=== PATIENT | female | born 1955 | race American Indian/Alaskan Native ===

== ENCOUNTER 2017-06-28 18:35 | Inpatient (IN) | payer MEDICAID ==
[2017-06-28] MEDS ORDERED: PANTOPRAZOLE SODIUM 40 MG VIAL IV ONE (18:56)
--- NOTE | 2017-06-28 19:06 | ER Document Report ---
ED General - General Chief Complaint: Vomiting Stated Complaint: VOMITTING Time Seen by Provider: 06/28/17 18:56 Notes: 2-year-old female with a history of alcohol use presents with constant chest pressure all day today severe accompanied by vomiting which began to have blood in it. Bright red/dark brown. She has also been having tarry black stools today 2 episodes including one witnessed by the nurse in the ED bathroom. She has some dizziness as well. Presents via EMS having received some fluids and nausea medicine. She is tachycardic and normotensive. TRAVEL OUTSIDE OF THE [place] IN LAST 30 DAYS: No - Related Data Allergies/Adverse Reactions: No Known Allergies Allergy (Verified 05/08/14 21:04) Past Medical History - General Information source: Patient - Social History Smoking Status: Unknown if Ever Smoked Family History: CAD - Past Medical History Cardiac Medical History: Reports: Hx Hypercholesterolemia, Hx Hypertension Pulmonary Medical History: Reports: Hx Asthma Psychiatric Medical History: Reports: Hx Depression Past Surgical History: Reports: Hx Section - x3, Hx Hysterectomy - Partial, Hx Orthopedic Surgery - L Foot, L Leg,, Hx Tonsillectomy - Immunizations Hx Diphtheria, Pertussis, Tetanus Vaccination: No Hx Pneumococcal Vaccination: 12/11/13 Review of Systems - Review of Systems Notes: REVIEW OF SYSTEMS GEN: Denies fever, chills, weight loss ENT: Denies sore throat, nasal discharge, ear pain EYES: Denies blurry vision, eye pain, discharge CV: Chest pressure a RESP: Denies cough, shortness of breath, wheezing GI: D vomiting, hematemesis, melena MSK: Denies joint pain/swelling, edema, SKIN: Denies rash, skin lesions LYMPH: Denies swollen glands/lymph nodes NEURO: Denies headache, focal weakness or numbness, dizziness PSYCH: Denies depression, suicidal or homicidal ideation PHYSICAL EXAMINATION General: No acute distress, well-nourished Head: Atraumatic, normocephalic ENT: Mouth normal, oropharynx moist, no exudates or tonsillar enlargement Eyes: Conjunctiva normal, pupils equal, lids normal Neck: No JVD, supple, no guarding CVS: Normal rate, regular rhythm, no murmurs Resp: No resp distress, equal and normal breath sounds bilaterally GI: Nondistended, soft, no tenderness to palpation, no rebound or guarding. There is a bag at the bedside containing mucus and coffee-ground type substance. Ext: No deformities, no edema, normal range of motion in upper and lower ext Back: No CVA or midline TTP Skin: No rash, warm Lymphatic: No lymphadeopathy noted Neuro: Awake, alert. Face symmetric. GCS 15. Physical Exam - Vital signs Vitals: Temp Pulse Resp BP Pulse Ox 98.6 F 104 H 17 122/68 96 06/28/17 18:40 06/28/17 18:40 06/28/17 18:40 06/28/17 18:40 06/28/17 18:40 Course - Re-evaluation Re-evalutation: 06/28/17 19:05 62-year-old female presents with chest pressure worrisome for acute coronary syndrome versus Francisca-Aden tear less likely esophageal perforation along with some signs and symptoms of an upper GI bleed including melena and hematemesis. She is tachycardic. Risk factors include alcoholism. She is clinically stable at this time will require hydration, IV proton pump inhibitors , transfer for upper GI bleed workup. In the meantime I will get a CBC type and screen her, get liver function testing, EKG and rule out PA with troponin. 06/28/17 19:23 Reassessed at 7:20 PM. No further bowel movement or vomiting. Requested second IV and to place the patient on the monitor. She will need to be transferred out. Labs are pending. 06/28/17 21:16 Patient is stable. No further vomiting. Rectal exam shows jahaira black stools/ melena. CT on my read does not show perforation. Troponin is negative. Pain is better with morphine. Not requiring transfusion at this time given her clinical stability. I will start a Protonix drip. I consulted with Dr. Sanchez from gastroneurology who agrees with plan admission, and will see the patient in the morning assuming she stays stable. I then spoke with Dr. Nelson who agreed to admit the patient to the ICU at this point with possible downgrade to stepdown. Please see critical care documentation - Vital Signs Vital signs: Temp Pulse Resp BP Pulse Ox 98.6 F 104 H 17 122/68 96 06/28/17 18:40 06/28/17 18:40 06/28/17 18:40 06/28/17 18:40 06/28/17 18:40 - Laboratory Result Diagrams: 06/28/17 19:30 06/28/17 19:30 Laboratory results interpreted by me: 06/28/17 06/28/17 06/28/17 19:03 19:30 19:30 RBC 3.14 L Hgb 9.0 L Hct 27.6 L RDW 22.0 H Sodium 136.1 L Carbon Dioxide 16 L BUN 34 H Lactic Acid Ammonia Urine Ketones 20 H 06/28/17 06/28/17 19:30 19:30 RBC Hgb Hct RDW Sodium Carbon Dioxide BUN Lactic Acid 3.4 H Ammonia < 8.7 L Urine Ketones - Diagnostic Test Radiology reviewed: Image reviewed, Reports reviewed - EKG Interpretation by Me EKG shows normal: Sinus rhythm Rate: Normal Rhythm: NSR When compared to previous EKG there are: No significant change Critical Care Note - Critical Care Note Total time excluding time spent on procedures (mins): 35 Comments: The above patient is critically ill. Not including procedures, but including direct re-evaluations, speaking with patient and/or consultants, interpreting results, and documenting, I spent the total amount of minute listed listed above on critical care time Discharge - Discharge Clinical Impression: Gastrointestinal bleeding, upper, Chest pain, atypical Condition: Fair Disposition: ADMITTED INPATIENT Admitting Provider: Hospitalist Unit Admitted: ICU
[2017-06-28] MEDS ORDERED: MORPHINE SULFATE 10 MG/ML INJ IV ONE (19:32)
[2017-06-28 19:55] LABS: APPEARANCE,URINE SLIGHTLY-CLOUDY; BILIRUBIN,URINE NEGATIVE (NEGATIVE); GLUCOSE, URINE NEGATIVE (NEGATIVE); KETONES,URINE 20 mg/dL (NEGATIVE); LEUKOCYTE ESTERASE,URINE NEGATIVE (NEGATIVE); NITRITE,URINE NEGATIVE (NEGATIVE); PROTEIN,URINE NEGATIVE (NEGATIVE); URINE SPECIFIC GRAVITY 1.014; UROBILINOGEN,URINE NEGATIVE mg/dL (<2.0)
[2017-06-28 20:04] LABS: ABSOLUTE LYMPHOCYTES (AUTO) 1.9 10^3/uL (0.5-4.7); ABSOLUTE MONOCYTES (AUTO) 0.4 10^3/uL (0.1-1.4); ABSOLUTE NEUT (AUTO) 7.9 10^3/uL (1.7-8.2); BASOPHILS % (AUTO) 0.3 % (0-2); EOSINOPHILS % (AUTO) 0.1 % (0-6); HEMATOCRIT 27.6 % (36.0-47.0); HGB HCT DIFFERENCE -0.6; MEAN CORPUSCULAR HEMOGLOBIN 28.6 pg (27.0-33.4); MEAN CORPUSCULAR HGB CONC 32.5 g/dL (32.0-36.0); MEAN CORPUSCULAR VOLUME 88 fl (80-97); MONOCYTES % (AUTO) 4.2 % (3-13); RED BLOOD COUNT 3.14 10^6/uL (3.72-5.28); SEGMENTED NEUTROPHILS % (AUTO) 76.4 % (42-78); WHITE BLOOD COUNT 10.3 10^3/uL (4.0-10.5)
[2017-06-28 20:30] LABS: ALANINE AMINOTRANSFERASE 20 U/L (9-52); ALBUMIN 4.1 g/dL (3.5-5.0); ALKALINE PHOSPHATASE 82 U/L (38-126); ANION GAP 15 (5-19); ASPARTATE AMINO TRANSFERASE 20 U/L (14-36); BILIRUBIN,DIRECT 0.4 mg/dL (0.0-0.4); BILIRUBIN,TOTAL 0.5 mg/dL (0.2-1.3); BLOOD UREA NITROGEN 34 mg/dL (7-20); CALCIUM 9.5 mg/dL (8.4-10.2); CARBON DIOXIDE 16 mmol/L (22-30); CHLORIDE 105 mmol/L (98-107); CREATININE RESULT 0.93 mg/dL (0.52-1.25); GLUCOSE 104 mg/dL (75-110); POTASSIUM 4.4 mmol/L (3.6-5.0); SODIUM 136.1 mmol/L (137-145); TOTAL PROTEIN 6.7 g/dL (6.3-8.2)
[2017-06-28] MEDS ORDERED: NORMAL SALINE 1000 ML 1,000 ML IV ONE (20:38)
[2017-06-28] MEDS ORDERED: PANTOPRAZOLE SODIUM 40 MG VIAL IV PRN (21:12)
--- NOTE | 2017-06-28 21:13 | RADIOLOGY REPORT (SQ) ---
EXAM DESCRIPTION: CT CHEST WITHOUT COMPLETED DATE/TIME: 06/28/2017 9:03 pm REASON FOR STUDY: hematemesis and CP, r/o esoph PERF- Needs GASTRO COMPARISON: None. TECHNIQUE: CT scan performed of the chest without intravenous contrast. Images reviewed with lung, soft tissue and bone windows. Reconstructed coronal and sagittal MPR images reviewed. All images st ored on PACS. All CT scanners at this facility use dose modulation, iterative reconstruction, and/or weight based d osing when appropriate to reduce radiation dose to as low as reasonably achievable (ALARA). [facility]: Dose Right [facility]: CareDose [facility]: Dose Right [facility]: Teradose 4D [facility]: Smart Fliggo RADIATION DOSE: Up-to-date CT equipment and radiation dose reduction techniques were employed. CTDIv ol: 25.0 mGy. DLP: 1022 mGy-cm. mGy. LIMITATIONS: No technical limitations. FINDINGS: LUNGS AND PLEURA: No masses, infiltrates, pneumothorax. No pleural effusions, calcificati ons. HILAR AND MEDIASTINAL STRUCTURES: Esophagus appears intact. No CT evidence of esophageal perforation . No contrast extravasation. No mediastinal air. HEART AND VASCULAR STRUCTURES: No aneurysm. No pericardial effusion. UPPER ABDOMEN: There is a left adrenal lesion most likely adenoma or hyperplasia. THYROID AND OTHER SOFT TISSUES: No masses. No adenopathy. BONES: No significant finding. HARDWARE: None in the chest. OTHER: No other significant findings. IMPRESSION: NO SIGNIFICANT FINDING ON NON-CONTRASTED CHEST CT. TECHNICAL DOCUMENTATION: JOB ID: [id number] Quality ID # [id number]: Final reports with documentation of one or more dose reduction techniques (e.g., Au tomated exposure control, adjustment of the mA and/or kV according to patient size, use of iterative reconstruction technique) 2010 [employer]- All Rights Reserved
[2017-06-28 21:57] LABS: ADD ON TESTING BLD IN LAB ACKNOWLEDGE
[2017-06-28 22:04] LABS: PROTHROMBIN TIME 12.9 SEC (11.4-15.4)
[2017-06-28 22:05] LABS: PARTIAL THROMBOPLASTIN TIME 27.8 SEC (23.5-35.8)
[2017-06-28 22:08] LABS: ALCOHOL 109 mg/dL (NONE DETECTED); MAGNESIUM 2.3 mg/dL (1.6-2.3)
[2017-06-28 23:04] LABS: HEMATOCRIT 27.8 % (36.0-47.0); HGB HCT DIFFERENCE -0.8; MEAN CORPUSCULAR HEMOGLOBIN 28.9 pg (27.0-33.4); MEAN CORPUSCULAR HGB CONC 32.5 g/dL (32.0-36.0); MEAN CORPUSCULAR VOLUME 89 fl (80-97); RED BLOOD COUNT 3.13 10^6/uL (3.72-5.28); RED CELL DISTRIBUTION WIDTH 22.1 % (11.5-14.0); WHITE BLOOD COUNT 9.3 10^3/uL (4.0-10.5)
[2017-06-29] MEDS ORDERED: THIAMINE HCL 100 MG in NORMAL SALINE 50 ML IV ONE (00:02)
[2017-06-29] MEDS ORDERED: ACETAMINOPHEN 325 MG TABLET PO PRN ×2 (00:07→15:15)
[2017-06-29] MEDS ORDERED: DEXTROSE 40% GEL 15 GM TUBE PO PRN ×2 (00:09)
[2017-06-29] MEDS ORDERED: DEXTROSE 50%-WATER 25 GM/50 ML DISP.SYRIN IV PRN ×2 (00:09)
[2017-06-29] MEDS ORDERED: GLUCAGON,HUMAN RECOMB 1 MG INJ IM PRN (00:09)
[2017-06-29] MEDS ORDERED: PROMETHAZINE HCL 25 MG TABLET PO PRN (00:12)
[2017-06-29] MEDS ORDERED: NICOTINE 14 MG/24 HR PATCH.TD24 TD PRN (00:32)
--- NOTE | 2017-06-29 00:36 | PDOC H&P ---
History of Present Illness Admission Date/PCP: 06/28/17 22:02 Alba Reyes Patient complains of: Chest pain, hematemesis, melena History of Present Illness: RORO DAS is a 62 year old morbidly obese female with underlying hypothyroidism, hyperlipidemia, diet-controlled diabetes mellitus, acid reflux, COPD, hypertension, history of DVT in 1995 treated with Coumadin, chronic pain secondary to arthritis, primarily affecting left knee and hip, and chronic alcohol dependency, along with mild anxiety and depression, without suicidal or homicidal ideation, who presents to the emergency room for evaluation of above complaints. Patient has been discussed with emergency room physician who evaluated the patient. Prior to my being called, the ER physician did speak with Dr. Sanderson, on-call [employer] operations consultant, who agrees with therapy so far and agrees to see patient in consultation. She describes the onset of constant chest pressure all day today, worsened by multiple episodes of nausea and vomiting, with the last few episodes of emesis having combination of bright and dark red blood. Also noted tarry stools, twice today, including one witnessed by a nurse in the emergency department. Some associated mild dizziness. He has never had any problems with GI bleeding in the past. Never had a colonoscopy or upper endoscopy. No known history of bleeding ulcer or varices. Takes a baby aspirin every day. Rare Goody powder. 2 [id number] Motrin daily for her arthritis pain. History of alcohol abuse. States she often drinks approximately a glass of wine per day. States she last had alcohol approximately 24 hours ago; seemed surprised when I told her her alcohol level was 109. Half pack of cigarettes a day. Denies illicit drug use. Currently resting quietly, still having some chest discomfort. Hospitalized on our service the through 28 April of last year final diagnoses including acute renal failure secondary to rhabdomyolysis and dehydration, along with metabolic encephalopathy secondary to opiates and multiple drug use. Discharge summary has been reviewed. Hospitalized on our service April 2014 with admission diagnoses including acute alcohol intoxication, chronic alcohol abuse, atypical chest pain, and indeterminate troponins. History and physical has been reviewed. Dictation via voice recognition software. Laboratory results are listed in [employer] and are reviewed. X-ray summary results are listed below, with full report(s) reviewed. . EKG reviewed and compared to prior tracing from April 26 of last year. Social history/personal habits: . 5 children. On disability due to severe arthritis. Personal habits as noted above. No known drug allergies. Home medications initially autopopulated into [employer] may not accurately reflect patient's true medications, dosages, and/or frequencies. technician telecommunication systems to reconcile medications. Unfortunately, patient not certain of all medications/dosages/frequencies. REVIEW OF SYSTEMS: Constitutional: No fever or chills. Eyes: Wears glasses. ENT: No swallowing problems or complaints. Denies hearing loss. Pulmonary: No current complaints. Cardiovascular: See history and present illness. Gastrointestinal: See history and present illness. Skin: No current complaints, including rashes. Hematologic: Easy bruising. Neurologic: Chronic weakness of the left ankle on dorsiflexion secondary to prior trauma. Musculoskeletal: See history and present illness. Psychiatric: Mild anxiety and depression. Denies suicidal or homicidal ideation. Endocrine: No current complaints, including polyuria. Genitourinary: No current complaints, including dysuria. PHYSICAL EXAMINATION: 5 feet 3 inches tall. 104.2 kg. BMI 40.7 kg/m. Blood pressure 107/72. Pulse 105. 99% saturation on room air. Respirations are 13 and unlabored. Temperature 98.6. Morbidly obese somewhat chronically ill-appearing female who appears perhaps a bit older than her stated age. Pleasant awake alert and cooperative. No obvious distress other than somewhat anxious. Female emergency room nursing educator Vickie is present. Skin is warm and dry. No grossly obvious evidence of rash in areas of skin examined. No subcutaneous nodules palpated. ENT: Hearing grossly normal to normal conversation. Tongue midline on protrusion pink and slightly tacky. Eyes: No scleral icterus. Pupils equal and reactive to light at 4 mm. [place] conjunctivae. Neck is supple and nontender to gentle active range of motion and palpation. Midline trachea. No palpable thyroid nodule mass enlargement or tenderness. Lymphatic: No palpable cervical or clavicular nodes. Neck and lymphatic exams limited by patient body habitus. Psychiatric: Reasonable insight into acute and chronic medical issues. Oriented to time location and why here. Lungs: Auscultation reveals equal breath sounds bilaterally. No use of accessory respiratory muscles. Mild brief expiratory wheezing bilaterally. Cardiovascular: Heart regular rate and rhythm, without gallop murmur or rub. No carotid or abdominal aortic bruits. No ankle or pedal edema. Faintly palpable dorsalis pedis pulses. Abdomen:soft obese with positive bowel sounds. Mild epigastric discomfort to palpation, but certainly without evidence of guarding or peritoneal signs. Unable to adequately evaluate abdomen for masses or organomegaly due to body habitus. Compression of both her epigastrium and sternum exacerbates her mild chest discomfort. Extremities: Feet are warm and dry. No calf tenderness to compression. No grossly obvious visual evidence of calf swelling. Gentle manipulation of lower extremities fails to reveal any obvious evidence of injury or instability to knees hips or ankles, although some slight stiffness and discomfort to knees and hips, left greater than right, a chronic finding, per patient, without recent change. Neurologic: Moves upper extremities grossly normally. Patellar reflexes absent. Absent Babinski. Light touch is intact at feet. Dorsiflexion and plantarflexion of right foot 5 / 5, with plantarflexion 5/5 on left, and 3/5 dorsiflexion, again a chronic finding per patient, without recent change. Past Medical History Cardiac Medical History: Reports: DVT - 1995, Hyperlipidema, Hypertension Denies: Atrial Fibrillation, Congestive Heart Failure, Coronary Artery Disease, Myocardial Infarction, Pulmonary Embolism Pulmonary Medical History: Denies: Chronic Obstructive Pulmonary Disease (COPD) EENT Medical History: Reports: Eyes - Glasses Denies: Ears, Throat Neurological Medical History: Denies: Hemorrhagic CVA, Ischemic CVA, Seizures Endocrine Medical History: Reports: Diabetes Mellitus Type 2 - Diet controlled, Hypothyroidism Denies: Diabetes Mellitus Type 1, Hyperthyroidism Renal/ Medical History: Reports: None GI Medical History: Reports: Gastroesophageal Reflux Disease Denies: Cirrhosis, Hepatitis, Peptic Ulcer Disease Musculoskeltal Medical History: Reports: Arthritis Skin Medical History: Reports: None Psychiatric Medical History: Reports: Alcohol Dependency, Depression, General Anxiety Disorder, Tobacco Dependency Denies: Substance Abuse Hematology: Reports: Other - Easy bruising Infectious Medical History: Denies: Hepatitis B, Hepatitis C Past Surgical History Past Surgical History: Reports: Section - x3, Hysterectomy - Partial, Orthopedic Surgery - L Foot, L Leg,, Tonsillectomy Social History Information Source: Patient, Emergency Med Personnel, [facility] Records Smoking Status: Current Every Day Smoker Frequency of Alcohol Use: Heavy Hx Recreational Drug Use: No Drugs: None Hx Prescription Drug Abuse: No - Advance Directive Resuscitation Status: Full Code Surrogate healthcare decision maker:: Brother Abundio Andujar Family History Family History: CAD Parental Family History Reviewed: Yes - Mother of cancer, father diabetic complications Children Family History Reviewed: Yes - Healthy Sibling(s) Family History Reviewed.: Yes - Brother of suicide, sister cancer Medication/Allergy Home Medications: Amitriptyline HCl [Elavil 25 mg Tablet] 25 mg PO QHS 06/29/17 Amlodipine Besylate [Norvasc 5 mg Tablet] 5 mg PO DAILY 06/29/17 Aspirin [Aspirin 81 mg Chewable Tablet] 81 mg PO DAILY 06/29/17 Atorvastatin Calcium [Lipitor 40 mg Tablet] 40 mg PO QHS 06/29/17 Fluoxetine HCl [Prozac 20 mg Capsule] 20 mg PO DAILY 06/29/17 Gabapentin [Neurontin 300 mg Capsule] 300 mg PO BID 06/29/17 Ibuprofen [Motrin Ib] 200 mg PO DAILYP PRN 06/29/17 Ipratropium/Albuterol Sulfate [Duoneb 3 ml Ampul] 3 ml NEB RTBIDP PRN 06/29/17 Levothyroxine Sodium [Synthroid 0.025 mg Tablet] 25 mcg PO DAILY 06/29/17 Lisinopril [Prinivil] 20 mg PO Q12 06/29/17 Oxycodone HCl [Oxycontin] 30 mg PO Q12 06/29/17 Pantoprazole Sodium [Protonix] 40 mg PO BIDACBS 06/29/17 Tiotropium [place] [Spiriva Handihaler 5 Cap/Kit (18 Mcg/Cap)] 1 cap IH DAILY Tramadol HCl [Ultram 50 mg Tablet] 50 mg PO BIDP PRN 06/29/17 Allergies/Adverse Reactions: No Known Allergies Allergy (Verified 05/08/14 21:04) Physical Exam Vital Signs: Temp Pulse Resp BP Pulse Ox 98.6 F 104 H 14 109/50 L 99 06/28/17 18:40 06/28/17 18:40 06/28/17 23:01 06/28/17 23:01 06/28/17 23:01 Results Laboratory Results: 06/28/17 22:30 06/28/17 06/28/17 22:30 22:30 WBC 9.3 RBC 3.13 L Hgb 9.0 L Hct 27.8 L MCV 89 MCH 28.9 MCHC 32.5 RDW 22.1 H Plt Count 230 Blood Type A POSITIVE Antibody Screen NEGATIVE Impressions: Chest CT 06/28/17 19:56 IMPRESSION: NO SIGNIFICANT FINDING ON NON-CONTRASTED CHEST CT. Assessment & Plan - Diagnosis (1) Abnormal CT of the abdomen Is this a current diagnosis for this admission?: YesPlan: Left adrenal adenoma versus hyperplasia. Outpatient follow-up. (2) Acute alcohol intoxication Qualifiers: Complication of substance-induced condition: uncomplicated Qualified Code(s): F10.929 - Alcohol use, unspecified with intoxication, unspecified Is this a current diagnosis for this admission?: Yes (3) Chest pain, atypical Is this a current diagnosis for this admission?: YesPlan: No outward evidence of acute coronary syndrome, but will proceed with serial troponins. Likely esophageal spasm and irritation secondary to multiple episodes of vomiting. (4) Gastrointestinal bleeding, upper Is this a current diagnosis for this admission?: YesPlan: Carafate every 6 hours. Parenteral Protonix. GI consult. Serial hemoglobin and hematocrit. Patient understands the risks associated with blood product transfusion to include, but not be limited to, transfusion reaction, which can be fatal, along with hepatitis and/or HIV viruses. Discussed in lay person's terms. Patient agrees to undergo transfusion of blood products if felt necessary. I have strongly encouraged patient not to get out of bed without notifying staff , to avoid a fall with injury. Knee high SCDs for DVT prophylaxis; with GI bleeding, will obviously forego Lovenox or heparin at this point. Impression and plans were discussed with patient who concurs. Time spent in evaluation and management of patient: 74 minutes. (5) Chronic alcohol abuse Is this a current diagnosis for this admission?: YesPlan: Intravenous thiamine at present; daily banana bag. Observe closely for evidence of alcohol withdrawal; none at present. (6) Chronic pain Qualifiers: Chronic pain type: other chronic pain Qualified Code(s): G89.29 - Other chronic pain Is this a current diagnosis for this admission?: YesPlan: As needed pain medication. (7) Diabetes mellitus type 2 in obese Is this a current diagnosis for this admission?: YesPlan: Diet-controlled diabetes mellitus. Accu-Cheks with appropriate sliding scale coverage. (8) Personal history of DVT (deep vein thrombosis) Is this a current diagnosis for this admission?: Yes (9) Tobacco dependency Is this a current diagnosis for this admission?: YesPlan: As needed nicotine patch. - Time Time Spent: Greater than 70 Minutes Anticipated discharge: Home Within: within 72 hours - Inpatient Certification Based on my medical assessment, after consideration of the patient's comorbidities, presenting symptoms, or acuity I expect that the services needed warrant INPATIENT care.: Yes I certify that my determination is in accordance with my understanding of Medicare's requirements for reasonable and necessary INPATIENT services [42 CFR 412.3e].: Yes Medical Necessity: Need Close Monitoring Due to Risk of Patient Decompensation, Need For IV Fluids, Risk of Complication if Not Cared For in Hospital, Risk of Diagnosis Which Will Require Inpatient Eval/Care/Monitoring Post Hospital Care: D/C or Transfer Summary
--- NOTE | 2017-06-29 00:56 | PDOC CONSULTATION ---
Consultation Consult Date: 06/28/17 Attending physician:: SHANELL MADSEN Consult reason:: possible upper GI bleeding, with coffee grounds History of Present Illness Admission Date/PCP: 06/28/17 23:40 History of Present Illness: Called by ED physician, patient present with melena,and possible coffee ground emesis Hgb is stable patient was tachycardic but resolved with fluid she is going to be admitted patient states positive NSAIDS in the past currently hemodynamically stable denies any early satiety patient states no dysphagia or odynophagia will need EGD may have peptic ulcer disease Past Medical History Cardiac Medical History: Reports: Hyperlipidema, Hypertension Pulmonary Medical History: Reports: Asthma Psychiatric Medical History: Reports: Depression Past Surgical History Past Surgical History: Reports: Section - x3, Hysterectomy - Partial, Orthopedic Surgery - L Foot, L Leg,, Tonsillectomy Social History Smoking Status: Current Every Day Smoker Frequency of Alcohol Use: Heavy Hx Recreational Drug Use: No Drugs: None Hx Prescription Drug Abuse: No - Advance Directive Resuscitation Status: Full Code Family History Family History: CAD Parental Family History Reviewed: Yes Children Family History Reviewed: Unknown Sibling(s) Family History Reviewed.: Unknown Medication/Allergy Home Medications: Levothyroxine Sodium [Synthroid 0.025 mg Tablet] 25 mcg PO DAILY 04/27/16 Pantoprazole Sodium 40 mg PO DAILY 04/27/16 Tramadol HCl 50 mg PO PRN PRN 04/27/16 Amlodipine Besylate [Norvasc 5 mg Tablet] 5 mg PO DAILY 06/28/17 Aspirin 81 mg PO DAILY 06/28/17 Atorvastatin Calcium 40 mg PO DAILY 06/28/17 Ibuprofen 400 mg PO PRN PRN 06/28/17 Ipratropium/Albuterol Sulfate [Duoneb 3 ml Ampul] 3 ml NEB Q12 06/28/17 Lisinopril 10 mg PO Q12 06/28/17 Oxycodone HCl [Oxycontin Sr 40 mg Tablet] 20 mg PO Q12 06/28/17 Tiotropium Riesel [Spiriva Handihaler 18 mcg/dose (30 Dose)] 1 puff IH DAILY Trazodone HCl 50 mg PO PRN PRN 06/28/17 Allergies/Adverse Reactions: No Known Allergies Allergy (Verified 05/08/14 21:04) Review of Systems Constitutional: ABSENT: fever(s), headache(s), night sweats, weakness Eyes: ABSENT: visual disturbances Ears: ABSENT: hearing changes Nose, Mouth, and Throat: ABSENT: mouth pain, sore throat Cardiovascular: ABSENT: edema, orthropnea, palpitations Respiratory: ABSENT: dyspnea, hemoptysis Gastrointestinal: PRESENT: coffee ground emesis. ABSENT: diarrhea, nausea, vomiting Genitourinary: ABSENT: dysuria, hematuria Musculoskeletal: ABSENT: deformity, joint swelling Integumentary: ABSENT: lesions, pruritus Neurological: ABSENT: syncope, tingling, tremor(s), vertigo Endocrine: ABSENT: menstrual abnormalities, polyphagia, polyuria Hematologic/Lymphatic: ABSENT: easy bruising Physical Exam Vital Signs: Temp Pulse Resp BP Pulse Ox 98.6 F 104 H 20 106/68 96 06/28/17 18:40 06/28/17 18:40 06/29/17 00:31 06/29/17 00:31 06/29/17 00:31 General appearance: PRESENT: mild distress, well-developed, well-nourished Head exam: PRESENT: atraumatic, normocephalic Eye exam: PRESENT: EOMI, PERRLA. ABSENT: scleral icterus Mouth exam: PRESENT: moist, neck supple Throat exam: ABSENT: tonsillar exudate, tonsillogmegaly Neck exam: ABSENT: meningismus, tenderness, thyromegaly Respiratory exam: PRESENT: symmetrical, unlabored. ABSENT: tachypnea, wheezes Cardiovascular exam: PRESENT: RRR, +S1, +S2 GI/Abdominal exam: PRESENT: soft. ABSENT: ascites, distended, El's sign, rebound, rigid, tenderness Extremities exam: ABSENT: joint swelling, pedal edema Musculoskeletal exam: PRESENT: full ROM Neurological exam: PRESENT: oriented to time, oriented to situation, reflexes normal, CN II-XII grossly intact Skin exam: PRESENT: normal color. ABSENT: mottled, pallor, petechiae, urticaria , vesicles Results Impressions: Chest CT 06/28/17 19:56 IMPRESSION: NO SIGNIFICANT FINDING ON NON-CONTRASTED CHEST CT. Assessment & Plan - Diagnosis (1) Chest pain, atypical Is this a current diagnosis for this admission?: YesPlan: may be related to peptic ulcer disease will need EGD agree with admission PPI drip follow up H/H and follow as needed Risks, benefits and alternatives discussed with the patient NPO for now (2) Gastrointestinal bleeding, upper Is this a current diagnosis for this admission?: YesPlan: stable for now suspect possible upper GI bleed EGD as planned vitals are stable further recommendations to follow - Time Time Spent: 50 to 70 Minutes
[2017-06-29] MEDS ORDERED: THIAMINE HCL INJ 200 MG/2 ML VIAL ONE (00:57)
[2017-06-29 01:04] LABS: URINE BARBITURATES SCREEN NEGATIVE; URINE METHADONE SCREEN NEGATIVE; URINE OPIATES LOW NEGATIVE; URINE PHENCYCLIDINE SCREEN NEGATIVE
[2017-06-29] MEDS: MORPHINE SULFATE 10 MG/ML INJ IV PRN ×5 (01:08→20:59)
[2017-06-29] MEDS: NORMAL SALINE 1000 ML 1,000 ML IV PRN ×2 (02:19→13:16)
[2017-06-29 03:53] LABS: HEMATOCRIT 23.4 % (36.0-47.0); HGB HCT DIFFERENCE -0.6; MEAN CORPUSCULAR HEMOGLOBIN 28.8 pg (27.0-33.4); MEAN CORPUSCULAR HGB CONC 32.5 g/dL (32.0-36.0); MEAN CORPUSCULAR VOLUME 88 fl (80-97); RED BLOOD COUNT 2.64 10^6/uL (3.72-5.28); RED CELL DISTRIBUTION WIDTH 21.6 % (11.5-14.0); WHITE BLOOD COUNT 8.1 10^3/uL (4.0-10.5)
[2017-06-29 03:54] LABS: HEMOGLOBIN 7.6 g/dL (12.0-15.5)
[2017-06-29] MEDS ORDERED: NORMAL SALINE 250 ML IV PRN ×4 (03:59→13:20)
[2017-06-29] MEDS: SUCRALFATE 1 GM TABLET PO SCH ×4 (05:57→23:30)
[2017-06-29] MEDS ORDERED: ONDANSETRON HCL INJ/PF 4 MG/2 ML SDV ONE (06:57)
[2017-06-29] MEDS ORDERED: DIPHENHYDRAMINE HCL 50 MG/ML VIAL ONE (06:57)
[2017-06-29] MEDS ORDERED: FENTANYL CITRATE INJ/PF 100 MCG/2 ML AMPUL ONE (06:57)
[2017-06-29] MEDS ORDERED: NALOXONE HCL INJ/PF 0.4 MG/1 ML SDV ONE (06:57)
[2017-06-29] MEDS ORDERED: EPINEPHRINE INJ 1 MG/10 ML DISP.SYRIN ONE (06:58)
[2017-06-29] MEDS ORDERED: GLUCAGON,HUMAN RECOMB 1 MG INJ ONE (06:58)
[2017-06-29] MEDS ORDERED: FLUMAZENIL INJ 0.5 MG/5 ML VIAL IV ONE (06:58)
[2017-06-29] MEDS: MIDAZOLAM 2 MG/2 ML INJ ONE ×3 (07:25→07:35)
--- NOTE | 2017-06-29 07:50 | Operative Report ---
Operative Report DATE OF SURGERY: 06/29/17 Operative Report: The risks benefits and alternatives of the procedure explained to the patient in detail and informed consent is obtained.A GIF Olympus video scope was inserted into the patient's mouth and hypopharynx, the esophagus is identified intubated and insufflated, the scope was then advanced through the esophagus stomach and duodenum, retroflexion maneuver is done ,the esophagus stomach and first and second portions of the duodenum examined PREOPERATIVE DIAGNOSIS: GI bleeding, melena POSTOPERATIVE DIAGNOSIS: Bleeding lesion located along the greater curvature side of the stomach; likely either small to the dieulafoy lesion versus AVM. Control of hemorrhage was done using argon plasma device ERBE OPERATION: EGD with control of hemorrhage SURGEON: SHANELL MADSEN ANESTHESIA: Moderate Sedation - 5 mg of Versed, 100 mcg of fentanyl. Conscious sedation monitoring time 30 minutes. TISSUE REMOVED OR ALTERED: None. COMPLICATIONS: None. ESTIMATED BLOOD LOSS: None. INTRAOPERATIVE FINDINGS: As described above. No gastric or duodenal ulcers. No Francisca-Aden tear. No esophageal varices PROCEDURE: Patient tolerated the procedure well. She sent back to her room in good condition. Follow H&H which can be reduced to once daily. N.p.o. for 6 hours can start clears for lunch We will continue to monitor for further bleeding Further recommendations to follow
[2017-06-29] MEDS: PANTOPRAZOLE SODIUM 40 MG VIAL IV SCH ×2 (09:01→22:01)
[2017-06-29] MEDS: IPRATROPIUM/ALBUTEROL 0.5-2.5 MG/3 ML AMPUL NEB PRN (09:37)
[2017-06-29 11:25] LABS: HEMATOCRIT 23.8 % (36.0-47.0); HGB HCT DIFFERENCE 0.2; MEAN CORPUSCULAR HEMOGLOBIN 29.5 pg (27.0-33.4); MEAN CORPUSCULAR HGB CONC 33.4 g/dL (32.0-36.0); MEAN CORPUSCULAR VOLUME 88 fl (80-97); RED CELL DISTRIBUTION WIDTH 19.7 % (11.5-14.0); WHITE BLOOD COUNT 6.5 10^3/uL (4.0-10.5)
[2017-06-29 11:40] LABS: ANION GAP 9 (5-19); BLOOD UREA NITROGEN 26 mg/dL (7-20); CALCIUM 8.6 mg/dL (8.4-10.2); CARBON DIOXIDE 20 mmol/L (22-30); CHLORIDE 109 mmol/L (98-107); CREATININE RESULT 0.77 mg/dL (0.52-1.25); GLUCOSE 100 mg/dL (75-110); POTASSIUM 4.7 mmol/L (3.6-5.0); SODIUM 138.1 mmol/L (137-145)
--- NOTE | 2017-06-29 13:09 | EKG REPORT ---
SEVERITY:- BORDERLINE ECG - SINUS TACHYCARDIA BORDERLINE PROLONGED QT INTERVAL : Confirmed by: Paris Klein 29-Jun-2017 13:09:07
--- NOTE | 2017-06-29 13:31 | PDOC PROGRESS REPORT ---
Subjective Progress Note for:: 06/29/17 Subjective:: Patient is feeling better overall. Denies diarrhea, nausea or vomiting this time. No dysuria urgency or frequency. No chest pain or shortness of breath. No PND orthopnea. Patient received 1 unit of packed RBC. Upper endoscopy revealed source of bleeding could be from AV malformation or Dieulafoy lesion. Physical Exam Vital Signs: Temp Pulse Resp BP Pulse Ox 98.2 F 83 20 94/44 L 100 06/29/17 11:39 06/29/17 11:39 06/29/17 11:39 06/29/17 11:39 06/29/17 11:39 Intake & Output 06/28/17 06/29/17 06/30/17 06:59 06:59 06:59 Intake Total 500 500 Balance 500 500 Weight 102.8 kg 102.8 kg General appearance: PRESENT: no acute distress, cooperative, obese Head exam: PRESENT: normocephalic Eye exam: PRESENT: conjunctiva pale, EOMI Mouth exam: PRESENT: moist, neck supple Neck exam: ABSENT: JVD Respiratory exam: PRESENT: clear to auscultation nicola. ABSENT: rhonchi, wheezes Cardiovascular exam: PRESENT: RRR. ABSENT: gallop GI/Abdominal exam: PRESENT: normal bowel sounds, soft. ABSENT: distended, tenderness Extremities exam: ABSENT: pedal edema Neurological exam: PRESENT: alert, awake, oriented to situation Skin exam: PRESENT: dry, warm. ABSENT: cyanosis Results Laboratory Results: 06/29/17 11:04 06/29/17 11:04 06/29/17 06/29/17 06/29/17 03:35 11:04 11:04 WBC 8.1 6.5 RBC 2.64 L 2.70 L Hgb 7.6 L 8.0 L Hct 23.4 L 23.8 L MCV 88 88 MCH 28.8 29.5 MCHC 32.5 33.4 RDW 21.6 H 19.7 H Plt Count 185 172 Sodium 138.1 Potassium 4.7 Chloride 109 H Carbon Dioxide 20 L Anion Gap 9 BUN 26 H Creatinine 0.77 Est GFR ( Amer) > 60 Est GFR (Non-Af Amer) > 60 Glucose 100 Calcium 8.6 06/29/17 06/29/17 01:44 11:04 Troponin I 0.037 0.021 Impressions: Chest CT 06/28/17 19:56 IMPRESSION: NO SIGNIFICANT FINDING ON NON-CONTRASTED CHEST CT. Assessment & Plan - Diagnosis (1) Gastrointestinal bleeding, upper Is this a current diagnosis for this admission?: Yes (2) Chest pain, atypical Is this a current diagnosis for this admission?: Yes (3) Abnormal CT of the abdomen Is this a current diagnosis for this admission?: Yes (4) Iron deficiency anemia secondary to blood loss (chronic) Is this a current diagnosis for this admission?: Yes (5) Hypothyroidism (acquired) Is this a current diagnosis for this admission?: Yes (6) Alcohol abuse Is this a current diagnosis for this admission?: Yes (7) Morbid obesity Is this a current diagnosis for this admission?: Yes (8) GERD (gastroesophageal reflux disease) Qualifiers: Esophagitis presence: without esophagitis Qualified Code(s): K21.9 - Gastro-esophageal reflux disease without esophagitis Is this a current diagnosis for this admission?: Yes (9) Essential hypertension Is this a current diagnosis for this admission?: Yes (10) Hyperlipidemia Qualifiers: Hyperlipidemia type: unspecified Qualified Code(s): E78.5 - Hyperlipidemia, unspecified Is this a current diagnosis for this admission?: Yes (11) Anxiety and depression Is this a current diagnosis for this admission?: Yes (12) Chronic pain Qualifiers: Chronic pain type: other chronic pain Qualified Code(s): G89.29 - Other chronic pain Is this a current diagnosis for this admission?: Yes (13) Diabetes mellitus type 2 in obese Is this a current diagnosis for this admission?: Yes (14) Personal history of DVT (deep vein thrombosis) Is this a current diagnosis for this admission?: Yes - Time Time Spent with patient: 25-34 minutes - Plan Summary Plan Summary: Continue IV proton pump inhibitor. Transfuse 1 more unit of packed RBC. Recheck hematocrit in the morning. Continue supportive care. I will hold any stress test for now in regards to her chest pain and most likely have it done outpatient when GI bleeding stable and resolved.
[2017-06-29] MEDS ORDERED: (PENDING PHARMACY ID) (Oxycodone Hcl [Oxycontin] 30 MG) PO SCH (15:00)
[2017-06-29] MEDS ORDERED: DIPHENHYDRAMINE HCL 25 MG CAPSULE ONE (15:00)
[2017-06-29] MEDS ORDERED: OXYCODONE HCL SR 10 MG TABLET PO ONE (15:00)
[2017-06-29] MEDS ORDERED: DIPHENHYDRAMINE HCL 25 MG CAPSULE PO ONE (16:00)
[2017-06-29] MEDS ORDERED: NORMAL SALINE 1000 ML 1,000 ML with THIAMINE HCL 100 MG, MVI, ADULT NO.1 WITH VIT K 10 ... IV SCH ×4 (18:00)
[2017-06-29 20:46] LABS: ABSOLUTE LYMPHOCYTES (AUTO) 2.7 10^3/uL (0.5-4.7); ABSOLUTE MONOCYTES (AUTO) 0.6 10^3/uL (0.1-1.4); ABSOLUTE NEUT (AUTO) 3.2 10^3/uL (1.7-8.2); BASOPHILS % (AUTO) 0.3 % (0-2); EOSINOPHILS % (AUTO) 0.6 % (0-6); HEMATOCRIT 26.8 % (36.0-47.0); HGB HCT DIFFERENCE 0.2; LYMPHOCYTES % (AUTO) 40.7 % (13-45); MEAN CORPUSCULAR HEMOGLOBIN 29.4 pg (27.0-33.4); MEAN CORPUSCULAR HGB CONC 33.4 g/dL (32.0-36.0); MEAN CORPUSCULAR VOLUME 88 fl (80-97); MONOCYTES % (AUTO) 9.3 % (3-13); RED BLOOD COUNT 3.05 10^6/uL (3.72-5.28); RED CELL DISTRIBUTION WIDTH 19.5 % (11.5-14.0); SEGMENTED NEUTROPHILS % (AUTO) 49.1 % (42-78); WHITE BLOOD COUNT 6.6 10^3/uL (4.0-10.5)
[2017-06-29] MEDS ORDERED: AMITRIPTYLINE HCL 25 MG TABLET PO ONE (22:45)
[2017-06-30] MEDS: MORPHINE SULFATE 10 MG/ML INJ IV PRN ×3 (03:14→21:49)
[2017-06-30] MEDS: IPRATROPIUM/ALBUTEROL 0.5-2.5 MG/3 ML AMPUL NEB PRN ×2 (03:29→14:33)
[2017-06-30 04:51] LABS: HEMATOCRIT 25.1 % (36.0-47.0); HEMOGLOBIN 8.7 g/dL (12.0-15.5); MEAN CORPUSCULAR HEMOGLOBIN 30.2 pg (27.0-33.4); MEAN CORPUSCULAR HGB CONC 34.6 g/dL (32.0-36.0); MEAN CORPUSCULAR VOLUME 87 fl (80-97); RED BLOOD COUNT 2.87 10^6/uL (3.72-5.28); RED CELL DISTRIBUTION WIDTH 19.6 % (11.5-14.0); WHITE BLOOD COUNT 5.4 10^3/uL (4.0-10.5)
[2017-06-30] MEDS: SUCRALFATE 1 GM TABLET PO SCH ×3 (06:09→17:31)
[2017-06-30] MEDS: OXYCODONE HCL SR 10 MG TABLET PO SCH ×2 (06:10→17:31)
--- NOTE | 2017-06-30 08:45 | PDOC PROGRESS REPORT ---
Subjective Progress Note for:: 06/30/17 Subjective:: Patient had undergone EGD earlier yesterday. She had a possible Dieulafoy lesion that was ablated. Her hemoglobin has been stable. This is been over the past 24 hours. No postprocedure complications. The diet should be able to be advanced. The foster hemoglobin is stable with no further intervention is needed. She denies any abdominal pain. Physical Exam Vital Signs: Temp Pulse Resp BP Pulse Ox 98.6 F 83 20 122/58 L 99 06/30/17 08:09 06/30/17 08:09 06/30/17 08:09 06/30/17 08:09 06/30/17 08:09 Intake & Output 06/29/17 06/30/17 07/01/17 06:59 06:59 06:59 Intake Total 500 3475 Output Total 1500 Balance 500 1975 Weight 102.8 kg 103.7 kg General appearance: PRESENT: no acute distress, well-developed, well-nourished Head exam: PRESENT: atraumatic, normocephalic Eye exam: PRESENT: EOMI, PERRLA. ABSENT: nystagmus, periorbital swelling, scleral icterus Mouth exam: PRESENT: moist, neck supple Throat exam: ABSENT: tonsillar exudate, tonsillogmegaly Neck exam: ABSENT: meningismus, tenderness, thyromegaly Respiratory exam: PRESENT: symmetrical, unlabored. ABSENT: tachypnea, wheezes Cardiovascular exam: PRESENT: RRR, +S1, +S2 Pulses: PRESENT: normal carotid pulses GI/Abdominal exam: PRESENT: soft. ABSENT: ascites, El's sign, rebound, rigid Extremities exam: ABSENT: joint swelling Musculoskeletal exam: PRESENT: full ROM Neurological exam: PRESENT: alert, awake, oriented to time, oriented to situation, reflexes normal Skin exam: PRESENT: normal color. ABSENT: mottled, pallor, petechiae, urticaria , vesicles Results Laboratory Results: 06/30/17 04:12 06/29/17 11:04 06/29/17 06/29/17 06/29/17 11:04 11:04 14:58 WBC 6.5 RBC 2.70 L Hgb 8.0 L Hct 23.8 L MCV 88 MCH 29.5 MCHC 33.4 RDW 19.7 H Plt Count 172 Seg Neutrophils % Lymphocytes % Monocytes % Eosinophils % Basophils % Absolute Neutrophils Absolute Lymphocytes Absolute Monocytes Absolute Eosinophils Absolute Basophils Sodium 138.1 Potassium 4.7 Chloride 109 H Carbon Dioxide 20 L Anion Gap 9 BUN 26 H Creatinine 0.77 Est GFR ( Amer) > 60 Est GFR (Non-Af Amer) > 60 Glucose 100 Calcium 8.6 Free T4 0.69 L 06/29/17 06/30/17 20:00 04:12 WBC 6.6 5.4 RBC 3.05 L 2.87 L Hgb 9.0 L 8.7 L Hct 26.8 L 25.1 L MCV 88 87 MCH 29.4 30.2 MCHC 33.4 34.6 RDW 19.5 H 19.6 H Plt Count 159 139 L Seg Neutrophils % 49.1 Lymphocytes % 40.7 Monocytes % 9.3 Eosinophils % 0.6 Basophils % 0.3 Absolute Neutrophils 3.2 Absolute Lymphocytes 2.7 Absolute Monocytes 0.6 Absolute Eosinophils 0.0 Absolute Basophils 0.0 Sodium Potassium Chloride Carbon Dioxide Anion Gap BUN Creatinine Est GFR ( Amer) Est GFR (Non-Af Amer) Glucose Calcium Free T4 06/29/17 06/29/17 01:44 11:04 Troponin I 0.037 0.021 Impressions: Chest CT 06/28/17 19:56 IMPRESSION: NO SIGNIFICANT FINDING ON NON-CONTRASTED CHEST CT. Assessment & Plan - Diagnosis (1) Chest pain, atypical Is this a current diagnosis for this admission?: YesPlan: Essentially resolved. (2) Gastrointestinal bleeding, upper Is this a current diagnosis for this admission?: YesPlan: Bleeding lesion noted and cauterized. Hopefully will remain stable. Continue PPI as an outpatient. As far as hemoglobin is stable can advance diet. Watch for another 24 hours for any potential repeat and potential discharge. Follow-up as outpatient. - Time Time Spent with patient: 15-24 minutes
[2017-06-30] MEDS: PANTOPRAZOLE SODIUM 40 MG VIAL IV SCH ×2 (09:39→21:35)
--- NOTE | 2017-06-30 09:40 | PDOC PROGRESS REPORT ---
Subjective Progress Note for:: 06/30/17 Subjective:: Patient is doing well. Denies any melena hematochezia. No hematemesis. Feels hungry and wants to eat. No shortness of breath PND orthopnea. No chest pain or shortness of breath. No diaphoresis. Physical Exam Vital Signs: Temp Pulse Resp BP Pulse Ox 98.6 F 83 20 122/58 L 99 06/30/17 08:09 06/30/17 08:09 06/30/17 08:09 06/30/17 08:09 06/30/17 08:09 Intake & Output 06/29/17 06/30/17 07/01/17 06:59 06:59 06:59 Intake Total 500 3475 Output Total 1500 Balance 500 1975 Weight 102.8 kg 103.7 kg General appearance: PRESENT: no acute distress, cooperative, obese Head exam: PRESENT: normocephalic Eye exam: PRESENT: EOMI Mouth exam: PRESENT: neck supple Extremities exam: ABSENT: pedal edema Musculoskeletal exam: PRESENT: ambulatory Neurological exam: PRESENT: alert, awake, oriented to situation Psychiatric exam: ABSENT: agitated Focused psych exam: ABSENT: restlessness Skin exam: PRESENT: dry. ABSENT: cyanosis Results Laboratory Results: 06/30/17 04:12 06/29/17 11:04 06/29/17 06/29/17 06/29/17 11:04 11:04 14:58 WBC 6.5 RBC 2.70 L Hgb 8.0 L Hct 23.8 L MCV 88 MCH 29.5 MCHC 33.4 RDW 19.7 H Plt Count 172 Seg Neutrophils % Lymphocytes % Monocytes % Eosinophils % Basophils % Absolute Neutrophils Absolute Lymphocytes Absolute Monocytes Absolute Eosinophils Absolute Basophils Sodium 138.1 Potassium 4.7 Chloride 109 H Carbon Dioxide 20 L Anion Gap 9 BUN 26 H Creatinine 0.77 Est GFR ( Amer) > 60 Est GFR (Non-Af Amer) > 60 Glucose 100 Calcium 8.6 Free T4 0.69 L 06/29/17 06/30/17 20:00 04:12 WBC 6.6 5.4 RBC 3.05 L 2.87 L Hgb 9.0 L 8.7 L Hct 26.8 L 25.1 L MCV 88 87 MCH 29.4 30.2 MCHC 33.4 34.6 RDW 19.5 H 19.6 H Plt Count 159 139 L Seg Neutrophils % 49.1 Lymphocytes % 40.7 Monocytes % 9.3 Eosinophils % 0.6 Basophils % 0.3 Absolute Neutrophils 3.2 Absolute Lymphocytes 2.7 Absolute Monocytes 0.6 Absolute Eosinophils 0.0 Absolute Basophils 0.0 Sodium Potassium Chloride Carbon Dioxide Anion Gap BUN Creatinine Est GFR ( Amer) Est GFR (Non-Af Amer) Glucose Calcium Free T4 06/29/17 06/29/17 01:44 11:04 Troponin I 0.037 0.021 Impressions: Chest CT 06/28/17 19:56 IMPRESSION: NO SIGNIFICANT FINDING ON NON-CONTRASTED CHEST CT. Assessment & Plan - Diagnosis (1) Gastrointestinal bleeding, upper Is this a current diagnosis for this admission?: Yes (2) Chest pain, atypical Is this a current diagnosis for this admission?: Yes (3) Abnormal CT of the abdomen Is this a current diagnosis for this admission?: Yes (4) Iron deficiency anemia secondary to blood loss (chronic) Is this a current diagnosis for this admission?: Yes (5) Hypothyroidism (acquired) Is this a current diagnosis for this admission?: Yes (6) Alcohol abuse Is this a current diagnosis for this admission?: Yes (7) Morbid obesity Is this a current diagnosis for this admission?: Yes (8) GERD (gastroesophageal reflux disease) Qualifiers: Esophagitis presence: without esophagitis Qualified Code(s): K21.9 - Gastro-esophageal reflux disease without esophagitis Is this a current diagnosis for this admission?: Yes (9) Essential hypertension Is this a current diagnosis for this admission?: Yes (10) Hyperlipidemia Qualifiers: Hyperlipidemia type: unspecified Qualified Code(s): E78.5 - Hyperlipidemia, unspecified Is this a current diagnosis for this admission?: Yes (11) Anxiety and depression Is this a current diagnosis for this admission?: Yes (12) Chronic pain Qualifiers: Chronic pain type: other chronic pain Qualified Code(s): G89.29 - Other chronic pain Is this a current diagnosis for this admission?: Yes (13) Diabetes mellitus type 2 in obese Is this a current diagnosis for this admission?: Yes (14) Personal history of DVT (deep vein thrombosis) Is this a current diagnosis for this admission?: Yes - Time Time Spent with patient: 15-24 minutes - Plan Summary Plan Summary: Patient improved. We will check hemoglobin hematocrit today and in the morning. If stable we will discharge the patient. In the meantime transition to oral thiamine folic acid and multivitamin. Discontinue IV fluids. We will continue to hold antihypertensive medication at this time. I will advance her diet to soft mechanical with ground meats.
[2017-06-30] MEDS: MULTIVITAMIN TABLET PO SCH (10:28)
[2017-06-30] MEDS: LEVOTHYROXINE SODIUM 0.025 MG TABLET PO SCH (10:28)
[2017-06-30] MEDS: FOLIC ACID 1 MG TABLET PO SCH (10:29)
[2017-06-30] MEDS: THIAMINE HCL 100 MG TABLET PO SCH (10:29)
[2017-06-30] MEDS: FLUOXETINE HCL 20 MG CAPSULE PO SCH (10:29)
[2017-06-30] MEDS: TIOTROPIUM BROMIDE DPI 5 CAP/KIT (18 MCG/CAP) IH SCH (10:30)
[2017-06-30 11:10] LABS: HEMATOCRIT 26.5 % (36.0-47.0); HEMOGLOBIN 8.9 g/dL (12.0-15.5); HGB HCT DIFFERENCE 0.2; MEAN CORPUSCULAR HEMOGLOBIN 29.5 pg (27.0-33.4); MEAN CORPUSCULAR HGB CONC 33.6 g/dL (32.0-36.0); MEAN CORPUSCULAR VOLUME 88 fl (80-97); RED BLOOD COUNT 3.02 10^6/uL (3.72-5.28); RED CELL DISTRIBUTION WIDTH 19.9 % (11.5-14.0); WHITE BLOOD COUNT 5.5 10^3/uL (4.0-10.5)
[2017-06-30] MEDS: GABAPENTIN 300 MG CAPSULE PO SCH (17:31)
[2017-06-30] MEDS: AMITRIPTYLINE HCL 25 MG TABLET PO SCH (21:35)
[2017-07-01] MEDS: SUCRALFATE 1 GM TABLET PO SCH ×5 (00:50→23:36)
[2017-07-01] MEDS: MORPHINE SULFATE 10 MG/ML INJ IV PRN ×3 (01:23→21:27)
[2017-07-01] MEDS: OXYCODONE HCL SR 10 MG TABLET PO SCH ×2 (05:13→17:12)
[2017-07-01 05:26] LABS: HEMATOCRIT 25.7 % (36.0-47.0); HEMOGLOBIN 8.5 g/dL (12.0-15.5); HGB HCT DIFFERENCE -0.2; MEAN CORPUSCULAR HEMOGLOBIN 29.6 pg (27.0-33.4); MEAN CORPUSCULAR HGB CONC 33.1 g/dL (32.0-36.0); MEAN CORPUSCULAR VOLUME 90 fl (80-97); RED BLOOD COUNT 2.87 10^6/uL (3.72-5.28); RED CELL DISTRIBUTION WIDTH 19.5 % (11.5-14.0)
--- NOTE | 2017-07-01 09:21 | PDOC PROGRESS REPORT ---
Subjective Progress Note for:: 07/01/17 Subjective:: Patient is doing well but has malaise today. Denies any melena hematochezia. No hematemesis. No shortness of breath PND orthopnea. No chest pain or shortness of breath. No diaphoresis. No ride home today. Physical Exam Vital Signs: Temp Pulse Resp BP Pulse Ox 98.5 F 84 16 126/67 H 99 07/01/17 07:28 07/01/17 07:28 07/01/17 07:28 07/01/17 07:28 07/01/17 07:28 Intake & Output 06/30/17 07/01/17 07/02/17 06:59 06:59 06:59 Intake Total 3475 2156 Output Total 1500 1300 Balance 1975 856 Weight 103.7 kg 107.5 kg General appearance: PRESENT: no acute distress, obese Head exam: PRESENT: normocephalic Eye exam: PRESENT: EOMI Mouth exam: PRESENT: moist, neck supple Neck exam: ABSENT: JVD Respiratory exam: PRESENT: clear to auscultation nicola. ABSENT: rhonchi, wheezes Cardiovascular exam: PRESENT: RRR. ABSENT: gallop GI/Abdominal exam: PRESENT: soft. ABSENT: distended, tenderness Extremities exam: ABSENT: pedal edema Neurological exam: PRESENT: alert, awake, oriented to situation Skin exam: PRESENT: dry, warm. ABSENT: cyanosis Results Laboratory Results: 07/01/17 04:55 06/29/17 11:04 06/30/17 07/01/17 10:44 04:55 WBC 5.5 5.0 RBC 3.02 L 2.87 L Hgb 8.9 L 8.5 L Hct 26.5 L 25.7 L MCV 88 90 MCH 29.5 29.6 MCHC 33.6 33.1 RDW 19.9 H 19.5 H Plt Count 153 144 L 06/29/17 06/29/17 01:44 11:04 Troponin I 0.037 0.021 Impressions: Chest CT 06/28/17 19:56 IMPRESSION: NO SIGNIFICANT FINDING ON NON-CONTRASTED CHEST CT. Assessment & Plan - Diagnosis (1) Gastrointestinal bleeding, upper Is this a current diagnosis for this admission?: Yes (2) Chest pain, atypical Is this a current diagnosis for this admission?: Yes (3) Abnormal CT of the abdomen Is this a current diagnosis for this admission?: Yes (4) Iron deficiency anemia secondary to blood loss (chronic) Is this a current diagnosis for this admission?: Yes (5) Hypothyroidism (acquired) Is this a current diagnosis for this admission?: Yes (6) Alcohol abuse Is this a current diagnosis for this admission?: Yes (7) Morbid obesity Is this a current diagnosis for this admission?: Yes (8) GERD (gastroesophageal reflux disease) Qualifiers: Esophagitis presence: without esophagitis Qualified Code(s): K21.9 - Gastro-esophageal reflux disease without esophagitis Is this a current diagnosis for this admission?: Yes (9) Essential hypertension Is this a current diagnosis for this admission?: Yes (10) Hyperlipidemia Qualifiers: Hyperlipidemia type: unspecified Qualified Code(s): E78.5 - Hyperlipidemia, unspecified Is this a current diagnosis for this admission?: Yes (11) Anxiety and depression Is this a current diagnosis for this admission?: Yes (12) Chronic pain Qualifiers: Chronic pain type: other chronic pain Qualified Code(s): G89.29 - Other chronic pain Is this a current diagnosis for this admission?: Yes (13) Diabetes mellitus type 2 in obese Is this a current diagnosis for this admission?: Yes (14) Personal history of DVT (deep vein thrombosis) Is this a current diagnosis for this admission?: Yes - Time Time Spent with patient: Less than 15 minutes - Plan Summary Plan Summary: Recheck CBC. If stable, can be D/C home.
[2017-07-01] MEDS: GABAPENTIN 300 MG CAPSULE PO SCH ×2 (09:38→17:13)
[2017-07-01] MEDS: PANTOPRAZOLE SODIUM 40 MG VIAL IV SCH ×2 (09:42→21:26)
[2017-07-01 10:28] LABS: HEMATOCRIT 26.2 % (36.0-47.0); HEMOGLOBIN 8.7 g/dL (12.0-15.5); HGB HCT DIFFERENCE -0.1; MEAN CORPUSCULAR HEMOGLOBIN 29.5 pg (27.0-33.4); MEAN CORPUSCULAR HGB CONC 33.1 g/dL (32.0-36.0); MEAN CORPUSCULAR VOLUME 89 fl (80-97); RED BLOOD COUNT 2.94 10^6/uL (3.72-5.28); RED CELL DISTRIBUTION WIDTH 19.2 % (11.5-14.0)
[2017-07-01] MEDS: IPRATROPIUM/ALBUTEROL 0.5-2.5 MG/3 ML AMPUL NEB PRN (11:37)
[2017-07-01] MEDS: THIAMINE HCL 100 MG TABLET PO SCH (11:46)
[2017-07-01] MEDS: FLUOXETINE HCL 20 MG CAPSULE PO SCH (11:46)
[2017-07-01] MEDS: FOLIC ACID 1 MG TABLET PO SCH (11:47)
[2017-07-01] MEDS: MULTIVITAMIN TABLET PO SCH (11:47)
[2017-07-01] MEDS: LEVOTHYROXINE SODIUM 0.025 MG TABLET PO SCH (11:47)
[2017-07-01] MEDS: TIOTROPIUM BROMIDE DPI 5 CAP/KIT (18 MCG/CAP) IH SCH (11:48)
[2017-07-01] MEDS: AMITRIPTYLINE HCL 25 MG TABLET PO SCH (21:28)
[2017-07-02] MEDS: MORPHINE SULFATE 10 MG/ML INJ IV PRN (03:32)
[2017-07-02] MEDS: OXYCODONE HCL SR 10 MG TABLET PO SCH (05:53)
[2017-07-02] MEDS: SUCRALFATE 1 GM TABLET PO SCH ×2 (05:54→12:43)
[2017-07-02] MEDS: FOLIC ACID 1 MG TABLET PO SCH (10:34)
[2017-07-02] MEDS: FLUOXETINE HCL 20 MG CAPSULE PO SCH (10:34)
[2017-07-02] MEDS: GABAPENTIN 300 MG CAPSULE PO SCH (10:34)
[2017-07-02] MEDS: MULTIVITAMIN TABLET PO SCH (10:35)
[2017-07-02] MEDS: THIAMINE HCL 100 MG TABLET PO SCH (10:35)
[2017-07-02] MEDS: LEVOTHYROXINE SODIUM 0.025 MG TABLET PO SCH (10:35)
[2017-07-02] MEDS: TIOTROPIUM BROMIDE DPI 5 CAP/KIT (18 MCG/CAP) IH SCH (10:36)
--- NOTE | 2017-07-02 10:39 | PDOC DISCHARGE SUMMARY ---
General - Admit/Disc Date/PCP Admission Date/Primary Care Provider: 06/28/17 23:40 Discharge Date: 07/02/17 - Discharge Diagnosis (1) Gastrointestinal bleeding, upper Is this a current diagnosis for this admission?: Yes (2) Chest pain, atypical Is this a current diagnosis for this admission?: Yes (3) Abnormal CT of the abdomen Is this a current diagnosis for this admission?: Yes (4) Iron deficiency anemia secondary to blood loss (chronic) Is this a current diagnosis for this admission?: Yes (5) Hypothyroidism (acquired) Is this a current diagnosis for this admission?: Yes (6) Alcohol abuse Is this a current diagnosis for this admission?: Yes (7) Morbid obesity Is this a current diagnosis for this admission?: Yes (8) GERD (gastroesophageal reflux disease) Is this a current diagnosis for this admission?: Yes (9) Essential hypertension Is this a current diagnosis for this admission?: Yes (10) Hyperlipidemia Is this a current diagnosis for this admission?: Yes (11) Anxiety and depression Is this a current diagnosis for this admission?: Yes (12) Chronic pain Is this a current diagnosis for this admission?: Yes (13) Diabetes mellitus type 2 in obese Is this a current diagnosis for this admission?: Yes (14) Personal history of DVT (deep vein thrombosis) Is this a current diagnosis for this admission?: Yes - Additional Information Resuscitation Status: Full Code Discharge Activity: Activity As Tolerated, Balance Activity w/Rest Home Medications: Amitriptyline HCl [Elavil 25 mg Tablet] 25 mg PO QHS 06/29/17 Amlodipine Besylate [Norvasc 5 mg Tablet] 5 mg PO DAILY 06/29/17 Aspirin [Aspirin 81 mg Chewable Tablet] 81 mg PO DAILY 06/29/17 Atorvastatin Calcium [Lipitor 40 mg Tablet] 40 mg PO QHS 06/29/17 Fluoxetine HCl [Prozac 20 mg Capsule] 20 mg PO DAILY 06/29/17 Gabapentin [Neurontin 300 mg Capsule] 300 mg PO BID 06/29/17 Ipratropium/Albuterol Sulfate [Duoneb 3 ml Ampul] 3 ml NEB RTBIDP PRN 06/29/17 Oxycodone HCl [Oxycontin] 30 mg PO Q12 06/29/17 Pantoprazole Sodium [Protonix] 40 mg PO BIDACBS 08/10/17 Tiotropium [place] [Spiriva Handihaler 5 Cap/Kit (18 Mcg/Cap)] 1 cap IH DAILY Tramadol HCl [Ultram 50 mg Tablet] 50 mg PO BIDP PRN 06/29/17 Folic Acid [Folvite 1 mg Tablet] 1 mg PO DAILY@1100 #30 tablet 07/02/17 Levothyroxine Sodium [Synthroid 50 Mcg Tablet] 50 mcg PO DAILY #30 tablet Multivitamin [Tab-A-Rogerio (Multiple Vitamin) Tablet] 1 tab PO DAILY@1100 tablet 07/02/17 Thiamine HCl [Thiamine 100 mg Tablet] 100 mg PO DAILY@1100 #30 tablet 07/02/17 Additional Information: 1. Stop alcohol. 2. Stress test as outpatient with primary care physician in 2-4 weeks. 3. Resume blood pressure medication lisinopril when blood pressure is above 140 /90. Monitor blood pressure at home every day. 4. Avoid [id number] nonsteroidal anti-inflammatory medication. 5. Return to the emergency room if symptoms recur. History of Present Illness Patient complains of: Hematemesis, melena, and chest pain History of Present Illness: RORO DAS is a 62 year old morbidly obese female with underlying hypothyroidism, hyperlipidemia, diet-controlled diabetes mellitus, acid reflux, COPD, hypertension, history of DVT in 1995 treated with Coumadin, chronic pain secondary to arthritis, primarily affecting left knee and hip, and chronic alcohol dependency, along with mild anxiety and depression, without suicidal or homicidal ideation, who presents to the emergency room for evaluation of above complaints. Patient has been discussed with emergency room physician who evaluated the patient. Prior to my being called, the ER physician did speak with Dr. Sanderson, on-call soapstoner, who agrees with therapy so far and agrees to see patient in consultation. She describes the onset of constant chest pressure all day today, worsened by multiple episodes of nausea and vomiting, with the last few episodes of emesis having combination of bright and dark red blood. Also noted tarry stools, twice today, including one witnessed by a nurse in the emergency department. Some associated mild dizziness. He has never had any problems with GI bleeding in the past. Never had a colonoscopy or upper endoscopy. No known history of bleeding ulcer or varices. Takes a baby aspirin every day. Rare Goody powder. 2 [id number] Motrin daily for her arthritis pain. History of alcohol abuse. States she often drinks approximately a glass of wine per day. States she last had alcohol approximately 24 hours ago; seemed surprised when I told her her alcohol level was 109. Half pack of cigarettes a day. Denies illicit drug use. Currently resting quietly, still having some chest discomfort. Hospitalized on our service the through 28 April of last year final diagnoses including acute renal failure secondary to rhabdomyolysis and dehydration, along with metabolic encephalopathy secondary to opiates and multiple drug use. Discharge summary has been reviewed. Hospitalized on our service April 2014 with admission diagnoses including acute alcohol intoxication, chronic alcohol abuse, atypical chest pain, and indeterminate troponins. History and physical has been reviewed. Hospital Course Hospital Course: The patient was admitted to [facility]. The patient was hydrated with IV fluids and proton pump inhibitor was started. 2 units of packed RBC was transfused. Gastroenterology was consulted and eventually perform upper endoscopy showing bleeding site probably deulafoy lesion or AV malformation. This was cauterized and the bleeding was controlled. Subsequently patient was placed on liquid diet and subsequently advancing to soft diet. Serial hemoglobin hematocrit was monitored and eventually stabilized. In terms of the patient's chest pain cardiac enzymes were negative. She was advised to have a stress test on an outpatient basis with her primary care physician. On monitoring all of her TSH and free T4 it was noted to be low and therefore her Synthroid dose was increased. The patient improved. His blood pressure was initially normal and started to increase. She was advised to resume her Norvasc but hold her lisinopril until reevaluated by her primary care physician. She was likewise advised to measure her blood pressure on a daily basis. The rest of the hospital stays unremarkable. Patient was eventually discharged home with above instructions. Physical Exam Vital Signs: Temp Pulse Resp BP Pulse Ox 98.6 F 88 18 144/77 H 100 07/02/17 03:18 07/02/17 08:45 07/02/17 08:45 07/02/17 08:45 07/02/17 08:45 Intake & Output 07/01/17 07/02/17 07/03/17 06:59 06:59 06:59 Intake Total 2156 1601 Output Total 1300 Balance 856 1601 Weight 107.5 kg 107 kg Results Laboratory Results: 07/01/17 10:10 06/29/17 11:04 06/29/17 06/29/17 01:44 11:04 Troponin I 0.037 0.021 Impressions: Chest CT 06/28/17 19:56 IMPRESSION: NO SIGNIFICANT FINDING ON NON-CONTRASTED CHEST CT.
[2017-07-02 13:49] VITALS: BP 132/71
== END 2017-07-02 14:43 | disposition home or self-care (01) | DRG 377 ==
LOC: ER 18:35 → EH 22:02 → UNDOADMIN 22:02 → EH 23:40 → 3N 06-29 01:47 → 3S 06-30 21:55
PROVIDERS: ADMIT Family Medicine; ATTEND Family Medicine
PROC: 30233N1 Transfusion of Nonautologous Red Blood Cells into Peripheral Vein, Percutaneous Approach (ICD-10-PCS; 2017-06-29)
PROC: 0W3P8ZZ Control Bleeding in Gastrointestinal Tract, Via Natural or Artificial Opening Endoscopic (ICD-10-PCS; principal; 2017-06-29 13:00)
DX: K31.82 Dieulafoy lesion (hemorrhagic) of stomach and duodenum (principal); K31.811 Angiodysplasia of stomach and duodenum with bleeding; D50.0 Iron deficiency anemia secondary to blood loss (chronic); R07.89 Other chest pain; E03.9 Hypothyroidism, unspecified; F10.10 Alcohol abuse, uncomplicated; E66.01 Morbid (severe) obesity due to excess calories; K21.9 Gastro-esophageal reflux disease without esophagitis; I10 Essential (primary) hypertension; E78.5 Hyperlipidemia, unspecified; F41.9 Anxiety disorder, unspecified; F32.9 Major depressive disorder, single episode, unspecified; E11.9 Type 2 diabetes mellitus without complications; G89.29 Other chronic pain; J44.9 Chronic obstructive pulmonary disease, unspecified; M17.12 Unilateral primary osteoarthritis, left knee; M16.12 Unilateral primary osteoarthritis, left hip; Z79.82 Long term (current) use of aspirin; Z79.899 Other long term (current) drug therapy; Z86.718 Personal history of other venous thrombosis and embolism; Z90.710 Acquired absence of both cervix and uterus; F17.200 Nicotine dependence, unspecified, uncomplicated
CPT/HCPCS: 36415; 36430; 43255; 71250; 80048; 80053; 80307; 81001; 82140; 82962; 83605; 83735; 84439; 84443; 84484; 85025; 85027; 85610; 85730; 86850; 86900; 86901; 86920; 93005; 93010; 94799; 96374; 96375; 99291; J0171; J1200; J1610; J2250; J2270; J2310; J2405; J3010; J3411; J3490; J7030; J7050; J7620; P9016; S0164

== ENCOUNTER 2017-10-10 01:36 | Inpatient (IN) | payer MEDICAID ==
--- NOTE | 2017-10-10 02:00 | ER Document Report ---
ED Fall - General Chief Complaint: Hip Injury Stated Complaint: LEFT HIP PAIN Time Seen by Provider: 10/10/17 01:46 Notes: Patient is a 62-year-old female that comes by EMS for chief complaint of pain to the left hip after a fall. She states that she got out of her recliner and lost her footing and fell, she states this is because she had about 4 beers tonight. She states she also hit her head. She reports left ankle pain additionally. She denies passing out, she is not on a blood thinner. She states she has degenerative changes in her hip and ankle and is consulting orthopedics for surgery. TRAVEL OUTSIDE OF THE [place] IN LAST 30 DAYS: No - Related data Allergies/Adverse Reactions: No Known Allergies Allergy (Verified 05/08/14 21:04) Past Medical History - General Information source: Patient - Social History Smoking Status: Former Smoker Frequency of alcohol use: Heavy Drug Abuse: None Lives with: Family Family History: Reviewed & Not Pertinent, CAD - Past Medical History Cardiac Medical History: Reports: Hx DVT - 1995, Hx Hypercholesterolemia, Hx Hypertension Denies: Hx Atrial Fibrillation, Hx Congestive Heart Failure, Hx Coronary Artery Disease, Hx Heart Attack, Hx Pulmonary Embolism Pulmonary Medical History: Reports: Hx Asthma Denies: Hx COPD Neurological Medical History: Denies: Hx Seizures Endocrine Medical History: Reports: Hx Diabetes Mellitus Type 2 - Diet controlled, Hx Hypothyroidism. Denies: Hx Diabetes Mellitus Type 1, Hx Hyperthyroidism GI Medical History: Reports: Hx Gastroesophageal Reflux Disease. Denies: Hx Cirrhosis, Hx Hepatitis Musculoskeltal Medical History: Reports Hx Arthritis Psychiatric Medical History: Reports: Hx Depression Infectious Medical History: Denies: Hx Hepatitis Past Surgical History: Reports: Hx Section - x3, Hx Hysterectomy - Partial, Hx Orthopedic Surgery - L Foot, L Leg,, Hx Tonsillectomy - Immunizations Hx Diphtheria, Pertussis, Tetanus Vaccination: No Hx Pneumococcal Vaccination: 12/11/13 Review of Systems - Review of Systems Constitutional: No symptoms reported EENT: No symptoms reported Cardiovascular: No symptoms reported Respiratory: No symptoms reported Gastrointestinal: No symptoms reported Genitourinary: No symptoms reported Female Genitourinary: No symptoms reported Musculoskeletal: No symptoms reported Skin: No symptoms reported Hematologic/Lymphatic: No symptoms reported Neurological/Psychological: No symptoms reported Physical Exam - Vital signs Vitals: Temp Pulse Resp BP Pulse Ox 98.5 F 88 20 112/91 H 92 10/10/17 01:52 10/10/17 01:52 10/10/17 01:52 10/10/17 01:52 10/10/17 01:52 Interpretation: Normal - General General appearance: Alert In distress: None - Patient does not appear to be in any pain, she is talkative and conversational. Clinically she does not appear to be drunk - HEENT Head: Normocephalic, Atraumatic Eyes: Normal Conjunctiva: Normal Extraocular movements intact: Yes Eyelashes: Normal Pupils: PERRL Mouth/Lips: Normal Mucous membranes: Normal Pharynx: Normal Neck: Normal - Respiratory Respiratory status: No respiratory distress. No: Labored, Tachypnea Chest status: Nontender Breath sounds: Decreased air movement. No: Nonproductive cough Chest palpation: Normal - Cardiovascular Rhythm: Regular Heart sounds: Normal auscultation Murmur: No - Abdominal Inspection: Normal Distension: No distension Bowel sounds: Normal Tenderness: Nontender. No: Tender Organomegaly: No organomegaly - Back Back: Normal, Nontender. No: Tender, Vertebra tenderness - Extremities General upper extremity: Normal inspection, Nontender, Normal color, Normal ROM , Normal temperature General lower extremity: Other - Patient tender over the left hip and proximal femur generally, questionable rotation, tender over the left ankle as well, no swelling noted to the ankle, normal distal neurovascular exam. - Neurological Neuro grossly intact: Yes Cognition: Normal Orientation: AAOx4 Leburn Coma Scale Eye Opening: Spontaneous Halie Coma Scale Verbal: Oriented Leburn Coma Scale Motor: Obeys Commands Leburn Coma Scale Total: 15 Speech: Normal Motor strength normal: LUE, RUE, LLE, RLE Sensory: Normal - Psychological Associated symptoms: Normal affect, Normal mood - Skin Skin Temperature: Warm Skin Moisture: Dry Skin Color: Normal Course - Re-evaluation Re-evalutation: CT of the head and neck performed due to EtOH and head injury, no acute abnormality. X-ray does show fracture of the left hip. Ordering preop labs. CBC, chemistry, urinalysis approximately baseline. EKG showing sinus tachycardia with prolonged QT interval. Chest x-ray unremarkable. Discussed with Dr. Davis. Patient will be admitted to [facility] to Dr. Davis pending orthopedic consult. - Vital Signs Vital signs: Temp Pulse Resp BP Pulse Ox 98.6 F 88 24 H 137/79 H 96 10/10/17 06:10 10/10/17 01:52 10/10/17 06:10 10/10/17 06:10 10/10/17 06:10 - Laboratory Result Diagrams: 10/10/17 04:43 10/10/17 04:43 Laboratory results interpreted by me: 10/10/17 10/10/17 04:43 04:43 Hgb 10.4 L Hct 32.5 L RDW 22.1 H Sodium 146.8 H Chloride 111 H Carbon Dioxide 20 L Discharge - Discharge Clinical Impression: Fall Qualifiers: Encounter type: initial encounter Qualified Code(s): W19.XXXA - Unspecified fall, initial encounter Closed left hip fracture Qualifiers: Encounter type: initial encounter Qualified Code(s): S72.002A - Fracture of unspecified part of neck of left femur, initial encounter for closed fracture Alcohol intoxication Qualifiers: Complication of substance-induced condition: with unspecified complication Qualified Code(s): F10.929 - Alcohol use, unspecified with intoxication, unspecified Condition: Stable Disposition: ADMITTED INPATIENT Admitting Provider: Hospitalist Unit Admitted: [facility]
--- NOTE | 2017-10-10 03:48 | RADIOLOGY REPORT (SQ) ---
EXAM DESCRIPTION: CT HEAD WITHOUT COMPLETED DATE/TIME: 10/10/2017 3:02 am REASON FOR STUDY: head injury, ETOH COMPARISON: 6.7.16 TECHNIQUE: Axial images acquired through the brain without intravenous contrast. Images reviewed wi th bone, brain and subdural windows. Images stored on PACS. All CT scanners at this facility use dose modulation, iterative reconstruction, and/or weight based d osing when appropriate to reduce radiation dose to as low as reasonably achievable (ALARA). [facility]: Dose Right [facility]: CareDose [facility]: Dose Right [facility]: Teradose 4D [facility]: Smart Panoratio RADIATION DOSE: Up-to-date CT equipment and radiation dose reduction techniques were employed. CTDIv ol: 49.0 mGy. DLP: 881 mGy-cm. mGy. LIMITATIONS: None. FINDINGS: VENTRICLES: Normal size and contour. CEREBRUM: No masses. No hemorrhage. No midline shift. No evidence for acute infarction. Normal gra y/white matter differentiation. No areas of low density in the white matter. CEREBELLUM: No masses. No hemorrhage. No alteration of density. No evidence for acute infarction. EXTRAAXIAL SPACES: No fluid collections. No masses. ORBITS AND GLOBE: No intra- or extraconal masses. Normal contour of globe without masses. CALVARIUM: No fracture. PARANASAL SINUSES: No fluid or mucosal thickening. SOFT TISSUES: No mass or hematoma. OTHER: No other significant finding. IMPRESSION: NORMAL BRAIN CT WITHOUT CONTRAST. EVIDENCE OF ACUTE STROKE: NO. COMMENT: Quality ID # [id number]: Final reports with documentation of one or more dose reduction techniques (e.g., Automated exposure control, adjustment of the mA and/or kV according to patient size, use of iterative reconstruction technique) TECHNICAL DOCUMENTATION: JOB ID: [id number] [employer]- All Rights Reserved
--- NOTE | 2017-10-10 03:50 | RADIOLOGY REPORT (SQ) ---
EXAM DESCRIPTION: CT CERVICAL SPINE WITHOUT COMPLETED DATE/TIME: 10/10/2017 3:02 am REASON FOR STUDY: head injury, ETOH COMPARISON: None. TECHNIQUE: Axial images acquired through the cervical spine without intravenous contrast. Images re viewed with lung, soft tissue and bone windows. Reconstructed coronal and sagittal MPR images review ed. Images stored on PACS. All CT scanners at this facility use dose modulation, iterative reconstruction, and/or weight based d osing when appropriate to reduce radiation dose to as low as reasonably achievable (ALARA). [facility]: Dose Right [facility]: CareDose [facility]: Dose Right [facility]: Teradose 4D [facility]: Smart Labtiva RADIATION DOSE: Up-to-date CT equipment and radiation dose reduction techniques were employed. CTDIv ol: 25.6 mGy. DLP: 642 mGy-cm. mGy. LIMITATIONS: None. FINDINGS: ALIGNMENT: Anatomic. MINERALIZATION: Normal. VERTEBRAL BODIES: No fractures or dislocation. DISCS: No significant disc disease. FACETS, LATERAL MASSES, POSTERIOR ELEMENTS: No fractures. No dislocation. No acute findings. HARDWARE: None in the spine. VISUALIZED RIBS: No fractures. LUNG APICES AND SOFT TISSUES: No significant or acute findings. OTHER: Atherosclerosis. IMPRESSION: No acute findings. TECHNICAL DOCUMENTATION: JOB ID: [id number] Quality ID # [id number]: Final reports with documentation of one or more dose reduction techniques (e.g., Au tomated exposure control, adjustment of the mA and/or kV according to patient size, use of iterative reconstruction technique) 2010 [employer])- All Rights Reserved
--- NOTE | 2017-10-10 03:59 | RADIOLOGY REPORT (SQ) ---
EXAM DESCRIPTION: HIP LEFT AP/LATERAL COMPLETED DATE/TIME: 10/10/2017 3:41 am REASON FOR STUDY: FALL COMPARISON: 12/07/2013. NUMBER OF VIEWS: Two views. TECHNIQUE: AP pelvis and additional frog-leg view of the left hip. LIMITATIONS: None. FINDINGS: MINERALIZATION: Normal. LEFT HIP: New impaction fracture -deformity of the left femoral head a new fracture -deformity of the lateral left acetabulum compared with prior radiographs from November 2013. Moderate mixed sclerosis -lucency of the left femoral head. Moderate sclerosis subchondral degenerative cysts of the left ac etabular and left femoral head. RIGHT HIP: No fracture or dislocation. No worrisome bone lesions. PUBIS AND ISCHIUM: No fracture. PELVIS: No fracture. SACRUM: No fracture or dislocation. No worrisome bone lesions. LOWER LUMBAR SPINE: No fracture or dislocation. No worrisome bone lesions. No significant disc disea se. SOFT TISSUES: No findings. OTHER: No other significant finding. IMPRESSION: Moderate impaction fracture -deformity of the left femoral head and left lateral acetabu lum with possible avascular necrosis relatively new compared with prior radiographs from November 2013 . TECHNICAL DOCUMENTATION: JOB ID: [id number] [employer]- All Rights Reserved
--- NOTE | 2017-10-10 04:00 | RADIOLOGY REPORT (SQ) ---
EXAM DESCRIPTION: ANKLE LEFT COMPLETE COMPLETED DATE/TIME: 10/10/2017 3:41 am REASON FOR STUDY: fall, pain COMPARISON: None. NUMBER OF VIEWS: Three views. TECHNIQUE: AP, lateral, and oblique radiographic images acquired of the left ankle. LIMITATIONS: None. FINDINGS: MINERALIZATION: Normal. BONES: No acute fracture or dislocation. No worrisome bone lesions. Small calcaneal enthesophytes. JOINTS: No effusions. SOFT TISSUES: No soft tissue swelling. No foreign body. OTHER: No other significant finding. IMPRESSION: NO RADIOGRAPHIC EVIDENCE OF ACUTE INJURY. TECHNICAL DOCUMENTATION: JOB ID: [id number] [employer]- All Rights Reserved
[2017-10-10] MEDS ORDERED: ONDANSETRON HCL INJ/PF 4 MG/2 ML SDV IV ONE (04:17)
[2017-10-10] MEDS ORDERED: MORPHINE SULFATE 10 MG/ML INJ IV ONE (04:17)
[2017-10-10 04:59] LABS: ABSOLUTE LYMPHOCYTES (AUTO) 1.1 10^3/uL (0.5-4.7); ABSOLUTE MONOCYTES (AUTO) 0.4 10^3/uL (0.1-1.4); ABSOLUTE NEUT (AUTO) 4.6 10^3/uL (1.7-8.2); BASOPHILS % (AUTO) 0.6 % (0-2); EOSINOPHILS % (AUTO) 0.3 % (0-6); HEMATOCRIT 32.5 % (36.0-47.0); HEMOGLOBIN 10.4 g/dL (12.0-15.5); HGB HCT DIFFERENCE -1.3; LYMPHOCYTES % (AUTO) 18.1 % (13-45); MEAN CORPUSCULAR HEMOGLOBIN 27.6 pg (27.0-33.4); MEAN CORPUSCULAR HGB CONC 32.1 g/dL (32.0-36.0); MEAN CORPUSCULAR VOLUME 86 fl (80-97); MONOCYTES % (AUTO) 5.8 % (3-13); RED BLOOD COUNT 3.77 10^6/uL (3.72-5.28); RED CELL DISTRIBUTION WIDTH 22.1 % (11.5-14.0); SEGMENTED NEUTROPHILS % (AUTO) 75.2 % (42-78); WHITE BLOOD COUNT 6.1 10^3/uL (4.0-10.5)
[2017-10-10 05:04] LABS: PROTHROMBIN TIME 12.8 SEC (11.4-15.4)
[2017-10-10 05:05] LABS: PARTIAL THROMBOPLASTIN TIME 26.5 SEC (23.5-35.8)
[2017-10-10 05:18] LABS: ALANINE AMINOTRANSFERASE 32 U/L (9-52); ALCOHOL 246 mg/dL (NONE DETECTED); ALKALINE PHOSPHATASE 64 U/L (38-126); ANION GAP 16 (5-19); ASPARTATE AMINO TRANSFERASE 21 U/L (14-36); BILIRUBIN,DIRECT 0.3 mg/dL (0.0-0.4); BILIRUBIN,TOTAL 0.3 mg/dL (0.2-1.3); BLOOD UREA NITROGEN 16 mg/dL (7-20); CALCIUM 8.9 mg/dL (8.4-10.2); CARBON DIOXIDE 20 mmol/L (22-30); CHLORIDE 111 mmol/L (98-107); CREATINE KINASE 63 U/L (30-135); CREATININE RESULT 0.71 mg/dL (0.52-1.25); GLUCOSE 87 mg/dL (75-110); POTASSIUM 4.9 mmol/L (3.6-5.0); SODIUM 146.8 mmol/L (137-145); TOTAL PROTEIN 6.5 g/dL (6.3-8.2)
--- NOTE | 2017-10-10 05:25 | RADIOLOGY REPORT (SQ) ---
EXAM DESCRIPTION: CHEST SINGLE VIEW COMPLETED DATE/TIME: 10/10/2017 5:10 am REASON FOR STUDY: pre-op COMPARISON: 04/26/2016. CT, 06/28/2017. EXAM PARAMETERS: NUMBER OF VIEWS: One view. TECHNIQUE: Single frontal radiographic view of the chest acquired. RADIATION DOSE: NA LIMITATIONS: None. FINDINGS: LUNGS AND PLEURA: No opacities, masses or pneumothorax. No pleural effusion. Prominent in terstitium. MEDIASTINUM AND HILAR STRUCTURES: No masses. Contour normal. HEART AND VASCULAR STRUCTURES: Heart normal in size. Atherosclerosis. BONES: No acute findings. HARDWARE: None in the chest. OTHER: No other significant finding. IMPRESSION: NO ACUTE RADIOGRAPHIC FINDING IN THE CHEST. TECHNICAL DOCUMENTATION: JOB ID: [id number] [employer]- All Rights Reserved
[2017-10-10 05:30] LABS: CREATINE KINASE MB 0.64 ng/mL (<4.55); TROPONIN I 0.014 ng/mL
--- NOTE | 2017-10-10 06:02 | PDOC H&P ---
History of Present Illness Admission Date/PCP: ALVARADO MORALEZ Patient complains of: Fall and left hip pain History of Present Illness: RORO DAS is a 62 year old female with a history of morbid obesity, COPD, diabetes, chronic bronchitis, severe deconditioning, alcohol and Tobacco dependence. Presenting to the emergency room after alcohol indiscretion resulting in a fall and intractable pain to the the left hip. Patient denies loss of consciousness, limb shaking or incontinence. She appears intoxicated, denying chest pain, palpitations nausea vomiting. In the emergency room she is found to have left-sided hip fracture and a concern for avascular necrosis per radiologist. Patient admits to severe deconditioning secondary to chronic left hip pain, she mobilizes with use of a wheeled walker. She admits to chronic nonproductive cough but sleeps lying flat and denies baseline shortness of breath at rest. Past Medical History Cardiac Medical History: Reports: DVT - 1995, Hyperlipidema, Hypertension Denies: Atrial Fibrillation, Congestive Heart Failure, Pulmonary Embolism Pulmonary Medical History: Reports: Asthma, Bronchitis, Chronic Obstructive Pulmonary Disease (COPD) Denies: Sleep Apnea Neurological Medical History: Denies: Seizures Endocrine Medical History: Reports: Diabetes Mellitus Type 2 - Diet controlled, Hypothyroidism Denies: Diabetes Mellitus Type 1, Hyperthyroidism GI Medical History: Reports: Gastroesophageal Reflux Disease Denies: Cirrhosis, Hepatitis Musculoskeltal Medical History: Reports: Arthritis Psychiatric Medical History: Reports: Depression Past Surgical History Past Surgical History: Reports: Section - x3, Hysterectomy - Partial, Orthopedic Surgery - L Foot, L Leg,, Tonsillectomy Social History Information Source: Patient Lives with: Family Smoking Status: Current Every Day Smoker Cigarettes Packs Per Day: 1 Number of Years Smokin Last Time Smoked: Today Frequency of Alcohol Use: Heavy - Denies alcohol withdrawal Hx Recreational Drug Use: No Drugs: None Hx Prescription Drug Abuse: No - Advance Directive Resuscitation Status: Full Code Family History Family History: CAD, DM Parental Family History Reviewed: Yes Children Family History Reviewed: Yes Sibling(s) Family History Reviewed.: Yes Medication/Allergy Home Medications: Amitriptyline HCl [Elavil 25 mg Tablet] 25 mg PO QHS 06/29/17 Amlodipine Besylate [Norvasc 5 mg Tablet] 5 mg PO DAILY 06/29/17 Aspirin [Aspirin 81 mg Chewable Tablet] 81 mg PO DAILY 06/29/17 Atorvastatin Calcium [Lipitor 40 mg Tablet] 40 mg PO QHS 06/29/17 Fluoxetine HCl [Prozac 20 mg Capsule] 20 mg PO DAILY 06/29/17 Gabapentin [Neurontin 300 mg Capsule] 300 mg PO BID 06/29/17 Ipratropium/Albuterol Sulfate [Duoneb 3 ml Ampul] 3 ml NEB RTBIDP PRN 06/29/17 Oxycodone HCl [Oxycontin] 30 mg PO Q12 06/29/17 Pantoprazole Sodium [Protonix] 40 mg PO BIDACBS 06/29/17 Tiotropium [place] [Spiriva Handihaler 5 Cap/Kit (18 Mcg/Cap)] 1 cap IH DAILY Tramadol HCl [Ultram 50 mg Tablet] 50 mg PO BIDP PRN 06/29/17 Folic Acid [Folvite 1 mg Tablet] 1 mg PO DAILY@1100 #30 tablet 07/02/17 Levothyroxine Sodium [Synthroid 50 Mcg Tablet] 50 mcg PO DAILY #30 tablet Multivitamin [Tab-A-Rogerio (Multiple Vitamin) Tablet] 1 tab PO DAILY@1100 tablet 07/02/17 Thiamine HCl [Thiamine 100 mg Tablet] 100 mg PO DAILY@1100 #30 tablet 07/02/17 Allergies/Adverse Reactions: No Known Allergies Allergy (Verified 05/08/14 21:04) Review of Systems Constitutional: PRESENT: as per HPI. ABSENT: anorexia, chills, fatigue Eyes: ABSENT: visual disturbances Ears: ABSENT: hearing changes Cardiovascular: PRESENT: dyspnea on exertion. ABSENT: chest pain, edema, orthropnea, palpitations Respiratory: PRESENT: as per HPI, cough. ABSENT: hemoptysis, sputum Gastrointestinal: ABSENT: abdominal pain, constipation, diarrhea, hematemesis, hematochezia, nausea, vomiting Genitourinary: ABSENT: dysuria, hematuria Musculoskeletal: ABSENT: joint swelling Integumentary: ABSENT: rash, wounds Neurological: ABSENT: abnormal gait, abnormal speech, confusion, dizziness, focal weakness, syncope Psychiatric: PRESENT: as per HPI Endocrine: ABSENT: cold intolerance, heat intolerance, polydipsia, polyuria Hematologic/Lymphatic: ABSENT: easy bleeding, easy bruising Physical Exam Vital Signs: Temp Pulse Resp BP Pulse Ox 98.5 F 88 13 112/91 H 98 10/10/17 01:52 10/10/17 01:52 10/10/17 05:00 10/10/17 01:52 10/10/17 05:00 General appearance: PRESENT: cooperative, disheveled, mild distress, morbidly obese Head exam: PRESENT: atraumatic, normocephalic Eye exam: PRESENT: conjunctiva pink, EOMI, PERRLA. ABSENT: scleral icterus Ear exam: PRESENT: normal external ear exam Mouth exam: PRESENT: moist, tongue midline Neck exam: ABSENT: carotid bruit, JVD, lymphadenopathy, thyromegaly Respiratory exam: PRESENT: crackles, decreased breath sounds, prolonged expiratory phas, rales, symmetrical. ABSENT: accessory muscle use, chest wall tenderness, clear to auscultation nicola, retraction, rhonchi, stridor, tachypnea, wheezes Cardiovascular exam: PRESENT: RRR. ABSENT: diastolic murmur, rubs, systolic murmur Pulses: PRESENT: normal carotid pulses Vascular exam: PRESENT: normal capillary refill GI/Abdominal exam: PRESENT: normal bowel sounds, soft. ABSENT: distended, guarding, mass, organolmegaly, rebound, tenderness Rectal exam: PRESENT: deferred Extremities exam: PRESENT: full ROM. ABSENT: calf tenderness, clubbing, pedal edema Neurological exam: PRESENT: alert, altered - Intoxicated, awake, oriented to person, oriented to place, oriented to situation, CN II-XII grossly intact. ABSENT: motor sensory deficit Psychiatric exam: PRESENT: appropriate affect, normal mood. ABSENT: homicidal ideation, suicidal ideation Skin exam: PRESENT: dry, intact, warm. ABSENT: cyanosis, rash Results Laboratory Results: 10/10/17 04:43 10/10/17 04:43 10/10/17 10/10/17 04:43 04:43 WBC 6.1 RBC 3.77 Hgb 10.4 L Hct 32.5 L MCV 86 MCH 27.6 MCHC 32.1 RDW 22.1 H Plt Count 196 Seg Neutrophils % 75.2 Lymphocytes % 18.1 Monocytes % 5.8 Eosinophils % 0.3 Basophils % 0.6 Absolute Neutrophils 4.6 Absolute Lymphocytes 1.1 Absolute Monocytes 0.4 Absolute Eosinophils 0.0 Absolute Basophils 0.0 Sodium 146.8 H Potassium 4.9 Chloride 111 H Carbon Dioxide 20 L Anion Gap 16 BUN 16 Creatinine 0.71 Est GFR ( Amer) > 60 Est GFR (Non-Af Amer) > 60 Glucose 87 Calcium 8.9 Total Bilirubin 0.3 AST 21 ALT 32 Alkaline Phosphatase 64 Total Protein 6.5 Albumin 4.0 10/10/17 04:43 Creatine Kinase 63 Impressions: Hip X-Ray 10/10/17 01:39 IMPRESSION: Moderate impaction fracture -deformity of the left femoral head and left lateral acetabulum with possible avascular necrosis relatively new compared with prior radiographs from November 2013. Cervical Spine CT 10/10/17 01:56 IMPRESSION: No acute findings. Head CT 10/10/17 01:56 IMPRESSION: NORMAL BRAIN CT WITHOUT CONTRAST. EVIDENCE OF ACUTE STROKE: NO. Ankle X-Ray 10/10/17 01:58 IMPRESSION: NO RADIOGRAPHIC EVIDENCE OF ACUTE INJURY. Chest X-Ray 10/10/17 04:14 IMPRESSION: NO ACUTE RADIOGRAPHIC FINDING IN THE CHEST. Assessment & Plan - Diagnosis (2) Hip fracture Is this a current diagnosis for this admission?: Yes Plan: Secondary to fall complicated by possible avascular necrosis, morbid obesity, anemia, coronary artery disease, COPD, alcohol and tobacco dependence. Patient is at moderate risk for cardiopulmonary complication of orthopedic surgery, preoperative cardiology consult ordered. Orthopedic surgery consulted (3) Chronic bronchitis Is this a current diagnosis for this admission?: Yes Plan: Empiric antibiotics, albuterol and Atrovent, incentive spirometry and flutter valve (4) Iron deficiency anemia secondary to blood loss (chronic) Is this a current diagnosis for this admission?: Yes Plan: Type and screen 2 units of packed red blood cells, follow-up CBC and anemia workup (5) Morbid obesity Is this a current diagnosis for this admission?: Yes Plan: Morbid obesity will evaluate for metabolic cause with evaluation of thyroid function and dietitian consultation (6) Chronic alcohol abuse Is this a current diagnosis for this admission?: Yes Plan: Alcohol dependence, no history of DTs, thiamine, folate and benzodiazepine as needed (7) Tobacco dependency Is this a current diagnosis for this admission?: Yes Plan: Tobacco Dependence patient received tobacco cessation counseling and offered nicotine replacement options - Time Time Spent: 50 to 70 Minutes - Inpatient Certification Medical Necessity: Need Close Monitoring Due to Risk of Patient Decompensation
[2017-10-10] MEDS ORDERED: ONDANSETRON HCL INJ/PF 4 MG/2 ML SDV IV PRN (06:04)
[2017-10-10] MEDS ORDERED: MAGNESIUM HYDROXIDE SUSP 30 ML UDCUP PO PRN (06:04)
[2017-10-10] MEDS: LANSOPRAZOLE 30 MG TAB.RAP.DR PO SCH ×2 (07:00→16:01)
[2017-10-10] MEDS ORDERED: NORMAL SALINE 250 ML IV PRN ×2 (07:17)
[2017-10-10 07:55] LABS: FOLATE 5.11 ng/mL (>2.76)
[2017-10-10] MEDS ORDERED: LANSOPRAZOLE 30 MG TAB.RAP.DR PO SCH (08:00)
[2017-10-10] MEDS: IPRATROPIUM/ALBUTEROL 0.5-2.5 MG/3 ML AMPUL NEB SCH ×3 (08:15→20:10)
[2017-10-10] MEDS ORDERED: DEXTROSE 40% GEL 15 GM TUBE PO PRN ×2 (09:01)
[2017-10-10] MEDS ORDERED: GLUCAGON,HUMAN RECOMB 1 MG INJ SUBCUT PRN (09:01)
[2017-10-10] MEDS ORDERED: DEXTROSE 50%-WATER 25 GM/50 ML DISP.SYRIN IV PRN ×2 (09:01)
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
[2017-10-10] MEDS: OXYCODONE-ACETAMINOPHEN 5-325 MG TABLET PO PRN ×3 (09:58→20:34)
[2017-10-10] MEDS: FLUOXETINE HCL 20 MG CAPSULE PO SCH (09:59)
[2017-10-10] MEDS: AMLODIPINE BESYLATE 5 MG TABLET PO SCH (09:59)
[2017-10-10] MEDS: LEVOTHYROXINE SODIUM 0.05 MG TABLET PO SCH (10:00)
[2017-10-10] MEDS: GABAPENTIN 300 MG CAPSULE PO SCH ×2 (10:00→18:14)
[2017-10-10] MEDS: ASPIRIN 81 MG TABLET, CHEWABLE PO SCH (10:00)
[2017-10-10] MEDS: DOCUSATE SODIUM 100 MG CAPSULE PO SCH ×2 (10:00→18:15)
[2017-10-10 10:41] LABS: APPEARANCE,URINE SLIGHTLY-CLOUDY; BILIRUBIN,URINE NEGATIVE (NEGATIVE); GLUCOSE, URINE NEGATIVE (NEGATIVE); KETONES,URINE NEGATIVE (NEGATIVE); LEUKOCYTE ESTERASE,URINE NEGATIVE (NEGATIVE); NITRITE,URINE NEGATIVE (NEGATIVE); PROTEIN,URINE NEGATIVE (NEGATIVE); URIC ACID CRYSTALS,URINE RARE /HPF; UROBILINOGEN,URINE NEGATIVE mg/dL (<2.0)
[2017-10-10] MEDS: ACETAMINOPHEN 325 MG TABLET PO PRN (11:25)
[2017-10-10] MEDS: LORAZEPAM INJ 2 MG/1 ML VIAL IV PRN ×3 (11:26→20:35)
[2017-10-10] MEDS: HEPARIN SOD (PORCINE) 5,000 UNIT/ML 1 ML SYRINGE SUBCUT SCH ×2 (13:23→21:36)
--- NOTE | 2017-10-10 13:25 | Physician Advisory Note ---
Physician Advisor ProgressNote .: [facility] have reviewed the medical record for this patient. Physician Advisor Statement: Please consider documenting, if you agree: 1. Likely cause of chronic blood loss causing the anemia 2. Likely cause of current hypoxemia: "chronic hypoxemic respiratory failure"? , "hypoxemia due to atelectasis"?, "GENARO"?, ... ? 3. "Acute hypernatremia, likely due to intravascular volume depletion" (also had dry mucosae) 4. Couple more details on medical necessity points for JEFERSON: - "'ROM =___ degrees w/flexion & __ degrees w/extension" - "ADLs interfered with by hip pain now include: " - walking? squatting? climbing stairs? bathing? cooking? disrupting sleep due to inability to lie on hip in bed? Status: 62yo Medicaid pt with multiple chronic co-morbidities, in w/severe Lt hip pain after fall which worsened her underlying end-stage AVN, needs JEFERSON but also needing optimizing medically prior to surgery. Not able to be managed as outpt yesterday or today. Risks for cardiac decomensation acutely, & EtOH withdrawal, having hypoxemia as low as 75% on RA at times requiring O2, VS unstable with HR up to 114 & tachypnea up to 24 this AM, some fever this AM. Also attending finds her to need transfusion pre-op. Also needs surgery that is still considered inpt-only procedure for now. Appropriate for Inpatient status. Medical necessity point for JEFERSON already documented in this chart: - severe end-stage AVN of Lt hip by x-ray, - severely deconditioned due to this, - conservative tx.s tried: has used wheeled walker x many months or more, Ibuprofen/gabapentin/Elavil use - Now pain 10/10 at rest, worse w/movement - ADLs interfered with include: - Exam findings include deformity, joint tenderness, crepitus in joint w/ROM, decreased ROM due to pain per ortho eval CK
[2017-10-10] MEDS: MORPHINE SULFATE 10 MG/ML INJ IV PRN ×2 (18:14→22:37)
--- NOTE | 2017-10-10 18:47 | Progress Note ---
Provider Note Provider Note: Ms Barboza is a 62 yo female who fell yesterday, sustaining a fracture of the left hip. She has been seen by Ortho. Surgical repair is planned pending medical clearance. Cardiology consult has been requested. Currently, she is comfortable with mild hip pain.
--- NOTE | 2017-10-10 21:08 | EKG REPORT ---
SEVERITY:- BORDERLINE ECG - SINUS TACHYCARDIA BORDERLINE PROLONGED QT INTERVAL : Confirmed by: Vonda Scott MD 10-Oct-2017 21:08:21
[2017-10-10] MEDS: AMITRIPTYLINE HCL 25 MG TABLET PO SCH (21:36)
[2017-10-10] MEDS: ATORVASTATIN CALCIUM 40 MG TABLET PO SCH (21:36)
[2017-10-11] MEDS ORDERED: RINGERS SOLUTION,LACTATED 1,000 ML IV PRN ×2 (00:01→13:11)
[2017-10-11] MEDS: IPRATROPIUM/ALBUTEROL 0.5-2.5 MG/3 ML AMPUL NEB SCH ×4 (02:27→20:05)
[2017-10-11] MEDS: MORPHINE SULFATE 10 MG/ML INJ IV PRN ×4 (03:34→23:17)
[2017-10-11] MEDS ORDERED: INFLUENZA ADLT QUAD (36MOS+) 2017-18 VAC 0.5 ML SYR IM PRN (04:28)
[2017-10-11] MEDS ORDERED: TRANEXAMIC ACID INJ/PF 1,000 MG/10 ML SDV IV PRN (05:00)
[2017-10-11] MEDS: LORAZEPAM INJ 2 MG/1 ML VIAL IV PRN (05:04)
[2017-10-11] MEDS: OXYCODONE-ACETAMINOPHEN 5-325 MG TABLET PO PRN ×2 (05:07→16:00)
[2017-10-11] MEDS: HEPARIN SOD (PORCINE) 5,000 UNIT/ML 1 ML SYRINGE SUBCUT SCH ×3 (05:10→21:29)
[2017-10-11 05:34] LABS: ABSOLUTE MONOCYTES (AUTO) 0.4 10^3/uL (0.1-1.4); ABSOLUTE NEUT (AUTO) 2.7 10^3/uL (1.7-8.2); BASOPHILS % (AUTO) 0.4 % (0-2); EOSINOPHILS % (AUTO) 0.5 % (0-6); HEMATOCRIT 26.7 % (36.0-47.0); HGB HCT DIFFERENCE 0.3; LYMPHOCYTES % (AUTO) 24.5 % (13-45); MEAN CORPUSCULAR HEMOGLOBIN 28.5 pg (27.0-33.4); MEAN CORPUSCULAR HGB CONC 33.6 g/dL (32.0-36.0); MEAN CORPUSCULAR VOLUME 85 fl (80-97); MONOCYTES % (AUTO) 9.2 % (3-13); RED BLOOD COUNT 3.15 10^6/uL (3.72-5.28); RED CELL DISTRIBUTION WIDTH 21.6 % (11.5-14.0); SEGMENTED NEUTROPHILS % (AUTO) 65.4 % (42-78); WHITE BLOOD COUNT 4.1 10^3/uL (4.0-10.5)
[2017-10-11 05:49] LABS: ANION GAP 9 (5-19); BLOOD UREA NITROGEN 14 mg/dL (7-20); CALCIUM 9.3 mg/dL (8.4-10.2); CARBON DIOXIDE 27 mmol/L (22-30); CHLORIDE 100 mmol/L (98-107); CREATININE RESULT 0.72 mg/dL (0.52-1.25); GLUCOSE 114 mg/dL (75-110); POTASSIUM 4.3 mmol/L (3.6-5.0); SODIUM 135.7 mmol/L (137-145)
[2017-10-11] MEDS: VANCOMYCIN HCL 1,000 MG in DEXTROSE 5%-WATER 250 ML IV PRN ×2 (09:25→12:00)
[2017-10-11] MEDS: LANSOPRAZOLE 30 MG TAB.RAP.DR PO SCH ×2 (09:38→15:50)
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
[2017-10-11] MEDS ORDERED: MIDAZOLAM 2 MG/2 ML INJ ONE (11:42)
[2017-10-11] MEDS ORDERED: CEFAZOLIN INJ 1 GM VIAL ONE (11:42)
[2017-10-11] MEDS ORDERED: IBUPROFEN INJ 800 MG/8 ML VIAL IV ONE ×2 (11:43→12:40)
[2017-10-11] MEDS ORDERED: TRANEXAMIC ACID INJ/PF 1,000 MG/10 ML SDV IV ONE ×2 (11:43→14:36)
[2017-10-11] MEDS ORDERED: PROPOFOL INJ 200 MG/20 ML VIAL IV ONE (11:43)
[2017-10-11] MEDS ORDERED: ONDANSETRON HCL INJ/PF 4 MG/2 ML SDV ONE (11:43)
[2017-10-11] MEDS ORDERED: THROMBIN (BOVINE) TOPICAL 20000 UNIT VIAL ONE (11:45)
[2017-10-11] MEDS ORDERED: THROMBIN (BOVINE) 5000 UNIT EPITAXIS KIT ONE (11:45)
[2017-10-11] MEDS ORDERED: BUPIVACAINE INJ/PF LIPOSOME/PF 266 MG/20 ML SDV ONE (11:45)
[2017-10-11] MEDS ORDERED: FENTANYL CITRATE INJ/PF 100 MCG/2 ML AMPUL IV PRN (12:47)
[2017-10-11] MEDS ORDERED: MORPHINE SULFATE 10 MG/ML INJ IV PRN ×4 (12:47→13:11)
[2017-10-11] MEDS ORDERED: PROMETHAZINE HCL INJ 25 MG/1 ML VIAL IV PRN (12:47)
[2017-10-11] MEDS ORDERED: MEPERIDINE HCL/PF INJ 25 MG/1 ML DISP.SYRIN IV PRN (12:47)
[2017-10-11] MEDS ORDERED: DIPHENHYDRAMINE HCL 50 MG/ML VIAL IV PRN ×2 (12:47→13:11)
--- NOTE | 2017-10-11 13:09 | Operative Report ---
Operative Report DATE OF SURGERY: 10/11/17 PREOPERATIVE DIAGNOSIS: Left hip avascular necrosis OPERATION: Left hip arthroplasty SURGEON: HEATHER IGLESIAS ANESTHESIA: Spinal TISSUE REMOVED OR ALTERED: Femoral head to pathology ESTIMATED BLOOD LOSS: 100 PROCEDURE: Implants used: Femur: Kinross Accolade 2 stem size 6 Acetabular shell: 54 mm hemispherical shell Liner: A 36 mm flat cross-link polyethylene liner Head: 36 mm chrome cobalt head standard neck The patient is placed in a right lateral decubitus position on the operating table. The left lower extremity and hindquarter is prepped and draped in a sterile fashion. A curvilinear incision was made over the greater trochanter a posterior approach the hip was taken. The femoral head is dislocated and the femoral neck transected using an oscillating saw. Attention was next turned to the acetabulum. Soft tissues cleared off the acetabulum using electrocautery. The acetabulum was then prepared using a series of hemispherical reamers until a 53 millimeters reamer is seated. Subsequently a 54 millimeters Kinross titanium hemispherical shell is impacted into position and secured with one screw. A standard flat 36 millimeters cross- link liner is impacted into the shell. Attention was next turned to the femur. Access is gained to the femoral canal using a box osteotome to the piriformis fossa. The femur is then prepared using a series of broaches until a number 6 broach is seated. A trial reduction was now performed using a 36 millimeters head with standard neck. Preoperative leg length was recreated and is excellent anterior posterior stability. A decision was made to proceed with the above construct. All trial implants were removed. The wound is irrigated with pulsed lavage. A number 6 stem is impacted into the femoral canal. A trial reduction was again performed with a 36 mm head and a standard neck. Findings as previously. The hip was dislocated one last time and the final chrome-cobalt head is impacted onto the trunnion. The hip was reduced. Wound is copiously irrigated with pulsed lavage. Sent closed in layers using interrupted Vicryl followed by alison. A sterile dressing is applied and the patient's returned to recovery room in satisfactory patient.
[2017-10-11] MEDS ORDERED: ONDANSETRON HCL INJ/PF 4 MG/2 ML SDV IV PRN (13:11)
[2017-10-11] MEDS ORDERED: ONDANSETRON 4 MG TAB.RAPDIS PO PRN (13:11)
[2017-10-11] MEDS ORDERED: MAG HYDROX/AL HYDROX/SIMETH SUSP 30 ML UDCUP PO PRN (13:11)
[2017-10-11] MEDS ORDERED: ACETAMINOPHEN 325 MG TABLET PO PRN (13:11)
[2017-10-11] MEDS ORDERED: MORPHINE SULFATE 10 MG/ML INJ IM PRN (13:11)
[2017-10-11] MEDS ORDERED: FENTANYL CITRATE INJ/PF 100 MCG/2 ML AMPUL ONE (14:02)
[2017-10-11] MEDS: FENTANYL CITRATE INJ/PF 100 MCG/2 ML AMPUL IV PRN ×2 (14:04→14:20)
--- NOTE | 2017-10-11 14:06 | RADIOLOGY REPORT (SQ) ---
EXAM DESCRIPTION: PELVIS AP COMPLETED DATE/TIME: 10/11/2017 1:40 pm REASON FOR STUDY: Post Op Long Cassette in PACU COMPARISON: None. NUMBER OF VIEWS: One view TECHNIQUE: AP Pelvis LIMITATIONS: None. FINDINGS: MINERALIZATION: Normal. HIPS: There is a left hip arthroplasty in good position. PELVIS AND SACRUM: No acute fracture or dislocation. No worrisome bone lesions. PUBIS AND ISCHIUM: No acute fracture. LOWER LUMBAR SPINE: No significant findings as visualized. SOFT TISSUES: No findings. OTHER: No other significant finding. IMPRESSION: Left hip arthroplasty. TECHNICAL DOCUMENTATION: JOB ID: [id number] [employer]- All Rights Reserved
[2017-10-11] MEDS: LEVOTHYROXINE SODIUM 0.05 MG TABLET PO SCH (15:46)
[2017-10-11] MEDS: FLUOXETINE HCL 20 MG CAPSULE PO SCH (15:50)
[2017-10-11] MEDS: ASPIRIN 81 MG TABLET, CHEWABLE PO SCH (15:51)
[2017-10-11] MEDS: AMLODIPINE BESYLATE 5 MG TABLET PO SCH (16:01)
[2017-10-11] MEDS: DOCUSATE SODIUM 100 MG CAPSULE PO SCH ×2 (16:11→17:27)
[2017-10-11] MEDS ORDERED: LANSOPRAZOLE 30 MG TAB.RAP.DR PO SCH (17:00)
[2017-10-11] MEDS: LISINOPRIL 10 MG TABLET PO SCH (17:28)
[2017-10-11] MEDS: SENNOSIDES/DOCUSATE 8.6-50 MG 1 EACH TABLET PO SCH (17:28)
[2017-10-11] MEDS: ASPIRIN 81 MG TABLET, ENT COATED PO SCH (17:29)
[2017-10-11] MEDS ORDERED: (PENDING PHARMACY ID) (Lisinopril [Zestril] 20 MG) PO SCH (18:00)
--- NOTE | 2017-10-11 18:12 | PDOC PROGRESS REPORT ---
Subjective Progress Note for:: 10/11/17 Subjective:: At the time of my visit this morning, she was awaiting surgery. No problems overnight. Physical Exam Vital Signs: Temp Pulse Resp BP Pulse Ox 99.4 F 98 18 126/83 H 98 10/11/17 15:46 10/11/17 15:46 10/11/17 15:46 10/11/17 15:46 10/11/17 15:46 Intake & Output 10/10/17 10/11/17 10/12/17 06:59 06:59 06:59 Intake Total 0 2230 2700 Output Total 600 1600 Balance 0 1630 1100 Weight 100.3 kg 100.3 kg General appearance: PRESENT: no acute distress, cooperative Head exam: PRESENT: atraumatic, normocephalic Eye exam: PRESENT: conjunctiva pink, EOMI, PERRLA. ABSENT: scleral icterus Respiratory exam: PRESENT: clear to auscultation nicola. ABSENT: rales, rhonchi, wheezes Cardiovascular exam: PRESENT: RRR. ABSENT: diastolic murmur, rubs, systolic murmur GI/Abdominal exam: PRESENT: normal bowel sounds, soft. ABSENT: distended, guarding, mass, organolmegaly, rebound, tenderness Neurological exam: PRESENT: alert, awake, oriented to person, oriented to place , oriented to time, oriented to situation, CN II-XII grossly intact. ABSENT: motor sensory deficit Psychiatric exam: PRESENT: appropriate affect, normal mood. ABSENT: homicidal ideation, suicidal ideation Skin exam: PRESENT: dry, intact, warm. ABSENT: cyanosis, rash Results Laboratory Results: 10/11/17 04:46 10/11/17 04:46 10/11/17 10/11/17 04:46 04:46 WBC 4.1 RBC 3.15 L Hgb 9.0 L Hct 26.7 L MCV 85 MCH 28.5 MCHC 33.6 RDW 21.6 H Plt Count 151 Seg Neutrophils % 65.4 Lymphocytes % 24.5 Monocytes % 9.2 Eosinophils % 0.5 Basophils % 0.4 Absolute Neutrophils 2.7 Absolute Lymphocytes 1.0 Absolute Monocytes 0.4 Absolute Eosinophils 0.0 Absolute Basophils 0.0 Sodium 135.7 L Potassium 4.3 Chloride 100 Carbon Dioxide 27 Anion Gap 9 BUN 14 Creatinine 0.72 Est GFR ( Amer) > 60 Est GFR (Non-Af Amer) > 60 Glucose 114 H Calcium 9.3 Impressions: Hip X-Ray 10/10/17 01:39 IMPRESSION: Moderate impaction fracture -deformity of the left femoral head and left lateral acetabulum with possible avascular necrosis relatively new compared with prior radiographs from November 2013. Cervical Spine CT 10/10/17 01:56 IMPRESSION: No acute findings. Head CT 10/10/17 01:56 IMPRESSION: NORMAL BRAIN CT WITHOUT CONTRAST. EVIDENCE OF ACUTE STROKE: NO. Ankle X-Ray 10/10/17 01:58 IMPRESSION: NO RADIOGRAPHIC EVIDENCE OF ACUTE INJURY. Chest X-Ray 10/10/17 04:14 IMPRESSION: NO ACUTE RADIOGRAPHIC FINDING IN THE CHEST. Pelvis X-Ray 10/11/17 13:13 IMPRESSION: Left hip arthroplasty. Assessment & Plan - Diagnosis (1) Alcohol intoxication Qualifiers: Complication of substance-induced condition: uncomplicated Qualified Code(s ): F10.920 - Alcohol use, unspecified with intoxication, uncomplicated Is this a current diagnosis for this admission?: Yes Plan: Monitor for withdrawal. (2) Closed left hip fracture Qualifiers: Encounter type: subsequent encounter Qualified Code(s): S72.002A - Fracture of unspecified part of neck of left femur, initial encounter for closed fracture Is this a current diagnosis for this admission?: Yes Plan: Surgery per orthopedics (3) Essential hypertension Is this a current diagnosis for this admission?: Yes Plan: Blood pressure is good. Continue antihypertensives as prescribed. (4) GERD (gastroesophageal reflux disease) Qualifiers: Esophagitis presence: without esophagitis Qualified Code(s): K21.9 - Gastro -esophageal reflux disease without esophagitis Is this a current diagnosis for this admission?: Yes Plan: Asymptomatic. Continue Prevacid. (5) Anemia Qualifiers: Anemia type: iron deficiency Iron deficiency anemia type: chronic blood loss Qualified Code(s): D50.0 - Iron deficiency anemia secondary to blood loss (chronic) Is this a current diagnosis for this admission?: Yes Plan: Monitor hemoglobin. Consider transfusion removal of less than 7. Guaiac stool. - Time Time Spent with patient: 15-24 minutes Medications reviewed and adjusted accordingly: Yes Anticipated discharge: Acute Rehab Within: within 72 hours
[2017-10-11] MEDS ORDERED: CYANOCOBALAMIN/FA/PYRIDOXINE TABLET PO ONE (19:00)
[2017-10-11] MEDS: OXYCODONE HCL IR 5 MG TABLET PO PRN (20:05)
[2017-10-11] MEDS: AMITRIPTYLINE HCL 25 MG TABLET PO SCH (21:29)
[2017-10-11] MEDS: ATORVASTATIN CALCIUM 40 MG TABLET PO SCH (21:30)
[2017-10-11] MEDS: GABAPENTIN 300 MG CAPSULE PO SCH (21:30)
[2017-10-11] MEDS: OXYCODONE HCL SR 10 MG TABLET PO SCH (21:30)
[2017-10-11] MEDS ORDERED: AMITRIPTYLINE HCL 25 MG TABLET PO SCH (22:00)
[2017-10-12] MEDS: OXYCODONE-ACETAMINOPHEN 5-325 MG TABLET PO PRN ×3 (00:25→20:13)
[2017-10-12] MEDS ORDERED: VANCOMYCIN HCL 1,000 MG in DEXTROSE 5%-WATER 250 ML IV ONE (01:11)
[2017-10-12] MEDS: MORPHINE SULFATE 10 MG/ML INJ IV PRN ×2 (01:23→03:39)
[2017-10-12] MEDS: OXYCODONE HCL IR 5 MG TABLET PO PRN ×2 (02:31→08:11)
[2017-10-12] MEDS: IPRATROPIUM/ALBUTEROL 0.5-2.5 MG/3 ML AMPUL NEB SCH ×4 (02:44→19:52)
[2017-10-12] MEDS ORDERED: NORMAL SALINE 1000 ML 1,000 ML IV ONE (05:00)
[2017-10-12] MEDS: HEPARIN SOD (PORCINE) 5,000 UNIT/ML 1 ML SYRINGE SUBCUT SCH ×2 (05:16→13:26)
[2017-10-12 05:51] LABS: ABSOLUTE LYMPHOCYTES (AUTO) 1.3 10^3/uL (0.5-4.7); ABSOLUTE MONOCYTES (AUTO) 0.4 10^3/uL (0.1-1.4); ABSOLUTE NEUT (AUTO) 3.7 10^3/uL (1.7-8.2); BASOPHILS % (AUTO) 0.3 % (0-2); EOSINOPHILS % (AUTO) 0.5 % (0-6); HEMATOCRIT 24.8 % (36.0-47.0); HGB HCT DIFFERENCE -1.1; LYMPHOCYTES % (AUTO) 24.3 % (13-45); MEAN CORPUSCULAR HEMOGLOBIN 27.3 pg (27.0-33.4); MEAN CORPUSCULAR VOLUME 85 fl (80-97); MONOCYTES % (AUTO) 6.6 % (3-13); RED BLOOD COUNT 2.91 10^6/uL (3.72-5.28); RED CELL DISTRIBUTION WIDTH 20.8 % (11.5-14.0); SEGMENTED NEUTROPHILS % (AUTO) 68.3 % (42-78); WHITE BLOOD COUNT 5.4 10^3/uL (4.0-10.5)
[2017-10-12 05:52] LABS: ANION GAP 10 (5-19); BLOOD UREA NITROGEN 16 mg/dL (7-20); CALCIUM 8.9 mg/dL (8.4-10.2); CARBON DIOXIDE 25 mmol/L (22-30); CHLORIDE 99 mmol/L (98-107); CREATININE RESULT 1.16 mg/dL (0.52-1.25); GLUCOSE 121 mg/dL (75-110); POTASSIUM 4.7 mmol/L (3.6-5.0); SODIUM 134.3 mmol/L (137-145)
[2017-10-12 05:53] LABS: HEMOGLOBIN 7.9 g/dL (12.0-15.5)
--- NOTE | 2017-10-12 07:16 | PDOC PROGRESS REPORT ---
Subjective Progress Note for:: 10/12/17 Subjective:: Patient lying recumbent in hospital bed reporting she is in great amount of pain this morning. When discussed with patient's nurse, I was informed that all analgesic medication had been withheld as patient's blood pressure had dropped significantly. Her pressures are now back within normal range and pain medications were suggested to be restarted. Physical Exam Vital Signs: Temp Pulse Resp BP Pulse Ox 37.6 C 99 22 H 98/68 L 96 10/12/17 03:51 10/12/17 03:51 10/12/17 03:51 10/12/17 06:01 10/12/17 03:51 Intake & Output 10/11/17 10/12/17 10/13/17 06:59 06:59 06:59 Intake Total 2230 5500 Output Total 600 2850 Balance 1630 2650 Weight 100.3 kg 105.4 kg General appearance: PRESENT: mild distress, well-developed, well-nourished Head exam: PRESENT: atraumatic, normocephalic Respiratory exam: PRESENT: unlabored, wheezes Pulses: PRESENT: normal dorsalis pedis pul, +2 pedal pulses bilateral Vascular exam: PRESENT: normal capillary refill Extremities exam: PRESENT: tenderness Additional comments: Patient lying recumbent in hospital bed with left lower extremity in full extension. Her OpSite wound dressing is in place and is saturated with jahaira blood she is tender to palpation along her wound margins. This dressing is changed and the new dressing is clean dry and intact. She has brisk capillary refill to toes on bilateral lower extremities. Her sensory and motor functions are intact and her distal neurovascular exam is intact. Additional comments: Patient make slow progress with physical therapy as she has not yet ambulated independently. She was seen after her surgery yesterday however was unable to ambulate. She will continue to work with physical therapy to work towards ambulation and increase strength range of motion of the left lower extremity. Neurological exam: PRESENT: alert, awake, oriented to person, oriented to place , oriented to time, oriented to situation, CN II-XII grossly intact. ABSENT: motor sensory deficit Psychiatric exam: PRESENT: appropriate affect, normal mood. ABSENT: homicidal ideation, suicidal ideation Skin exam: PRESENT: dry, intact, warm. ABSENT: cyanosis, rash Additional comments: Patient has significant ecchymosis along the left lateral thigh. This is likely the result of manipulation during surgery. Results Laboratory Results: 10/12/17 04:40 10/12/17 04:40 10/12/17 10/12/17 04:40 04:40 WBC 5.4 RBC 2.91 L Hgb 7.9 L Hct 24.8 L MCV 85 MCH 27.3 MCHC 32.0 RDW 20.8 H Plt Count 145 L Seg Neutrophils % 68.3 Lymphocytes % 24.3 Monocytes % 6.6 Eosinophils % 0.5 Basophils % 0.3 Absolute Neutrophils 3.7 Absolute Lymphocytes 1.3 Absolute Monocytes 0.4 Absolute Eosinophils 0.0 Absolute Basophils 0.0 Sodium 134.3 L Potassium 4.7 Chloride 99 Carbon Dioxide 25 Anion Gap 10 BUN 16 Creatinine 1.16 Est GFR ( Amer) 57 L Est GFR (Non-Af Amer) 47 L Glucose 121 H Calcium 8.9 Impressions: Hip X-Ray 10/10/17 01:39 IMPRESSION: Moderate impaction fracture -deformity of the left femoral head and left lateral acetabulum with possible avascular necrosis relatively new compared with prior radiographs from November 2013. Cervical Spine CT 10/10/17 01:56 IMPRESSION: No acute findings. Head CT 10/10/17 01:56 IMPRESSION: NORMAL BRAIN CT WITHOUT CONTRAST. EVIDENCE OF ACUTE STROKE: NO. Ankle X-Ray 10/10/17 01:58 IMPRESSION: NO RADIOGRAPHIC EVIDENCE OF ACUTE INJURY. Chest X-Ray 10/10/17 04:14 IMPRESSION: NO ACUTE RADIOGRAPHIC FINDING IN THE CHEST. Pelvis X-Ray 10/11/17 13:13 IMPRESSION: Left hip arthroplasty. Assessment & Plan - Diagnosis (1) Avascular necrosis of bone of left hip Is this a current diagnosis for this admission?: Yes - Plan Summary Plan Summary: 62-year-old white female one day status post total left hip arthroplasty. Patient's pain has been well controlled however she was experiencing significant decreases in blood pressure. Therefore under the hospitalist direction analgesic medications were withheld overnight up until this morning. He was advised that as patient's pressures have now normalized analgesic medications could be restarted. As she felt she was not getting long enough pain relief her oxycodone will be increased to every 4 hours. Patient also make slow progress with physical therapy as she has not yet ambulated independently. She will continue to work with physical therapy to improve strength and range of motion of the left lower extremity. Additionally patient' s hemoglobin was 7.9 and we would recommend transfusion of 2 units of blood at this time. This is in accordance with the hospitalist opinion who had already ordered a blood transfusion. We will hopefully plan for discharge later this week.
[2017-10-12] MEDS: LANSOPRAZOLE 30 MG TAB.RAP.DR PO SCH ×2 (08:11→17:41)
[2017-10-12] MEDS ORDERED: FLUOXETINE HCL 20 MG CAPSULE PO SCH (10:00)
[2017-10-12] MEDS ORDERED: AMLODIPINE BESYLATE 5 MG TABLET PO SCH (10:00)
[2017-10-12] MEDS ORDERED: LEVOTHYROXINE SODIUM 0.05 MG TABLET PO SCH (10:00)
[2017-10-12] MEDS: ASPIRIN 81 MG TABLET, CHEWABLE PO SCH (10:28)
[2017-10-12] MEDS: PRENATAL VITAMIN W DHA CAPSULE PO SCH (10:28)
[2017-10-12] MEDS: SENNOSIDES/DOCUSATE 8.6-50 MG 1 EACH TABLET PO SCH ×2 (10:29→17:42)
[2017-10-12] MEDS: GABAPENTIN 300 MG CAPSULE PO SCH ×2 (10:29→21:57)
[2017-10-12] MEDS: FLUOXETINE HCL 20 MG CAPSULE PO SCH (10:29)
[2017-10-12] MEDS: DOCUSATE SODIUM 100 MG CAPSULE PO SCH ×2 (10:29→17:41)
[2017-10-12] MEDS: LEVOTHYROXINE SODIUM 0.05 MG TABLET PO SCH (10:29)
[2017-10-12] MEDS: TRAMADOL HCL 50 MG TABLET PO PRN (10:29)
[2017-10-12] MEDS: CYANOCOBALAMIN/FA/PYRIDOXINE TABLET PO SCH (10:30)
[2017-10-12] MEDS: LISINOPRIL 10 MG TABLET PO SCH (10:44)
[2017-10-12] MEDS: OXYCODONE HCL SR 10 MG TABLET PO SCH ×2 (10:44→21:58)
[2017-10-12] MEDS: AMLODIPINE BESYLATE 5 MG TABLET PO SCH (10:44)
--- NOTE | 2017-10-12 11:42 | PDOC PROGRESS REPORT ---
Subjective Progress Note for:: 10/12/17 Subjective:: Patient postop day 1. Patient doing fine but did complain of significant discomfort in the hip area and some shortness of breath with physical therapy. Physical Exam Vital Signs: Temp Pulse Resp BP Pulse Ox 98.6 F 98 16 94/52 L 94 10/12/17 10:58 10/12/17 10:58 10/12/17 10:58 10/12/17 10:58 10/12/17 10:58 Intake & Output 10/11/17 10/12/17 10/13/17 06:59 06:59 06:59 Intake Total 2230 5500 0 Output Total 600 2850 Balance 1630 2650 0 Weight 100.3 kg 105.4 kg Exam: GENERAL: well-nourished and in no acute distress. Alert and oriented x3 HEAD: Atraumatic, normocephalic. EYES: Pupils equal round and reactive to light, extraocular movements intact, sclera anicteric, conjunctiva are normal. ENT: TMs normal, nares patent, oropharynx clear without exudates. Moist mucous membranes. No oral ulcerations or bleeding gums noted NECK: supple without lymphadenopathy. Trachea is central. No cervical or axillary lymphadenopathy noted. Carotids are 2+, JVD WNL LUNGS: Respiration seems nonlabored, no significant accessory muscle action noted. Breath sounds clear to auscultation bilaterally and equal noted. No wheezes rales or rhonchi noted. No significant dullness noted on percussion. CHEST: Palpation of the chest wall shows no significant chest wall tenderness. No other significant abnormalities noted. 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 ABDOMEN: Soft, no significant tenderness appreciated, normoactive bowel sounds. No guarding, no rebound. No rigidity noted . No masses appreciated. EXTREMITIES: Pedal pulses are 1-2+, no calf tenderness noted. No clubbing or cyanosis.trace to 1+ pedal edema noted NEUROLOGICAL: Focused neurological exam showed no significant neurologic deficit. Normal speech, no focal weakness appreciated. PSYCH: Normal mood, normal affect. Judgment and insight within normal limits. SKIN: No significant ecchymosis, rash, ulcerations or signs of pruritus noted. MUSCULOSKELETAL EXAM: No significant joint swelling noted. Results Laboratory Results: 10/12/17 04:40 10/12/17 04:40 10/10/17 10/12/17 10/12/17 07:49 04:40 04:40 WBC 5.4 RBC 2.91 L Hgb 7.9 L Hct 24.8 L MCV 85 MCH 27.3 MCHC 32.0 RDW 20.8 H Plt Count 145 L Seg Neutrophils % 68.3 Lymphocytes % 24.3 Monocytes % 6.6 Eosinophils % 0.5 Basophils % 0.3 Absolute Neutrophils 3.7 Absolute Lymphocytes 1.3 Absolute Monocytes 0.4 Absolute Eosinophils 0.0 Absolute Basophils 0.0 Sodium 134.3 L Potassium 4.7 Chloride 99 Carbon Dioxide 25 Anion Gap 10 BUN 16 Creatinine 1.16 Est GFR ( Amer) 57 L Est GFR (Non-Af Amer) 47 L Glucose 121 H Calcium 8.9 Blood Type A POSITIVE Antibody Screen NEGATIVE Impressions: Hip X-Ray 10/10/17 01:39 IMPRESSION: Moderate impaction fracture -deformity of the left femoral head and left lateral acetabulum with possible avascular necrosis relatively new compared with prior radiographs from November 2013. Cervical Spine CT 10/10/17 01:56 IMPRESSION: No acute findings. Head CT 10/10/17 01:56 IMPRESSION: NORMAL BRAIN CT WITHOUT CONTRAST. EVIDENCE OF ACUTE STROKE: NO. Ankle X-Ray 10/10/17 01:58 IMPRESSION: NO RADIOGRAPHIC EVIDENCE OF ACUTE INJURY. Chest X-Ray 10/10/17 04:14 IMPRESSION: NO ACUTE RADIOGRAPHIC FINDING IN THE CHEST. Pelvis X-Ray 10/11/17 13:13 IMPRESSION: Left hip arthroplasty. Assessment & Plan - Diagnosis (1) Closed left hip fracture Qualifiers: Encounter type: subsequent encounter Is this a current diagnosis for this admission?: Yes (2) Essential hypertension Is this a current diagnosis for this admission?: Yes (3) Hyperlipidemia Qualifiers: Hyperlipidemia type: unspecified Qualified Code(s): E78.5 - Hyperlipidemia , unspecified Is this a current diagnosis for this admission?: Yes (4) Diabetes mellitus type 2 in obese Is this a current diagnosis for this admission?: Yes (5) Sleep disorder Is this a current diagnosis for this admission?: Yes (6) Preoperative cardiovascular examination Is this a current diagnosis for this admission?: Yes - Notes Notes: Patient seems currently is stable but is noted to have rather a prominent heart murmur. Will order a 2D echo. I did review patient's chart did not find the echocardiogram report. Patient to continue with DVT prophylaxis and pulmonary toilet. Will continue to follow patient. - Time Time with patient: 15-25 minutes Medications reviewed and adjusted accordingly: Yes
--- NOTE | 2017-10-12 13:28 | PROGRESS NOTE E ---
Progress Note NAME: RORO DAS : 1955 AGE: 62Y DATE: 10/12/2017 ROOM: 321 SUBJECTIVE: The patient is a 62-year-old female who has a past medical history of hypertension. The patient was admitted with a fractured hip, underwent internal fixation. Today her hemoglobin dropped and she received 1 unit of blood. She is hypotensive also. When I saw her she is awake, alert. OBJECTIVE: GENERAL: The patient is lying in bed, not in distress. VITAL SIGNS: Blood pressure 93/53, heart rate is 95, respiratory rate 16, temperature 99.3. HEENT: Head normocephalic, atraumatic. Pupils round, reactive to light and accommodation bilaterally. Extraocular movements intact. Ears: Tympanic membranes intact bilaterally. No discharge from the ear. No discharge from the nose. NECK: Supple, no increased JVD, no thyromegaly, no lymphadenopathy. CARDIOVASCULAR: Normal S1, S2. Regular rate and rhythm. No murmur, no gallops. RESPIRATORY: Lungs clear. ABDOMEN: Soft. MUSCULOSKELETAL: No edema. NEUROLOGIC: Awake, alert. SKIN: No rash. LABORATORY DATA: White blood count 5.9, hemoglobin 7.9. Sodium *------*, potassium 4.7. ASSESSMENT: 1. FRACTURE LEFT HIP, STATUS POST INTERNAL FIXATION. 2. IRON DEFICIENCY ANEMIA, STATUS POST TRANSFUSION. 3. HYPOTENSION, PROBABLY FROM ANEMIA AND PAIN MEDICATION. Monitor. 4. HYPERTENSION CONTROLLED, NOW IS HYPOTENSIVE. MEDICAL NECESSITY: The patient needs to stay for rehabilitation. She needs placement for her. The patient *------* spent 2-5 minutes. DICTATING PHYSICIAN: PEPPER RITTER M.D. [id number] PHY#: [id number] ID: [id number] JOB#: [id number] ACCT: [id number] cc: >
[2017-10-12] MEDS ORDERED: NORMAL SALINE 500 ML IV PRN (14:31)
[2017-10-12 16:49] LABS: HEMATOCRIT 24.1 % (36.0-47.0); HGB HCT DIFFERENCE -0.7; MEAN CORPUSCULAR HEMOGLOBIN 27.9 pg (27.0-33.4); MEAN CORPUSCULAR HGB CONC 32.6 g/dL (32.0-36.0); MEAN CORPUSCULAR VOLUME 86 fl (80-97); RED BLOOD COUNT 2.82 10^6/uL (3.72-5.28); RED CELL DISTRIBUTION WIDTH 21.4 % (11.5-14.0); WHITE BLOOD COUNT 6.2 10^3/uL (4.0-10.5)
[2017-10-12 16:56] LABS: HEMOGLOBIN 7.8 g/dL (12.0-15.5)
[2017-10-12] MEDS: ASPIRIN 81 MG TABLET, ENT COATED PO SCH (17:42)
--- NOTE | 2017-10-12 20:20 | RADIOLOGY REPORT (SQ) ---
EXAM DESCRIPTION: CT LT LOWER EXTREMITY WITHOUT COMPLETED DATE/TIME: 10/12/2017 7:47 pm REASON FOR STUDY: avascular necrosis of L hip COMPARISON: Left hip films 10/11/2017, of 12/10/2016 TECHNIQUE: CT scan of the left hip performed without intravenous or oral contrast. Images reviewed with soft tissue and bone windows. Reconstructed coronal and sagittal MPR images reviewed. All imag es stored on PACS. All CT scanners at this facility use dose modulation, iterative reconstruction, and/or weight based d osing when appropriate to reduce radiation dose to as low as reasonably achievable (ALARA). [facility]: Dose Right [facility]: CareDose [facility]: Dose Right [facility]: Teradose 4D [facility]: [employer] RADIATION DOSE: CT Rad equipment meets quality standard of care and radiation dose reduction techniq ues were employed. CTDIvol: 4.1 mGy. DLP: 152 mGy-cm. mGy. LIMITATIONS: Left hip and hemipelvis. Entire pelvis not imaged. Large patient, artifact from left hip hardware FINDINGS: VISUALIZED LEFT PELVIC BONES: No acute fracture. No worrisome bone lesions. LEFT HIP: Left hip replacement in good alignment. No fracture of the left carlitos pelvis or proximal fe mur in the field of view PELVIC SOFT TISSUES: Schwab catheter draining the bladder. EXTRAPELVIC SOFT TISSUES: Postoperative changes with superficial skin alison and small amount of neil ign postoperative air in the soft tissues. No hematoma. OTHER: No other significant finding. IMPRESSION: Post left hip replacement. No dislocation. No fracture. TECHNICAL DOCUMENTATION: JOB ID: [id number] Quality ID # [id number]: Final reports with documentation of one or more dose reduction techniques (e.g., Au tomated exposure control, adjustment of the mA and/or kV according to patient size, use of iterative reconstruction technique) 2010 [email or web address]- All Rights Reserved
[2017-10-12] MEDS ORDERED: AMITRIPTYLINE HCL 25 MG TABLET ONE (21:50)
[2017-10-12] MEDS: ATORVASTATIN CALCIUM 40 MG TABLET PO SCH (21:57)
[2017-10-12] MEDS: AMITRIPTYLINE HCL 25 MG TABLET PO SCH (21:58)
[2017-10-12] MEDS ORDERED: FUROSEMIDE INJ/PF 20 MG/2 ML SDV IV ONE (23:00)
[2017-10-13 00:29] LABS: ABSOLUTE LYMPHOCYTES (AUTO) 0.9 10^3/uL (0.5-4.7); ABSOLUTE MONOCYTES (AUTO) 0.5 10^3/uL (0.1-1.4); ABSOLUTE NEUT (AUTO) 5.5 10^3/uL (1.7-8.2); BASOPHILS % (AUTO) 0.3 % (0-2); EOSINOPHILS % (AUTO) 0.3 % (0-6); HEMATOCRIT 24.7 % (36.0-47.0); HEMOGLOBIN 8.2 g/dL (12.0-15.5); HGB HCT DIFFERENCE -0.1; LYMPHOCYTES % (AUTO) 13.2 % (13-45); MEAN CORPUSCULAR HEMOGLOBIN 27.7 pg (27.0-33.4); MEAN CORPUSCULAR HGB CONC 33.2 g/dL (32.0-36.0); MEAN CORPUSCULAR VOLUME 83 fl (80-97); MONOCYTES % (AUTO) 7.1 % (3-13); RED BLOOD COUNT 2.96 10^6/uL (3.72-5.28); RED CELL DISTRIBUTION WIDTH 20.1 % (11.5-14.0); SEGMENTED NEUTROPHILS % (AUTO) 79.1 % (42-78); WHITE BLOOD COUNT 6.9 10^3/uL (4.0-10.5)
[2017-10-13] MEDS: IPRATROPIUM/ALBUTEROL 0.5-2.5 MG/3 ML AMPUL NEB SCH ×4 (01:07→19:14)
[2017-10-13] MEDS: ACETAMINOPHEN 325 MG TABLET PO PRN (02:03)
[2017-10-13 04:18] LABS: ABSOLUTE LYMPHOCYTES (AUTO) 1.1 10^3/uL (0.5-4.7); ABSOLUTE MONOCYTES (AUTO) 0.5 10^3/uL (0.1-1.4); ABSOLUTE NEUT (AUTO) 5.1 10^3/uL (1.7-8.2); BASOPHILS % (AUTO) 0.1 % (0-2); EOSINOPHILS % (AUTO) 0.4 % (0-6); HEMATOCRIT 23.8 % (36.0-47.0); HGB HCT DIFFERENCE 0.2; LYMPHOCYTES % (AUTO) 16.5 % (13-45); MEAN CORPUSCULAR HEMOGLOBIN 28.5 pg (27.0-33.4); MEAN CORPUSCULAR HGB CONC 33.8 g/dL (32.0-36.0); MEAN CORPUSCULAR VOLUME 84 fl (80-97); MONOCYTES % (AUTO) 7.5 % (3-13); RED BLOOD COUNT 2.82 10^6/uL (3.72-5.28); RED CELL DISTRIBUTION WIDTH 20.3 % (11.5-14.0); SEGMENTED NEUTROPHILS % (AUTO) 75.5 % (42-78); WHITE BLOOD COUNT 6.8 10^3/uL (4.0-10.5)
[2017-10-13 04:39] LABS: ALBUMIN 2.8 g/dL (3.5-5.0); ANION GAP 8 (5-19); BLOOD UREA NITROGEN 20 mg/dL (7-20); CALCIUM 8.3 mg/dL (8.4-10.2); CARBON DIOXIDE 22 mmol/L (22-30); CHLORIDE 98 mmol/L (98-107); CREATININE RESULT 1.42 mg/dL (0.52-1.25); GLUCOSE 100 mg/dL (75-110); PHOSPHORUS 3.7 mg/dL (2.5-4.5); POTASSIUM 4.3 mmol/L (3.6-5.0); SODIUM 127.7 mmol/L (137-145)
[2017-10-13] MEDS: OXYCODONE-ACETAMINOPHEN 5-325 MG TABLET PO PRN ×2 (05:29→21:24)
--- NOTE | 2017-10-13 07:12 | PDOC PROGRESS REPORT ---
Subjective Progress Note for:: 10/13/17 Subjective:: Patient complaining of pain, asking when her next dose of Percocet can be administered, and whether or not her blood pressure would be a contraindication for this. Physical Exam Vital Signs: Temp Pulse Resp BP Pulse Ox 37.2 C 73 13 98/65 L 96 10/13/17 05:00 10/13/17 02:00 10/13/17 06:16 10/13/17 06:16 10/13/17 06:16 Intake & Output 10/12/17 10/13/17 10/14/17 06:59 06:59 06:59 Intake Total 5500 3205 Output Total 2850 2775 Balance 2650 430 Weight 105.4 kg 105.6 kg General appearance: PRESENT: mild distress, obese Head exam: PRESENT: normocephalic Respiratory exam: PRESENT: unlabored Cardiovascular exam: PRESENT: RRR Pulses: PRESENT: +1 pedal pulses bilateral Vascular exam: PRESENT: normal capillary refill GI/Abdominal exam: PRESENT: soft Rectal exam: PRESENT: deferred Extremities exam: PRESENT: other - Left hip dressing clean dry and intact. Leg lengths are equal. Distal neurovascular examination is intact. Neurological exam: PRESENT: alert, awake, oriented to person, oriented to place , oriented to time, oriented to situation. ABSENT: motor sensory deficit Psychiatric exam: PRESENT: appropriate affect, normal mood. ABSENT: homicidal ideation, suicidal ideation Skin exam: PRESENT: dry, intact, warm. ABSENT: cyanosis, rash Results Laboratory Results: 10/13/17 03:42 10/13/17 03:42 10/10/17 10/12/17 10/13/17 07:49 16:15 00:27 WBC 6.2 6.9 RBC 2.82 L 2.96 L Hgb 7.8 L 8.2 L Hct 24.1 L 24.7 L MCV 86 83 MCH 27.9 27.7 MCHC 32.6 33.2 RDW 21.4 H 20.1 H Plt Count 122 L 109 L Seg Neutrophils % 79.1 H Lymphocytes % 13.2 Monocytes % 7.1 Eosinophils % 0.3 Basophils % 0.3 Absolute Neutrophils 5.5 Absolute Lymphocytes 0.9 Absolute Monocytes 0.5 Absolute Eosinophils 0.0 Absolute Basophils 0.0 Sodium Potassium Chloride Carbon Dioxide Anion Gap BUN Creatinine Est GFR ( Amer) Est GFR (Non-Af Amer) Glucose Calcium Phosphorus Albumin Blood Type A POSITIVE Antibody Screen NEGATIVE 10/13/17 10/13/17 03:42 03:42 WBC 6.8 RBC 2.82 L Hgb 8.0 L Hct 23.8 L MCV 84 MCH 28.5 MCHC 33.8 RDW 20.3 H Plt Count 115 L Seg Neutrophils % 75.5 Lymphocytes % 16.5 Monocytes % 7.5 Eosinophils % 0.4 Basophils % 0.1 Absolute Neutrophils 5.1 Absolute Lymphocytes 1.1 Absolute Monocytes 0.5 Absolute Eosinophils 0.0 Absolute Basophils 0.0 Sodium 127.7 L Potassium 4.3 Chloride 98 Carbon Dioxide 22 Anion Gap 8 BUN 20 Creatinine 1.42 H Est GFR ( Amer) 45 L Est GFR (Non-Af Amer) 37 L Glucose 100 Calcium 8.3 L Phosphorus 3.7 Albumin 2.8 L Blood Type Antibody Screen Impressions: Hip X-Ray 10/10/17 01:39 IMPRESSION: Moderate impaction fracture -deformity of the left femoral head and left lateral acetabulum with possible avascular necrosis relatively new compared with prior radiographs from November 2013. Cervical Spine CT 10/10/17 01:56 IMPRESSION: No acute findings. Head CT 10/10/17 01:56 IMPRESSION: NORMAL BRAIN CT WITHOUT CONTRAST. EVIDENCE OF ACUTE STROKE: NO. Ankle X-Ray 10/10/17 01:58 IMPRESSION: NO RADIOGRAPHIC EVIDENCE OF ACUTE INJURY. Chest X-Ray 10/10/17 04:14 IMPRESSION: NO ACUTE RADIOGRAPHIC FINDING IN THE CHEST. Pelvis X-Ray 10/11/17 13:13 IMPRESSION: Left hip arthroplasty. Lower Extremity CT 10/12/17 00:00 IMPRESSION: Post left hip replacement. No dislocation. No fracture. Status: Imported from PACS Assessment & Plan - Diagnosis (1) Postoperative anemia due to acute blood loss Is this a current diagnosis for this admission?: Yes Plan: Patient with postoperative anemia and a hematocrit of 23.8% after 2 units packed red blood cells. CT scan of the pelvis were obtained and demonstrate no presence of a postoperative hematoma. The reason for her ongoing blood loss is unclear. (2) Avascular necrosis of bone of left hip Is this a current diagnosis for this admission?: Yes Plan: 62-year-old white female postop day 2 from left hip arthroplasty. Patient with minimal progress with physical therapy. Ongoing complaints of pain are probably expected due to alcoholism and preoperative opioid use. Physical therapy can mobilize the patient on a weightbearing as tolerated basis as pain allows. Judicious use of analgesics since her systolic blood pressure is currently 106 mmHg. Anticipate the need for [facility]entiary facility placement. - Time Time Spent with patient: 15-24 minutes Anticipated discharge: SNF Within: Other
[2017-10-13] MEDS ORDERED: VANCOMYCIN HCL 0 MG in DEXTROSE 5%-WATER 250 ML IV NR (08:30)
--- NOTE | 2017-10-13 08:36 | RADIOLOGY REPORT (SQ) ---
EXAM DESCRIPTION: CHEST SINGLE VIEW COMPLETED DATE/TIME: 10/13/2017 8:28 am REASON FOR STUDY: Fever COMPARISON: 10/10/2017 EXAM PARAMETERS: NUMBER OF VIEWS: One view. TECHNIQUE: Single frontal radiographic view of the chest acquired. RADIATION DOSE: NA LIMITATIONS: None. FINDINGS: LUNGS AND PLEURA: No opacities, masses or pneumothorax. No pleural effusion. MEDIASTINUM AND HILAR STRUCTURES: No masses. Contour normal. HEART AND VASCULAR STRUCTURES: Heart normal in size. Normal vasculature. BONES: No acute findings. HARDWARE: None in the chest. OTHER: No other significant finding. IMPRESSION: NO ACUTE RADIOGRAPHIC FINDING IN THE CHEST. TECHNICAL DOCUMENTATION: JOB ID: [id number] [employer]- All Rights Reserved
[2017-10-13 08:53] LABS: APPEARANCE,URINE CLEAR; BILIRUBIN,URINE NEGATIVE (NEGATIVE); GLUCOSE, URINE NEGATIVE (NEGATIVE); KETONES,URINE NEGATIVE (NEGATIVE); LEUKOCYTE ESTERASE,URINE TRACE (NEGATIVE); NITRITE,URINE NEGATIVE (NEGATIVE); PROTEIN,URINE NEGATIVE (NEGATIVE); URINE SPECIFIC GRAVITY 1.009; UROBILINOGEN,URINE NEGATIVE mg/dL (<2.0)
--- NOTE | 2017-10-13 08:58 | PROGRESS NOTE E ---
Progress Note NAME: RORO DAS : 1955 AGE: 62Y DATE: 10/13/2017 ROOM: 607 SUBJECTIVE: The patient is a pleasant 62-year-old female who has a past medical history of hypertension. The patient was admitted for a fractured hip and underwent internal fixation. Her hemoglobin was dropping and she received 2 units of blood yesterday. She is hypotensive. She is feeling a little bit better today. Her blood pressure is still running low and had fever of 100.6. Her urinalysis on admission was normal. Chest x-ray was normal. Clinically the patient doing better. Hemoglobin is still dropping despite blood transfusion; it is stable around 8.2. OBJECTIVE: GENERAL: The patient is lying in bed, comfortable, not in distress. VITAL SIGNS: Temperature 99, blood pressure 98/65, heart rate is 95, respiratory rate 13, saturation 96%. HEENT: Head normocephalic, atraumatic. Pupils round, reactive to light and accommodation bilaterally. Extraocular movements intact. Ears: Tympanic membranes intact bilaterally. No discharge from the ear. No discharge from the nose. NECK: Supple, no increased JVD, no thyromegaly, no lymphadenopathy. CARDIOVASCULAR: Normal S1, S2. Regular rate and rhythm. No murmur, no gallops. RESPIRATORY: Lungs clear. ABDOMEN: Soft, nontender. MUSCULOSKELETAL: No edema. NEUROLOGIC: Awake, alert. SKIN: No rash. LABORATORY DATA: White blood count 6.8, hemoglobin 8.0, hematocrit 23.4, BUN 8, creatinine 1.4, sodium 127, potassium 4.3. ASSESSMENT: 1. STATUS POST INTERNAL FIXATION OF THE LEFT HIP. 2. IRON DEFICIENCY ANEMIA, STATUS POST TRANSFUSION. 3. HYPOTENSION. Better today from pain medication. 4. ANEMIA. 5. FEVER. 6. HYPERTENSION. Now is hypotensive. PLAN: Will hold all pain medication. Antihypertensive medication was held. The patient received 2 units of blood, will monitor her H and H. There is no active bleeding. She had a CT scan of the left hip and there is no hematoma. Hold Lovenox for now and aspirin. Will start IV fluids NS at 125 mL/h.Lab later today. Will do urine analysis, chest x-ray, blood culture and cover her empirically with antibiotics. MEDICAL NECESSITY: Needs rehabilitation. DICTATING PHYSICIAN: PEPPER RITTER M.D. [id number] PHY#: [id number] ID: [id number] JOB#: [id number] ACCT: [id number] cc: > MTDD
[2017-10-13] MEDS: LANSOPRAZOLE 30 MG TAB.RAP.DR PO SCH ×2 (09:02→16:07)
[2017-10-13] MEDS: TRAMADOL HCL 50 MG TABLET PO PRN ×3 (09:02→19:33)
[2017-10-13] MEDS: LEVOTHYROXINE SODIUM 0.05 MG TABLET PO SCH (09:07)
[2017-10-13] MEDS: DOCUSATE SODIUM 100 MG CAPSULE PO SCH ×2 (09:07→17:32)
[2017-10-13] MEDS: GABAPENTIN 300 MG CAPSULE PO SCH ×2 (09:07→21:25)
[2017-10-13] MEDS: PRENATAL VITAMIN W DHA CAPSULE PO SCH (09:08)
[2017-10-13] MEDS: FLUOXETINE HCL 20 MG CAPSULE PO SCH (09:08)
[2017-10-13] MEDS: OXYCODONE HCL SR 10 MG TABLET PO SCH (09:08)
[2017-10-13] MEDS: SENNOSIDES/DOCUSATE 8.6-50 MG 1 EACH TABLET PO SCH ×2 (09:08→17:32)
[2017-10-13] MEDS: AMLODIPINE BESYLATE 5 MG TABLET PO SCH (09:16)
[2017-10-13] MEDS: CYANOCOBALAMIN/FA/PYRIDOXINE TABLET PO SCH (09:37)
[2017-10-13] MEDS ORDERED: VANCOMYCIN HCL 1,500 MG in DEXTROSE 5%-WATER 250 ML IV SCH (10:00)
--- NOTE | 2017-10-13 13:05 | XCELERA REPORT ---
[address] [address] Transthoracic Echocardiogram Report Name: RORO DAS Age: 62 yrs Gender: Female : 1955 Patient Status: Inpatient Patient Location: ICU^607^A Study Date: 10/13/2017 10:54 AM Height: 63 in Weight: 232 lb BSA: 2.1 m2 Procedure: A complete two-dimensional transthoracic echocardiogram was performed (2D, M-mode, spectral and color flow Doppler). The study was technically adequate with some images being suboptimal in quality. Reason For Study: heart murmur Ordering Physician: PARIS ROMERO Performed By: Ana M Lewis Interpretation Summary The study was technically adequate with some images being suboptimal in quality. The left ventricular ejection fraction is within normal limits. There is mild concentric left ventricular hypertrophy. Doppler measurements suggest pseudonormalized left ventricular relaxation, which is associated with grade II/IV or mild to moderate diastolic dysfunction The left ventricle is grossly normal size. Wall motion cannot be accurately commented on, but no definite regional wall motion abnormalities noted. The right ventricular systolic function is normal. The left atrium is mildly dilated. The right atrium is normal in size There is a trace amount of mitral regurgitation There is no mitral valve stenosis. There is mild aortic stenosis There is a peak gradient of 25 mm of Hg. There is a trace or physiologic amount of tricuspid regurgitation Tricuspid regurgitation jet envelope not well defined to measure RV systolic pressure accurately. There is no pericardial effusion. MMode/2D Measurements & Calculations RVDd: 2.9 cm LVIDd: 4.7 cmFS: 39.7 % Ao root diam: 3.3 cm IVSd: 1.1 cm LVIDs: 2.9 cmEDV(Teich): 104.1 ml LVPWd: 1.1 cmESV(Teich): 31.0 ml Ao root area: 8.8 cm2 EF(Teich): 70.2 % LA dimension: 4.1 cm LVOT diam: 2.0 cm LVOT area: 3.0 cm2 Doppler Measurements & Calculations MV E max michaelle: MV P1/2t max michaelle: Ao V2 max: LV V1 max P.0 cm/sec 101.4 cm/sec 237.6 cm/sec 18.4 mmHg MV A max michaelle: MV P1/2t: 64.0 msec Ao max PG: LV V1 max: 124.5 cm/sec MVA(P1/2t): 3.4 cm2 22.6 mmHg 214.6 cm/sec MV E/A: 0.82 MV dec slope: KEN(V,D): 2.7 cm2 464.6 cm/sec2 PA V2 max: TR max michaelle: 73.0 cm/sec 240.5 cm/sec PA max PG: TR max P.1 mmHg 2.1 mmHg Left Ventricle The left ventricle is grossly normal size. There is mild concentric left ventricular hypertrophy. The left ventricular ejection fraction is within normal limits. Doppler measurements suggest pseudonormalized left ventricular relaxation, which is associated with grade II/IV or mild to moderate diastolic dysfunction. Wall motion cannot be accurately commented on, but no definite regional wall motion abnormalities noted. Right Ventricle The right ventricle is grossly normal size. There is normal right ventricular wall thickness. The right ventricular systolic function is normal. Atria The right atrium is normal in size. The left atrium is mildly dilated. Interarterial septum not well visualized and not well dopplered. Cannot comment on ASD/PFO presence. Mitral Valve There is mild mitral leaflet calcification. There is moderate mitral annular calcification. There is no mitral valve stenosis. There is a trace amount of mitral regurgitation. Aortic Valve The aortic valve is mildly calcified. There is mild aortic stenosis. There is a peak gradient of 25 mm of Hg. No aortic regurgitation is present. Tricuspid Valve The tricuspid valve is not well visualized secondary to technical limitations. There is no tricuspid stenosis. There is a trace or physiologic amount of tricuspid regurgitation. Tricuspid regurgitation jet envelope not well defined to measure RV systolic pressure accurately. Pulmonic Valve The pulmonic valve is not well visualized. Great Vessels The aortic root is not well visualized but is probably normal size. The inferior vena cava appeared normal and decreased > 50% with respiration (RAP 5-10 mmHg). Effusions There is no pericardial effusion. : PARIS ROMERO > Paris Romero
[2017-10-13] MEDS: PIPERACILLIN SODIUM/TAZOBACTAM 3.375 GM in NORMAL SALINE 100 ML IV SCH ×2 (14:46→21:25)
[2017-10-13 14:50] LABS: ABSOLUTE LYMPHOCYTES (AUTO) 0.8 10^3/uL (0.5-4.7); ABSOLUTE MONOCYTES (AUTO) 0.5 10^3/uL (0.1-1.4); ABSOLUTE NEUT (AUTO) 5.8 10^3/uL (1.7-8.2); BASOPHILS % (AUTO) 0.1 % (0-2); EOSINOPHILS % (AUTO) 0.3 % (0-6); HEMATOCRIT 24.1 % (36.0-47.0); HGB HCT DIFFERENCE -0.1; MEAN CORPUSCULAR HEMOGLOBIN 28.1 pg (27.0-33.4); MEAN CORPUSCULAR HGB CONC 33.3 g/dL (32.0-36.0); MEAN CORPUSCULAR VOLUME 84 fl (80-97); MONOCYTES % (AUTO) 6.7 % (3-13); RED BLOOD COUNT 2.86 10^6/uL (3.72-5.28); SEGMENTED NEUTROPHILS % (AUTO) 81.9 % (42-78)
--- NOTE | 2017-10-13 15:51 | PDOC PROGRESS REPORT ---
Subjective Progress Note for:: 10/13/17 Subjective:: Patient postop day 2. Patient was moved to the unit because of low blood pressure. Patient had significant hip discomfort in the surgical area and may have gotten excess pain medication resulting in hypotension. However in the unit her blood pressure has been noted to be stable. Patient looked comfortable. Physical Exam Vital Signs: Temp Pulse Resp BP Pulse Ox 99.5 F 87 16 80/72 L 96 10/13/17 14:00 10/13/17 14:05 10/13/17 14:05 10/13/17 14:00 10/13/17 14:00 Intake & Output 10/12/17 10/13/17 10/14/17 06:59 06:59 06:59 Intake Total 5500 3205 Output Total 2850 2775 1245 Balance 2650 430 -1245 Weight 105.4 kg 105.6 kg Exam: GENERAL: well-nourished and in no acute distress. Alert and oriented x3 HEAD: Atraumatic, normocephalic. EYES: Pupils equal round and reactive to light, extraocular movements intact, sclera anicteric, conjunctiva are normal. ENT: TMs normal, nares patent, oropharynx clear without exudates. Moist mucous membranes. No oral ulcerations or bleeding gums noted NECK: supple without lymphadenopathy. Trachea is central. No cervical or axillary lymphadenopathy noted. Carotids are 2+, JVD WNL LUNGS: Respiration seems nonlabored, no significant accessory muscle action noted. Breath sounds clear to auscultation bilaterally and equal noted. No wheezes rales or rhonchi noted. No significant dullness noted on percussion. CHEST: Palpation of the chest wall shows no significant chest wall tenderness. No other significant abnormalities noted. 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 ABDOMEN: Soft, no significant tenderness appreciated, normoactive bowel sounds. No guarding, no rebound. No rigidity noted . No masses appreciated. EXTREMITIES: Pedal pulses are 1-2+, no calf tenderness noted. No clubbing or cyanosis.trace to 1+ pedal edema noted NEUROLOGICAL: Focused neurological exam showed no significant neurologic deficit. Normal speech, no focal weakness appreciated. PSYCH: Normal mood, normal affect. Judgment and insight within normal limits. SKIN: No significant ecchymosis, rash, ulcerations or signs of pruritus noted. MUSCULOSKELETAL EXAM: No significant joint swelling noted. Results Laboratory Results: 10/13/17 14:44 10/13/17 03:42 10/10/17 10/12/17 10/13/17 07:49 16:15 00:27 WBC 6.2 6.9 RBC 2.82 L 2.96 L Hgb 7.8 L 8.2 L Hct 24.1 L 24.7 L MCV 86 83 MCH 27.9 27.7 MCHC 32.6 33.2 RDW 21.4 H 20.1 H Plt Count 122 L 109 L Seg Neutrophils % 79.1 H Lymphocytes % 13.2 Monocytes % 7.1 Eosinophils % 0.3 Basophils % 0.3 Absolute Neutrophils 5.5 Absolute Lymphocytes 0.9 Absolute Monocytes 0.5 Absolute Eosinophils 0.0 Absolute Basophils 0.0 Sodium Potassium Chloride Carbon Dioxide Anion Gap BUN Creatinine Est GFR ( Amer) Est GFR (Non-Af Amer) Glucose Calcium Phosphorus Albumin Urine Color Urine Appearance Urine pH Ur Specific [place] Urine Protein Urine Glucose (UA) Urine Ketones Urine Blood Urine Nitrite Ur Leukocyte Esterase Urine WBC (Auto) Urine RBC (Auto) Blood Type A POSITIVE Antibody Screen NEGATIVE 10/13/17 10/13/17 10/13/17 03:42 03:42 08:40 WBC 6.8 RBC 2.82 L Hgb 8.0 L Hct 23.8 L MCV 84 MCH 28.5 MCHC 33.8 RDW 20.3 H Plt Count 115 L Seg Neutrophils % 75.5 Lymphocytes % 16.5 Monocytes % 7.5 Eosinophils % 0.4 Basophils % 0.1 Absolute Neutrophils 5.1 Absolute Lymphocytes 1.1 Absolute Monocytes 0.5 Absolute Eosinophils 0.0 Absolute Basophils 0.0 Sodium 127.7 L Potassium 4.3 Chloride 98 Carbon Dioxide 22 Anion Gap 8 BUN 20 Creatinine 1.42 H Est GFR ( Amer) 45 L Est GFR (Non-Af Amer) 37 L Glucose 100 Calcium 8.3 L Phosphorus 3.7 Albumin 2.8 L Urine Color YELLOW Urine Appearance CLEAR Urine pH 5.0 Ur Specific [place] 1.009 Urine Protein NEGATIVE Urine Glucose (UA) NEGATIVE Urine Ketones NEGATIVE Urine Blood SMALL H Urine Nitrite NEGATIVE Ur Leukocyte Esterase TRACE H Urine WBC (Auto) 4 Urine RBC (Auto) 2 Blood Type Antibody Screen 10/13/17 14:44 WBC 7.0 RBC 2.86 L Hgb 8.0 L Hct 24.1 L MCV 84 MCH 28.1 MCHC 33.3 RDW 20.0 H Plt Count 119 L Seg Neutrophils % 81.9 H Lymphocytes % 11.0 L Monocytes % 6.7 Eosinophils % 0.3 Basophils % 0.1 Absolute Neutrophils 5.8 Absolute Lymphocytes 0.8 Absolute Monocytes 0.5 Absolute Eosinophils 0.0 Absolute Basophils 0.0 Sodium Potassium Chloride Carbon Dioxide Anion Gap BUN Creatinine Est GFR ( Amer) Est GFR (Non-Af Amer) Glucose Calcium Phosphorus Albumin Urine Color Urine Appearance Urine pH Ur Specific [place] Urine Protein Urine Glucose (UA) Urine Ketones Urine Blood Urine Nitrite Ur Leukocyte Esterase Urine WBC (Auto) Urine RBC (Auto) Blood Type Antibody Screen Impressions: Hip X-Ray 10/10/17 01:39 IMPRESSION: Moderate impaction fracture -deformity of the left femoral head and left lateral acetabulum with possible avascular necrosis relatively new compared with prior radiographs from November 2013. Cervical Spine CT 10/10/17 01:56 IMPRESSION: No acute findings. Head CT 10/10/17 01:56 IMPRESSION: NORMAL BRAIN CT WITHOUT CONTRAST. EVIDENCE OF ACUTE STROKE: NO. Ankle X-Ray 10/10/17 01:58 IMPRESSION: NO RADIOGRAPHIC EVIDENCE OF ACUTE INJURY. Pelvis X-Ray 10/11/17 13:13 IMPRESSION: Left hip arthroplasty. Lower Extremity CT 10/12/17 00:00 IMPRESSION: Post left hip replacement. No dislocation. No fracture. Chest X-Ray 10/13/17 00:00 IMPRESSION: NO ACUTE RADIOGRAPHIC FINDING IN THE CHEST. Assessment & Plan - Diagnosis (1) Hypotension Qualifiers: Hypotension type: unspecified hypotension type Qualified Code(s): I95.9 - Hypotension, unspecified Is this a current diagnosis for this admission?: Yes (2) Closed left hip fracture Qualifiers: Encounter type: subsequent encounter Is this a current diagnosis for this admission?: Yes (3) Essential hypertension Is this a current diagnosis for this admission?: Yes (4) Hyperlipidemia Qualifiers: Hyperlipidemia type: unspecified Qualified Code(s): E78.5 - Hyperlipidemia , unspecified Is this a current diagnosis for this admission?: Yes (5) Diabetes mellitus type 2 in obese Is this a current diagnosis for this admission?: Yes (6) Sleep disorder Is this a current diagnosis for this admission?: Yes (7) Preoperative cardiovascular examination Is this a current diagnosis for this admission?: Yes - Notes Notes: Hypotension: Most likely related to pain medication and possible volume depletion., Currently blood pressure stable. Patient advised to increase intake. Hypertension: Blood pressure under good control. Diabetes: Currently is stable. Being well managed by hospitalist. Sleep disorder: Patient will benefit from further evaluation and management as an outpatient. Heart murmur: Patient did have a 2D echocardiogram which was reviewed. It keeps show mild to moderate aortic stenosis. LVEF is noted to be relatively well-preserved. - Time Time with patient: 15-25 minutes - CODE STATUS was discussed, patient remains full code. Surrogate decision-maker unchanged. Multiple medical problems were addressed. More than 50% of the time spent coordinating care, discussing management plans with involved caregivers. Management plans discussed with involved personnels. Medical decision making was of moderate to high complexity , patient's has multiple comorbidities.
[2017-10-13] MEDS: OXYCODONE HCL IR 5 MG TABLET PO PRN (16:07)
[2017-10-13] MEDS: NORMAL SALINE 1000 ML 1,000 ML IV PRN (18:02)
[2017-10-13] MEDS: ATORVASTATIN CALCIUM 40 MG TABLET PO SCH (21:25)
[2017-10-13] MEDS: AMITRIPTYLINE HCL 25 MG TABLET PO SCH (21:25)
[2017-10-14] MEDS: OXYCODONE HCL IR 5 MG TABLET PO PRN ×4 (00:21→16:25)
[2017-10-14] MEDS: IPRATROPIUM/ALBUTEROL 0.5-2.5 MG/3 ML AMPUL NEB SCH ×4 (02:20→20:09)
[2017-10-14] MEDS: TRAMADOL HCL 50 MG TABLET PO PRN ×3 (02:36→13:36)
[2017-10-14] MEDS: NORMAL SALINE 1000 ML 1,000 ML IV PRN (02:36)
[2017-10-14 04:29] LABS: HEMATOCRIT 22.9 % (36.0-47.0); HGB HCT DIFFERENCE -0.1; MEAN CORPUSCULAR HEMOGLOBIN 28.1 pg (27.0-33.4); MEAN CORPUSCULAR HGB CONC 33.1 g/dL (32.0-36.0); MEAN CORPUSCULAR VOLUME 85 fl (80-97); RED BLOOD COUNT 2.69 10^6/uL (3.72-5.28); RED CELL DISTRIBUTION WIDTH 20.4 % (11.5-14.0); WHITE BLOOD COUNT 7.2 10^3/uL (4.0-10.5)
[2017-10-14] MEDS: OXYCODONE-ACETAMINOPHEN 5-325 MG TABLET PO PRN ×5 (04:35→23:14)
[2017-10-14 04:44] LABS: ALBUMIN 2.5 g/dL (3.5-5.0); ANION GAP 10 (5-19); BLOOD UREA NITROGEN 17 mg/dL (7-20); CALCIUM 8.5 mg/dL (8.4-10.2); CARBON DIOXIDE 22 mmol/L (22-30); CHLORIDE 104 mmol/L (98-107); CREATININE RESULT 1.09 mg/dL (0.52-1.25); GLUCOSE 142 mg/dL (75-110); PHOSPHORUS 3.1 mg/dL (2.5-4.5); POTASSIUM 4.5 mmol/L (3.6-5.0); SODIUM 135.9 mmol/L (137-145)
[2017-10-14 04:51] LABS: HEMOGLOBIN 7.6 g/dL (12.0-15.5)
[2017-10-14] MEDS: PIPERACILLIN SODIUM/TAZOBACTAM 3.375 GM in NORMAL SALINE 100 ML IV SCH ×3 (06:26→23:11)
[2017-10-14] MEDS: LEVOTHYROXINE SODIUM 0.05 MG TABLET PO SCH (06:26)
--- NOTE | 2017-10-14 06:46 | PDOC PROGRESS REPORT ---
Subjective Progress Note for:: 10/14/17 Subjective:: Patient in better spirits this morning. Commenting that her pain now is much less than it was preoperatively. Physical Exam Vital Signs: Temp Pulse Resp BP Pulse Ox 37.4 C 88 16 103/61 93 10/14/17 06:00 10/14/17 06:00 10/14/17 06:29 10/14/17 06:29 10/14/17 06:29 Intake & Output 10/12/17 10/13/17 10/14/17 06:59 06:59 06:59 Intake Total 5500 3205 3857 Output Total 2850 2775 3895 Balance 2650 430 -38 Weight 105.4 kg 105.6 kg 108.9 kg General appearance: PRESENT: no acute distress Head exam: PRESENT: normocephalic Respiratory exam: PRESENT: unlabored Cardiovascular exam: PRESENT: RRR Pulses: PRESENT: +1 pedal pulses bilateral Vascular exam: PRESENT: normal capillary refill GI/Abdominal exam: PRESENT: soft Rectal exam: PRESENT: deferred Musculoskeletal exam: PRESENT: other - Left hip dressing with a small amount of serosanguineous drainage and potentially some small amount of ecchymosis. Leg lengths are equal. Distal neurovascular examination is intact. Neurological exam: PRESENT: alert, awake, oriented to person, oriented to place , oriented to time, oriented to situation. ABSENT: motor sensory deficit Psychiatric exam: PRESENT: appropriate affect, normal mood. ABSENT: homicidal ideation, suicidal ideation Skin exam: PRESENT: dry, intact, warm. ABSENT: cyanosis, rash Results Laboratory Results: 10/14/17 03:57 10/14/17 03:57 10/13/17 10/13/17 10/14/17 08:40 14:44 03:57 WBC 7.0 7.2 RBC 2.86 L 2.69 L Hgb 8.0 L 7.6 L Hct 24.1 L 22.9 L MCV 84 85 MCH 28.1 28.1 MCHC 33.3 33.1 RDW 20.0 H 20.4 H Plt Count 119 L 120 L Seg Neutrophils % 81.9 H Lymphocytes % 11.0 L Monocytes % 6.7 Eosinophils % 0.3 Basophils % 0.1 Absolute Neutrophils 5.8 Absolute Lymphocytes 0.8 Absolute Monocytes 0.5 Absolute Eosinophils 0.0 Absolute Basophils 0.0 Sodium Potassium Chloride Carbon Dioxide Anion Gap BUN Creatinine Est GFR ( Amer) Est GFR (Non-Af Amer) Glucose Calcium Phosphorus Albumin Urine Color YELLOW Urine Appearance CLEAR Urine pH 5.0 Ur Specific [place] 1.009 Urine Protein NEGATIVE Urine Glucose (UA) NEGATIVE Urine Ketones NEGATIVE Urine Blood SMALL H Urine Nitrite NEGATIVE Ur Leukocyte Esterase TRACE H Urine WBC (Auto) 4 Urine RBC (Auto) 2 10/14/17 03:57 WBC RBC Hgb Hct MCV MCH MCHC RDW Plt Count Seg Neutrophils % Lymphocytes % Monocytes % Eosinophils % Basophils % Absolute Neutrophils Absolute Lymphocytes Absolute Monocytes Absolute Eosinophils Absolute Basophils Sodium 135.9 L Potassium 4.5 Chloride 104 Carbon Dioxide 22 Anion Gap 10 BUN 17 Creatinine 1.09 Est GFR ( Amer) > 60 Est GFR (Non-Af Amer) 51 L Glucose 142 H Calcium 8.5 Phosphorus 3.1 Albumin 2.5 L Urine Color Urine Appearance Urine pH Ur Specific [place] Urine Protein Urine Glucose (UA) Urine Ketones Urine Blood Urine Nitrite Ur Leukocyte Esterase Urine WBC (Auto) Urine RBC (Auto) Impressions: Hip X-Ray 10/10/17 01:39 IMPRESSION: Moderate impaction fracture -deformity of the left femoral head and left lateral acetabulum with possible avascular necrosis relatively new compared with prior radiographs from November 2013. Cervical Spine CT 10/10/17 01:56 IMPRESSION: No acute findings. Head CT 10/10/17 01:56 IMPRESSION: NORMAL BRAIN CT WITHOUT CONTRAST. EVIDENCE OF ACUTE STROKE: NO. Ankle X-Ray 10/10/17 01:58 IMPRESSION: NO RADIOGRAPHIC EVIDENCE OF ACUTE INJURY. Pelvis X-Ray 10/11/17 13:13 IMPRESSION: Left hip arthroplasty. Lower Extremity CT 10/12/17 00:00 IMPRESSION: Post left hip replacement. No dislocation. No fracture. Chest X-Ray 10/13/17 00:00 IMPRESSION: NO ACUTE RADIOGRAPHIC FINDING IN THE CHEST. Status: Imported from PACS Assessment & Plan - Diagnosis (1) Postoperative anemia due to acute blood loss Is this a current diagnosis for this admission?: Yes Plan: The patient's hematocrit has again fallen to 22%. The patient informed this morning that she was hospitalized 6 weeks ago for cauterization of peptic ulcers. While part of her blood loss is undoubtedly perioperatively. There may be ongoing GI loss as well. (2) Avascular necrosis of bone of left hip Is this a current diagnosis for this admission?: Yes Plan: Patient making progress with physical therapy. [facility] early this week. - Time Time Spent with patient: 15-24 minutes Anticipated discharge: SNF Within: when bed available
[2017-10-14] MEDS ORDERED: FUROSEMIDE INJ/PF 20 MG/2 ML SDV IV PRN (07:39)
[2017-10-14] MEDS ORDERED: FUROSEMIDE INJ/PF 20 MG/2 ML SDV IV ONE (07:45)
[2017-10-14] MEDS: LANSOPRAZOLE 30 MG TAB.RAP.DR PO SCH ×2 (07:53→16:24)
--- NOTE | 2017-10-14 09:13 | PROGRESS NOTE E ---
SUBJECTIVE: The patient is a pleasant 62-year-old female who has a past medical history of hypertension. The patient was admitted for a fractured hip and underwent internal fixation. Her hemoglobin was dropping and she received 2 units of blood yesterday. She is hypotensive. She is feeling a little bit better today. Her blood pressure is still running low and had fever of 100.6. Her urinalysis on admission was normal. Chest x-ray was normal. Clinically the patient doing better. Hemoglobin is still dropping despite blood transfusion; it is stable around 8.2. OBJECTIVE: GENERAL: The patient is lying in bed, comfortable, not in distress. VITAL SIGNS: Temperature 99, blood pressure 98/65, heart rate is 95, respiratory rate 13, saturation 96%. HEENT: Head normocephalic, atraumatic. Pupils round, reactive to light and accommodation bilaterally. Extraocular movements intact. Ears: Tympanic membranes intact bilaterally. No discharge from the ear. No discharge from the nose. NECK: Supple, no increased JVD, no thyromegaly, no lymphadenopathy. CARDIOVASCULAR: Normal S1, S2. Regular rate and rhythm. No murmur, no gallops. RESPIRATORY: Lungs clear. ABDOMEN: Soft, nontender. MUSCULOSKELETAL: No edema. NEUROLOGIC: Awake, alert. SKIN: No rash. LABORATORY DATA: White blood count 6.8, hemoglobin 8.0, hematocrit 23.4, BUN 8, creatinine 1.4, sodium 127, potassium 4.3. ASSESSMENT: 1. STATUS POST INTERNAL FIXATION OF THE LEFT HIP. 2. IRON DEFICIENCY ANEMIA, STATUS POST TRANSFUSION. 3. HYPOTENSION. Better today from pain medication. 4. ANEMIA. 5. FEVER. 6. HYPERTENSION. Now is hypotensive. PLAN: Will hold all pain medication. Antihypertensive medication was held. The patient received 2 units of blood, will monitor her H and H. There is no active bleeding. She had a CT scan of the left hip and there is no hematoma. Hold Lovenox for now and aspirin. Will start IV fluids NS at 125 mL/h. Will check later today. Will do urine analysis, chest x-ray, blood culture and cover her empirically with antibiotics. MEDICAL NECESSITY: Needs rehabilitation. DICTATING PHYSICIAN: PEPPER RITTER M.D. [id number] DT: 0000 PHY#: [id number] ID: [id number] JOB#: [id number] ACCT: [id number] cc: > [facility]
[2017-10-14] MEDS: DOCUSATE SODIUM 100 MG CAPSULE PO SCH ×2 (09:28→16:24)
[2017-10-14] MEDS: SENNOSIDES/DOCUSATE 8.6-50 MG 1 EACH TABLET PO SCH ×2 (09:28→16:24)
[2017-10-14] MEDS: FLUOXETINE HCL 20 MG CAPSULE PO SCH (09:29)
[2017-10-14] MEDS: GABAPENTIN 300 MG CAPSULE PO SCH ×2 (09:29→21:43)
[2017-10-14] MEDS: CYANOCOBALAMIN/FA/PYRIDOXINE TABLET PO SCH (09:30)
[2017-10-14] MEDS: VANCOMYCIN HCL 750 MG in DEXTROSE 5%-WATER 250 ML IV SCH ×2 (09:30→21:42)
[2017-10-14] MEDS: PRENATAL VITAMIN W DHA CAPSULE PO SCH (09:30)
[2017-10-14] MEDS: AMLODIPINE BESYLATE 5 MG TABLET PO SCH (09:36)
[2017-10-14 13:14] LABS: HEMATOCRIT 26.9 % (36.0-47.0); HEMOGLOBIN 9.1 g/dL (12.0-15.5); HGB HCT DIFFERENCE 0.4; MEAN CORPUSCULAR HEMOGLOBIN 28.7 pg (27.0-33.4); MEAN CORPUSCULAR HGB CONC 33.9 g/dL (32.0-36.0); MEAN CORPUSCULAR VOLUME 85 fl (80-97); RED BLOOD COUNT 3.18 10^6/uL (3.72-5.28); RED CELL DISTRIBUTION WIDTH 19.6 % (11.5-14.0); WHITE BLOOD COUNT 7.3 10^3/uL (4.0-10.5)
--- NOTE | 2017-10-14 16:06 | PDOC PROGRESS REPORT ---
Subjective Progress Note for:: 10/14/17 Subjective:: Patient postop day 3. Patient was moved to the unit because of low blood pressure, currently blood pressure is normal. 2D echo results were reviewed with the patient. Patient now working with the physical therapist and doing well. She is likely to moved out of the unit. Physical Exam Vital Signs: Temp Pulse Resp BP Pulse Ox 98.3 F 87 20 109/67 100 10/14/17 12:00 10/14/17 14:05 10/14/17 14:19 10/14/17 14:19 10/14/17 14:19 Intake & Output 10/13/17 10/14/17 10/15/17 06:59 06:59 06:59 Intake Total 3205 3857 710 Output Total 2775 3895 4050 Balance Weight 105.6 kg 108.9 kg Exam: GENERAL: well-nourished and in no acute distress. Alert and oriented x3 HEAD: Atraumatic, normocephalic. EYES: Pupils equal round and reactive to light, extraocular movements intact, sclera anicteric, conjunctiva are normal. ENT: TMs normal, nares patent, oropharynx clear without exudates. Moist mucous membranes. No oral ulcerations or bleeding gums noted NECK: supple without lymphadenopathy. Trachea is central. No cervical or axillary lymphadenopathy noted. Carotids are 2+, JVD WNL LUNGS: Respiration seems nonlabored, no significant accessory muscle action noted. Breath sounds clear to auscultation bilaterally and equal noted. No wheezes rales or rhonchi noted. No significant dullness noted on percussion. CHEST: Palpation of the chest wall shows no significant chest wall tenderness. No other significant abnormalities noted. 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 ABDOMEN: Soft, no significant tenderness appreciated, normoactive bowel sounds. No guarding, no rebound. No rigidity noted . No masses appreciated. EXTREMITIES: Pedal pulses are 1-2+, no calf tenderness noted. No clubbing or cyanosis.trace to 1+ pedal edema noted NEUROLOGICAL: Focused neurological exam showed no significant neurologic deficit. Normal speech, no focal weakness appreciated. PSYCH: Normal mood, normal affect. Judgment and insight within normal limits. SKIN: No significant ecchymosis, rash, ulcerations or signs of pruritus noted. MUSCULOSKELETAL EXAM: No significant joint swelling noted. Results Laboratory Results: 10/14/17 12:58 10/14/17 03:57 10/14/17 10/14/17 10/14/17 03:57 03:57 05:40 WBC 7.2 RBC 2.69 L Hgb 7.6 L Hct 22.9 L MCV 85 MCH 28.1 MCHC 33.1 RDW 20.4 H Plt Count 120 L Sodium 135.9 L Potassium 4.5 Chloride 104 Carbon Dioxide 22 Anion Gap 10 BUN 17 Creatinine 1.09 Est GFR ( Amer) > 60 Est GFR (Non-Af Amer) 51 L Glucose 142 H Calcium 8.5 Phosphorus 3.1 Albumin 2.5 L Blood Type A POSITIVE Antibody Screen NEGATIVE 10/14/17 12:58 WBC 7.3 RBC 3.18 L Hgb 9.1 L Hct 26.9 L MCV 85 MCH 28.7 MCHC 33.9 RDW 19.6 H Plt Count 125 L Sodium Potassium Chloride Carbon Dioxide Anion Gap BUN Creatinine Est GFR ( Amer) Est GFR (Non-Af Amer) Glucose Calcium Phosphorus Albumin Blood Type Antibody Screen EKG Comments: Sinus rhythm no sustained tachycardia or bradycardia arrhythmias noted. Impressions: Hip X-Ray 10/10/17 01:39 IMPRESSION: Moderate impaction fracture -deformity of the left femoral head and left lateral acetabulum with possible avascular necrosis relatively new compared with prior radiographs from November 2013. Cervical Spine CT 10/10/17 01:56 IMPRESSION: No acute findings. Head CT 10/10/17 01:56 IMPRESSION: NORMAL BRAIN CT WITHOUT CONTRAST. EVIDENCE OF ACUTE STROKE: NO. Ankle X-Ray 10/10/17 01:58 IMPRESSION: NO RADIOGRAPHIC EVIDENCE OF ACUTE INJURY. Pelvis X-Ray 10/11/17 13:13 IMPRESSION: Left hip arthroplasty. Lower Extremity CT 10/12/17 00:00 IMPRESSION: Post left hip replacement. No dislocation. No fracture. Chest X-Ray 10/13/17 00:00 IMPRESSION: NO ACUTE RADIOGRAPHIC FINDING IN THE CHEST. Assessment & Plan - Diagnosis (1) Hypotension Qualifiers: Hypotension type: unspecified hypotension type Qualified Code(s): I95.9 - Hypotension, unspecified Is this a current diagnosis for this admission?: Yes (2) Closed left hip fracture Qualifiers: Encounter type: subsequent encounter Is this a current diagnosis for this admission?: Yes (3) Essential hypertension Is this a current diagnosis for this admission?: Yes (4) Hyperlipidemia Qualifiers: Hyperlipidemia type: unspecified Qualified Code(s): E78.5 - Hyperlipidemia , unspecified Is this a current diagnosis for this admission?: Yes (5) Diabetes mellitus type 2 in obese Is this a current diagnosis for this admission?: Yes (6) Sleep disorder Is this a current diagnosis for this admission?: Yes (7) Preoperative cardiovascular examination Is this a current diagnosis for this admission?: Yes (8) Aortic stenosis Qualifiers: Cardiac valve disease etiology: nonrheumatic Qualified Code(s): I35.0 - Nonrheumatic aortic (valve) stenosis Is this a current diagnosis for this admission?: Yes - Notes Notes: Hypotension: Resolved. Most likely related to relative hypovolemia and pain medications. Aortic stenosis: Noted on echocardiogram but mild. No need for endocarditis prophylaxis. Hypertension: Currently well controlled. Dyslipidemia: Continue statin therapy. Diabetes: Being expertly managed by hospitalist. Sleep disorder: Patient would benefit from sleep apnea evaluation. Obesity: Patient will benefit from weight loss. - Time Time with patient: 15-25 minutes - More than 50% of the time spent coordinating care, discussing management plans with involved caregivers. Management plans discussed with involved personnels. Medical decision making was of moderate to high complexity, patient's has multiple comorbidities. Medications reviewed and adjusted accordingly: Yes
[2017-10-14] MEDS: MORPHINE SULFATE 10 MG/ML INJ IV PRN (19:58)
[2017-10-14] MEDS: ATORVASTATIN CALCIUM 40 MG TABLET PO SCH (21:42)
[2017-10-14] MEDS: AMITRIPTYLINE HCL 25 MG TABLET PO SCH (21:42)
[2017-10-15] MEDS: IPRATROPIUM/ALBUTEROL 0.5-2.5 MG/3 ML AMPUL NEB SCH ×4 (02:06→20:52)
[2017-10-15] MEDS: OXYCODONE-ACETAMINOPHEN 5-325 MG TABLET PO PRN ×3 (04:50→18:45)
[2017-10-15] MEDS: LEVOTHYROXINE SODIUM 0.05 MG TABLET PO SCH (04:51)
[2017-10-15] MEDS: PIPERACILLIN SODIUM/TAZOBACTAM 3.375 GM in NORMAL SALINE 100 ML IV SCH ×3 (05:45→23:30)
[2017-10-15] MEDS: LANSOPRAZOLE 30 MG TAB.RAP.DR PO SCH ×2 (09:02→15:45)
[2017-10-15] MEDS: OXYCODONE HCL IR 5 MG TABLET PO PRN ×2 (09:03→18:45)
[2017-10-15] MEDS: CYANOCOBALAMIN/FA/PYRIDOXINE TABLET PO SCH (09:03)
[2017-10-15] MEDS: AMLODIPINE BESYLATE 5 MG TABLET PO SCH (09:04)
[2017-10-15] MEDS: DOCUSATE SODIUM 100 MG CAPSULE PO SCH ×2 (09:04→15:45)
[2017-10-15] MEDS: GABAPENTIN 300 MG CAPSULE PO SCH ×2 (09:04→21:38)
[2017-10-15] MEDS: PRENATAL VITAMIN W DHA CAPSULE PO SCH (09:05)
[2017-10-15] MEDS: FLUOXETINE HCL 20 MG CAPSULE PO SCH (09:05)
[2017-10-15] MEDS: VANCOMYCIN HCL 750 MG in DEXTROSE 5%-WATER 250 ML IV SCH ×2 (09:08→21:38)
[2017-10-15] MEDS: SENNOSIDES/DOCUSATE 8.6-50 MG 1 EACH TABLET PO SCH ×2 (09:09→15:46)
[2017-10-15] MEDS: TRAMADOL HCL 50 MG TABLET PO PRN ×2 (11:36→20:50)
--- NOTE | 2017-10-15 13:02 | PDOC PROGRESS REPORT ---
Subjective Progress Note for:: 10/15/17 Subjective:: f/u: s/p left hip surgery; post op anemia; fever, copd reports feeling more SOA and wheezing, had a difficult night and is asking to resume her usual home breathing meds. she reports chills, fevers and persistent pain in her left hip as sharp, stabbing to dull aching constant, waxing intensity pain, worse with movement or palpation, better with rest and pain meds, with asct'd swelling and warmth ROS: all systems reviewed, see above, remaining systems negative Physical Exam Vital Signs: Temp Pulse Resp BP Pulse Ox 99.1 F 81 18 110/54 L 91 L 10/15/17 07:53 10/15/17 08:24 10/15/17 08:24 10/15/17 07:53 10/15/17 08:24 Intake & Output 10/14/17 10/15/17 10/16/17 06:59 06:59 06:59 Intake Total 3854 2415 Output Total 1007 5490 Balance -38 -3735 Weight 108.9 kg 103.2 kg General appearance: PRESENT: no acute distress, obese Eye exam: PRESENT: EOMI. ABSENT: scleral icterus Mouth exam: PRESENT: moist, neck supple Neck exam: PRESENT: full ROM. ABSENT: tenderness Respiratory exam: PRESENT: crackles, wheezes. ABSENT: accessory muscle use Cardiovascular exam: PRESENT: RRR. ABSENT: systolic murmur GI/Abdominal exam: PRESENT: normal bowel sounds, soft. ABSENT: tenderness Extremities exam: PRESENT: +1 edema - left leg with ecchymosis and erythema streaking lateral and distal to below the knee Neurological exam: PRESENT: alert, awake, oriented to person, oriented to time, oriented to situation Psychiatric exam: PRESENT: appropriate affect, normal mood Skin exam: PRESENT: warm Results Laboratory Results: 10/14/17 12:58 10/14/17 03:57 10/14/17 12:58 WBC 7.3 RBC 3.18 L Hgb 9.1 L Hct 26.9 L MCV 85 MCH 28.7 MCHC 33.9 RDW 19.6 H Plt Count 125 L Impressions: Hip X-Ray 10/10/17 01:39 IMPRESSION: Moderate impaction fracture -deformity of the left femoral head and left lateral acetabulum with possible avascular necrosis relatively new compared with prior radiographs from November 2013. Cervical Spine CT 10/10/17 01:56 IMPRESSION: No acute findings. Head CT 10/10/17 01:56 IMPRESSION: NORMAL BRAIN CT WITHOUT CONTRAST. EVIDENCE OF ACUTE STROKE: NO. Ankle X-Ray 10/10/17 01:58 IMPRESSION: NO RADIOGRAPHIC EVIDENCE OF ACUTE INJURY. Pelvis X-Ray 10/11/17 13:13 IMPRESSION: Left hip arthroplasty. Lower Extremity CT 10/12/17 00:00 IMPRESSION: Post left hip replacement. No dislocation. No fracture. Chest X-Ray 10/13/17 00:00 IMPRESSION: NO ACUTE RADIOGRAPHIC FINDING IN THE CHEST. Status: Image reviewed by me - agree with rads Assessment & Plan - Diagnosis (1) COPD (chronic obstructive pulmonary disease) with acute bronchitis Is this a current diagnosis for this admission?: Yes Plan: continue IV abx started by my colleague yesterday and monitor for response; hesitant to add systemic steroids due to recent surgery but will resume her usual advair and spiriva. (2) Avascular necrosis of bone of left hip Is this a current diagnosis for this admission?: Yes Plan: per dr palacios; need to monitor the leg for further spread of the erythema (3) Postoperative anemia due to acute blood loss Is this a current diagnosis for this admission?: Yes Plan: H/H stable after 3U PRBCs, will ck again in am. no evidence for acute blood loss other than surgery. she is reportedly iron deficient and found to have B12 def as well. schedule cyanocobalamin IM x3d. - Time Time Spent with patient: 35 or more minutes Medications reviewed and adjusted accordingly: Yes
[2017-10-15] MEDS: TIOTROPIUM BROMIDE DPI 5 CAP/KIT (18 MCG/CAP) IH SCH (13:12)
[2017-10-15] MEDS: CYANOCOBALAMIN (VITAMIN B-12) INJ 1000 MCG/1 ML VIAL IM SCH (13:13)
[2017-10-15] MEDS: MORPHINE SULFATE 10 MG/ML INJ IV PRN ×2 (13:16→15:46)
--- NOTE | 2017-10-15 19:50 | PDOC PROGRESS REPORT ---
Subjective Progress Note for:: 10/15/17 Subjective:: Patient postop day 4. Patient working with physical therapy and has done well without any chest pain or shortness of breath. 2D echo results were reviewed with the patient. Patient now working with the physical therapist and doing well. Physical Exam Vital Signs: Temp Pulse Resp BP Pulse Ox 98.8 F 102 H 18 122/63 91 L 10/15/17 15:43 10/15/17 15:43 10/15/17 15:43 10/15/17 15:43 10/15/17 15:43 Intake & Output 10/14/17 10/15/17 10/16/17 06:59 06:59 06:59 Intake Total 3857 2415 1780 Output Total 3895 6165 1850 Balance -38 -2525 -70 Weight 108.9 kg 103.2 kg Exam: GENERAL: well-nourished and in no acute distress. Alert and oriented x3 HEAD: Atraumatic, normocephalic. EYES: Pupils equal round and reactive to light, extraocular movements intact, sclera anicteric, conjunctiva are normal. ENT: TMs normal, nares patent, oropharynx clear without exudates. Moist mucous membranes. No oral ulcerations or bleeding gums noted NECK: supple without lymphadenopathy. Trachea is central. No cervical or axillary lymphadenopathy noted. Carotids are 2+, JVD WNL LUNGS: Respiration seems nonlabored, no significant accessory muscle action noted. Breath sounds clear to auscultation bilaterally and equal noted. No wheezes rales or rhonchi noted. No significant dullness noted on percussion. CHEST: Palpation of the chest wall shows no significant chest wall tenderness. No other significant abnormalities noted. 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 ABDOMEN: Soft, no significant tenderness appreciated, normoactive bowel sounds. No guarding, no rebound. No rigidity noted . No masses appreciated. EXTREMITIES: Pedal pulses are 1-2+, no calf tenderness noted. No clubbing or cyanosis.trace to 1+ pedal edema noted NEUROLOGICAL: Focused neurological exam showed no significant neurologic deficit. Normal speech, no focal weakness appreciated. PSYCH: Normal mood, normal affect. Judgment and insight within normal limits. SKIN: No significant ecchymosis, rash, ulcerations or signs of pruritus noted. MUSCULOSKELETAL EXAM: No significant joint swelling noted. Status post postsurgical changes noted in the hip. Results Laboratory Results: 10/14/17 12:58 10/14/17 03:57 EKG Comments: Telemetry strips shows sinus rhythm no sustained tachycardia or bradycardia arrhythmias noted. Impressions: Hip X-Ray 10/10/17 01:39 IMPRESSION: Moderate impaction fracture -deformity of the left femoral head and left lateral acetabulum with possible avascular necrosis relatively new compared with prior radiographs from November 2013. Cervical Spine CT 10/10/17 01:56 IMPRESSION: No acute findings. Head CT 10/10/17 01:56 IMPRESSION: NORMAL BRAIN CT WITHOUT CONTRAST. EVIDENCE OF ACUTE STROKE: NO. Ankle X-Ray 10/10/17 01:58 IMPRESSION: NO RADIOGRAPHIC EVIDENCE OF ACUTE INJURY. Pelvis X-Ray 10/11/17 13:13 IMPRESSION: Left hip arthroplasty. Lower Extremity CT 10/12/17 00:00 IMPRESSION: Post left hip replacement. No dislocation. No fracture. Chest X-Ray 10/13/17 00:00 IMPRESSION: NO ACUTE RADIOGRAPHIC FINDING IN THE CHEST. Assessment & Plan - Diagnosis (1) Hypotension Qualifiers: Hypotension type: unspecified hypotension type Qualified Code(s): I95.9 - Hypotension, unspecified Is this a current diagnosis for this admission?: Yes (2) Closed left hip fracture Qualifiers: Encounter type: subsequent encounter Is this a current diagnosis for this admission?: Yes (3) Essential hypertension Is this a current diagnosis for this admission?: Yes (4) Hyperlipidemia Qualifiers: Hyperlipidemia type: unspecified Qualified Code(s): E78.5 - Hyperlipidemia , unspecified Is this a current diagnosis for this admission?: Yes (5) Diabetes mellitus type 2 in obese Is this a current diagnosis for this admission?: Yes (6) Sleep disorder Is this a current diagnosis for this admission?: Yes (7) Preoperative cardiovascular examination Is this a current diagnosis for this admission?: Yes (8) Aortic stenosis Qualifiers: Cardiac valve disease etiology: nonrheumatic Qualified Code(s): I35.0 - Nonrheumatic aortic (valve) stenosis Is this a current diagnosis for this admission?: Yes - Notes Notes: Hypotension: Resolved. Most likely related to relative hypovolemia and pain medications. Blood pressure has been stable for last 2 days. Aortic stenosis: Noted on echocardiogram but mild. No need for endocarditis prophylaxis. Hypertension: Currently well controlled. Dyslipidemia: Continue statin therapy. Diabetes: Being expertly managed by hospitalist. Sleep disorder: Patient would benefit from sleep apnea evaluation. This was explained to the patient. Obesity: Patient will benefit from weight loss. Patient can follow-up with me for sleep apnea problem, and other cardiac related issues if he wishes. At this point will sign off. Please reconsult if needed. - Time Time with patient: 15-25 minutes - CODE STATUS was discussed, patient remains full code. Surrogate decision-maker unchanged. Multiple medical problems were addressed. More than 50% of the time spent coordinating care, discussing management plans with involved caregivers. Management plans discussed with involved personnels. Medical decision making was of moderate to high complexity , patient's has multiple comorbidities. Medications reviewed and adjusted accordingly: Yes
[2017-10-15] MEDS: AMITRIPTYLINE HCL 25 MG TABLET PO SCH (21:38)
[2017-10-15] MEDS: LORAZEPAM INJ 2 MG/1 ML VIAL IV PRN (21:38)
[2017-10-15] MEDS: ATORVASTATIN CALCIUM 40 MG TABLET PO SCH (21:38)
[2017-10-15] MEDS: FLUTICASONE/SALMETEROL DISKUS 500-50 MCG/DOSE IH SCH (21:49)
[2017-10-16] MEDS: MORPHINE SULFATE 10 MG/ML INJ IV PRN ×2 (00:24→20:51)
[2017-10-16] MEDS: LORAZEPAM INJ 2 MG/1 ML VIAL IV PRN ×6 (01:03→20:25)
[2017-10-16] MEDS: IPRATROPIUM/ALBUTEROL 0.5-2.5 MG/3 ML AMPUL NEB SCH ×4 (02:22→20:04)
--- NOTE | 2017-10-16 02:59 | RADIOLOGY REPORT (SQ) ---
EXAM DESCRIPTION: HIP LEFT AP/LATERAL COMPLETED DATE/TIME: 10/16/2017 1:42 am REASON FOR STUDY: Status post fall COMPARISON: None. NUMBER OF VIEWS: Two views. TECHNIQUE: AP pelvis and additional frog-leg view of the left hip. LIMITATIONS: None. FINDINGS: MINERALIZATION: Normal. LEFT HIP: Left total hip arthroplasty with less than 2 mm smooth lucency at the acetabular interface and 1.4 cm fragment lateral to the right acetabulum, stable. SOFT TISSUES: Surgical clips at the lateral aspect of the left proximal thigh. OTHER: No other significant finding. IMPRESSION: No acute findings. Left total hip arthroplasty. TECHNICAL DOCUMENTATION: JOB ID: [id number] [employer]- All Rights Reserved
[2017-10-16 03:03] LABS: ARTERIAL BLOOD BASE EXCESS -1.6 mmol/L; ARTERIAL BLOOD O2 SATURATION 95.8 % (94-98)
[2017-10-16] MEDS: PIPERACILLIN SODIUM/TAZOBACTAM 3.375 GM in NORMAL SALINE 100 ML IV SCH ×3 (05:51→21:00)
[2017-10-16] MEDS: LEVOTHYROXINE SODIUM 0.05 MG TABLET PO SCH (05:51)
[2017-10-16 06:14] LABS: ABSOLUTE LYMPHOCYTES (AUTO) 0.7 10^3/uL (0.5-4.7); ABSOLUTE MONOCYTES (AUTO) 0.9 10^3/uL (0.1-1.4); ABSOLUTE NEUT (AUTO) 5.8 10^3/uL (1.7-8.2); BASOPHILS % (AUTO) 0.2 % (0-2); EOSINOPHILS % (AUTO) 0.3 % (0-6); HEMATOCRIT 24.3 % (36.0-47.0); HEMOGLOBIN 8.2 g/dL (12.0-15.5); HGB HCT DIFFERENCE 0.3; LYMPHOCYTES % (AUTO) 9.6 % (13-45); MEAN CORPUSCULAR HEMOGLOBIN 28.8 pg (27.0-33.4); MEAN CORPUSCULAR HGB CONC 33.7 g/dL (32.0-36.0); MEAN CORPUSCULAR VOLUME 86 fl (80-97); MONOCYTES % (AUTO) 12.5 % (3-13); RED BLOOD COUNT 2.84 10^6/uL (3.72-5.28); RED CELL DISTRIBUTION WIDTH 19.9 % (11.5-14.0); SEGMENTED NEUTROPHILS % (AUTO) 77.4 % (42-78); WHITE BLOOD COUNT 7.5 10^3/uL (4.0-10.5)
[2017-10-16 06:48] LABS: ANION GAP 11 (5-19); BLOOD UREA NITROGEN 19 mg/dL (7-20); CALCIUM 8.6 mg/dL (8.4-10.2); CARBON DIOXIDE 22 mmol/L (22-30); CHLORIDE 100 mmol/L (98-107); CREATININE RESULT 0.99 mg/dL (0.52-1.25); GLUCOSE 113 mg/dL (75-110); POTASSIUM 3.8 mmol/L (3.6-5.0); SODIUM 132.8 mmol/L (137-145)
--- NOTE | 2017-10-16 06:52 | PDOC PROGRESS REPORT ---
Subjective Progress Note for:: 10/16/17 Subjective:: Patient is asleep and mumbling incoherently this morning. Nursing staff states she has been mentally altered throughout the night and suffered a fall over the weekend. She has been moved rooms closer to the nursing station as a result. Physical Exam Vital Signs: Temp Pulse Resp BP Pulse Ox 37.2 C 105 H 24 H 120/74 95 10/16/17 03:16 10/16/17 03:16 10/16/17 03:16 10/16/17 03:16 10/16/17 03:16 Intake & Output 10/14/17 10/15/17 10/16/17 06:59 06:59 06:59 Intake Total 3850 8612 3686 Output Total 0311 4110 2901 Balance -38 -3735 -110 Weight 108.9 kg 103.2 kg 103.9 kg General appearance: PRESENT: mild distress, well-developed, well-nourished Head exam: PRESENT: atraumatic, normocephalic Respiratory exam: PRESENT: wheezes Pulses: PRESENT: normal dorsalis pedis pul, +2 pedal pulses bilateral Vascular exam: PRESENT: normal capillary refill Additional comments: Patient is sitting upright in hospital bed with left lower extremity in full extension. There is a marking pen margin indicating area of erythema on the lateral aspect of the left thigh around proximal and distal surgical sites. On exam these areas of erythema do appear to be more likely ecchymosis as a result of manipulation during surgery, versus erythema from possible infection. Her surgical OpSite dressing was recently changed however has had some saturation of jahaira blood. Otherwise she has minimal pedal edema, her sensory and motor functions are intact and her distal neurovascular exam is intact. Musculoskeletal exam: PRESENT: ambulatory Additional comments: Patient makes slow progress with physical therapy ambulating only 40 feet independently. She will continue to work with physical therapy to improve distance of ambulation and improve strength range of motion of the left lower extremity. Neurological exam: PRESENT: oriented to person, oriented to place Additional comments: As noted on exam this morning patient is asleep and mumbling in her sleep. Nursing staff states that she has been mentally altered although she is oriented to person and place. Nursing staff was advised to continue Ativan to control agitated states when she is altered. Psychiatric exam: PRESENT: appropriate affect, normal mood. ABSENT: homicidal ideation, suicidal ideation Skin exam: PRESENT: dry, intact, warm. ABSENT: cyanosis, rash Additional comments: There is a small area of erythema localized to her left lateral thighs surrounding her surgical sites. She is nontender to palpation and it is not warm to palpation. Results Laboratory Results: 10/16/17 05:48 10/16/17 10/16/17 02:40 05:48 WBC 7.5 RBC 2.84 L Hgb 8.2 L Hct 24.3 L MCV 86 MCH 28.8 MCHC 33.7 RDW 19.9 H Plt Count 150 Seg Neutrophils % 77.4 Lymphocytes % 9.6 L Monocytes % 12.5 Eosinophils % 0.3 Basophils % 0.2 Absolute Neutrophils 5.8 Absolute Lymphocytes 0.7 Absolute Monocytes 0.9 Absolute Eosinophils 0.0 Absolute Basophils 0.0 Carbonic Acid 1.00 L HCO3/H2CO3 Ratio 22:1 ABG pH 7.44 ABG pCO2 33.3 L ABG pO2 76.0 L ABG HCO3 22.2 ABG O2 Saturation 95.8 ABG Base Excess -1.6 FiO2 4L Impressions: Cervical Spine CT 10/10/17 01:56 IMPRESSION: No acute findings. Head CT 10/10/17 01:56 IMPRESSION: NORMAL BRAIN CT WITHOUT CONTRAST. EVIDENCE OF ACUTE STROKE: NO. Ankle X-Ray 10/10/17 01:58 IMPRESSION: NO RADIOGRAPHIC EVIDENCE OF ACUTE INJURY. Pelvis X-Ray 10/11/17 13:13 IMPRESSION: Left hip arthroplasty. Lower Extremity CT 10/12/17 00:00 IMPRESSION: Post left hip replacement. No dislocation. No fracture. Chest X-Ray 10/13/17 00:00 IMPRESSION: NO ACUTE RADIOGRAPHIC FINDING IN THE CHEST. Hip X-Ray 10/15/17 00:00 IMPRESSION: No acute findings. Left total hip arthroplasty. Assessment & Plan - Diagnosis (1) Avascular necrosis of bone of left hip Is this a current diagnosis for this admission?: Yes - Plan Summary Plan Summary: 62-year-old white female status post left hip arthroplasty. Per nursing staff patient has been altered and has suffered a fall throughout her stay at the hospital. Staff was advised to continue using Ativan to control her agitated and altered states. She make slow progress with physical therapy only ambulating 40 feet. She will continue to work with PT to improve strength range of motion of the left lower extremity. Her surgical Site is healing appropriately however there is a small margin of erythema around the surgical sites. She is nontender to palpation in the erythematous margins are not warm to palpation. This is likely ecchymosis from surgical manipulation. However to assess for infection a CBC with differential, C-reactive protein, and estimated sed rate were ordered. If these labs come back indicating infection, she will likely be placed on antibiotic therapy.
[2017-10-16] MEDS: OXYCODONE-ACETAMINOPHEN 5-325 MG TABLET PO PRN ×3 (07:28→16:03)
[2017-10-16] MEDS: LANSOPRAZOLE 30 MG TAB.RAP.DR PO SCH ×2 (07:28→16:01)
[2017-10-16] MEDS: OXYCODONE HCL IR 5 MG TABLET PO PRN ×3 (07:29→16:03)
--- NOTE | 2017-10-16 08:06 | RADIOLOGY REPORT (SQ) ---
EXAM DESCRIPTION: CHEST SINGLE VIEW COMPLETED DATE/TIME: 10/16/2017 7:50 am REASON FOR STUDY: dyspnea COMPARISON: 10/13/2017. FINDINGS: Portable AP upright single-view chest timed approximately 746 hours. Patchy bilateral diffuse airspace opacities. No large effusion or pneumothorax. Stable cardiomediastinal silhouette. IMPRESSION: 1. Bilateral infiltrates/ edema. New since 10/13/2017. TECHNICAL DOCUMENTATION: JOB ID: [id number]
[2017-10-16] MEDS: AMLODIPINE BESYLATE 5 MG TABLET PO SCH (09:56)
[2017-10-16] MEDS: DOCUSATE SODIUM 100 MG CAPSULE PO SCH ×2 (09:57→18:33)
[2017-10-16] MEDS: FLUOXETINE HCL 20 MG CAPSULE PO SCH (09:57)
[2017-10-16] MEDS: PRENATAL VITAMIN W DHA CAPSULE PO SCH (09:57)
[2017-10-16] MEDS: SENNOSIDES/DOCUSATE 8.6-50 MG 1 EACH TABLET PO SCH ×2 (09:57→18:33)
[2017-10-16] MEDS: GABAPENTIN 300 MG CAPSULE PO SCH ×2 (09:58→21:02)
[2017-10-16] MEDS: FLUTICASONE/SALMETEROL DISKUS 500-50 MCG/DOSE IH SCH ×2 (10:00→21:02)
[2017-10-16] MEDS: CYANOCOBALAMIN/FA/PYRIDOXINE TABLET PO SCH (10:01)
[2017-10-16] MEDS ORDERED: ALBUTEROL SULFATE 0.083% NEB 2.5 MG/3 ML AMPUL NEB PRN (10:14)
[2017-10-16] MEDS: VANCOMYCIN HCL 750 MG in DEXTROSE 5%-WATER 250 ML IV SCH (10:38)
[2017-10-16 11:12] LABS: CREATININE RESULT 0.97 mg/dL (0.52-1.25)
--- NOTE | 2017-10-16 11:27 | PDOC PROGRESS REPORT ---
Subjective Progress Note for:: 10/16/17 Subjective:: f/u: s/p left hip surgery; post op anemia; fever, copd Had another difficult night with increasing confusion, apparently fell from the bedside commode onto the floor with no further evidence of trauma; repeat x-ray shows no dislocation of the repaired hip. She is working harder to breathe and has audible wheezing upon entering the room this morning. She is much more confused, she remembers seeing me and that I am a physician but thinks him her heart doctor and cannot remember my name date or when we met. She is very restless in the bed with pressured speech and flight of ideas. Answers to some questions are incoherent or nonsensical at times. ROS: all systems reviewed, see above, remaining systems negative Physical Exam Vital Signs: Temp Pulse Resp BP Pulse Ox 100.1 F 82 18 97/80 L 96 10/16/17 07:19 10/16/17 08:00 10/16/17 08:00 10/16/17 07:19 10/16/17 08:00 Intake & Output 10/15/17 10/16/17 10/17/17 06:59 06:59 06:59 Intake Total 2415 2790 Output Total 6150 2900 Balance -3735 -110 Weight 103.2 kg 103.9 kg General appearance: obese, anxious and confused, hyperactivity noted evidenced by restlessness Eye exam: PRESENT: EOMI. ABSENT: scleral icterus Mouth exam: PRESENT: moist, neck supple Neck exam: PRESENT: full ROM. ABSENT: tenderness Respiratory exam: PRESENT: crackles, diffuse rhonchi and wheezes, wet congested cough. ABSENT: accessory muscle use Cardiovascular exam: PRESENT: RRR. ABSENT: systolic murmur GI/Abdominal exam: PRESENT: normal bowel sounds, soft. ABSENT: tenderness Extremities exam: PRESENT: +1 edema - left leg with ecchymosis and erythema streaking lateral and distal to the above the knee, improved Neurological exam: PRESENT: alert, awake, oriented to person, oriented to time, oriented to situation; moves all extremities and will follow simple commands. There is no facial asymmetry and no slurred speech. Psychiatric exam: Altered. Restless. Skin exam: PRESENT: warm Results Laboratory Results: 10/16/17 05:48 10/16/17 10/16/17 10/16/17 02:40 05:48 05:48 WBC 7.5 RBC 2.84 L Hgb 8.2 L Hct 24.3 L MCV 86 MCH 28.8 MCHC 33.7 RDW 19.9 H Plt Count 150 Seg Neutrophils % 77.4 Lymphocytes % 9.6 L Monocytes % 12.5 Eosinophils % 0.3 Basophils % 0.2 Absolute Neutrophils 5.8 Absolute Lymphocytes 0.7 Absolute Monocytes 0.9 Absolute Eosinophils 0.0 Absolute Basophils 0.0 Carbonic Acid 1.00 L HCO3/H2CO3 Ratio 22:1 ABG pH 7.44 ABG pCO2 33.3 L ABG pO2 76.0 L ABG HCO3 22.2 ABG O2 Saturation 95.8 ABG Base Excess -1.6 FiO2 4L Sodium 132.8 L Potassium 3.8 Chloride 100 Carbon Dioxide 22 Anion Gap 11 BUN 19 Creatinine 0.99 Est GFR ( Amer) > 60 Est GFR (Non-Af Amer) 57 L Glucose 113 H Calcium 8.6 Impressions: Cervical Spine CT 10/10/17 01:56 IMPRESSION: No acute findings. Head CT 10/10/17 01:56 IMPRESSION: NORMAL BRAIN CT WITHOUT CONTRAST. EVIDENCE OF ACUTE STROKE: NO. Ankle X-Ray 10/10/17 01:58 IMPRESSION: NO RADIOGRAPHIC EVIDENCE OF ACUTE INJURY. Pelvis X-Ray 10/11/17 13:13 IMPRESSION: Left hip arthroplasty. Lower Extremity CT 10/12/17 00:00 IMPRESSION: Post left hip replacement. No dislocation. No fracture. Hip X-Ray 10/15/17 00:00 IMPRESSION: No acute findings. Left total hip arthroplasty. Chest X-Ray 10/16/17 07:27 IMPRESSION: 1. Bilateral infiltrates/ edema. New since 10/13/2017. Assessment & Plan - Diagnosis (1) Nosocomial pneumonia Is this a current diagnosis for this admission?: Yes Plan: Chest x-ray shows interval development of bilateral airspace disease likely accounting for the decline in her respiratory function and probably accounting for the acute change in her mental state. Continue Zosyn and vancomycin. Continue supplemental oxygen and pulmonary toilet. (2) Acute metabolic encephalopathy Is this a current diagnosis for this admission?: Yes Plan: Likely multifactorial related to pneumonia, COPD exacerbation, acute blood loss anemia requiring transfusion. Will send for stat noncontrasted CT of the head to rule out intracranial hemorrhage especially with history of recent falls. Other possibilities here include alcohol or narcotic withdrawal, though the latter is less likely since she has been receiving pain medicine postoperatively. Will place her on thiamine therapy. It is difficult to quantify the amount of alcohol she was consuming prior to her admission but her alcohol level was 246. This would be a late development of withdrawal now on day 6. Continue intermittent Ativan. (3) COPD (chronic obstructive pulmonary disease) with acute bronchitis Is this a current diagnosis for this admission?: Yes Plan: continue IV abx started by my colleague yesterday and monitor for response; hesitant to add systemic steroids due to recent surgery and apparent mary this morning; continue her usual advair and spiriva. (4) Avascular necrosis of bone of left hip Is this a current diagnosis for this admission?: Yes (5) Postoperative anemia due to acute blood loss Is this a current diagnosis for this admission?: Yes Plan: H/H stable after 3U PRBCs, will ck again in am. no evidence for acute blood loss other than surgery. she is reportedly iron deficient and found to have B12 def as well. schedule cyanocobalamin IM x3d. - Time Time Spent with patient: 35 or more minutes Medications reviewed and adjusted accordingly: Yes
[2017-10-16] MEDS ORDERED: RINGERS SOLUTION,LACTATED 1,000 ML IV ONE (11:42)
[2017-10-16] MEDS ORDERED: THIAMINE HCL 100 MG TABLET PO SCH (12:00)
[2017-10-16] MEDS: CYANOCOBALAMIN (VITAMIN B-12) INJ 1000 MCG/1 ML VIAL IM SCH (12:05)
[2017-10-16] MEDS: TIOTROPIUM BROMIDE DPI 5 CAP/KIT (18 MCG/CAP) IH SCH (12:09)
[2017-10-16] MEDS ORDERED: DIAZEPAM INJ 10 MG/2 ML DISP.SYRIN IV PRN (12:54)
[2017-10-16 13:00] LABS: ARTERIAL BLOOD BASE EXCESS -2.6 mmol/L
--- NOTE | 2017-10-16 13:46 | RADIOLOGY REPORT (SQ) ---
EXAM DESCRIPTION: CT HEAD WITHOUT COMPLETED DATE/TIME: 10/16/2017 1:31 pm REASON FOR STUDY: acute neurologic change COMPARISON: 10/10/2017. TECHNIQUE: Axial images acquired through the brain without intravenous contrast. Images reviewed wi th bone, brain and subdural windows. Images stored on PACS. All CT scanners at this facility use dose modulation, iterative reconstruction, and/or weight based d osing when appropriate to reduce radiation dose to as low as reasonably achievable (ALARA). [facility]: Dose Right [facility]: CareDose [facility]: Dose Right [facility]: Teradose 4D [facility]: Smart Pipeline RADIATION DOSE: CT Rad equipment meets quality standard of care and radiation dose reduction techniq ues were employed. CTDIvol: 47.6 mGy. DLP: 881 mGy-cm. mGy. LIMITATIONS: Mild motion artifact. FINDINGS: VENTRICLES: Normal size and contour. CEREBRUM: No masses. No hemorrhage. No midline shift. No evidence for acute infarction. Normal gra y/white matter differentiation. No areas of low density in the white matter. CEREBELLUM: No masses. No hemorrhage. No alteration of density. No evidence for acute infarction. EXTRAAXIAL SPACES: No fluid collections. No masses. ORBITS AND GLOBE: No intra- or extraconal masses. Normal contour of globe without masses. CALVARIUM: No fracture. PARANASAL SINUSES: No fluid or mucosal thickening. SOFT TISSUES: No mass or hematoma. OTHER: No other significant finding. IMPRESSION: NORMAL BRAIN CT WITHOUT CONTRAST. EVIDENCE OF ACUTE STROKE: NO. COMMENT: Quality ID # [id number]: Final reports with documentation of one or more dose reduction techniques (e.g., Automated exposure control, adjustment of the mA and/or kV according to patient size, use of iterative reconstruction technique) TECHNICAL DOCUMENTATION: JOB ID: [id number] [employer] All Rights Reserved
[2017-10-16] MEDS: VANCOMYCIN HCL 1,000 MG in DEXTROSE 5%-WATER 250 ML IV SCH (21:01)
[2017-10-16] MEDS: ATORVASTATIN CALCIUM 40 MG TABLET PO SCH (21:01)
[2017-10-16] MEDS: AMITRIPTYLINE HCL 25 MG TABLET PO SCH (21:02)
[2017-10-17] MEDS ORDERED: LORAZEPAM INJ 2 MG/1 ML VIAL ONE ×2 (00:26→03:08)
[2017-10-17] MEDS ORDERED: LORAZEPAM INJ 2 MG/1 ML VIAL IV ONE ×2 (00:30→00:45)
[2017-10-17 01:17] LABS: ARTERIAL BLOOD BASE EXCESS -3.5 mmol/L
[2017-10-17] MEDS: IPRATROPIUM/ALBUTEROL 0.5-2.5 MG/3 ML AMPUL NEB SCH ×4 (01:29→20:20)
[2017-10-17] MEDS ORDERED: PHARMACY COMMUNICATION ORDER MC NR (02:15)
[2017-10-17] MEDS ORDERED: PROPOFOL INJ 200 MG/20 ML VIAL IV ONE (03:05)
[2017-10-17] MEDS ORDERED: DEXTROSE 40% GEL 15 GM TUBE NG PRN ×2 (03:23→03:24)
[2017-10-17] MEDS ORDERED: MAGNESIUM HYDROXIDE SUSP 30 ML UDCUP NG PRN (03:23)
[2017-10-17] MEDS ORDERED: MAG HYDROX/AL HYDROX/SIMETH SUSP 30 ML UDCUP NG PRN (03:24)
[2017-10-17] MEDS ORDERED: ONDANSETRON 4 MG TAB.RAPDIS NG PRN (03:24)
[2017-10-17] MEDS ORDERED: OXYCODONE-ACETAMINOPHEN 5-325 MG TABLET NG PRN (03:24)
[2017-10-17] MEDS ORDERED: OXYCODONE HCL IR 5 MG TABLET NG PRN (03:25)
[2017-10-17] MEDS ORDERED: TRAMADOL HCL 50 MG TABLET NG PRN (03:26)
[2017-10-17] MEDS ORDERED: ACETAMINOPHEN 325 MG TABLET NG PRN (03:26)
--- NOTE | 2017-10-17 04:08 | RADIOLOGY REPORT (SQ) ---
EXAM DESCRIPTION: CHEST SINGLE VIEW COMPLETED DATE/TIME: 10/17/2017 3:57 am REASON FOR STUDY: post intubation COMPARISON: Chest x-ray 10/16/2017. EXAM PARAMETERS: NUMBER OF VIEWS: One view TECHNIQUE: Single frontal radiograph of the chest. RADIATION DOSE: N/A LIMITATIONS: None. FINDINGS: TEMPORARY SUPPORT DEVICES:Endotracheal tube has the tip approximately 3.5 cm above the car flash. The enteric tube courses along the midline, its tip is not included on this exam. LUNGS AND PLEURA: There are bilateral patchy ground-glass opacities, increased in the interval. No s izable pleural effusion or pneumothorax on this supine view. MEDIASTINUM AND HILAR STRUCTURES: No obvious masses. HEART AND VASCULAR STRUCTURES: The heart is enlarged. There is vascular congestion. BONES: No acute findings. IMPRESSION: Cardiomegaly and vascular congestion. Interval increase in the bilateral patchy ground- glass opacities, may represent worsening pulmonary edema and / or pneumonia. TECHNICAL DOCUMENTATION: JOB ID: [id number] [place]-64 2010 [employer]- All Rights Reserved
[2017-10-17] MEDS: PROPOFOL 100 ML IV PRN ×5 (04:16→21:08)
[2017-10-17 04:31] LABS: ABSOLUTE LYMPHOCYTES (AUTO) 0.6 10^3/uL (0.5-4.7); ABSOLUTE MONOCYTES (AUTO) 0.7 10^3/uL (0.1-1.4); ABSOLUTE NEUT (AUTO) 4.3 10^3/uL (1.7-8.2); BASOPHILS % (AUTO) 0.2 % (0-2); EOSINOPHILS % (AUTO) 0.3 % (0-6); HEMATOCRIT 22.7 % (36.0-47.0); HGB HCT DIFFERENCE 0.1; LYMPHOCYTES % (AUTO) 10.1 % (13-45); MEAN CORPUSCULAR HEMOGLOBIN 28.9 pg (27.0-33.4); MEAN CORPUSCULAR HGB CONC 33.5 g/dL (32.0-36.0); MEAN CORPUSCULAR VOLUME 86 fl (80-97); MONOCYTES % (AUTO) 12.8 % (3-13); RED BLOOD COUNT 2.64 10^6/uL (3.72-5.28); RED CELL DISTRIBUTION WIDTH 19.3 % (11.5-14.0); SEGMENTED NEUTROPHILS % (AUTO) 76.6 % (42-78); WHITE BLOOD COUNT 5.6 10^3/uL (4.0-10.5)
[2017-10-17 04:36] LABS: HEMOGLOBIN 7.6 g/dL (12.0-15.5)
[2017-10-17] MEDS ORDERED: NORMAL SALINE 250 ML IV PRN ×2 (04:40)
[2017-10-17] MEDS ORDERED: FUROSEMIDE INJ/PF 40 MG/4 ML SDV IV ONE (04:48)
[2017-10-17 04:55] LABS: ANION GAP 11 (5-19); BLOOD UREA NITROGEN 14 mg/dL (7-20); CALCIUM 8.3 mg/dL (8.4-10.2); CARBON DIOXIDE 21 mmol/L (22-30); CHLORIDE 108 mmol/L (98-107); CREATININE RESULT 0.87 mg/dL (0.52-1.25); GLUCOSE 104 mg/dL (75-110); POTASSIUM 3.5 mmol/L (3.6-5.0); SODIUM 140.2 mmol/L (137-145)
[2017-10-17 05:07] LABS: ERYTHROCYTE SEDIMENTATION RATE 117 mm/hr (0-30)
[2017-10-17 05:24] LABS: C-REACTIVE PROTEIN 244.5 mg/L (<10.0)
[2017-10-17] MEDS: PIPERACILLIN SODIUM/TAZOBACTAM 3.375 GM in NORMAL SALINE 100 ML IV SCH ×3 (05:38→21:09)
[2017-10-17] MEDS: LEVOTHYROXINE SODIUM 0.05 MG TABLET NG SCH (05:39)
[2017-10-17 05:41] LABS: ARTERIAL BLOOD BASE EXCESS -2.3 mmol/L; ARTERIAL BLOOD O2 SATURATION 95.4 % (94-98)
--- NOTE | 2017-10-17 07:55 | RADIOLOGY REPORT (SQ) ---
EXAM DESCRIPTION: CT ABD/PELVIS WITH IV ONLY COMPLETED DATE/TIME: 10/17/2017 7:00 am REASON FOR STUDY: 6 unit blood loss COMPARISON: CT abdomen and pelvis 12/08/2013, left hip x-ray 10/12/2017. TECHNIQUE: CT scan of the abdomen and pelvis performed using helical scanning technique with dynamic intravenous contrast injection. No oral contrast. Images reviewed with lung, soft tissue, and bone windows. Reconstructed coronal and sagittal MPR images reviewed. Delayed images for evaluation of the urinary system also acquired. All images stored on PACS. All CT scanners at this facility use dose modulation, iterative reconstruction, and/or weight based d osing when appropriate to reduce radiation dose to as low as reasonably achievable (ALARA). [facility]: Dose Right [facility]: CareDose [facility]: Dose Right [facility]: Teradose 4D [facility]: [employer] CONTRAST TYPE AND DOSE: contrast/concentration: Isovue 370.00 mg/ml; Total Contrast Delivered: 100.0 ml; Total Saline Delivered: 72.1 ml RENAL FUNCTION: Creatinine 0.87 RADIATION DOSE: CT Rad equipment meets quality standard of care and radiation dose reduction techniq ues were employed. CTDIvol: 11.9 - 21.1 mGy. DLP: 2813 mGy-cm.. LIMITATIONS: There is motion artifact. There is artifact from the patient's arms along the body. FINDINGS: LOWER CHEST: There are trace bilateral pleural effusions and adjacent atelectasis at the b ilateral lower lobes. There are bilateral patchy ground-glass opacities. The heart is mildly enlarg ed. There is a small hiatal hernia. LIVER: No masses are identified. No dilated ducts. SPLEEN: Normal size. PANCREAS: No significant calcifications. No adjacent inflammation or peripancreatic fluid collections . Pancreatic duct not dilated. GALLBLADDER: Present. ADRENAL GLANDS: No significant masses or asymmetry. RIGHT KIDNEY AND URETER: No solid masses. No significant calcifications. No hydronephrosis or hyd roureter. LEFT KIDNEY AND URETER: No solid masses. No significant calcifications. No hydronephrosis or hydr oureter. AORTA AND VESSELS: Atherosclerotic calcifications within the abdominal aorta and its branches. No ab dominal aortic aneurysm. RETROPERITONEUM: No retroperitoneal adenopathy, hemorrhage or masses. BOWEL AND PERITONEAL CAVITY: An enteric tube terminates in the stomach. No dilated bowel loops or i nflammatory changes. No free fluid or free air. Moderate amount of stool in the colon. APPENDIX: Not visualized. PELVIS: There is streak artifact from the left hip prosthesis. The urinary bladder is partially deco mpressed by a Schwab catheter. The balloon of the Schwab catheter is seen at the base of the urinary b ladder/ proximal urethra. Small amount of air in the urinary bladder. ABDOMINAL WALL: No hernias. BONES: Multilevel degenerative changes in the spine. The patient is status post total left hip arth roplasty. There is soft tissue swelling and edema along the left hip with overlying skin alison, pr obably representing postsurgical changes. IMPRESSION: No acute findings in the abdomen or pelvis. No evidence of retroperitoneal hemorrhage. The balloon of the Schwab catheter is seen at the base of the urinary bladder/ proximal urethra. Repo sitioning recommended. Moderate amount of stool in the colon. There are trace bilateral pleural effusions and adjacent atelectasis in the bilateral lower lobes. P atchy ground-glass opacities at the bilateral lung bases, may represent pulmonary edema and /or pneum onia. Mild cardiomegaly. Postsurgical changes at the left hip. TECHNICAL DOCUMENTATION: JOB ID: [id number] [facility] Quality ID # [id number]: Final reports with documentation of one or more dose reduction techniques (e.g., Au tomated exposure control, adjustment of the mA and/or kV according to patient size, use of iterative reconstruction technique) 2010 [employer]- All Rights Reserved
--- NOTE | 2017-10-17 08:10 | RADIOLOGY REPORT (SQ) ---
EXAM DESCRIPTION: CT LEFT LOWER EXTREMITY WITH COMPLETED DATE/TIME: 10/17/2017 7:00 am REASON FOR STUDY: 6 unit blood loss COMPARISON: CT abdomen and pelvis 10/17/2017 Left hip films 10/16/2017 CT left hip 10/12/2017 TECHNIQUE: CT scan of the bilateral lower extremities performed with intravenous contrast. Patient was injected with 100 mL of IV Isovue-300. Creatinine 0.87 Images reviewed with soft tissue and bone windows. Reconstructed coronal and sagittal MPR images rev iewed. All images stored on PACS. All CT scanners at this facility use dose modulation, iterative reconstruction, and/or weight based d osing when appropriate to reduce radiation dose to as low as reasonably achievable (ALARA). [facility]: Dose Right [facility]: CareDose [facility]: Dose Right [facility]: Teradose 4D [facility]: [employer] RADIATION DOSE: 11.9 mGy. LIMITATIONS: None. FINDINGS: CT scanning of the bilateral lower extremities was performed with IV contrast. A soft tissue fluid collection, seroma versus hematoma is present deep to the skin alison over the l eft gluteal region post hip replacement. This measures 5 cm transverse by 3 cm AP x 9 cm craniocauda d, best shown on axial image 74 and coronal image 64. No large deep thigh muscle hemorrhage or hematoma is identified. Left hip replacement in good alignment. Bony pelvis intact. No gross right or left leg arterial stenosis or gross DVT. Knee and ankle joints are unremarkable. IMPRESSION: Small fluid collection deep to the skin alison over the left gluteal region for hip rep lacement. This likely is a small seroma or hematoma. No large deep left thigh hematoma is seen to explain history of large volume blood loss TECHNICAL DOCUMENTATION: JOB ID: [id number] Quality ID # [id number]: Final reports with documentation of one or more dose reduction techniques (e.g., Au tomated exposure control, adjustment of the mA and/or kV according to patient size, use of iterative reconstruction technique) 2010 [employer]- All Rights Reserved
[2017-10-17] MEDS: LANSOPRAZOLE 30 MG TAB.RAP.DR NG SCH ×2 (08:48→17:05)
[2017-10-17] MEDS: LEVOFLOXACIN 750 MG/D5W RTU 750 MG/150 ML RTUPB IV SCH (08:48)
--- NOTE | 2017-10-17 09:23 | PDOC PROGRESS REPORT ---
Subjective Progress Note for:: 10/17/17 Subjective:: Patient is currently intubated and sedated. Is unable to provide subjective. Per overnight hospitalist patient was experiencing worsening respiratory distress and was taken to the ICU and was intubated. She has been continued on antibiotics for healthcare associated pneumonia. IV Lasix given for pulmonary edema. Per ICU nurse patient has had low systolic blood pressure with normal map, propofol and Ativan have both weaned down and this has helped some. Reason For Visit: Acute respiratory failure and intubation, healthcare associated pneumonia. Edema Physical Exam Vital Signs: Temp Pulse Resp BP Pulse Ox 98.1 F 72 23 H 87/57 L 97 10/17/17 07:54 10/17/17 08:26 10/17/17 08:26 10/17/17 07:54 10/17/17 08:26 Intake & Output 10/16/17 10/17/17 10/18/17 06:59 06:59 06:59 Intake Total 2790 1860 Output Total 2900 1325 310 Balance -110 535 -310 Weight 103.9 kg 102.2 kg General appearance: PRESENT: no acute distress, morbidly obese, other - intubated and sedated Head exam: PRESENT: atraumatic, normocephalic Eye exam: PRESENT: conjunctiva pink, PERRLA Ear exam: PRESENT: normal external ear exam Neck exam: ABSENT: lymphadenopathy, tracheal deviation Respiratory exam: PRESENT: other - tight breath sounds, scattered insp and exp wheezing, no rales, currently unlabored breating Cardiovascular exam: PRESENT: RRR. ABSENT: systolic murmur Pulses: PRESENT: normal dorsalis pedis pul GI/Abdominal exam: PRESENT: normal bowel sounds, soft, other. ABSENT: distended Gentrourinary exam: PRESENT: indwelling catheter - with clear yellow urine in bag Extremities exam: ABSENT: pedal edema Neurological exam: PRESENT: other - sedated with ativan and propofol Psychiatric exam: ABSENT: agitated Focused psych exam: PRESENT: other - cannot assess due to intubation Skin exam: PRESENT: other - scattered eccymoses, darkened skin under panus, no breakdown anterior and per RN non posterior Results Laboratory Results: 10/17/17 04:14 10/17/17 04:14 10/14/17 10/16/17 10/16/17 05:40 10:30 12:30 WBC RBC Hgb Hct MCV MCH MCHC RDW Plt Count Seg Neutrophils % Lymphocytes % Monocytes % Eosinophils % Basophils % Absolute Neutrophils Absolute Lymphocytes Absolute Monocytes Absolute Eosinophils Absolute Basophils Carbonic Acid 0.91 L HCO3/H2CO3 Ratio 22:1 ABG pH 7.46 H ABG pCO2 30.2 L ABG pO2 85.0 ABG HCO3 20.8 ABG O2 Saturation 97.0 ABG Base Excess -2.6 FiO2 4L Sodium Potassium Chloride Carbon Dioxide Anion Gap BUN Creatinine 0.97 Est GFR ( Amer) > 60 Est GFR (Non-Af Amer) 58 L Glucose Calcium C-Reactive Protein Blood Type A POSITIVE Antibody Screen NEGATIVE 10/17/17 10/17/17 10/17/17 01:00 04:14 04:14 WBC 5.6 RBC 2.64 L Hgb 7.6 L Hct 22.7 L MCV 86 MCH 28.9 MCHC 33.5 RDW 19.3 H Plt Count 168 Seg Neutrophils % 76.6 Lymphocytes % 10.1 L Monocytes % 12.8 Eosinophils % 0.3 Basophils % 0.2 Absolute Neutrophils 4.3 Absolute Lymphocytes 0.6 Absolute Monocytes 0.7 Absolute Eosinophils 0.0 Absolute Basophils 0.0 Carbonic Acid 0.91 L HCO3/H2CO3 Ratio 21:1 ABG pH 7.44 ABG pCO2 30.1 L ABG pO2 86.5 ABG HCO3 19.8 L ABG O2 Saturation 97.0 ABG Base Excess -3.5 FiO2 36% Sodium 140.2 Potassium 3.5 L Chloride 108 H Carbon Dioxide 21 L Anion Gap 11 BUN 14 Creatinine 0.87 Est GFR ( Amer) > 60 Est GFR (Non-Af Amer) > 60 Glucose 104 Calcium 8.3 L C-Reactive Protein 244.5 H Blood Type Antibody Screen 10/17/17 10/17/17 05:20 07:05 WBC RBC Hgb Hct MCV MCH MCHC RDW Plt Count Seg Neutrophils % Lymphocytes % Monocytes % Eosinophils % Basophils % Absolute Neutrophils Absolute Lymphocytes Absolute Monocytes Absolute Eosinophils Absolute Basophils Carbonic Acid 1.07 HCO3/H2CO3 Ratio 20:1 ABG pH 7.41 ABG pCO2 35.5 ABG pO2 75.3 L ABG HCO3 22.0 ABG O2 Saturation 95.4 ABG Base Excess -2.3 FiO2 50% Sodium Potassium Chloride Carbon Dioxide Anion Gap BUN Creatinine Est GFR ( Amer) Est GFR (Non-Af Amer) Glucose Calcium C-Reactive Protein Blood Type A POSITIVE Antibody Screen NEGATIVE Impressions: Cervical Spine CT 10/10/17 01:56 IMPRESSION: No acute findings. Ankle X-Ray 10/10/17 01:58 IMPRESSION: NO RADIOGRAPHIC EVIDENCE OF ACUTE INJURY. Pelvis X-Ray 10/11/17 13:13 IMPRESSION: Left hip arthroplasty. Hip X-Ray 10/15/17 00:00 IMPRESSION: No acute findings. Left total hip arthroplasty. Head CT 10/16/17 00:00 IMPRESSION: NORMAL BRAIN CT WITHOUT CONTRAST. EVIDENCE OF ACUTE STROKE: NO. Abdomen/Pelvis CT 10/17/17 00:00 IMPRESSION: No acute findings in the abdomen or pelvis. No evidence of retroperitoneal hemorrhage. The balloon of the Schwab catheter is seen at the base of the urinary bladder/ proximal urethra. Repositioning recommended. Moderate amount of stool in the colon. There are trace bilateral pleural effusions and adjacent atelectasis in the bilateral lower lobes. Patchy ground-glass opacities at the bilateral lung bases, may represent pulmonary edema and /or pneumonia. Mild cardiomegaly. Postsurgical changes at the left hip. Lower Extremity CT 10/17/17 00:00 IMPRESSION: Small fluid collection deep to the skin alison over the left gluteal region for hip replacement. This likely is a small seroma or hematoma. No large deep left thigh hematoma is seen to explain history of large volume blood loss Chest X-Ray 10/17/17 03:00 IMPRESSION: Cardiomegaly and vascular congestion. Interval increase in the bilateral patchy ground-glass opacities, may represent worsening pulmonary edema and / or pneumonia. Assessment & Plan - Diagnosis (1) Acute respiratory failure Qualifiers: Respiratory failure complication: hypoxia Qualified Code(s): J96.01 - Acute respiratory failure with hypoxia Is this a current diagnosis for this admission?: Yes Plan: And had worsening respiratory status yesterday. Unable to protect her airway and had labored breathing. She was intubated overnight. Respiratory failure is likely multifactorial with healthcare associated pneumonia and pulmonary edema playing roles. Also she has morbid obesity with probably obstructive sleep apnea. Engineer has been consulted to manage ventilator. Patient will continue on antibiotics for healthcare associated pneumonia. She received a dose of Lasix today and will be followed closely to determine need for next dose. (2) Nosocomial pneumonia Is this a current diagnosis for this admission?: Yes Plan: We will continue on Zosyn and vancomycin for a healthcare associated pneumonia. CT scan last night shows likely pneumonia and chest x-ray yesterday did as well. (3) Pulmonary edema Qualifiers: Chronicity: acute Qualified Code(s): J81.0 - Acute pulmonary edema Is this a current diagnosis for this admission?: Yes Plan: May be related to infectious process but also patient has received several units of blood. She received dose of Lasix 40 mg IV this morning and has diuresed well. Her breathing is less labored. She is on an SIMV rate of 12 and breathing at 21. Need more Lasix. Electrolytes will be monitored and potassium and magnesium will be replaced as indicated. (4) COPD (chronic obstructive pulmonary disease) with acute bronchitis Is this a current diagnosis for this admission?: Yes Plan: Is now on antibiotics for pneumonia and these will continue. We will add steroids if respiratory status does not improve. We will continue broncho-dilators. (5) Alcohol withdrawal delirium Is this a current diagnosis for this admission?: Yes Plan: Yesterday patient had an acute metabolic encephalopathy. She has a heavy alcohol history. It was thought that she was experiencing alcohol withdrawal and does continue to be in the window for withdrawal. She is now on Ativan 2 mg an hour and this will continue, it is also assisting with sedation while she is on the ventilator. We will titrate off as indicated, when it is thought that alcohol withdrawal is resolving and when she no longer needs it for sedation. (6) Acute metabolic encephalopathy Is this a current diagnosis for this admission?: Yes Plan: This is likely multifactorial with hypoxemia, postoperative status and prolonged hospitalization, alcohol withdrawal all playing roles. Will continue to monitor and treat underlying conditions and expect recovery from the acute metabolic encephalopathy. (7) Avascular necrosis of bone of left hip Is this a current diagnosis for this admission?: Yes Plan: Patient is POD 6 for left hip arthroplasty. She is still being followed by orthopedic surgery. Surgical wound is being monitored for possible infection. She is now on broad-spectrum antibiotics for healthcare associated pneumonia. CT of the leg was performed last night and there appears to be a small fluid collection around the incision which is probably seroma or hematoma. (8) Postoperative anemia due to acute blood loss Is this a current diagnosis for this admission?: Yes Plan: Prior to ICU admission this patient received 3 units of packed red blood cells for acute blood loss anemia. Overnight 2 additional units have been ordered for recurrent anemia. CT abdomen pelvis and leg do not show new source of bleed. Will monitor H&H after 2 units given today to continue to evaluate. Otherwise there is no obvious active bleeding at this time. - Time Total Critical Time (Minutes): 60 Medications reviewed and adjusted accordingly: Yes
[2017-10-17] MEDS ORDERED: BISACODYL 10 MG SUPP.RECT PR ONE (09:30)
[2017-10-17] MEDS ORDERED: POTASSIUM CHLORIDE 20 MEQ/50 ML RTU IV ONE (09:30)
[2017-10-17 09:33] LABS: ADD ON TESTING BLD IN LAB ACKNOWLEDGE
[2017-10-17] MEDS ORDERED: DOCUSATE SODIUM 100 MG CAPSULE PO SCH (10:00)
[2017-10-17] MEDS ORDERED: DOCUSATE SODIUM 100 MG/10 ML UDC NG SCH ×2 (10:00)
[2017-10-17] MEDS ORDERED: SENNOSIDES/DOCUSATE 8.6-50 MG 1 EACH TABLET NG SCH (10:00)
[2017-10-17] MEDS: CYANOCOBALAMIN/FA/PYRIDOXINE TABLET NG SCH (10:05)
[2017-10-17] MEDS: FLUOXETINE HCL 20 MG CAPSULE NG SCH (10:05)
[2017-10-17] MEDS: GABAPENTIN 300 MG CAPSULE NG SCH ×2 (10:06→21:10)
[2017-10-17] MEDS: SENNOSIDES/DOCUSATE 8.6-50 MG 1 EACH TABLET NG SCH ×2 (10:06→17:06)
[2017-10-17 10:11] LABS: TRIGLYCERIDES 100 mg/dL (<150)
[2017-10-17] MEDS: AMLODIPINE BESYLATE 5 MG TABLET NG SCH (10:11)
[2017-10-17] MEDS: FLUTICASONE/SALMETEROL DISKUS 500-50 MCG/DOSE IH SCH ×2 (10:11→21:07)
[2017-10-17] MEDS: PRENATAL VITAMIN W DHA CAPSULE PO SCH (10:11)
[2017-10-17] MEDS: VANCOMYCIN HCL 1,000 MG in DEXTROSE 5%-WATER 250 ML IV SCH ×2 (10:55→21:09)
[2017-10-17 12:08] LABS: ARTERIAL BLOOD BASE EXCESS -1.6 mmol/L; ARTERIAL BLOOD O2 SATURATION 98.9 % (94-98)
[2017-10-17] MEDS: THIAMINE HCL 100 MG TABLET NG SCH (12:25)
[2017-10-17] MEDS: CYANOCOBALAMIN (VITAMIN B-12) INJ 1000 MCG/1 ML VIAL IM SCH (12:25)
[2017-10-17] MEDS: LORAZEPAM 24 MG/ D5W 240 ML IV PRN ×2 (12:38→21:08)
[2017-10-17] MEDS: TIOTROPIUM BROMIDE DPI 5 CAP/KIT (18 MCG/CAP) IH SCH (12:39)
--- NOTE | 2017-10-17 12:51 | PDOC PROGRESS REPORT ---
Subjective Progress Note for:: 10/17/17 Subjective:: There is reflux patient currently intubated Reason For Visit: C/T AIRWAY COMPROMISE Physical Exam Vital Signs: Temp Pulse Resp BP Pulse Ox 37.2 C 70 16 92/56 L 100 10/17/17 12:26 10/17/17 12:26 10/17/17 12:26 10/17/17 12:26 10/17/17 12:26 Intake & Output 10/16/17 10/17/17 10/18/17 06:59 06:59 06:59 Intake Total 2790 1860 300 Output Total 2900 1325 1580 Balance -110 535 -1280 Weight 103.9 kg 102.2 kg Extremities exam: PRESENT: other - Left hip dressing change today. There is a scant amount of serous drainage. There is some surrounding ecchymosis. There is no erythema or induration. Overall my clinical impression this wound as it is benign. Results Laboratory Results: 10/17/17 04:14 10/17/17 04:14 10/14/17 10/16/17 10/17/17 05:40 12:30 01:00 WBC RBC Hgb Hct MCV MCH MCHC RDW Plt Count Seg Neutrophils % Lymphocytes % Monocytes % Eosinophils % Basophils % Absolute Neutrophils Absolute Lymphocytes Absolute Monocytes Absolute Eosinophils Absolute Basophils Carbonic Acid 0.91 L 0.91 L HCO3/H2CO3 Ratio 22:1 21:1 ABG pH 7.46 H 7.44 ABG pCO2 30.2 L 30.1 L ABG pO2 85.0 86.5 ABG HCO3 20.8 19.8 L ABG O2 Saturation 97.0 97.0 ABG Base Excess -2.6 -3.5 FiO2 4L 36% Sodium Potassium Chloride Carbon Dioxide Anion Gap BUN Creatinine Est GFR ( Amer) Est GFR (Non-Af Amer) Glucose Calcium Magnesium C-Reactive Protein Triglycerides Blood Type A POSITIVE Antibody Screen NEGATIVE 10/17/17 10/17/17 10/17/17 04:14 04:14 04:14 WBC 5.6 RBC 2.64 L Hgb 7.6 L Hct 22.7 L MCV 86 MCH 28.9 MCHC 33.5 RDW 19.3 H Plt Count 168 Seg Neutrophils % 76.6 Lymphocytes % 10.1 L Monocytes % 12.8 Eosinophils % 0.3 Basophils % 0.2 Absolute Neutrophils 4.3 Absolute Lymphocytes 0.6 Absolute Monocytes 0.7 Absolute Eosinophils 0.0 Absolute Basophils 0.0 Carbonic Acid HCO3/H2CO3 Ratio ABG pH ABG pCO2 ABG pO2 ABG HCO3 ABG O2 Saturation ABG Base Excess FiO2 Sodium 140.2 Potassium 3.5 L Chloride 108 H Carbon Dioxide 21 L Anion Gap 11 BUN 14 Creatinine 0.87 Est GFR ( Amer) > 60 Est GFR (Non-Af Amer) > 60 Glucose 104 Calcium 8.3 L Magnesium C-Reactive Protein 244.5 H Triglycerides 100 Blood Type Antibody Screen 10/17/17 10/17/17 10/17/17 04:14 05:20 07:05 WBC RBC Hgb Hct MCV MCH MCHC RDW Plt Count Seg Neutrophils % Lymphocytes % Monocytes % Eosinophils % Basophils % Absolute Neutrophils Absolute Lymphocytes Absolute Monocytes Absolute Eosinophils Absolute Basophils Carbonic Acid 1.07 HCO3/H2CO3 Ratio 20:1 ABG pH 7.41 ABG pCO2 35.5 ABG pO2 75.3 L ABG HCO3 22.0 ABG O2 Saturation 95.4 ABG Base Excess -2.3 FiO2 50% Sodium Potassium Chloride Carbon Dioxide Anion Gap BUN Creatinine Est GFR ( Amer) Est GFR (Non-Af Amer) Glucose Calcium Magnesium 2.0 C-Reactive Protein Triglycerides Blood Type A POSITIVE Antibody Screen NEGATIVE 10/17/17 11:50 WBC RBC Hgb Hct MCV MCH MCHC RDW Plt Count Seg Neutrophils % Lymphocytes % Monocytes % Eosinophils % Basophils % Absolute Neutrophils Absolute Lymphocytes Absolute Monocytes Absolute Eosinophils Absolute Basophils Carbonic Acid 1.03 L HCO3/H2CO3 Ratio 21:1 ABG pH 7.43 ABG pCO2 34.3 L ABG pO2 141.3 H ABG HCO3 22.3 ABG O2 Saturation 98.9 H ABG Base Excess -1.6 FiO2 50% Sodium Potassium Chloride Carbon Dioxide Anion Gap BUN Creatinine Est GFR ( Amer) Est GFR (Non-Af Amer) Glucose Calcium Magnesium C-Reactive Protein Triglycerides Blood Type Antibody Screen Impressions: Cervical Spine CT 10/10/17 01:56 IMPRESSION: No acute findings. Ankle X-Ray 10/10/17 01:58 IMPRESSION: NO RADIOGRAPHIC EVIDENCE OF ACUTE INJURY. Pelvis X-Ray 10/11/17 13:13 IMPRESSION: Left hip arthroplasty. Hip X-Ray 10/15/17 00:00 IMPRESSION: No acute findings. Left total hip arthroplasty. Head CT 10/16/17 00:00 IMPRESSION: NORMAL BRAIN CT WITHOUT CONTRAST. EVIDENCE OF ACUTE STROKE: NO. Abdomen/Pelvis CT 10/17/17 00:00 IMPRESSION: No acute findings in the abdomen or pelvis. No evidence of retroperitoneal hemorrhage. The balloon of the Schwab catheter is seen at the base of the urinary bladder/ proximal urethra. Repositioning recommended. Moderate amount of stool in the colon. There are trace bilateral pleural effusions and adjacent atelectasis in the bilateral lower lobes. Patchy ground-glass opacities at the bilateral lung bases, may represent pulmonary edema and /or pneumonia. Mild cardiomegaly. Postsurgical changes at the left hip. Lower Extremity CT 10/17/17 00:00 IMPRESSION: Small fluid collection deep to the skin alison over the left gluteal region for hip replacement. This likely is a small seroma or hematoma. No large deep left thigh hematoma is seen to explain history of large volume blood loss Chest X-Ray 10/17/17 03:00 IMPRESSION: Cardiomegaly and vascular congestion. Interval increase in the bilateral patchy ground-glass opacities, may represent worsening pulmonary edema and / or pneumonia. Status: Imported from PACS Assessment & Plan - Diagnosis (1) Postoperative anemia due to acute blood loss Is this a current diagnosis for this admission?: Yes (2) Avascular necrosis of bone of left hip Is this a current diagnosis for this admission?: Yes Plan: 62-year-old white female status post left hip arthroplasty for avascular necrosis. Ongoing issues are blood loss which I do not think at this point can be attributed to postoperative or left hip condition. She also has sepsis with with elevated sedimentation rate and CRP. There is been some description of the left hip wound is red and angry. My interpretation today is that this is relatively benign with a scant amount of serous drainage and some surrounding ecchymosis. There is no induration. The patient is now receiving fairly broad coverage antibiotics which I think precludes any attempt to obtain deep cultures from the left hip wound. I recommendation is that we continue to treat her pulmonary condition, her delirium tremens, and her anemia. We can continue to observe the hip wound for any change in clinical status. - Time Time Spent with patient: 15-24 minutes Anticipated discharge: Other Within: Other
[2017-10-17] MEDS ORDERED: SUCCINYLCHOLINE CHLORIDE INJ 200 MG/10 ML VIAL ONE (13:28)
[2017-10-17 14:51] LABS: ANION GAP 12 (5-19); BLOOD UREA NITROGEN 14 mg/dL (7-20); CALCIUM 8.2 mg/dL (8.4-10.2); CARBON DIOXIDE 22 mmol/L (22-30); CHLORIDE 105 mmol/L (98-107); CREATININE RESULT 0.78 mg/dL (0.52-1.25); GLUCOSE 121 mg/dL (75-110); POTASSIUM 3.8 mmol/L (3.6-5.0); SODIUM 138.9 mmol/L (137-145)
[2017-10-17 16:05] LABS: HEMATOCRIT 28.6 % (36.0-47.0); HGB HCT DIFFERENCE 0.5; MEAN CORPUSCULAR HEMOGLOBIN 28.8 pg (27.0-33.4); MEAN CORPUSCULAR HGB CONC 33.9 g/dL (32.0-36.0); MEAN CORPUSCULAR VOLUME 85 fl (80-97); RED BLOOD COUNT 3.36 10^6/uL (3.72-5.28); RED CELL DISTRIBUTION WIDTH 18.1 % (11.5-14.0); WHITE BLOOD COUNT 5.3 10^3/uL (4.0-10.5)
[2017-10-17 16:17] LABS: HEMOGLOBIN 9.7 g/dL (12.0-15.5)
--- NOTE | 2017-10-17 18:36 | PDOC CONSULTATION ---
Consultation Consult Date: 10/17/17 Attending physician:: ROSE RUSHING Consult reason:: resp fail/pna History of Present Illness Admission Date/PCP: 10/10/17 06:30 ALVARADO MORALEZ History of Present Illness: 62-year-old female who presented to the hospital complaint left hip pain approximately 7 days ago approximately 6 days ago she was given a total left hip replacement. Her hospital course was stable until approximately 4 hours ago when she had increasing dyspnea and radiograph showed new bilateral infiltrates she was subsequently transferred to ICU and intubated she has a history of COPD as well as several other medical problems.No family members at the bedside and patient is currently intubated and sedated so additional history is not available except for what can beobtained from [facility] records. Past Medical History Cardiac Medical History: Reports: DVT - 1995, Hyperlipidema, Hypertension Denies: Atrial Fibrillation, Congestive Heart Failure, Coronary Artery Disease, Myocardial Infarction, Pulmonary Embolism Pulmonary Medical History: Reports: Asthma, Bronchitis Denies: Chronic Obstructive Pulmonary Disease (COPD), Sleep Apnea Neurological Medical History: Denies: Seizures Endocrine Medical History: Reports: Diabetes Mellitus Type 2 - Diet controlled, Hypothyroidism Denies: Diabetes Mellitus Type 1, Hyperthyroidism GI Medical History: Reports: Gastroesophageal Reflux Disease Denies: Cirrhosis, Hepatitis Musculoskeltal Medical History: Reports: Arthritis Psychiatric Medical History: Reports: Depression Past Surgical History Past Surgical History: Reports: Section - x3, Hysterectomy - Partial, Orthopedic Surgery - L Foot, L Leg,, Tonsillectomy Social History Information Source: [facility] Records Lives with: Family Smoking Status: Former Smoker Cigarettes Packs Per Day: 1 Number of Years Smokin Last Time Smoked: Today Frequency of Alcohol Use: Heavy - Denies alcohol withdrawal Hx Recreational Drug Use: No Drugs: None Hx Prescription Drug Abuse: No - Advance Directive Resuscitation Status: Full Code Family History Family History: CAD Parental Family History Reviewed: No Children Family History Reviewed: No Sibling(s) Family History Reviewed.: No Medication/Allergy Home Medications: Amitriptyline HCl [Elavil 25 mg Tablet] 25 mg PO QHS 10/10/17 Amlodipine Besylate [Norvasc 5 mg Tablet] 5 mg PO DAILY 10/10/17 Aspirin [Adult Low Dose Aspirin EC] 81 mg PO QPM 10/10/17 Fluoxetine HCl [Prozac] 40 mg PO DAILY 10/10/17 Gabapentin [Neurontin 300 mg Capsule] 300 mg PO Q12 10/10/17 Ibuprofen 200 mg PO DAILY 10/10/17 Levothyroxine Sodium [Synthroid] 50 mcg PO DAILY 10/10/17 Lisinopril [Zestril] 20 mg PO BID 10/10/17 Pantoprazole Sodium [Protonix] 40 mg PO BID 10/10/17 Allergies/Adverse Reactions: No Known Allergies Allergy (Verified 05/08/14 21:04) Review of Systems ROS unobtainable: Due to endotracheal tube Physical Exam Vital Signs: Temp Pulse Resp BP Pulse Ox 98.1 F 75 22 H 87/57 L 97 10/17/17 07:54 10/17/17 07:54 10/17/17 07:54 10/17/17 07:54 10/17/17 07:54 Intake & Output 10/16/17 10/17/17 10/18/17 06:59 06:59 06:59 Intake Total 2790 1860 Output Total 2900 1325 310 Balance -110 535 -310 Weight 103.9 kg 102.2 kg General appearance: PRESENT: no acute distress, disheveled, obese, well- developed, well-nourished. ABSENT: cooperative, hard of hearing, mild distress , morbidly obese, severe distress, thin Head exam: PRESENT: atraumatic, normocephalic Eye exam: PRESENT: conjunctiva pale. ABSENT: conjunctival injection, conjunctiva pink, nystagmus, periorbital swelling, scleral icterus Mouth exam: PRESENT: dry mucosa, neck supple, tongue midline, other - ET tube in place Neck exam: ABSENT: carotid bruit, JVD, lymphadenopathy, thyromegaly Respiratory exam: PRESENT: decreased breath sounds, prolonged expiratory phas, rales, rhonchi, symmetrical, unlabored, wheezes. ABSENT: accessory muscle use, chest wall tenderness, clear to auscultation nicola, crackles, retraction, stridor , tachypnea Cardiovascular exam: PRESENT: RRR, +S1, +S2. ABSENT: clicks, gallop, irregular rhythm, rubs Pulses: PRESENT: normal radial pulses GI/Abdominal exam: PRESENT: ascites Gentrourinary exam: PRESENT: indwelling catheter Extremities exam: ABSENT: clubbing, full ROM Musculoskeletal exam: ABSENT: ambulatory, full ROM, normal inspection Skin exam: PRESENT: dry, warm Results Laboratory Results: 10/17/17 04:14 10/17/17 04:14 10/14/17 10/16/17 10/16/17 05:40 10:30 12:30 WBC RBC Hgb Hct MCV MCH MCHC RDW Plt Count Seg Neutrophils % Lymphocytes % Monocytes % Eosinophils % Basophils % Absolute Neutrophils Absolute Lymphocytes Absolute Monocytes Absolute Eosinophils Absolute Basophils Carbonic Acid 0.91 L HCO3/H2CO3 Ratio 22:1 ABG pH 7.46 H ABG pCO2 30.2 L ABG pO2 85.0 ABG HCO3 20.8 ABG O2 Saturation 97.0 ABG Base Excess -2.6 FiO2 4L Sodium Potassium Chloride Carbon Dioxide Anion Gap BUN Creatinine 0.97 Est GFR ( Amer) > 60 Est GFR (Non-Af Amer) 58 L Glucose Calcium C-Reactive Protein Blood Type A POSITIVE Antibody Screen NEGATIVE 10/17/17 10/17/17 10/17/17 01:00 04:14 04:14 WBC 5.6 RBC 2.64 L Hgb 7.6 L Hct 22.7 L MCV 86 MCH 28.9 MCHC 33.5 RDW 19.3 H Plt Count 168 Seg Neutrophils % 76.6 Lymphocytes % 10.1 L Monocytes % 12.8 Eosinophils % 0.3 Basophils % 0.2 Absolute Neutrophils 4.3 Absolute Lymphocytes 0.6 Absolute Monocytes 0.7 Absolute Eosinophils 0.0 Absolute Basophils 0.0 Carbonic Acid 0.91 L HCO3/H2CO3 Ratio 21:1 ABG pH 7.44 ABG pCO2 30.1 L ABG pO2 86.5 ABG HCO3 19.8 L ABG O2 Saturation 97.0 ABG Base Excess -3.5 FiO2 36% Sodium 140.2 Potassium 3.5 L Chloride 108 H Carbon Dioxide 21 L Anion Gap 11 BUN 14 Creatinine 0.87 Est GFR ( Amer) > 60 Est GFR (Non-Af Amer) > 60 Glucose 104 Calcium 8.3 L C-Reactive Protein 244.5 H Blood Type Antibody Screen 10/17/17 10/17/17 05:20 07:05 WBC RBC Hgb Hct MCV MCH MCHC RDW Plt Count Seg Neutrophils % Lymphocytes % Monocytes % Eosinophils % Basophils % Absolute Neutrophils Absolute Lymphocytes Absolute Monocytes Absolute Eosinophils Absolute Basophils Carbonic Acid 1.07 HCO3/H2CO3 Ratio 20:1 ABG pH 7.41 ABG pCO2 35.5 ABG pO2 75.3 L ABG HCO3 22.0 ABG O2 Saturation 95.4 ABG Base Excess -2.3 FiO2 50% Sodium Potassium Chloride Carbon Dioxide Anion Gap BUN Creatinine Est GFR ( Amer) Est GFR (Non-Af Amer) Glucose Calcium C-Reactive Protein Blood Type A POSITIVE Antibody Screen NEGATIVE Impressions: Cervical Spine CT 10/10/17 01:56 IMPRESSION: No acute findings. Ankle X-Ray 10/10/17 01:58 IMPRESSION: NO RADIOGRAPHIC EVIDENCE OF ACUTE INJURY. Pelvis X-Ray 10/11/17 13:13 IMPRESSION: Left hip arthroplasty. Hip X-Ray 10/15/17 00:00 IMPRESSION: No acute findings. Left total hip arthroplasty. Head CT 10/16/17 00:00 IMPRESSION: NORMAL BRAIN CT WITHOUT CONTRAST. EVIDENCE OF ACUTE STROKE: NO. Abdomen/Pelvis CT 10/17/17 00:00 IMPRESSION: No acute findings in the abdomen or pelvis. No evidence of retroperitoneal hemorrhage. The balloon of the Schwab catheter is seen at the base of the urinary bladder/ proximal urethra. Repositioning recommended. Moderate amount of stool in the colon. There are trace bilateral pleural effusions and adjacent atelectasis in the bilateral lower lobes. Patchy ground-glass opacities at the bilateral lung bases, may represent pulmonary edema and /or pneumonia. Mild cardiomegaly. Postsurgical changes at the left hip. Lower Extremity CT 10/17/17 00:00 IMPRESSION: Small fluid collection deep to the skin alison over the left gluteal region for hip replacement. This likely is a small seroma or hematoma. No large deep left thigh hematoma is seen to explain history of large volume blood loss Chest X-Ray 10/17/17 03:00 IMPRESSION: Cardiomegaly and vascular congestion. Interval increase in the bilateral patchy ground-glass opacities, may represent worsening pulmonary edema and / or pneumonia. Assessment & Plan - Diagnosis (1) Acute respiratory failure Qualifiers: Respiratory failure complication: hypoxia Qualified Code(s): J96.01 - Acute respiratory failure with hypoxia Is this a current diagnosis for this admission?: Yes Plan: Radiographically consistent with ARDS is almost all lobes are involved , PaO2/ FiO2 equal to 282 which is not consistent with ARDS continue to support (2) Alcohol withdrawal delirium Is this a current diagnosis for this admission?: Yes Plan: Currently on Ativan (3) Avascular necrosis of bone of left hip Is this a current diagnosis for this admission?: Yes Plan: as per orthopedic surgeon (4) COPD (chronic obstructive pulmonary disease) with acute bronchitis Is this a current diagnosis for this admission?: Yes Plan: Withhold or discontinue for now home medications i.e. Spiriva and Advair Generic Name Dose Route Start Last Admin Trade Name Freq PRN Reason Stop Dose Admin Tiotropium [place] 1 cap 10/15/17 12:00 10/17/17 12:39 Spiriva Handihaler 5 Cap/Kit (18 Mcg/Cap) IH 11/14/17 11:59 Not Given NOON BARBARA Albuterol 2.5 mg 10/16/17 10:14 Ventolin 0.083% Neb 2.5 Mg/3 Ml Ampul NEB 11/15/17 10:13 [id number] PRN Albuterol/Ipratropium 3 ml 10/10/17 08:00 10/17/17 14:13 Duoneb 3 Ml Ampul NEB 11/09/17 07:59 3 ml RTQ6 BARBARA Fluticasone/Salmeterol 1 inh 10/15/17 22:00 10/17/17 10:11 Advair 500-50 Diskus 14 Dose/Diskus IH 11/14/17 21:59 Not Given Q12 BARBARA - Time Total Critical Time (Minutes): 55
[2017-10-17] MEDS ORDERED: AMITRIPTYLINE HCL 25 MG TABLET NG SCH (22:00)
[2017-10-17] MEDS ORDERED: ATORVASTATIN CALCIUM 40 MG TABLET NG SCH (22:00)
[2017-10-18] MEDS: PROPOFOL 100 ML IV PRN ×3 (01:49→10:16)
[2017-10-18] MEDS: IPRATROPIUM/ALBUTEROL 0.5-2.5 MG/3 ML AMPUL NEB SCH ×4 (01:57→20:09)
[2017-10-18 04:40] LABS: ALANINE AMINOTRANSFERASE 35 U/L (9-52); ALBUMIN 2.6 g/dL (3.5-5.0); ALKALINE PHOSPHATASE 104 U/L (38-126); ANION GAP 11 (5-19); ASPARTATE AMINO TRANSFERASE 22 U/L (14-36); BILIRUBIN,DIRECT 0.4 mg/dL (0.0-0.4); BILIRUBIN,TOTAL 0.5 mg/dL (0.2-1.3); BLOOD UREA NITROGEN 14 mg/dL (7-20); CALCIUM 8.3 mg/dL (8.4-10.2); CARBON DIOXIDE 22 mmol/L (22-30); CHLORIDE 105 mmol/L (98-107); CREATININE RESULT 0.75 mg/dL (0.52-1.25); GLUCOSE 107 mg/dL (75-110); MAGNESIUM 2.1 mg/dL (1.6-2.3); POTASSIUM 3.5 mmol/L (3.6-5.0); SODIUM 138.2 mmol/L (137-145); TOTAL PROTEIN 4.9 g/dL (6.3-8.2)
[2017-10-18 04:47] LABS: ARTERIAL BLOOD BASE EXCESS 0.3 mmol/L; ARTERIAL BLOOD O2 SATURATION 95.4 % (94-98)
[2017-10-18 04:59] LABS: ABSOLUTE LYMPHOCYTES (AUTO) 0.7 10^3/uL (0.5-4.7); ABSOLUTE MONOCYTES (AUTO) 0.4 10^3/uL (0.1-1.4); ABSOLUTE NEUT (AUTO) 2.5 10^3/uL (1.7-8.2); BASOPHILS % (AUTO) 0.3 % (0-2); EOSINOPHILS % (AUTO) 0.7 % (0-6); HEMOGLOBIN 9.9 g/dL (12.0-15.5); HGB HCT DIFFERENCE 0.7; LYMPHOCYTES % (AUTO) 18.8 % (13-45); MEAN CORPUSCULAR HEMOGLOBIN 28.8 pg (27.0-33.4); MEAN CORPUSCULAR VOLUME 85 fl (80-97); MONOCYTES % (AUTO) 11.9 % (3-13); RED BLOOD COUNT 3.42 10^6/uL (3.72-5.28); SEGMENTED NEUTROPHILS % (AUTO) 68.3 % (42-78); WHITE BLOOD COUNT 3.6 10^3/uL (4.0-10.5)
[2017-10-18] MEDS: LORAZEPAM 24 MG/ D5W 240 ML IV PRN (05:36)
[2017-10-18] MEDS: PIPERACILLIN SODIUM/TAZOBACTAM 3.375 GM in NORMAL SALINE 100 ML IV SCH ×3 (05:37→22:33)
[2017-10-18] MEDS: LEVOTHYROXINE SODIUM 0.05 MG TABLET NG SCH (05:38)
--- NOTE | 2017-10-18 06:39 | RADIOLOGY REPORT (SQ) ---
EXAM DESCRIPTION: CHEST SINGLE VIEW COMPLETED DATE/TIME: 10/18/2017 6:13 am REASON FOR STUDY: resp failure/pna COMPARISON: Chest x-ray 10/17/2017. EXAM PARAMETERS: NUMBER OF VIEWS: One view TECHNIQUE: Single frontal radiograph of the chest. RADIATION DOSE: N/A LIMITATIONS: None. FINDINGS: TEMPORARY SUPPORT DEVICES:ETT in expected location. NG tube courses below the left carlitos-d iaphragm in to the stomach. LUNGS AND PLEURA: Interval improvement in the aeration of the lungs with decrease in the bilateral ai rspace opacities. No sizable pleural effusion or pneumothorax. MEDIASTINUM AND HILAR STRUCTURES: No masses. Contour normal. HEART AND VASCULAR STRUCTURES: The heart is not enlarged. Interval decrease in the vascular congesti on. BONES: No acute findings. IMPRESSION: Interval improvement in the aeration of the lungs with interval decrease in the bilatera l ground-glass opacities and vascular congestion. TECHNICAL DOCUMENTATION: JOB ID: [id number] [employer]- All Rights Reserved
--- NOTE | 2017-10-18 07:20 | PDOC PROGRESS REPORT ---
Subjective Progress Note for:: 10/18/17 Subjective:: Patient intubated Reason For Visit: C/T AIRWAY COMPROMISE Physical Exam Vital Signs: Temp Pulse Resp BP Pulse Ox 36.5 C 60 16 99/59 L 97 10/17/17 18:00 10/18/17 02:00 10/18/17 06:00 10/18/17 05:57 10/18/17 06:00 Intake & Output 10/17/17 10/18/17 10/19/17 06:59 06:59 06:59 Intake Total 1860 3561 Output Total 1325 2665 Balance 535 896 Weight 102.2 kg 103.5 kg Extremities exam: PRESENT: other - Left hip dressing with scant serous drainage. Leg lengths are equal. There is brisk capillary refill. Results Laboratory Results: 10/18/17 04:02 10/18/17 04:02 10/17/17 10/17/17 10/17/17 04:14 04:14 07:05 WBC RBC Hgb Hct MCV MCH MCHC RDW Plt Count Seg Neutrophils % Lymphocytes % Monocytes % Eosinophils % Basophils % Absolute Neutrophils Absolute Lymphocytes Absolute Monocytes Absolute Eosinophils Absolute Basophils Carbonic Acid HCO3/H2CO3 Ratio ABG pH ABG pCO2 ABG pO2 ABG HCO3 ABG O2 Saturation ABG Base Excess FiO2 Sodium Potassium Chloride Carbon Dioxide Anion Gap BUN Creatinine Est GFR ( Amer) Est GFR (Non-Af Amer) Glucose Lactic Acid Calcium Magnesium 2.0 Total Bilirubin AST ALT Alkaline Phosphatase Total Protein Albumin Triglycerides 100 Blood Type A POSITIVE Antibody Screen NEGATIVE 10/17/17 10/17/17 10/17/17 11:50 14:00 14:00 WBC RBC Hgb Hct MCV MCH MCHC RDW Plt Count Seg Neutrophils % Lymphocytes % Monocytes % Eosinophils % Basophils % Absolute Neutrophils Absolute Lymphocytes Absolute Monocytes Absolute Eosinophils Absolute Basophils Carbonic Acid 1.03 L HCO3/H2CO3 Ratio 21:1 ABG pH 7.43 ABG pCO2 34.3 L ABG pO2 141.3 H ABG HCO3 22.3 ABG O2 Saturation 98.9 H ABG Base Excess -1.6 FiO2 50% Sodium 138.9 Potassium 3.8 Chloride 105 Carbon Dioxide 22 Anion Gap 12 BUN 14 Creatinine 0.78 Est GFR ( Amer) > 60 Est GFR (Non-Af Amer) > 60 Glucose 121 H Lactic Acid 0.8 Calcium 8.2 L Magnesium Total Bilirubin AST ALT Alkaline Phosphatase Total Protein Albumin Triglycerides Blood Type Antibody Screen 10/17/17 10/18/17 10/18/17 15:53 04:02 04:02 WBC 5.3 3.6 L RBC 3.36 L 3.42 L Hgb 9.7 L D 9.9 L Hct 28.6 L 29.0 L MCV 85 85 MCH 28.8 28.8 MCHC 33.9 34.0 RDW 18.1 H 18.0 H Plt Count 181 185 Seg Neutrophils % 68.3 Lymphocytes % 18.8 Monocytes % 11.9 Eosinophils % 0.7 Basophils % 0.3 Absolute Neutrophils 2.5 Absolute Lymphocytes 0.7 Absolute Monocytes 0.4 Absolute Eosinophils 0.0 Absolute Basophils 0.0 Carbonic Acid HCO3/H2CO3 Ratio ABG pH ABG pCO2 ABG pO2 ABG HCO3 ABG O2 Saturation ABG Base Excess FiO2 Sodium 138.2 Potassium 3.5 L Chloride 105 Carbon Dioxide 22 Anion Gap 11 BUN 14 Creatinine 0.75 Est GFR ( Amer) > 60 Est GFR (Non-Af Amer) > 60 Glucose 107 Lactic Acid Calcium 8.3 L Magnesium 2.1 Total Bilirubin 0.5 AST 22 ALT 35 Alkaline Phosphatase 104 Total Protein 4.9 L Albumin 2.6 L Triglycerides Blood Type Antibody Screen 10/18/17 10/18/17 04:02 04:40 WBC RBC Hgb Hct MCV MCH MCHC RDW Plt Count Seg Neutrophils % Lymphocytes % Monocytes % Eosinophils % Basophils % Absolute Neutrophils Absolute Lymphocytes Absolute Monocytes Absolute Eosinophils Absolute Basophils Carbonic Acid 1.12 HCO3/H2CO3 Ratio 21:1 ABG pH 7.44 ABG pCO2 37.1 ABG pO2 74.1 L ABG HCO3 24.4 ABG O2 Saturation 95.4 ABG Base Excess 0.3 FiO2 30% Sodium Potassium Chloride Carbon Dioxide Anion Gap BUN Creatinine Est GFR ( Amer) Est GFR (Non-Af Amer) Glucose Lactic Acid 0.6 L Calcium Magnesium Total Bilirubin AST ALT Alkaline Phosphatase Total Protein Albumin Triglycerides Blood Type Antibody Screen Impressions: Cervical Spine CT 10/10/17 01:56 IMPRESSION: No acute findings. Ankle X-Ray 10/10/17 01:58 IMPRESSION: NO RADIOGRAPHIC EVIDENCE OF ACUTE INJURY. Pelvis X-Ray 10/11/17 13:13 IMPRESSION: Left hip arthroplasty. Hip X-Ray 10/15/17 00:00 IMPRESSION: No acute findings. Left total hip arthroplasty. Head CT 10/16/17 00:00 IMPRESSION: NORMAL BRAIN CT WITHOUT CONTRAST. EVIDENCE OF ACUTE STROKE: NO. Abdomen/Pelvis CT 10/17/17 00:00 IMPRESSION: No acute findings in the abdomen or pelvis. No evidence of retroperitoneal hemorrhage. The balloon of the Schwab catheter is seen at the base of the urinary bladder/ proximal urethra. Repositioning recommended. Moderate amount of stool in the colon. There are trace bilateral pleural effusions and adjacent atelectasis in the bilateral lower lobes. Patchy ground-glass opacities at the bilateral lung bases, may represent pulmonary edema and /or pneumonia. Mild cardiomegaly. Postsurgical changes at the left hip. Lower Extremity CT 10/17/17 00:00 IMPRESSION: Small fluid collection deep to the skin alison over the left gluteal region for hip replacement. This likely is a small seroma or hematoma. No large deep left thigh hematoma is seen to explain history of large volume blood loss Chest X-Ray 10/18/17 06:00 IMPRESSION: Interval improvement in the aeration of the lungs with interval decrease in the bilateral ground-glass opacities and vascular congestion. Status: Imported from PACS Assessment & Plan - Diagnosis (1) Postoperative anemia due to acute blood loss Is this a current diagnosis for this admission?: Yes (2) Avascular necrosis of bone of left hip Is this a current diagnosis for this admission?: Yes Plan: 62-year-old white female status post left hip arthroplasty for avascular necrosis now with intubation for pulmonary issues. Tentative plan for ventilatory weaning this morning. - Time Time Spent with patient: 15-24 minutes Anticipated discharge: Other Within: Other
--- NOTE | 2017-10-18 09:06 | PDOC PROGRESS REPORT ---
Subjective Progress Note for:: 10/18/17 Subjective:: Patient is intubated and sedated and cannot obtain subjective today. Per nursing staff overnight there were no adverse events. Patient's blood pressure has improved. Her ventilator mode has been changed to pressure support and she is doing well with this. Dr. Sears is consulting. Orthopedic surgery is following. Reason For Visit: C/T AIRWAY COMPROMISE, acute hypoxemic respiratory failure, pulmonary edema, acute blood loss anemia requiring blood transfusion for healthcare associated pneumonia Physical Exam Vital Signs: Temp Pulse Resp BP Pulse Ox 97.7 F 74 18 121/71 97 10/17/17 18:00 10/18/17 08:19 10/18/17 08:19 10/18/17 07:57 10/18/17 08:19 Intake & Output 10/17/17 10/18/17 10/19/17 06:59 06:59 06:59 Intake Total 1860 3561 Output Total 1325 2665 Balance 535 896 Weight 102.2 kg 103.5 kg General appearance: PRESENT: no acute distress Head exam: PRESENT: atraumatic, normocephalic Eye exam: PRESENT: conjunctiva pale. ABSENT: scleral icterus Ear exam: PRESENT: normal external ear exam Mouth exam: PRESENT: moist, other - ET tube and OG tube in place. Neck exam: ABSENT: lymphadenopathy, tracheal deviation Respiratory exam: PRESENT: clear to auscultation nicola, symmetrical, unlabored. ABSENT: accessory muscle use, crackles, decreased breath sounds, rales Cardiovascular exam: PRESENT: RRR. ABSENT: systolic murmur Pulses: PRESENT: other - Normal pulses GI/Abdominal exam: PRESENT: normal bowel sounds, soft. ABSENT: distended, guarding, mass, organolmegaly, rebound, tenderness Gentrourinary exam: PRESENT: indwelling catheter - Clear yellow urine in Schwab bag. ABSENT: lesions Extremities exam: PRESENT: other - No edema Musculoskeletal exam: PRESENT: other - Left hip status post surgical repair. Very light erythema surrounding incision. No significant drainage. No obvious bleeding. Neurological exam: PRESENT: other - Cannot assess secondary to intubation and sedation Psychiatric exam: PRESENT: other - Cannot assess secondary to intubation and sedation Skin exam: PRESENT: dry, intact, warm, other - Please see extremity exam above Results Laboratory Results: 10/18/17 04:02 10/18/17 04:02 10/17/17 10/17/17 10/17/17 04:14 04:14 07:05 WBC RBC Hgb Hct MCV MCH MCHC RDW Plt Count Seg Neutrophils % Lymphocytes % Monocytes % Eosinophils % Basophils % Absolute Neutrophils Absolute Lymphocytes Absolute Monocytes Absolute Eosinophils Absolute Basophils Carbonic Acid HCO3/H2CO3 Ratio ABG pH ABG pCO2 ABG pO2 ABG HCO3 ABG O2 Saturation ABG Base Excess FiO2 Sodium Potassium Chloride Carbon Dioxide Anion Gap BUN Creatinine Est GFR ( Amer) Est GFR (Non-Af Amer) Glucose Lactic Acid Calcium Magnesium 2.0 Total Bilirubin AST ALT Alkaline Phosphatase Total Protein Albumin Triglycerides 100 Blood Type A POSITIVE Antibody Screen NEGATIVE 10/17/17 10/17/17 10/17/17 11:50 14:00 14:00 WBC RBC Hgb Hct MCV MCH MCHC RDW Plt Count Seg Neutrophils % Lymphocytes % Monocytes % Eosinophils % Basophils % Absolute Neutrophils Absolute Lymphocytes Absolute Monocytes Absolute Eosinophils Absolute Basophils Carbonic Acid 1.03 L HCO3/H2CO3 Ratio 21:1 ABG pH 7.43 ABG pCO2 34.3 L ABG pO2 141.3 H ABG HCO3 22.3 ABG O2 Saturation 98.9 H ABG Base Excess -1.6 FiO2 50% Sodium 138.9 Potassium 3.8 Chloride 105 Carbon Dioxide 22 Anion Gap 12 BUN 14 Creatinine 0.78 Est GFR ( Amer) > 60 Est GFR (Non-Af Amer) > 60 Glucose 121 H Lactic Acid 0.8 Calcium 8.2 L Magnesium Total Bilirubin AST ALT Alkaline Phosphatase Total Protein Albumin Triglycerides Blood Type Antibody Screen 10/17/17 10/18/17 10/18/17 15:53 04:02 04:02 WBC 5.3 3.6 L RBC 3.36 L 3.42 L Hgb 9.7 L D 9.9 L Hct 28.6 L 29.0 L MCV 85 85 MCH 28.8 28.8 MCHC 33.9 34.0 RDW 18.1 H 18.0 H Plt Count 181 185 Seg Neutrophils % 68.3 Lymphocytes % 18.8 Monocytes % 11.9 Eosinophils % 0.7 Basophils % 0.3 Absolute Neutrophils 2.5 Absolute Lymphocytes 0.7 Absolute Monocytes 0.4 Absolute Eosinophils 0.0 Absolute Basophils 0.0 Carbonic Acid HCO3/H2CO3 Ratio ABG pH ABG pCO2 ABG pO2 ABG HCO3 ABG O2 Saturation ABG Base Excess FiO2 Sodium 138.2 Potassium 3.5 L Chloride 105 Carbon Dioxide 22 Anion Gap 11 BUN 14 Creatinine 0.75 Est GFR ( Amer) > 60 Est GFR (Non-Af Amer) > 60 Glucose 107 Lactic Acid Calcium 8.3 L Magnesium 2.1 Total Bilirubin 0.5 AST 22 ALT 35 Alkaline Phosphatase 104 Total Protein 4.9 L Albumin 2.6 L Triglycerides Blood Type Antibody Screen 10/18/17 10/18/17 04:02 04:40 WBC RBC Hgb Hct MCV MCH MCHC RDW Plt Count Seg Neutrophils % Lymphocytes % Monocytes % Eosinophils % Basophils % Absolute Neutrophils Absolute Lymphocytes Absolute Monocytes Absolute Eosinophils Absolute Basophils Carbonic Acid 1.12 HCO3/H2CO3 Ratio 21:1 ABG pH 7.44 ABG pCO2 37.1 ABG pO2 74.1 L ABG HCO3 24.4 ABG O2 Saturation 95.4 ABG Base Excess 0.3 FiO2 30% Sodium Potassium Chloride Carbon Dioxide Anion Gap BUN Creatinine Est GFR ( Amer) Est GFR (Non-Af Amer) Glucose Lactic Acid 0.6 L Calcium Magnesium Total Bilirubin AST ALT Alkaline Phosphatase Total Protein Albumin Triglycerides Blood Type Antibody Screen Impressions: Cervical Spine CT 10/10/17 01:56 IMPRESSION: No acute findings. Ankle X-Ray 10/10/17 01:58 IMPRESSION: NO RADIOGRAPHIC EVIDENCE OF ACUTE INJURY. Pelvis X-Ray 10/11/17 13:13 IMPRESSION: Left hip arthroplasty. Hip X-Ray 10/15/17 00:00 IMPRESSION: No acute findings. Left total hip arthroplasty. Head CT 10/16/17 00:00 IMPRESSION: NORMAL BRAIN CT WITHOUT CONTRAST. EVIDENCE OF ACUTE STROKE: NO. Abdomen/Pelvis CT 10/17/17 00:00 IMPRESSION: No acute findings in the abdomen or pelvis. No evidence of retroperitoneal hemorrhage. The balloon of the Schwab catheter is seen at the base of the urinary bladder/ proximal urethra. Repositioning recommended. Moderate amount of stool in the colon. There are trace bilateral pleural effusions and adjacent atelectasis in the bilateral lower lobes. Patchy ground-glass opacities at the bilateral lung bases, may represent pulmonary edema and /or pneumonia. Mild cardiomegaly. Postsurgical changes at the left hip. Lower Extremity CT 10/17/17 00:00 IMPRESSION: Small fluid collection deep to the skin alison over the left gluteal region for hip replacement. This likely is a small seroma or hematoma. No large deep left thigh hematoma is seen to explain history of large volume blood loss Chest X-Ray 10/18/17 06:00 IMPRESSION: Interval improvement in the aeration of the lungs with interval decrease in the bilateral ground-glass opacities and vascular congestion. Assessment & Plan - Diagnosis (1) Acute respiratory failure Qualifiers: Respiratory failure complication: hypoxia Qualified Code(s): J96.01 - Acute respiratory failure with hypoxia Is this a current diagnosis for this admission?: Yes Plan: Patient received Lasix yesterday and diuresed well. Chest x-ray has improved significantly. Ventilator mode is now pressure support. She is tolerating this well. We are working towards extubation. Will continue on antibiotics for healthcare associated pneumonia. (2) Nosocomial pneumonia Is this a current diagnosis for this admission?: Yes Plan: Continue current antibiotics for broad coverage for healthcare associated pneumonia. Senatore therapy consulting. Pulmonary toilet to continue. (3) Pulmonary edema Qualifiers: Chronicity: acute Qualified Code(s): J81.0 - Acute pulmonary edema Is this a current diagnosis for this admission?: Yes Plan: Significantly improved chest x-ray which I have reviewed myself. No pleural effusions. Will consider another dose of Lasix if this may be helpful for extubation. (4) COPD (chronic obstructive pulmonary disease) with acute bronchitis Is this a current diagnosis for this admission?: Yes Plan: No wheezes. Patient progressing well. No changes today. Respiratory therapy consulting. (5) Alcohol withdrawal delirium Is this a current diagnosis for this admission?: Yes Plan: Stable from this perspective. Patient is still on an Ativan drip at 2 mg/h. We will continue for now and will wean down as indicated as we move towards extubation. (6) Acute metabolic encephalopathy Is this a current diagnosis for this admission?: Yes Plan: Cannot assess as she is intubated and sedated. (7) Avascular necrosis of bone of left hip Is this a current diagnosis for this admission?: Yes Plan: Patient is status post left hip fracture repair for avascular necrosis. Orthopedic surgeries following. CT scan of the surgical area performed yesterday as patient fell onto the operative site. Apparently there are no complications at this time. No evidence of significant bleeding. (8) Postoperative anemia due to acute blood loss Is this a current diagnosis for this admission?: Yes Plan: Patient has received 5 units of packed red blood cells. Her hemoglobin is 9.9 today. No evidence of active bleeding. We will continue to monitor. - Time Time Spent with patient: 35 or more minutes Total Critical Time (Minutes): 20 Medications reviewed and adjusted accordingly: Yes Anticipated discharge: Acute Rehab
[2017-10-18] MEDS: VANCOMYCIN HCL 1,000 MG in DEXTROSE 5%-WATER 250 ML IV SCH ×2 (09:27→22:34)
[2017-10-18] MEDS: LEVOFLOXACIN 750 MG/D5W RTU 750 MG/150 ML RTUPB IV SCH (09:29)
[2017-10-18] MEDS: LANSOPRAZOLE 30 MG TAB.RAP.DR NG SCH ×2 (09:30→16:24)
[2017-10-18] MEDS: SENNOSIDES/DOCUSATE 8.6-50 MG 1 EACH TABLET NG SCH ×2 (09:31→17:29)
[2017-10-18] MEDS: GABAPENTIN 300 MG CAPSULE NG SCH (09:31)
[2017-10-18] MEDS: FLUOXETINE HCL 20 MG CAPSULE NG SCH (09:32)
[2017-10-18] MEDS: AMLODIPINE BESYLATE 5 MG TABLET NG SCH (09:32)
[2017-10-18] MEDS: PRENATAL VITAMIN W DHA CAPSULE PO SCH (09:35)
[2017-10-18] MEDS: CYANOCOBALAMIN/FA/PYRIDOXINE TABLET NG SCH (09:36)
[2017-10-18] MEDS: FLUTICASONE/SALMETEROL DISKUS 500-50 MCG/DOSE IH SCH ×2 (09:36→22:39)
[2017-10-18 10:51] LABS: CREATININE RESULT 0.78 mg/dL (0.52-1.25)
[2017-10-18] MEDS ORDERED: HEPARIN SOD (PORCINE) 5,000 UNIT/ML 1 ML SYRINGE SUBCUT ONE (11:00)
[2017-10-18] MEDS: LORAZEPAM INJ 2 MG/1 ML VIAL IV PRN ×5 (11:37→23:52)
[2017-10-18] MEDS ORDERED: DEXAMETHASONE SOD PHOSPHATE INJ 4 MG/1 ML VIAL ONE (11:45)
[2017-10-18] MEDS: CYANOCOBALAMIN (VITAMIN B-12) INJ 1000 MCG/1 ML VIAL IM SCH (11:50)
[2017-10-18] MEDS: THIAMINE HCL 100 MG TABLET NG SCH (11:56)
[2017-10-18] MEDS: TIOTROPIUM BROMIDE DPI 5 CAP/KIT (18 MCG/CAP) IH SCH (11:56)
[2017-10-18] MEDS ORDERED: FUROSEMIDE INJ/PF 40 MG/4 ML SDV ONE (16:52)
[2017-10-18 18:21] LABS: ARTERIAL BLOOD BASE EXCESS -0.1 mmol/L; ARTERIAL BLOOD O2 SATURATION 96.7 % (94-98)
[2017-10-18] MEDS ORDERED: FUROSEMIDE INJ/PF 20 MG/2 ML SDV IV ONE (20:00)
[2017-10-18] MEDS ORDERED: ACETAMINOPHEN 325 MG TABLET PO PRN (20:33)
[2017-10-18] MEDS ORDERED: DEXTROSE 40% GEL 15 GM TUBE PO PRN ×2 (20:37→20:39)
[2017-10-18] MEDS ORDERED: MAG HYDROX/AL HYDROX/SIMETH SUSP 30 ML UDCUP PO PRN (20:43)
[2017-10-18] MEDS ORDERED: MAGNESIUM HYDROXIDE SUSP 30 ML UDCUP PO PRN (20:44)
[2017-10-18] MEDS ORDERED: ONDANSETRON 4 MG TAB.RAPDIS PO PRN (20:44)
[2017-10-18] MEDS ORDERED: OXYCODONE HCL IR 5 MG TABLET PO PRN (20:45)
[2017-10-18] MEDS ORDERED: OXYCODONE-ACETAMINOPHEN 5-325 MG TABLET PO PRN (20:46)
[2017-10-18] MEDS: HEPARIN SOD (PORCINE) 5,000 UNIT/ML 1 ML SYRINGE SUBCUT SCH (22:35)
[2017-10-18] MEDS: ATORVASTATIN CALCIUM 40 MG TABLET PO SCH (22:39)
[2017-10-18] MEDS: GABAPENTIN 300 MG CAPSULE PO SCH (22:39)
[2017-10-18] MEDS: AMITRIPTYLINE HCL 25 MG TABLET PO SCH (22:39)
[2017-10-19] MEDS: IPRATROPIUM/ALBUTEROL 0.5-2.5 MG/3 ML AMPUL NEB SCH ×4 (01:32→20:14)
[2017-10-19 04:00] LABS: ABSOLUTE LYMPHOCYTES (AUTO) 0.8 10^3/uL (0.5-4.7); ABSOLUTE MONOCYTES (AUTO) 0.5 10^3/uL (0.1-1.4); ABSOLUTE NEUT (AUTO) 3.7 10^3/uL (1.7-8.2); EOSINOPHILS % (AUTO) 0.1 % (0-6); HEMATOCRIT 31.6 % (36.0-47.0); HEMOGLOBIN 10.7 g/dL (12.0-15.5); HGB HCT DIFFERENCE 0.5; LYMPHOCYTES % (AUTO) 15.8 % (13-45); MEAN CORPUSCULAR HEMOGLOBIN 28.8 pg (27.0-33.4); MEAN CORPUSCULAR VOLUME 85 fl (80-97); MONOCYTES % (AUTO) 10.8 % (3-13); RED BLOOD COUNT 3.72 10^6/uL (3.72-5.28); RED CELL DISTRIBUTION WIDTH 18.3 % (11.5-14.0); SEGMENTED NEUTROPHILS % (AUTO) 72.3 % (42-78); WHITE BLOOD COUNT 5.1 10^3/uL (4.0-10.5)
[2017-10-19 04:07] LABS: ANION GAP 12 (5-19); BLOOD UREA NITROGEN 19 mg/dL (7-20); CALCIUM 8.9 mg/dL (8.4-10.2); CARBON DIOXIDE 25 mmol/L (22-30); CHLORIDE 104 mmol/L (98-107); CREATININE RESULT 0.95 mg/dL (0.52-1.25); GLUCOSE 99 mg/dL (75-110); MAGNESIUM 1.9 mg/dL (1.6-2.3); POTASSIUM 3.3 mmol/L (3.6-5.0); SODIUM 141.4 mmol/L (137-145)
[2017-10-19] MEDS: PIPERACILLIN SODIUM/TAZOBACTAM 3.375 GM in NORMAL SALINE 100 ML IV SCH ×3 (05:07→21:22)
[2017-10-19] MEDS: FUROSEMIDE INJ/PF 20 MG/2 ML SDV IV SCH ×2 (05:08→18:04)
[2017-10-19] MEDS: LEVOTHYROXINE SODIUM 0.05 MG TABLET PO SCH (05:08)
[2017-10-19] MEDS: TRAMADOL HCL 50 MG TABLET PO PRN ×2 (05:24→18:06)
[2017-10-19] MEDS: POTASSIUM CHLORIDE 20 MEQ/50 ML RTU IV SCH ×2 (05:49→09:56)
--- NOTE | 2017-10-19 06:19 | PDOC PROGRESS REPORT ---
Subjective Progress Note for:: 10/18/17 Subjective:: significant improvement with diuresis Reason For Visit: C/T AIRWAY COMPROMISE Physical Exam Vital Signs: Temp Pulse Resp BP Pulse Ox 98.6 F 74 18 121/71 97 10/18/17 08:00 10/18/17 08:19 10/18/17 08:19 10/18/17 08:00 10/18/17 08:19 Intake & Output 10/17/17 10/18/17 10/19/17 06:59 06:59 06:59 Intake Total 1860 3561 Output Total 1325 2665 150 Balance 535 896 -150 Weight 102.2 kg 103.5 kg General appearance: PRESENT: disheveled, morbidly obese, well-developed. ABSENT : no acute distress, cooperative, mild distress, obese, severe distress Head exam: PRESENT: atraumatic, normocephalic Eye exam: PRESENT: conjunctiva pale, EOMI. ABSENT: conjunctival injection, conjunctiva pink, nystagmus, periorbital swelling, scleral icterus Mouth exam: PRESENT: dry mucosa, neck supple, tongue midline, other - ET tube in place. ABSENT: laceration Neck exam: ABSENT: carotid bruit, JVD, lymphadenopathy, thyromegaly Respiratory exam: PRESENT: decreased breath sounds, prolonged expiratory phas, rhonchi, symmetrical, unlabored. ABSENT: accessory muscle use, chest wall tenderness, clear to auscultation nicola, crackles, rales, retraction, stridor, tachypnea, wheezes Cardiovascular exam: PRESENT: RRR, +S1, +S2. ABSENT: rubs Pulses: PRESENT: normal radial pulses GI/Abdominal exam: PRESENT: normal bowel sounds, soft. ABSENT: distended, guarding, mass, organolmegaly, rebound, tenderness Gentrourinary exam: PRESENT: indwelling catheter Extremities exam: ABSENT: clubbing, joint swelling Musculoskeletal exam: PRESENT: tenderness. ABSENT: ambulatory, deformity, dislocation Neurological exam: PRESENT: awake Skin exam: PRESENT: dry, warm Results Laboratory Results: 10/18/17 04:02 10/18/17 04:02 10/17/17 10/17/17 10/17/17 04:14 04:14 07:05 WBC RBC Hgb Hct MCV MCH MCHC RDW Plt Count Seg Neutrophils % Lymphocytes % Monocytes % Eosinophils % Basophils % Absolute Neutrophils Absolute Lymphocytes Absolute Monocytes Absolute Eosinophils Absolute Basophils Carbonic Acid HCO3/H2CO3 Ratio ABG pH ABG pCO2 ABG pO2 ABG HCO3 ABG O2 Saturation ABG Base Excess FiO2 Sodium Potassium Chloride Carbon Dioxide Anion Gap BUN Creatinine Est GFR ( Amer) Est GFR (Non-Af Amer) Glucose Lactic Acid Calcium Magnesium 2.0 Total Bilirubin AST ALT Alkaline Phosphatase Total Protein Albumin Triglycerides 100 Blood Type A POSITIVE Antibody Screen NEGATIVE 10/17/17 10/17/17 10/17/17 11:50 14:00 14:00 WBC RBC Hgb Hct MCV MCH MCHC RDW Plt Count Seg Neutrophils % Lymphocytes % Monocytes % Eosinophils % Basophils % Absolute Neutrophils Absolute Lymphocytes Absolute Monocytes Absolute Eosinophils Absolute Basophils Carbonic Acid 1.03 L HCO3/H2CO3 Ratio 21:1 ABG pH 7.43 ABG pCO2 34.3 L ABG pO2 141.3 H ABG HCO3 22.3 ABG O2 Saturation 98.9 H ABG Base Excess -1.6 FiO2 50% Sodium 138.9 Potassium 3.8 Chloride 105 Carbon Dioxide 22 Anion Gap 12 BUN 14 Creatinine 0.78 Est GFR ( Amer) > 60 Est GFR (Non-Af Amer) > 60 Glucose 121 H Lactic Acid 0.8 Calcium 8.2 L Magnesium Total Bilirubin AST ALT Alkaline Phosphatase Total Protein Albumin Triglycerides Blood Type Antibody Screen 10/17/17 10/18/17 10/18/17 15:53 04:02 04:02 WBC 5.3 3.6 L RBC 3.36 L 3.42 L Hgb 9.7 L D 9.9 L Hct 28.6 L 29.0 L MCV 85 85 MCH 28.8 28.8 MCHC 33.9 34.0 RDW 18.1 H 18.0 H Plt Count 181 185 Seg Neutrophils % 68.3 Lymphocytes % 18.8 Monocytes % 11.9 Eosinophils % 0.7 Basophils % 0.3 Absolute Neutrophils 2.5 Absolute Lymphocytes 0.7 Absolute Monocytes 0.4 Absolute Eosinophils 0.0 Absolute Basophils 0.0 Carbonic Acid HCO3/H2CO3 Ratio ABG pH ABG pCO2 ABG pO2 ABG HCO3 ABG O2 Saturation ABG Base Excess FiO2 Sodium 138.2 Potassium 3.5 L Chloride 105 Carbon Dioxide 22 Anion Gap 11 BUN 14 Creatinine 0.75 Est GFR ( Amer) > 60 Est GFR (Non-Af Amer) > 60 Glucose 107 Lactic Acid Calcium 8.3 L Magnesium 2.1 Total Bilirubin 0.5 AST 22 ALT 35 Alkaline Phosphatase 104 Total Protein 4.9 L Albumin 2.6 L Triglycerides Blood Type Antibody Screen 10/18/17 10/18/17 04:02 04:40 WBC RBC Hgb Hct MCV MCH MCHC RDW Plt Count Seg Neutrophils % Lymphocytes % Monocytes % Eosinophils % Basophils % Absolute Neutrophils Absolute Lymphocytes Absolute Monocytes Absolute Eosinophils Absolute Basophils Carbonic Acid 1.12 HCO3/H2CO3 Ratio 21:1 ABG pH 7.44 ABG pCO2 37.1 ABG pO2 74.1 L ABG HCO3 24.4 ABG O2 Saturation 95.4 ABG Base Excess 0.3 FiO2 30% Sodium Potassium Chloride Carbon Dioxide Anion Gap BUN Creatinine Est GFR ( Amer) Est GFR (Non-Af Amer) Glucose Lactic Acid 0.6 L Calcium Magnesium Total Bilirubin AST ALT Alkaline Phosphatase Total Protein Albumin Triglycerides Blood Type Antibody Screen 10/13/17 09:30 Blood Blood Culture - Final NO GROWTH IN 5 DAYS Impressions: Cervical Spine CT 10/10/17 01:56 IMPRESSION: No acute findings. Ankle X-Ray 10/10/17 01:58 IMPRESSION: NO RADIOGRAPHIC EVIDENCE OF ACUTE INJURY. Pelvis X-Ray 10/11/17 13:13 IMPRESSION: Left hip arthroplasty. Hip X-Ray 10/15/17 00:00 IMPRESSION: No acute findings. Left total hip arthroplasty. Head CT 10/16/17 00:00 IMPRESSION: NORMAL BRAIN CT WITHOUT CONTRAST. EVIDENCE OF ACUTE STROKE: NO. Abdomen/Pelvis CT 10/17/17 00:00 IMPRESSION: No acute findings in the abdomen or pelvis. No evidence of retroperitoneal hemorrhage. The balloon of the Schwab catheter is seen at the base of the urinary bladder/ proximal urethra. Repositioning recommended. Moderate amount of stool in the colon. There are trace bilateral pleural effusions and adjacent atelectasis in the bilateral lower lobes. Patchy ground-glass opacities at the bilateral lung bases, may represent pulmonary edema and /or pneumonia. Mild cardiomegaly. Postsurgical changes at the left hip. Lower Extremity CT 10/17/17 00:00 IMPRESSION: Small fluid collection deep to the skin alison over the left gluteal region for hip replacement. This likely is a small seroma or hematoma. No large deep left thigh hematoma is seen to explain history of large volume blood loss Chest X-Ray 10/18/17 06:00 IMPRESSION: Interval improvement in the aeration of the lungs with interval decrease in the bilateral ground-glass opacities and vascular congestion. Assessment & Plan - Diagnosis (1) Acute respiratory failure Qualifiers: Respiratory failure complication: hypoxia Qualified Code(s): J96.01 - Acute respiratory failure with hypoxia Is this a current diagnosis for this admission?: Yes Plan: major improvement will extubate (2) Alcohol withdrawal delirium Is this a current diagnosis for this admission?: Yes Plan: Currently on Ativan (3) Avascular necrosis of bone of left hip Is this a current diagnosis for this admission?: Yes Plan: as per orthopedic surgeon (4) COPD (chronic obstructive pulmonary disease) with acute bronchitis Is this a current diagnosis for this admission?: Yes Plan: Withhold or discontinue for now home medications i.e. Spiriva and Advair Generic Name Dose Route Start Last Admin Trade Name Freq PRN Reason Stop Dose Admin Tiotropium [place] 1 cap 10/15/17 12:00 10/17/17 12:39 Spiriva Handihaler 5 Cap/Kit (18 Mcg/Cap) 11/14/17 11:59 Not Given NOON BARBARA Albuterol 2.5 mg 10/16/17 10:14 Ventolin 0.083% Neb 2.5 Mg/3 Ml Ampul NEB 11/15/17 10:13 [id number] PRN Albuterol/Ipratropium 3 ml 10/10/17 08:00 10/17/17 14:13 Duoneb 3 Ml Ampul NEB 11/09/17 07:59 3 ml RTQ6 BARBARA Fluticasone/Salmeterol 1 inh 10/15/17 22:00 10/17/17 10:11 Advair 500-50 Diskus 14 Dose/Diskus IH 11/14/17 21:59 Not Given Q12 BARBARA - Time Total Critical Time (Minutes): 55
[2017-10-19 06:29] LABS: ARTERIAL BLOOD BASE EXCESS 0.8 mmol/L; ARTERIAL BLOOD O2 SATURATION 93.5 % (94-98)
[2017-10-19] MEDS: LORAZEPAM INJ 2 MG/1 ML VIAL IV PRN (06:33)
--- NOTE | 2017-10-19 06:45 | RADIOLOGY REPORT (SQ) ---
EXAM DESCRIPTION: CHEST SINGLE VIEW COMPLETED DATE/TIME: 10/19/2017 6:25 am REASON FOR STUDY: resp failure COMPARISON: Chest x-ray 10/18/2017. EXAM PARAMETERS: NUMBER OF VIEWS: One view. TECHNIQUE: Single frontal radiographic view of the chest acquired. RADIATION DOSE: NA LIMITATIONS: None. FINDINGS: LUNGS AND PLEURA: Subsegmental atelectasis in the left perihilar region. No pleural effus ion or pneumothorax. MEDIASTINUM AND HILAR STRUCTURES: No masses. Contour normal. HEART AND VASCULAR STRUCTURES: The heart is mildly enlarged. There is mild vascular congestion. BONES: No acute findings. HARDWARE: The endotracheal tube and the enteric tube have been removed. IMPRESSION: Mild cardiomegaly and vascular congestion. Subsegmental atelectasis at the left perihil ar region. TECHNICAL DOCUMENTATION: JOB ID: [id number] All Rights Reserved
--- NOTE | 2017-10-19 07:02 | PDOC PROGRESS REPORT ---
Subjective Progress Note for:: 10/19/17 Subjective:: 62-year-old white female status post total left hip arthroplasty. Patient extubated awake and alert this morning. She is questioning whether she can be discharged today. Patient was informed that if she is still in the ICU and was just recently extubated that this was not a viable option. Patient voiced understanding. Reason For Visit: C/T AIRWAY COMPROMISE Physical Exam Vital Signs: Temp Pulse Resp BP Pulse Ox 37.0 C 71 28 H 122/85 94 10/19/17 03:52 10/19/17 04:19 10/19/17 06:00 10/19/17 05:29 10/19/17 06:00 Intake & Output 10/17/17 10/18/17 10/19/17 06:59 06:59 06:59 Intake Total 1860 3561 1199 Output Total 1325 2665 5310 Balance 535 580 -1671 Weight 102.2 kg 103.5 kg 100.2 kg General appearance: PRESENT: no acute distress, well-developed, well-nourished Head exam: PRESENT: atraumatic, normocephalic Respiratory exam: PRESENT: unlabored Pulses: PRESENT: normal dorsalis pedis pul, +2 pedal pulses bilateral Vascular exam: PRESENT: normal capillary refill Additional comments: Patient sitting upright in hospital bed with left lower extremity in full extension. Her postop site dressing was recently changed and this dressing is clean dry and intact. She has brisk capillary refill to toes on bilateral lower extremities. She has minimal pedal edema. Her sensory motor functions are intact and her distal neurovascular exam is intact. Additional comments: As patient has been extubated for the past few days she has not made progress with physical therapy. We will plan for patient to be returned to the surgical floor where she can again be seen by physical therapy. She will then work towards independent ambulation and increasing strength and range of motion of the left lower extremity. Neurological exam: PRESENT: alert, awake, oriented to person, oriented to place , oriented to time, oriented to situation, CN II-XII grossly intact. ABSENT: motor sensory deficit Psychiatric exam: PRESENT: appropriate affect, normal mood. ABSENT: homicidal ideation, suicidal ideation Skin exam: PRESENT: dry, intact, warm. ABSENT: cyanosis, rash Results Laboratory Results: 10/19/17 03:46 10/19/17 03:46 10/18/17 10/18/17 10/19/17 10:17 17:55 03:46 WBC RBC Hgb Hct MCV MCH MCHC RDW Plt Count Seg Neutrophils % Lymphocytes % Monocytes % Eosinophils % Basophils % Absolute Neutrophils Absolute Lymphocytes Absolute Monocytes Absolute Eosinophils Absolute Basophils Carbonic Acid 0.94 L HCO3/H2CO3 Ratio 25:1 ABG pH 7.50 H ABG pCO2 31.3 L ABG pO2 78.8 L ABG HCO3 23.6 ABG O2 Saturation 96.7 ABG Base Excess -0.1 FiO2 30% Sodium 141.4 Potassium 3.3 L Chloride 104 Carbon Dioxide 25 Anion Gap 12 BUN 19 Creatinine 0.78 0.95 Est GFR ( Amer) > 60 > 60 Est GFR (Non-Af Amer) > 60 > 60 Glucose 99 Calcium 8.9 Magnesium 1.9 10/19/17 10/19/17 03:46 05:05 WBC 5.1 RBC 3.72 Hgb 10.7 L Hct 31.6 L MCV 85 MCH 28.8 MCHC 34.0 RDW 18.3 H Plt Count 238 Seg Neutrophils % 72.3 Lymphocytes % 15.8 Monocytes % 10.8 Eosinophils % 0.1 Basophils % 1.0 Absolute Neutrophils 3.7 Absolute Lymphocytes 0.8 Absolute Monocytes 0.5 Absolute Eosinophils 0.0 Absolute Basophils 0.0 Carbonic Acid 1.04 L HCO3/H2CO3 Ratio 23:1 ABG pH 7.46 H ABG pCO2 34.5 L ABG pO2 63.2 L ABG HCO3 24.0 ABG O2 Saturation 93.5 L ABG Base Excess 0.8 FiO2 2L Sodium Potassium Chloride Carbon Dioxide Anion Gap BUN Creatinine Est GFR ( Amer) Est GFR (Non-Af Amer) Glucose Calcium Magnesium 10/13/17 10:52 Blood Blood Culture - Final NO GROWTH IN 5 DAYS 10/13/17 09:30 Blood Blood Culture - Final NO GROWTH IN 5 DAYS Impressions: Cervical Spine CT 10/10/17 01:56 IMPRESSION: No acute findings. Ankle X-Ray 10/10/17 01:58 IMPRESSION: NO RADIOGRAPHIC EVIDENCE OF ACUTE INJURY. Pelvis X-Ray 10/11/17 13:13 IMPRESSION: Left hip arthroplasty. Hip X-Ray 10/15/17 00:00 IMPRESSION: No acute findings. Left total hip arthroplasty. Head CT 10/16/17 00:00 IMPRESSION: NORMAL BRAIN CT WITHOUT CONTRAST. EVIDENCE OF ACUTE STROKE: NO. Abdomen/Pelvis CT 10/17/17 00:00 IMPRESSION: No acute findings in the abdomen or pelvis. No evidence of retroperitoneal hemorrhage. The balloon of the Schwab catheter is seen at the base of the urinary bladder/ proximal urethra. Repositioning recommended. Moderate amount of stool in the colon. There are trace bilateral pleural effusions and adjacent atelectasis in the bilateral lower lobes. Patchy ground-glass opacities at the bilateral lung bases, may represent pulmonary edema and /or pneumonia. Mild cardiomegaly. Postsurgical changes at the left hip. Lower Extremity CT 10/17/17 00:00 IMPRESSION: Small fluid collection deep to the skin alison over the left gluteal region for hip replacement. This likely is a small seroma or hematoma. No large deep left thigh hematoma is seen to explain history of large volume blood loss Chest X-Ray 10/19/17 06:00 IMPRESSION: Mild cardiomegaly and vascular congestion. Subsegmental atelectasis at the left perihilar region. Assessment & Plan - Diagnosis (1) Avascular necrosis of bone of left hip Is this a current diagnosis for this admission?: Yes - Plan Summary Plan Summary: 62-year-old white female status post total left hip arthroplasty. Patient remains in the ICU however she is now extubated alert and awake. Her OpSite dressing was recently changed and the new dressing placed is clean dry and intact. As she was intubated and in the ICU she has not made progress with physical therapy. Our plan will be for patient to return to the surgical floor where she can again make progress with physical therapy towards ambulation and increasing strength and range of motion of the left lower extremity. Once patient has made progress, we will plan for discharge to her home or a alf facility.
[2017-10-19] MEDS: HEPARIN SOD (PORCINE) 5,000 UNIT/ML 1 ML SYRINGE SUBCUT SCH ×2 (09:56→21:22)
[2017-10-19] MEDS: LANSOPRAZOLE 30 MG TAB.RAP.DR PO SCH ×2 (09:56→18:06)
[2017-10-19] MEDS: PRENATAL VITAMIN W DHA CAPSULE PO SCH (09:57)
[2017-10-19] MEDS: FLUOXETINE HCL 20 MG CAPSULE PO SCH (09:57)
[2017-10-19] MEDS: GABAPENTIN 300 MG CAPSULE PO SCH ×2 (09:57→21:22)
[2017-10-19] MEDS: LEVOFLOXACIN 750 MG/D5W RTU 750 MG/150 ML RTUPB IV SCH (09:58)
[2017-10-19] MEDS: SENNOSIDES/DOCUSATE 8.6-50 MG 1 EACH TABLET PO SCH ×2 (10:00→18:08)
[2017-10-19] MEDS ORDERED: AMLODIPINE BESYLATE 5 MG TABLET PO SCH (10:00)
--- NOTE | 2017-10-19 10:00 | PDOC PROGRESS REPORT ---
Subjective Progress Note for:: 10/19/17 Subjective:: Pt is breahting well this am, upset she cant go home to be with her brother as today is his birthday. In one year their parents and two older siblings so since then she and her brother have been very close. No CP, has BM last night, drinking water without difficulty, good UOP with lasix. Has cough, min phlegm, no hemoptysis. No significant acute pain. including in left hip. Reason For Visit: C/T AIRWAY COMPROMISE Physical Exam Vital Signs: Temp Pulse Resp BP Pulse Ox 98.8 F 80 20 132/76 H 97 10/19/17 08:00 10/19/17 08:09 10/19/17 08:09 10/19/17 08:00 10/19/17 08:09 Intake & Output 10/18/17 10/19/17 10/20/17 06:59 06:59 06:59 Intake Total 3561 1199 Output Total 2665 5310 560 Balance 896 -4111 -560 Weight 103.5 kg 100.2 kg General appearance: PRESENT: cooperative, mild distress, obese Head exam: PRESENT: atraumatic, normocephalic Eye exam: PRESENT: conjunctiva pink, EOMI. ABSENT: scleral icterus Ear exam: PRESENT: normal external ear exam Mouth exam: PRESENT: dry mucosa Respiratory exam: PRESENT: unlabored, other - trace rates bilat bases. ABSENT: wheezes Cardiovascular exam: PRESENT: RRR. ABSENT: systolic murmur GI/Abdominal exam: PRESENT: normal bowel sounds, soft. ABSENT: distended, guarding, mass, organolmegaly, rebound, tenderness Extremities exam: PRESENT: other - left hip post op, minimal erythema around surg site, no fluctuance or drainage Neurological exam: PRESENT: alert, awake, oriented to person, oriented to place , oriented to time, oriented to situation, CN II-XII grossly intact Psychiatric exam: PRESENT: flat affect Results Laboratory Results: 10/19/17 03:46 10/19/17 03:46 10/18/17 10/18/17 10/19/17 10: 17:55 03:46 WBC RBC Hgb Hct MCV MCH MCHC RDW Plt Count Seg Neutrophils % Lymphocytes % Monocytes % Eosinophils % Basophils % Absolute Neutrophils Absolute Lymphocytes Absolute Monocytes Absolute Eosinophils Absolute Basophils Carbonic Acid 0.94 L HCO3/H2CO3 Ratio 25:1 ABG pH 7.50 H ABG pCO2 31.3 L ABG pO2 78.8 L ABG HCO3 23.6 ABG O2 Saturation 96.7 ABG Base Excess -0.1 FiO2 30% Sodium 141.4 Potassium 3.3 L Chloride 104 Carbon Dioxide 25 Anion Gap 12 BUN 19 Creatinine 0.78 0.95 Est GFR ( Amer) > 60 > 60 Est GFR (Non-Af Amer) > 60 > 60 Glucose 99 Calcium 8.9 Magnesium 1.9 10/19/17 10/19/17 03:46 05:05 WBC 5.1 RBC 3.72 Hgb 10.7 L Hct 31.6 L MCV 85 MCH 28.8 MCHC 34.0 RDW 18.3 H Plt Count 238 Seg Neutrophils % 72.3 Lymphocytes % 15.8 Monocytes % 10.8 Eosinophils % 0.1 Basophils % 1.0 Absolute Neutrophils 3.7 Absolute Lymphocytes 0.8 Absolute Monocytes 0.5 Absolute Eosinophils 0.0 Absolute Basophils 0.0 Carbonic Acid 1.04 L HCO3/H2CO3 Ratio 23:1 ABG pH 7.46 H ABG pCO2 34.5 L ABG pO2 63.2 L ABG HCO3 24.0 ABG O2 Saturation 93.5 L ABG Base Excess 0.8 FiO2 2L Sodium Potassium Chloride Carbon Dioxide Anion Gap BUN Creatinine Est GFR ( Amer) Est GFR (Non-Af Amer) Glucose Calcium Magnesium 10/13/17 10:52 Blood Blood Culture - Final NO GROWTH IN 5 DAYS 10/13/17 09:30 Blood Blood Culture - Final NO GROWTH IN 5 DAYS Impressions: Cervical Spine CT 10/10/17 01:56 IMPRESSION: No acute findings. Ankle X-Ray 10/10/17 01:58 IMPRESSION: NO RADIOGRAPHIC EVIDENCE OF ACUTE INJURY. Pelvis X-Ray 10/11/17 13:13 IMPRESSION: Left hip arthroplasty. Hip X-Ray 10/15/17 00:00 IMPRESSION: No acute findings. Left total hip arthroplasty. Head CT 10/16/17 00:00 IMPRESSION: NORMAL BRAIN CT WITHOUT CONTRAST. EVIDENCE OF ACUTE STROKE: NO. Abdomen/Pelvis CT 10/17/17 00:00 IMPRESSION: No acute findings in the abdomen or pelvis. No evidence of retroperitoneal hemorrhage. The balloon of the Schwab catheter is seen at the base of the urinary bladder/ proximal urethra. Repositioning recommended. Moderate amount of stool in the colon. There are trace bilateral pleural effusions and adjacent atelectasis in the bilateral lower lobes. Patchy ground-glass opacities at the bilateral lung bases, may represent pulmonary edema and /or pneumonia. Mild cardiomegaly. Postsurgical changes at the left hip. Lower Extremity CT 10/17/17 00:00 IMPRESSION: Small fluid collection deep to the skin alison over the left gluteal region for hip replacement. This likely is a small seroma or hematoma. No large deep left thigh hematoma is seen to explain history of large volume blood loss Chest X-Ray 10/19/17 06:00 IMPRESSION: Mild cardiomegaly and vascular congestion. Subsegmental atelectasis at the left perihilar region. Assessment & Plan - Diagnosis (1) Acute respiratory failure Qualifiers: Respiratory failure complication: hypoxia Qualified Code(s): J96.01 - Acute respiratory failure with hypoxia Is this a current diagnosis for this admission?: Yes Plan: Pt still requires 2L of NC O2, has done well post extubation with lasix and intermittant bipap. (2) Nosocomial pneumonia Is this a current diagnosis for this admission?: Yes Plan: Pt has received several days ABX coverage for HCAP, no evidence at this point of staph, will DC vanc and cont levaquin and cefepime. Cont to follow cultures. IS ordered for ATX. (3) Pulmonary edema Qualifiers: Chronicity: acute Qualified Code(s): J81.0 - Acute pulmonary edema Is this a current diagnosis for this admission?: Yes Plan: Improving with lasix, likely has pulm edema due to blood transfusions. Will cont lasix 20 mg IV q12 for now and reassess in the am. Monitoring and repleting electrolyes as indicated. (4) COPD (chronic obstructive pulmonary disease) with acute bronchitis Is this a current diagnosis for this admission?: Yes Plan: improved and stable, cont duonebs and her home meds as ordered (5) Alcohol withdrawal delirium Is this a current diagnosis for this admission?: Yes Plan: seems improved, vitals not consistent with EtOH withdrawal syndrome, cont prn ativan, cont her MVI/thiamine/folic acid (6) Acute metabolic encephalopathy Is this a current diagnosis for this admission?: Yes Plan: pt is emotionally labile, unclear as to her baseline, she is imrpoved in this regard from yesterday, is oriented x 4, will cont to monitor closely (7) Avascular necrosis of bone of left hip Is this a current diagnosis for this admission?: Yes Plan: ortho following, see their note, she needs PT and I reordered this for today. Unfortunately she feel post op onto fresh hip repair, imaging done, ortho aware. (8) Postoperative anemia due to acute blood loss Is this a current diagnosis for this admission?: Yes Plan: resolved after 5 units PRBC, CT legs post op and CT a/p did not show post op bleed - Time Time Spent with patient: 35 or more minutes
[2017-10-19] MEDS: FLUTICASONE/SALMETEROL DISKUS 500-50 MCG/DOSE IH SCH ×2 (10:02→21:22)
[2017-10-19] MEDS: CYANOCOBALAMIN/FA/PYRIDOXINE TABLET PO SCH (10:02)
--- NOTE | 2017-10-19 11:51 | PDOC PROGRESS REPORT ---
Subjective Progress Note for:: 10/19/17 Subjective:: 24 hours status post extubation pleasantly confused Reason For Visit: C/T AIRWAY COMPROMISE Physical Exam Vital Signs: Temp Pulse Resp BP Pulse Ox 98.8 F 80 20 132/76 H 97 10/19/17 08:00 10/19/17 08:09 10/19/17 08:09 10/19/17 08:00 10/19/17 08:09 Intake & Output 10/18/17 10/19/17 10/20/17 06:59 06:59 06:59 Intake Total 3561 1199 Output Total 2665 5310 560 Balance 896 -4111 -560 Weight 103.5 kg 100.2 kg General appearance: PRESENT: cooperative, disheveled, morbidly obese, well- developed. ABSENT: no acute distress, mild distress, obese, severe distress, thin Head exam: PRESENT: atraumatic, normocephalic Eye exam: PRESENT: conjunctiva pale, EOMI. ABSENT: conjunctival injection, conjunctiva pink, nystagmus, periorbital swelling, scleral icterus Mouth exam: PRESENT: dry mucosa, neck supple, tongue midline. ABSENT: laceration Neck exam: ABSENT: carotid bruit, JVD, lymphadenopathy, thyromegaly, tracheal deviation, tracheostomy Respiratory exam: PRESENT: decreased breath sounds, prolonged expiratory phas, rhonchi, symmetrical, unlabored, wheezes. ABSENT: accessory muscle use, chest wall tenderness, clear to auscultation nicola, crackles, rales, retraction, stridor , tachypnea Cardiovascular exam: PRESENT: RRR, +S1, +S2. ABSENT: rubs Pulses: PRESENT: normal radial pulses GI/Abdominal exam: PRESENT: normal bowel sounds, soft. ABSENT: distended, guarding, mass, organolmegaly, rebound, tenderness Extremities exam: ABSENT: calf tenderness, clubbing, joint swelling Musculoskeletal exam: ABSENT: deformity, dislocation, tenderness Neurological exam: PRESENT: awake Psychiatric exam: PRESENT: flat affect Skin exam: PRESENT: dry, warm Results Laboratory Results: 10/19/17 03:46 10/19/17 03:46 10/18/17 10/18/17 10/19/17 10:17 17:55 03:46 WBC RBC Hgb Hct MCV MCH MCHC RDW Plt Count Seg Neutrophils % Lymphocytes % Monocytes % Eosinophils % Basophils % Absolute Neutrophils Absolute Lymphocytes Absolute Monocytes Absolute Eosinophils Absolute Basophils Carbonic Acid 0.94 L HCO3/H2CO3 Ratio 25:1 ABG pH 7.50 H ABG pCO2 31.3 L ABG pO2 78.8 L ABG HCO3 23.6 ABG O2 Saturation 96.7 ABG Base Excess -0.1 FiO2 30% Sodium 141.4 Potassium 3.3 L Chloride 104 Carbon Dioxide 25 Anion Gap 12 BUN 19 Creatinine 0.78 0.95 Est GFR ( Amer) > 60 > 60 Est GFR (Non-Af Amer) > 60 > 60 Glucose 99 Calcium 8.9 Magnesium 1.9 10/19/17 10/19/17 03:46 05:05 WBC 5.1 RBC 3.72 Hgb 10.7 L Hct 31.6 L MCV 85 MCH 28.8 MCHC 34.0 RDW 18.3 H Plt Count 238 Seg Neutrophils % 72.3 Lymphocytes % 15.8 Monocytes % 10.8 Eosinophils % 0.1 Basophils % 1.0 Absolute Neutrophils 3.7 Absolute Lymphocytes 0.8 Absolute Monocytes 0.5 Absolute Eosinophils 0.0 Absolute Basophils 0.0 Carbonic Acid 1.04 L HCO3/H2CO3 Ratio 23:1 ABG pH 7.46 H ABG pCO2 34.5 L ABG pO2 63.2 L ABG HCO3 24.0 ABG O2 Saturation 93.5 L ABG Base Excess 0.8 FiO2 2L Sodium Potassium Chloride Carbon Dioxide Anion Gap BUN Creatinine Est GFR ( Amer) Est GFR (Non-Af Amer) Glucose Calcium Magnesium 10/13/17 10:52 Blood Blood Culture - Final NO GROWTH IN 5 DAYS 10/13/17 09:30 Blood Blood Culture - Final NO GROWTH IN 5 DAYS Impressions: Cervical Spine CT 10/10/17 01:56 IMPRESSION: No acute findings. Ankle X-Ray 10/10/17 01:58 IMPRESSION: NO RADIOGRAPHIC EVIDENCE OF ACUTE INJURY. Pelvis X-Ray 10/11/17 13:13 IMPRESSION: Left hip arthroplasty. Hip X-Ray 10/15/17 00:00 IMPRESSION: No acute findings. Left total hip arthroplasty. Head CT 10/16/17 00:00 IMPRESSION: NORMAL BRAIN CT WITHOUT CONTRAST. EVIDENCE OF ACUTE STROKE: NO. Abdomen/Pelvis CT 10/17/17 00:00 IMPRESSION: No acute findings in the abdomen or pelvis. No evidence of retroperitoneal hemorrhage. The balloon of the Schwab catheter is seen at the base of the urinary bladder/ proximal urethra. Repositioning recommended. Moderate amount of stool in the colon. There are trace bilateral pleural effusions and adjacent atelectasis in the bilateral lower lobes. Patchy ground-glass opacities at the bilateral lung bases, may represent pulmonary edema and /or pneumonia. Mild cardiomegaly. Postsurgical changes at the left hip. Lower Extremity CT 10/17/17 00:00 IMPRESSION: Small fluid collection deep to the skin alison over the left gluteal region for hip replacement. This likely is a small seroma or hematoma. No large deep left thigh hematoma is seen to explain history of large volume blood loss Chest X-Ray 10/19/17 06:00 IMPRESSION: Mild cardiomegaly and vascular congestion. Subsegmental atelectasis at the left perihilar region. Assessment & Plan - Diagnosis (1) Acute respiratory failure Qualifiers: Respiratory failure complication: hypoxia Qualified Code(s): J96.01 - Acute respiratory failure with hypoxia Is this a current diagnosis for this admission?: Yes Plan: 24 hours status post extubation doing well (2) Alcohol withdrawal delirium Is this a current diagnosis for this admission?: Yes (3) Avascular necrosis of bone of left hip Is this a current diagnosis for this admission?: Yes Plan: as per orthopedic surgeon (4) COPD (chronic obstructive pulmonary disease) with acute bronchitis Is this a current diagnosis for this admission?: Yes Plan: Resume home medications i.e. Spiriva and Advair Generic Name Dose Route Start Last Admin Trade Name Freq PRN Reason Stop Dose Admin Tiotropium [place]han 1 cap 10/15/17 12:00 10/17/17 12:39 Spiriva Handihaler 5 Cap/Kit (18 Mcg/Cap) IH 11/14/17 11:59 Not Given NOON BARBARA Albuterol 2.5 mg 10/16/17 10:14 Ventolin 0.083% Neb 2.5 Mg/3 Ml Ampul NEB 11/15/17 10:13 [id number] PRN Albuterol/Ipratropium 3 ml 10/10/17 08:00 10/17/17 14:13 Duoneb 3 Ml Ampul NEB 11/09/17 07:59 3 ml RTQ6 BARBARA Fluticasone/Salmeterol 1 inh 10/15/17 22:00 10/17/17 10:11 Advair 500-50 Diskus 14 Dose/Diskus IH 11/14/17 21:59 Not Given Q12 BARBARA - Time Total Critical Time (Minutes): 40
[2017-10-19] MEDS: TIOTROPIUM BROMIDE DPI 5 CAP/KIT (18 MCG/CAP) IH SCH (12:02)
[2017-10-19] MEDS: CYANOCOBALAMIN (VITAMIN B-12) INJ 1000 MCG/1 ML VIAL IM SCH (12:03)
[2017-10-19] MEDS: THIAMINE HCL 100 MG TABLET PO SCH (12:04)
[2017-10-19 17:03] LABS: ANION GAP 12 (5-19); BLOOD UREA NITROGEN 24 mg/dL (7-20); CALCIUM 8.7 mg/dL (8.4-10.2); CARBON DIOXIDE 22 mmol/L (22-30); CHLORIDE 107 mmol/L (98-107); CREATININE RESULT 0.96 mg/dL (0.52-1.25); GLUCOSE 92 mg/dL (75-110); POTASSIUM 3.5 mmol/L (3.6-5.0); SODIUM 140.5 mmol/L (137-145)
[2017-10-19] MEDS: OXYCODONE-ACETAMINOPHEN 5-325 MG TABLET PO PRN (20:51)
[2017-10-19] MEDS: AMITRIPTYLINE HCL 25 MG TABLET PO SCH (21:22)
[2017-10-19] MEDS: ATORVASTATIN CALCIUM 40 MG TABLET PO SCH (21:22)
[2017-10-20] MEDS: IPRATROPIUM/ALBUTEROL 0.5-2.5 MG/3 ML AMPUL NEB SCH ×4 (01:47→20:26)
[2017-10-20] MEDS: OXYCODONE-ACETAMINOPHEN 5-325 MG TABLET PO PRN ×4 (03:44→20:47)
[2017-10-20] MEDS: FUROSEMIDE INJ/PF 20 MG/2 ML SDV IV SCH ×2 (05:27→17:53)
[2017-10-20] MEDS: LEVOTHYROXINE SODIUM 0.05 MG TABLET PO SCH (05:27)
[2017-10-20] MEDS: PIPERACILLIN SODIUM/TAZOBACTAM 3.375 GM in NORMAL SALINE 100 ML IV SCH (05:27)
--- NOTE | 2017-10-20 06:44 | PDOC PROGRESS REPORT ---
Subjective Progress Note for:: 10/20/17 Subjective:: Patient lying recumbent in hospital bed awake this morning. Patient notes that she is having a little bit of pain however it is at the level she expected postoperatively. She also notes it is different pain than she was experiencing preoperatively. Patient states that she is eager to go home and is not interested in first seeking care at a tertiary care facility. Patient was informed in order to do so she needed to make further progress with physical therapy at least ambulating to and from the bathroom and from her bed to sitting in a chair. Patient voiced understanding of these requests and stated "I will make myself do it" Reason For Visit: C/T AIRWAY COMPROMISE Physical Exam Vital Signs: Temp Pulse Resp BP Pulse Ox 37.0 C 73 16 121/66 97 10/20/17 04:13 10/20/17 05:04 10/20/17 04:13 10/20/17 04:13 10/20/17 04:13 Intake & Output 10/18/17 10/19/17 10/20/17 06:59 06:59 06:59 Intake Total 3561 1199 2087 Output Total 2665 5310 2485 Balance 896 -4111 -398 Weight 103.5 kg 100.2 kg 101 kg General appearance: PRESENT: no acute distress, well-developed, well-nourished Head exam: PRESENT: atraumatic, normocephalic Respiratory exam: PRESENT: unlabored Pulses: PRESENT: normal dorsalis pedis pul, +2 pedal pulses bilateral Vascular exam: PRESENT: normal capillary refill Additional comments: Patient lying recumbent in hospital bed with left lower extremity in full extension. Her postop site dressing is saturated with some dried blood and serosanguineous material. This dressing is changed and new one is placed and it is clean dry and intact. Patient is nontender to palpation. She has brisk capillary refill to toes on bilateral feet she has minimal pedal edema. Her sensory motor functions are intact and her distal neurovascular exam is intact. Musculoskeletal exam: PRESENT: ambulatory Additional comments: Patient makes slow progress with physical therapy now that she is returned to the hospital floor versus ICU. She has only managed to make for sidesteps in terms of ambulation. Patient was informed that in order to be eligible for discharge she would at least need to be able to ambulate to and from the toilet as well as ambulate from bed to bedside chair. Patient voiced understanding of these findings. She was informed to continue to work with physical therapy this morning to improve strength range of motion left lower extremity and increased distance of ambulation. She was also informed that she would benefit from home physical therapy or physical therapy at a tertiary care facility. Neurological exam: PRESENT: alert, awake, oriented to person, oriented to place , oriented to time, oriented to situation, CN II-XII grossly intact. ABSENT: motor sensory deficit Psychiatric exam: PRESENT: appropriate affect, normal mood. ABSENT: homicidal ideation, suicidal ideation Skin exam: PRESENT: dry, intact, warm. ABSENT: cyanosis, rash Results Laboratory Results: 10/19/17 03:46 10/19/17 16:35 Sodium 140.5 Potassium 3.5 L Chloride 107 Carbon Dioxide 22 Anion Gap 12 BUN 24 H Creatinine 0.96 Est GFR ( Amer) > 60 Est GFR (Non-Af Amer) 59 L Glucose 92 Calcium 8.7 Impressions: Cervical Spine CT 10/10/17 01:56 IMPRESSION: No acute findings. Ankle X-Ray 10/10/17 01:58 IMPRESSION: NO RADIOGRAPHIC EVIDENCE OF ACUTE INJURY. Pelvis X-Ray 10/11/17 13:13 IMPRESSION: Left hip arthroplasty. Hip X-Ray 10/15/17 00:00 IMPRESSION: No acute findings. Left total hip arthroplasty. Head CT 10/16/17 00:00 IMPRESSION: NORMAL BRAIN CT WITHOUT CONTRAST. EVIDENCE OF ACUTE STROKE: NO. Abdomen/Pelvis CT 10/17/17 00:00 IMPRESSION: No acute findings in the abdomen or pelvis. No evidence of retroperitoneal hemorrhage. The balloon of the Schwab catheter is seen at the base of the urinary bladder/ proximal urethra. Repositioning recommended. Moderate amount of stool in the colon. There are trace bilateral pleural effusions and adjacent atelectasis in the bilateral lower lobes. Patchy ground-glass opacities at the bilateral lung bases, may represent pulmonary edema and /or pneumonia. Mild cardiomegaly. Postsurgical changes at the left hip. Lower Extremity CT 10/17/17 00:00 IMPRESSION: Small fluid collection deep to the skin alison over the left gluteal region for hip replacement. This likely is a small seroma or hematoma. No large deep left thigh hematoma is seen to explain history of large volume blood loss Chest X-Ray 10/19/17 06:00 IMPRESSION: Mild cardiomegaly and vascular congestion. Subsegmental atelectasis at the left perihilar region. Assessment & Plan - Diagnosis (1) Avascular necrosis of bone of left hip Is this a current diagnosis for this admission?: Yes - Plan Summary Plan Summary: 62-year-old white female status post left hip hemiarthroplasty. Patient was initially having issues with the increasing blood pressure and oxygen saturations postoperatively were and she was transferred to the ICU. It was discovered that patient may have possible pneumonia infection as well as pulmonary edema. She was intubated and put on pressure support. Since this intervention patient's blood pressure and oxygen saturations have normalized and she was transferred back to this hospital floor. Here she has made some progress with physical therapy making a few side steps. She was informed that in order to be discharged she must be able to ambulate back and forth from the toilet as well as back and forth from bed to bedside chair. Her OpSite dressing was changed this morning and is clean dry and intact. Discharge options were discussed and Dr. Casiano and Valerio recommended patient be transferred to tertiary care facility. Patient declined at this plan stating "I want to go home, I need to go home". Therefore, at this time Dr. Casiano and Valerio would recommend discharge home today as long as patient has attained goals of ambulating back and forth from toilet and chair at the bedside. She can follow up with Dr. Casiano and Wilmer AGUILAR at [facility] for surgery 2 weeks postoperatively for reevaluation and staple removal.
[2017-10-20 06:53] LABS: ANION GAP 11 (5-19); BLOOD UREA NITROGEN 23 mg/dL (7-20); CALCIUM 9.1 mg/dL (8.4-10.2); CARBON DIOXIDE 24 mmol/L (22-30); CHLORIDE 106 mmol/L (98-107); CREATININE RESULT 0.94 mg/dL (0.52-1.25); GLUCOSE 92 mg/dL (75-110); MAGNESIUM 1.9 mg/dL (1.6-2.3); POTASSIUM 3.5 mmol/L (3.6-5.0); SODIUM 140.5 mmol/L (137-145)
[2017-10-20] MEDS: LEVOFLOXACIN 750 MG TABLET PO SCH (08:26)
[2017-10-20] MEDS: LANSOPRAZOLE 30 MG TAB.RAP.DR PO SCH ×2 (08:26→17:52)
[2017-10-20] MEDS: PRENATAL VITAMIN W DHA CAPSULE PO SCH (09:53)
[2017-10-20] MEDS: CYANOCOBALAMIN/FA/PYRIDOXINE TABLET PO SCH (09:53)
[2017-10-20] MEDS: HEPARIN SOD (PORCINE) 5,000 UNIT/ML 1 ML SYRINGE SUBCUT SCH ×2 (09:54→21:43)
[2017-10-20] MEDS: GABAPENTIN 300 MG CAPSULE PO SCH ×2 (09:54→21:43)
[2017-10-20] MEDS: FLUOXETINE HCL 20 MG CAPSULE PO SCH (09:54)
[2017-10-20] MEDS: FLUTICASONE/SALMETEROL DISKUS 500-50 MCG/DOSE IH SCH ×2 (09:54→21:43)
[2017-10-20] MEDS: SENNOSIDES/DOCUSATE 8.6-50 MG 1 EACH TABLET PO SCH ×2 (11:47→17:53)
[2017-10-20] MEDS: TIOTROPIUM BROMIDE DPI 5 CAP/KIT (18 MCG/CAP) IH SCH (11:48)
[2017-10-20] MEDS: CYANOCOBALAMIN (VITAMIN B-12) INJ 1000 MCG/1 ML VIAL IM SCH (11:48)
[2017-10-20] MEDS: THIAMINE HCL 100 MG TABLET PO SCH (11:48)
--- NOTE | 2017-10-20 15:49 | PDOC PROGRESS REPORT ---
Subjective Reason For Visit: C/T AIRWAY COMPROMISE Physical Exam Vital Signs: Temp Pulse Resp BP Pulse Ox 98.6 F 67 16 121/66 97 10/20/17 04:13 10/20/17 07:57 10/20/17 04:13 10/20/17 04:13 10/20/17 04:13 Intake & Output 10/19/17 10/20/17 10/21/17 06:59 06:59 06:59 Intake Total 1199 2087 Output Total 5398 3125 Balance -4111 -398 Weight 100.2 kg 101 kg Results Laboratory Results: 10/19/17 03:46 10/20/17 05:53 10/19/17 10/20/17 16:35 05:53 Sodium 140.5 140.5 Potassium 3.5 L 3.5 L Chloride 107 106 Carbon Dioxide 22 24 Anion Gap 12 11 BUN 24 H 23 H Creatinine 0.96 0.94 Est GFR ( Amer) > 60 > 60 Est GFR (Non-Af Amer) 59 L > 60 Glucose 92 92 Calcium 8.7 9.1 Magnesium 1.9 Impressions: Cervical Spine CT 10/10/17 01:56 IMPRESSION: No acute findings. Ankle X-Ray 10/10/17 01:58 IMPRESSION: NO RADIOGRAPHIC EVIDENCE OF ACUTE INJURY. Pelvis X-Ray 10/11/17 13:13 IMPRESSION: Left hip arthroplasty. Hip X-Ray 10/15/17 00:00 IMPRESSION: No acute findings. Left total hip arthroplasty. Head CT 10/16/17 00:00 IMPRESSION: NORMAL BRAIN CT WITHOUT CONTRAST. EVIDENCE OF ACUTE STROKE: NO. Abdomen/Pelvis CT 10/17/17 00:00 IMPRESSION: No acute findings in the abdomen or pelvis. No evidence of retroperitoneal hemorrhage. The balloon of the Schwab catheter is seen at the base of the urinary bladder/ proximal urethra. Repositioning recommended. Moderate amount of stool in the colon. There are trace bilateral pleural effusions and adjacent atelectasis in the bilateral lower lobes. Patchy ground-glass opacities at the bilateral lung bases, may represent pulmonary edema and /or pneumonia. Mild cardiomegaly. Postsurgical changes at the left hip. Lower Extremity CT 10/17/17 00:00 IMPRESSION: Small fluid collection deep to the skin alison over the left gluteal region for hip replacement. This likely is a small seroma or hematoma. No large deep left thigh hematoma is seen to explain history of large volume blood loss Chest X-Ray 10/19/17 06:00 IMPRESSION: Mild cardiomegaly and vascular congestion. Subsegmental atelectasis at the left perihilar region. Assessment & Plan - Diagnosis (1) Acute metabolic encephalopathy Is this a current diagnosis for this admission?: Yes Plan: Multifactorial. Resolved (2) Acute respiratory failure Qualifiers: Respiratory failure complication: hypoxia Qualified Code(s): J96.01 - Acute respiratory failure with hypoxia Is this a current diagnosis for this admission?: Yes Plan: Due to pulmonary edema in the setting of acute diastolic dysfunction secondary to blood transfusions (3) Alcohol withdrawal delirium Is this a current diagnosis for this admission?: Yes Plan: Resolve encourage quitting alcohol (4) Avascular necrosis of bone of left hip Is this a current diagnosis for this admission?: Yes Plan: Patient doing well after surgery (5) COPD (chronic obstructive pulmonary disease) with acute bronchitis Is this a current diagnosis for this admission?: Yes Plan: Stable and improved (6) Postoperative anemia due to acute blood loss Is this a current diagnosis for this admission?: Yes Plan: Continue trending but stable (7) Pulmonary edema Qualifiers: Chronicity: acute Qualified Code(s): J81.0 - Acute pulmonary edema Is this a current diagnosis for this admission?: Yes Plan: Resolved (8) Tobacco dependency Is this a current diagnosis for this admission?: Yes Plan: Encouraged to quit - Time Time Spent with patient: 15-24 minutes Medications reviewed and adjusted accordingly: Yes Anticipated discharge: Home Within: within 24 hours - Inpatient Certification Based on my medical assessment, after consideration of the patient's comorbidities, presenting symptoms, or acuity I expect that the services needed warrant INPATIENT care.: Yes I certify that my determination is in accordance with my understanding of Medicare's requirements for reasonable and necessary INPATIENT services [42 CFR 412.3e].: Yes Medical Necessity: Risk of Complication if Not Cared For in Hospital
[2017-10-20] MEDS: TRAMADOL HCL 50 MG TABLET PO PRN ×2 (18:24→22:43)
[2017-10-20] MEDS: ATORVASTATIN CALCIUM 40 MG TABLET PO SCH (21:43)
[2017-10-20] MEDS: AMITRIPTYLINE HCL 25 MG TABLET PO SCH (21:43)
[2017-10-21] MEDS: OXYCODONE-ACETAMINOPHEN 5-325 MG TABLET PO PRN ×5 (02:16→23:02)
[2017-10-21] MEDS: IPRATROPIUM/ALBUTEROL 0.5-2.5 MG/3 ML AMPUL NEB SCH ×4 (02:35→20:03)
[2017-10-21] MEDS: LEVOTHYROXINE SODIUM 0.05 MG TABLET PO SCH (05:49)
[2017-10-21] MEDS: FUROSEMIDE INJ/PF 20 MG/2 ML SDV IV SCH ×2 (05:50→17:47)
[2017-10-21 06:52] LABS: ANION GAP 12 (5-19); BLOOD UREA NITROGEN 23 mg/dL (7-20); CALCIUM 9.5 mg/dL (8.4-10.2); CARBON DIOXIDE 25 mmol/L (22-30); CHLORIDE 103 mmol/L (98-107); CREATININE RESULT 1.06 mg/dL (0.52-1.25); GLUCOSE 134 mg/dL (75-110); POTASSIUM 3.6 mmol/L (3.6-5.0); SODIUM 139.5 mmol/L (137-145)
[2017-10-21] MEDS: TRAMADOL HCL 50 MG TABLET PO PRN ×3 (08:49→20:25)
[2017-10-21] MEDS: LANSOPRAZOLE 30 MG TAB.RAP.DR PO SCH ×2 (08:50→16:56)
[2017-10-21] MEDS: LEVOFLOXACIN 750 MG TABLET PO SCH (08:51)
[2017-10-21] MEDS: HEPARIN SOD (PORCINE) 5,000 UNIT/ML 1 ML SYRINGE SUBCUT SCH ×2 (09:47→23:00)
[2017-10-21] MEDS: FLUOXETINE HCL 20 MG CAPSULE PO SCH (09:48)
[2017-10-21] MEDS: CYANOCOBALAMIN/FA/PYRIDOXINE TABLET PO SCH (09:48)
[2017-10-21] MEDS: SENNOSIDES/DOCUSATE 8.6-50 MG 1 EACH TABLET PO SCH ×2 (09:48→17:47)
[2017-10-21] MEDS: GABAPENTIN 300 MG CAPSULE PO SCH ×2 (09:51→23:01)
[2017-10-21] MEDS: PRENATAL VITAMIN W DHA CAPSULE PO SCH (10:00)
[2017-10-21] MEDS: FLUTICASONE/SALMETEROL DISKUS 500-50 MCG/DOSE IH SCH ×2 (11:07→23:02)
[2017-10-21] MEDS: THIAMINE HCL 100 MG TABLET PO SCH (11:22)
[2017-10-21] MEDS: CYANOCOBALAMIN (VITAMIN B-12) INJ 1000 MCG/1 ML VIAL IM SCH (11:22)
[2017-10-21] MEDS: TIOTROPIUM BROMIDE DPI 5 CAP/KIT (18 MCG/CAP) IH SCH (11:23)
--- NOTE | 2017-10-21 18:51 | PDOC PROGRESS REPORT ---
Subjective Progress Note for:: 10/21/17 Subjective:: . Patient refers that she feels better. She admits having problems with alcohol. At the present time her brother also has problems with alcohol and lives with her. He was homeless but she felt sorry for him and has been living with her. She knows that she has to make drastic changes in her life Reason For Visit: Respiratory failure Physical Exam Vital Signs: Temp Pulse Resp BP Pulse Ox 98.6 F 77 18 123/63 96 10/21/17 15:59 10/21/17 15:59 10/21/17 15:59 10/21/17 15:59 10/21/17 15:59 Intake & Output 10/20/17 10/21/17 10/22/17 06:59 06:59 06:59 Intake Total 2087 1865 1675 Output Total 2485 3000 Balance -398 -1135 1675 Weight 101 kg 101.9 kg General appearance: PRESENT: no acute distress, cooperative, morbidly obese Head exam: PRESENT: atraumatic, normocephalic Eye exam: PRESENT: conjunctiva pink, EOMI, PERRLA Ear exam: PRESENT: normal external ear exam Mouth exam: PRESENT: moist, neck supple Neck exam: PRESENT: full ROM. ABSENT: JVD, thyromegaly Respiratory exam: PRESENT: clear to auscultation nicola Cardiovascular exam: PRESENT: RRR. ABSENT: diastolic murmur, systolic murmur Vascular exam: PRESENT: normal capillary refill GI/Abdominal exam: PRESENT: normal bowel sounds. ABSENT: guarding, tenderness Extremities exam: PRESENT: joint swelling. ABSENT: pedal edema Musculoskeletal exam: PRESENT: full ROM Neurological exam: PRESENT: alert, oriented to person, oriented to place, oriented to time Results Laboratory Results: 10/19/17 03:46 10/21/17 05:58 10/21/17 05:58 Sodium 139.5 Potassium 3.6 Chloride 103 Carbon Dioxide 25 Anion Gap 12 BUN 23 H Creatinine 1.06 Est GFR ( Amer) > 60 Est GFR (Non-Af Amer) 53 L Glucose 134 H Calcium 9.5 Magnesium 2.0 10/17/17 03:00 Tracheal Aspirate Gram Stain - Final 10/17/17 03:00 Tracheal Aspirate Sputum Culture - Final GREATLY REDUCED NORMAL SARAH Impressions: Cervical Spine CT 10/10/17 01:56 IMPRESSION: No acute findings. Ankle X-Ray 10/10/17 01:58 IMPRESSION: NO RADIOGRAPHIC EVIDENCE OF ACUTE INJURY. Pelvis X-Ray 10/11/17 13:13 IMPRESSION: Left hip arthroplasty. Hip X-Ray 10/15/17 00:00 IMPRESSION: No acute findings. Left total hip arthroplasty. Head CT 10/16/17 00:00 IMPRESSION: NORMAL BRAIN CT WITHOUT CONTRAST. EVIDENCE OF ACUTE STROKE: NO. Abdomen/Pelvis CT 10/17/17 00:00 IMPRESSION: No acute findings in the abdomen or pelvis. No evidence of retroperitoneal hemorrhage. The balloon of the Schwab catheter is seen at the base of the urinary bladder/ proximal urethra. Repositioning recommended. Moderate amount of stool in the colon. There are trace bilateral pleural effusions and adjacent atelectasis in the bilateral lower lobes. Patchy ground-glass opacities at the bilateral lung bases, may represent pulmonary edema and /or pneumonia. Mild cardiomegaly. Postsurgical changes at the left hip. Lower Extremity CT 10/17/17 00:00 IMPRESSION: Small fluid collection deep to the skin alison over the left gluteal region for hip replacement. This likely is a small seroma or hematoma. No large deep left thigh hematoma is seen to explain history of large volume blood loss Chest X-Ray 10/19/17 06:00 IMPRESSION: Mild cardiomegaly and vascular congestion. Subsegmental atelectasis at the left perihilar region. Assessment & Plan - Diagnosis (1) Acute metabolic encephalopathy Is this a current diagnosis for this admission?: Yes Plan: Multifactorial. Resolved (2) Acute respiratory failure Qualifiers: Respiratory failure complication: hypoxia Qualified Code(s): J96.01 - Acute respiratory failure with hypoxia Is this a current diagnosis for this admission?: Yes Plan: Due to pulmonary edema in the setting of acute diastolic dysfunction secondary to blood transfusions (3) Alcohol withdrawal delirium Is this a current diagnosis for this admission?: Yes Plan: Resolved encouraged to quit alcohol and attend alcoholic anonymous (4) Avascular necrosis of bone of left hip Is this a current diagnosis for this admission?: Yes Plan: Patient doing well after surgery (5) COPD (chronic obstructive pulmonary disease) with acute bronchitis Is this a current diagnosis for this admission?: Yes Plan: Stable and improved (6) Postoperative anemia due to acute blood loss Is this a current diagnosis for this admission?: Yes Plan: Continue trending but stable (7) Pulmonary edema Qualifiers: Chronicity: acute Qualified Code(s): J81.0 - Acute pulmonary edema Is this a current diagnosis for this admission?: Yes Plan: Resolved (8) Tobacco dependency Is this a current diagnosis for this admission?: Yes Plan: Encouraged to quit - Time Time Spent with patient: 15-24 minutes Medications reviewed and adjusted accordingly: Yes Anticipated discharge: Home Within: within 24 hours - Inpatient Certification Based on my medical assessment, after consideration of the patient's comorbidities, presenting symptoms, or acuity I expect that the services needed warrant INPATIENT care.: Yes I certify that my determination is in accordance with my understanding of Medicare's requirements for reasonable and necessary INPATIENT services [42 CFR 412.3e].: Yes Medical Necessity: Risk of Complication if Not Cared For in Hospital
[2017-10-21] MEDS: ATORVASTATIN CALCIUM 40 MG TABLET PO SCH (23:01)
[2017-10-21] MEDS: AMITRIPTYLINE HCL 25 MG TABLET PO SCH (23:01)
[2017-10-22] MEDS: TRAMADOL HCL 50 MG TABLET PO PRN ×3 (01:16→12:50)
[2017-10-22] MEDS: IPRATROPIUM/ALBUTEROL 0.5-2.5 MG/3 ML AMPUL NEB SCH ×3 (02:08→14:23)
[2017-10-22] MEDS: OXYCODONE-ACETAMINOPHEN 5-325 MG TABLET PO PRN ×3 (02:49→15:20)
[2017-10-22] MEDS: LEVOTHYROXINE SODIUM 0.05 MG TABLET PO SCH (05:53)
[2017-10-22] MEDS: FUROSEMIDE INJ/PF 20 MG/2 ML SDV IV SCH (05:54)
[2017-10-22 07:01] LABS: ABSOLUTE LYMPHOCYTES (AUTO) 1.3 10^3/uL (0.5-4.7); ABSOLUTE MONOCYTES (AUTO) 0.4 10^3/uL (0.1-1.4); BASOPHILS % (AUTO) 0.5 % (0-2); EOSINOPHILS % (AUTO) 0.4 % (0-6); HEMATOCRIT 34.7 % (36.0-47.0); HEMOGLOBIN 11.5 g/dL (12.0-15.5); HGB HCT DIFFERENCE -0.2; LYMPHOCYTES % (AUTO) 19.1 % (13-45); MEAN CORPUSCULAR HEMOGLOBIN 28.9 pg (27.0-33.4); MEAN CORPUSCULAR HGB CONC 33.1 g/dL (32.0-36.0); MEAN CORPUSCULAR VOLUME 87 fl (80-97); MONOCYTES % (AUTO) 6.4 % (3-13); RED BLOOD COUNT 3.99 10^6/uL (3.72-5.28); RED CELL DISTRIBUTION WIDTH 18.3 % (11.5-14.0); SEGMENTED NEUTROPHILS % (AUTO) 73.6 % (42-78); WHITE BLOOD COUNT 6.8 10^3/uL (4.0-10.5)
[2017-10-22 07:21] LABS: ALANINE AMINOTRANSFERASE 35 U/L (9-52); ALBUMIN 3.2 g/dL (3.5-5.0); ALKALINE PHOSPHATASE 81 U/L (38-126); ANION GAP 12 (5-19); ASPARTATE AMINO TRANSFERASE 16 U/L (14-36); BILIRUBIN,DIRECT 0.4 mg/dL (0.0-0.4); BILIRUBIN,TOTAL 0.4 mg/dL (0.2-1.3); BLOOD UREA NITROGEN 23 mg/dL (7-20); CALCIUM 9.5 mg/dL (8.4-10.2); CARBON DIOXIDE 23 mmol/L (22-30); CHLORIDE 103 mmol/L (98-107); CREATININE RESULT 0.96 mg/dL (0.52-1.25); GLUCOSE 149 mg/dL (75-110); TOTAL PROTEIN 5.7 g/dL (6.3-8.2)
[2017-10-22] MEDS: LANSOPRAZOLE 30 MG TAB.RAP.DR PO SCH (08:28)
[2017-10-22] MEDS: LEVOFLOXACIN 750 MG TABLET PO SCH (08:28)
[2017-10-22] MEDS: GABAPENTIN 300 MG CAPSULE PO SCH (10:00)
[2017-10-22] MEDS: CYANOCOBALAMIN/FA/PYRIDOXINE TABLET PO SCH (10:00)
[2017-10-22] MEDS: FLUTICASONE/SALMETEROL DISKUS 500-50 MCG/DOSE IH SCH (10:00)
[2017-10-22] MEDS: HEPARIN SOD (PORCINE) 5,000 UNIT/ML 1 ML SYRINGE SUBCUT SCH (10:00)
[2017-10-22] MEDS: FLUOXETINE HCL 20 MG CAPSULE PO SCH (10:00)
[2017-10-22] MEDS: PRENATAL VITAMIN W DHA CAPSULE PO SCH (10:00)
[2017-10-22] MEDS: SENNOSIDES/DOCUSATE 8.6-50 MG 1 EACH TABLET PO SCH (10:01)
[2017-10-22] MEDS: THIAMINE HCL 100 MG TABLET PO SCH (11:22)
[2017-10-22] MEDS: CYANOCOBALAMIN (VITAMIN B-12) INJ 1000 MCG/1 ML VIAL IM SCH (11:22)
[2017-10-22] MEDS: TIOTROPIUM BROMIDE DPI 5 CAP/KIT (18 MCG/CAP) IH SCH (11:23)
[2017-10-22 13:05] VITALS: BP 120/67
--- NOTE | 2017-10-22 15:38 | PDOC PROGRESS REPORT ---
Subjective Progress Note for:: 10/20/17 Subjective:: stable Reason For Visit: C/T AIRWAY COMPROMISE Physical Exam Vital Signs: Temp Pulse Resp BP Pulse Ox 97.6 F 90 19 126/64 H 88 L 10/20/17 08:10 10/20/17 08:10 10/20/17 08:10 10/20/17 08:10 10/20/17 08:10 Intake & Output 10/19/17 10/20/17 10/21/17 06:59 06:59 06:59 Intake Total 1199 2087 Output Total 5310 2485 Balance -4111 -398 Weight 100.2 kg 101 kg General appearance: PRESENT: no acute distress, disheveled, well-developed. ABSENT: mild distress, severe distress Eye exam: PRESENT: conjunctiva pink, conjunctiva pale, EOMI. ABSENT: conjunctival injection, nystagmus, periorbital swelling Mouth exam: PRESENT: dry mucosa, neck supple, tongue midline Neck exam: PRESENT: tracheal deviation. ABSENT: carotid bruit, JVD, lymphadenopathy, thyromegaly, tracheostomy Respiratory exam: PRESENT: crackles, decreased breath sounds, prolonged expiratory phas, rhonchi, symmetrical, unlabored. ABSENT: accessory muscle use , chest wall tenderness, clear to auscultation nicola, rales, retraction, stridor, tachypnea Cardiovascular exam: PRESENT: RRR, +S1, +S2. ABSENT: rubs Pulses: PRESENT: normal radial pulses GI/Abdominal exam: PRESENT: normal bowel sounds, soft. ABSENT: distended, guarding, mass, organolmegaly, rebound, tenderness Extremities exam: ABSENT: calf tenderness, clubbing, joint swelling Musculoskeletal exam: PRESENT: deformity. ABSENT: dislocation Neurological exam: PRESENT: awake Skin exam: PRESENT: dry, warm Results Laboratory Results: 10/19/17 03:46 10/20/17 05:53 10/19/17 10/20/17 16:35 05:53 Sodium 140.5 140.5 Potassium 3.5 L 3.5 L Chloride 107 106 Carbon Dioxide 22 24 Anion Gap 12 11 BUN 24 H 23 H Creatinine 0.96 0.94 Est GFR ( Amer) > 60 > 60 Est GFR (Non-Af Amer) 59 L > 60 Glucose 92 92 Calcium 8.7 9.1 Magnesium 1.9 Impressions: Cervical Spine CT 10/10/17 01:56 IMPRESSION: No acute findings. Ankle X-Ray 10/10/17 01:58 IMPRESSION: NO RADIOGRAPHIC EVIDENCE OF ACUTE INJURY. Pelvis X-Ray 10/11/17 13:13 IMPRESSION: Left hip arthroplasty. Hip X-Ray 10/15/17 00:00 IMPRESSION: No acute findings. Left total hip arthroplasty. Head CT 10/16/17 00:00 IMPRESSION: NORMAL BRAIN CT WITHOUT CONTRAST. EVIDENCE OF ACUTE STROKE: NO. Abdomen/Pelvis CT 10/17/17 00:00 IMPRESSION: No acute findings in the abdomen or pelvis. No evidence of retroperitoneal hemorrhage. The balloon of the Schwab catheter is seen at the base of the urinary bladder/ proximal urethra. Repositioning recommended. Moderate amount of stool in the colon. There are trace bilateral pleural effusions and adjacent atelectasis in the bilateral lower lobes. Patchy ground-glass opacities at the bilateral lung bases, may represent pulmonary edema and /or pneumonia. Mild cardiomegaly. Postsurgical changes at the left hip. Lower Extremity CT 10/17/17 00:00 IMPRESSION: Small fluid collection deep to the skin alison over the left gluteal region for hip replacement. This likely is a small seroma or hematoma. No large deep left thigh hematoma is seen to explain history of large volume blood loss Chest X-Ray 10/19/17 06:00 IMPRESSION: Mild cardiomegaly and vascular congestion. Subsegmental atelectasis at the left perihilar region. Assessment & Plan - Diagnosis (1) Acute respiratory failure Qualifiers: Respiratory failure complication: hypoxia Qualified Code(s): J96.01 - Acute respiratory failure with hypoxia Is this a current diagnosis for this admission?: No (2) Alcohol withdrawal delirium Is this a current diagnosis for this admission?: Yes (3) Avascular necrosis of bone of left hip Is this a current diagnosis for this admission?: Yes Plan: as per orthopedic surgeon (4) COPD (chronic obstructive pulmonary disease) with acute bronchitis Is this a current diagnosis for this admission?: Yes Plan: Resume home medications i.e. Spiriva and Advair Generic Name Dose Route Start Last Admin Trade Name Freq PRN Reason Stop Dose Admin Tiotropium Riva 1 cap 10/15/17 12:00 10/17/17 12:39 Spiriva Handihaler 5 Cap/Kit (18 Mcg/Cap) IH 11/14/17 11:59 Not Given NOON BARBARA Albuterol 2.5 mg 10/16/17 10:14 Ventolin 0.083% Neb 2.5 Mg/3 Ml Ampul NEB 11/15/17 10:13 RTQ3HP PRN Albuterol/Ipratropium 3 ml 10/10/17 08:00 10/17/17 14:13 Duoneb 3 Ml Ampul NEB 11/09/17 07:59 3 ml RTQ6 BARBARA Fluticasone/Salmeterol 1 inh 10/15/17 22:00 10/17/17 10:11 Advair 500-50 Diskus 14 Dose/Diskus IH 11/14/17 21:59 Not Given Q12 BARBARA
--- NOTE | 2017-10-29 06:43 | PDOC DISCHARGE SUMMARY ---
General - Admit/Disc Date/PCP Admission Date/Primary Care Provider: 10/10/17 06:30 ALVARADO MORALEZ Discharge Date: 10/22/17 - Discharge Diagnosis (1) Hip fracture Is this a current diagnosis for this admission?: Yes (2) Avascular necrosis of bone of left hip Is this a current diagnosis for this admission?: Yes (3) Acute metabolic encephalopathy Is this a current diagnosis for this admission?: Yes (4) Acute respiratory failure Is this a current diagnosis for this admission?: Yes (5) Alcohol withdrawal delirium Is this a current diagnosis for this admission?: Yes (6) COPD (chronic obstructive pulmonary disease) with acute bronchitis Is this a current diagnosis for this admission?: Yes (7) Postoperative anemia due to acute blood loss Is this a current diagnosis for this admission?: Yes (8) Pulmonary edema Is this a current diagnosis for this admission?: Yes (9) Tobacco dependency Is this a current diagnosis for this admission?: Yes (10) Iron deficiency anemia secondary to blood loss (chronic) Is this a current diagnosis for this admission?: Yes (11) Nosocomial pneumonia Is this a current diagnosis for this admission?: Yes (12) Chronic alcohol abuse Is this a current diagnosis for this admission?: Yes (14) Opioid dependence Is this a current diagnosis for this admission?: Yes - Additional Information Resuscitation Status: Full Code Home Medications: Amitriptyline HCl [Elavil 25 mg Tablet] 25 mg PO QHS 10/10/17 Amlodipine Besylate [Norvasc 5 mg Tablet] 5 mg PO DAILY 10/10/17 Aspirin [Adult Low Dose Aspirin EC] 81 mg PO QPM 10/10/17 Fluoxetine HCl [Prozac] 40 mg PO DAILY 10/10/17 Gabapentin [Neurontin 300 mg Capsule] 300 mg PO Q12 10/10/17 Levothyroxine Sodium [Synthroid] 50 mcg PO DAILY 10/10/17 Lisinopril [Zestril] 20 mg PO BID 10/10/17 Pantoprazole Sodium [Protonix] 40 mg PO BID 10/10/17 Fluticasone/Salmeterol [Advair 500-50 Diskus 14 Dose/Diskus] 1 inh IH Q12 #60 inhaler 10/22/17 Oxycodone HCl/Acetaminophen [Percocet 5-325 mg Tablet] 1 tab PO Q4HP PRN #30 tablet 10/22/17 Thiamine HCl [Thiamine 100 mg Tablet] 100 mg PO DAILY@1200 #100 tablet 10/22/17 Tiotropium [place] [Spiriva Handihaler 5 Cap/Kit (18 Mcg/Cap)] 1 cap IH NOON # 60 kit 10/22/17 History of Present Illness History of Present Illness: RORO DAS is a 62 year old female with a history of morbid obesity, COPD, diabetes, chronic bronchitis, severe deconditioning, alcohol and Tobacco dependence. Presenting to the emergency room after alcohol indiscretion resulting in a fall and intractable pain to the the left hip. Patient denied loss of consciousness, limb shaking or incontinence. She appeard intoxicated, denied chest pain, palpitations nausea vomiting. In the emergency room she was found to have left-sided hip fracture and a concern for avascular necrosis per radiologist. Patient admited to severe deconditioning secondary to chronic left hip pain, she mobilizes with use of a wheeled walker. She admited to chronic nonproductive cough and sleeped lying flat. She denied baseline shortness of breath at rest. Hospital Course Hospital Course: Patient was admitted under the hospitalist service because of fracture of the left hip after falling and which was complicated due to avascular necrosis of left hip. After having preoperative evaluation she underwent ORIF on 10/11. On discharge patient will continue physical therapy at home. On initial presentation was having iron deficiency anemia and postoperatively she required blood transfusions secondary to blood loss after surgery. She developed pulmonary edema which required for patient to be intubated. The whole scenario was also complicated as patient developed alcohol withdrawal and nosocomial pneumonia. Respiratory status eventually improved and patient was successfully extubated and then transferred to medical floor. Patient is a chronic smoker and was treated for acute exacerbation of COPD. Patient has been strongly encouraged as to quit smoking and appears to be motivated. Alcohol abuse had been addressed very strongly as patient lives with her brother who is also alcoholic. Patient has been encouraged as to address this issue with her brother who is currently living with her since in the past was homeless. She has been reminded that as long as there is a family member engaging in alcohol her recuperation will be more difficult. Patient had been suffering from long-standing left hip pain which hopefully will improve since she had surgery of the left hip due to fracture and avascular necrosis. A short supply of opioid have been given to her but is my understanding that she is planning to go for pain management. Opiate dependence did not appear to be a problem during this hospitalization. Since patient had achieved maximum benefit of hospitalization stay prompted to discharge under stable condition. Physical Exam Vital Signs: Temp Pulse Resp BP Pulse Ox 98.6 F 72 16 113/65 96 10/22/17 05:12 10/22/17 05:12 10/22/17 05:12 10/22/17 05:12 10/22/17 05:12 Intake & Output 10/20/17 10/21/17 10/22/17 06:59 06:59 06:59 Intake Total 7 1865 191 Output Total 2485 3000 Balance -398 -1135 1912 Weight 101 kg 101.9 kg 100.1 kg General appearance: PRESENT: no acute distress, cooperative, morbidly obese Head exam: PRESENT: atraumatic, normocephalic Eye exam: PRESENT: EOMI, PERRLA Ear exam: PRESENT: normal external ear exam, TM's normal bilaterally Mouth exam: PRESENT: moist, neck supple Neck exam: PRESENT: full ROM. ABSENT: JVD, tenderness, thyromegaly Respiratory exam: PRESENT: clear to auscultation nicola Cardiovascular exam: PRESENT: RRR. ABSENT: diastolic murmur, systolic murmur Vascular exam: PRESENT: normal capillary refill GI/Abdominal exam: PRESENT: normal bowel sounds, soft. ABSENT: ascites, guarding, tenderness Extremities exam: ABSENT: joint swelling, pedal edema Musculoskeletal exam: PRESENT: full ROM Neurological exam: PRESENT: alert, oriented to person, oriented to place, oriented to time, CN II-XII grossly intact Psychiatric exam: PRESENT: appropriate affect, normal mood Skin exam: PRESENT: normal color Results Laboratory Results: 10/21/17 05:58 Sodium 139.5 Potassium 3.6 Chloride 103 Carbon Dioxide 25 Anion Gap 12 BUN 23 H Creatinine 1.06 Est GFR ( Amer) > 60 Est GFR (Non-Af Amer) 53 L Glucose 134 H Calcium 9.5 Magnesium 2.0 10/17/17 03:00 Tracheal Aspirate Gram Stain - Final 10/17/17 03:00 Tracheal Aspirate Sputum Culture - Final GREATLY REDUCED NORMAL SARAH Impressions: Cervical Spine CT 10/10/17 01:56 IMPRESSION: No acute findings. Ankle X-Ray 10/10/17 01:58 IMPRESSION: NO RADIOGRAPHIC EVIDENCE OF ACUTE INJURY. Pelvis X-Ray 10/11/17 13:13 IMPRESSION: Left hip arthroplasty. Hip X-Ray 10/15/17 00:00 IMPRESSION: No acute findings. Left total hip arthroplasty. Head CT 10/16/17 00:00 IMPRESSION: NORMAL BRAIN CT WITHOUT CONTRAST. EVIDENCE OF ACUTE STROKE: NO. Abdomen/Pelvis CT 10/17/17 00:00 IMPRESSION: No acute findings in the abdomen or pelvis. No evidence of retroperitoneal hemorrhage. The balloon of the Schwab catheter is seen at the base of the urinary bladder/ proximal urethra. Repositioning recommended. Moderate amount of stool in the colon. There are trace bilateral pleural effusions and adjacent atelectasis in the bilateral lower lobes. Patchy ground-glass opacities at the bilateral lung bases, may represent pulmonary edema and /or pneumonia. Mild cardiomegaly. Postsurgical changes at the left hip. Lower Extremity CT 10/17/17 00:00 IMPRESSION: Small fluid collection deep to the skin alison over the left gluteal region for hip replacement. This likely is a small seroma or hematoma. No large deep left thigh hematoma is seen to explain history of large volume blood loss Chest X-Ray 10/19/17 06:00 IMPRESSION: Mild cardiomegaly and vascular congestion. Subsegmental atelectasis at the left perihilar region. Plan Time Spent: Less than 30 Minutes
== END 2017-10-22 16:11 | disposition home or self-care (01) | DRG 469 ==
LOC: ER 01:36 → EH 06:30 → 3W 07:10 → ICU 10-12 16:55 → 3S 10-14 15:45 → ICU 10-17 01:43 → 3S 10-19 15:53
PROVIDERS: ADMIT Internal Medicine; ATTEND Internal Medicine
PROC: 0SRB02A Replacement of Left Hip Joint with Metal on Polyethylene Synthetic Substitute, Uncemented, Open Approach (ICD-10-PCS; principal; 2017-10-11 10:15)
PROC: 30233N1 Transfusion of Nonautologous Red Blood Cells into Peripheral Vein, Percutaneous Approach (ICD-10-PCS; 2017-10-12)
PROC: 5A1935Z Respiratory Ventilation, Less than 24 Consecutive Hours (ICD-10-PCS; 2017-10-17)
PROC: 0BH17EZ Insertion of Endotracheal Airway into Trachea, Via Natural or Artificial Opening (ICD-10-PCS; 2017-10-17)
PROC: 3E0234Z Introduction of Serum, Toxoid and Vaccine into Muscle, Percutaneous Approach (ICD-10-PCS; 2017-10-22)
DX: S72.002A Fracture of unspecified part of neck of left femur, initial encounter for closed fracture (principal); J18.9 Pneumonia, unspecified organism; J96.01 Acute respiratory failure with hypoxia; M87.252 Osteonecrosis due to previous trauma, left femur; D62 Acute posthemorrhagic anemia; F10.231 Alcohol dependence with withdrawal delirium; Y95 Nosocomial condition; I95.9 Hypotension, unspecified; D50.0 Iron deficiency anemia secondary to blood loss (chronic); J44.9 Chronic obstructive pulmonary disease, unspecified; J20.9 Acute bronchitis, unspecified; E78.5 Hyperlipidemia, unspecified; I10 Essential (primary) hypertension; I35.0 Nonrheumatic aortic (valve) stenosis; E11.9 Type 2 diabetes mellitus without complications; E03.9 Hypothyroidism, unspecified; K21.9 Gastro-esophageal reflux disease without esophagitis; G31.2 Degeneration of nervous system due to alcohol; Y90.8 Blood alcohol level of 240 mg/100 ml or more; F17.210 Nicotine dependence, cigarettes, uncomplicated; E66.01 Morbid (severe) obesity due to excess calories; W07.XXXA Fall from chair, initial encounter; Y93.9 Activity, unspecified; Y92.019 Unspecified place in single-family (private) house as the place of occurrence of the external cause; Z79.891 Long term (current) use of opiate analgesic; Z79.82 Long term (current) use of aspirin; Z79.51 Long term (current) use of inhaled steroids; Z79.899 Other long term (current) drug therapy; Z71.6 Tobacco abuse counseling; Z68.39 Body mass index [BMI] 39.0-39.9, adult; Z23 Encounter for immunization; Z86.718 Personal history of other venous thrombosis and embolism
CPT/HCPCS: 01214; 31500; 36415; 36430; 36600; 70450; 71010; 72125; 72170; 74177; 80048; 80053; 80069; 80202; 80307; 81001; 82550; 82553; 82565; 82607; 82728; 82746; 82803; 82962; 83540; 83550; 83605; 83735; 84478; 84484; 85025; 85027; 85045; 85610; 85652; 85730; 86140; 86850; 86900; 86901; 86920; 87040; 87070; 87205; 88304; 88311; 90686; 93005; 93010; 93306; 94002; 94003; 94640; 94660; 94667; 94668; 94799; 96374; 96375; 99285; C1713; C9290; G8978-GP; G8979-GP; J0330; J0690; J1100; J1200; J1644; J1741; J1940; J1956; J2060; J2250; J2270; J2405; J2543; J2704; J3010; J3360; J3370; J3420; J3480; J3490; J7030; J7040; J7060; J7120; J7620; L0120; P9016; S0119

== ENCOUNTER 2017-11-04 21:32 | Emergency (ER) | payer MEDICAID ==
[2017-11-04 22:27] LABS: ABSOLUTE BASOPHILS # (AUTO) 0.1 10^3/uL (0.0-0.2); ABSOLUTE LYMPHOCYTES (AUTO) 1.9 10^3/uL (0.5-4.7); ABSOLUTE MONOCYTES (AUTO) 0.6 10^3/uL (0.1-1.4); ABSOLUTE NEUT (AUTO) 4.1 10^3/uL (1.7-8.2); BASOPHILS % (AUTO) 1.3 % (0-2); EOSINOPHILS % (AUTO) 0.5 % (0-6); HEMATOCRIT 38.2 % (36.0-47.0); HEMOGLOBIN 12.9 g/dL (12.0-15.5); HGB HCT DIFFERENCE 0.5; LYMPHOCYTES % (AUTO) 28.1 % (13-45); MEAN CORPUSCULAR HEMOGLOBIN 30.2 pg (27.0-33.4); MEAN CORPUSCULAR HGB CONC 33.6 g/dL (32.0-36.0); MEAN CORPUSCULAR VOLUME 90 fl (80-97); RED BLOOD COUNT 4.25 10^6/uL (3.72-5.28); RED CELL DISTRIBUTION WIDTH 20.7 % (11.5-14.0); SEGMENTED NEUTROPHILS % (AUTO) 61.1 % (42-78); WHITE BLOOD COUNT 6.8 10^3/uL (4.0-10.5)
--- NOTE | 2017-11-04 22:28 | ER Document Report ---
ED Fall - General Chief Complaint: Fall Injury Stated Complaint: LEFT HIP PAIN Time Seen by Provider: 11/04/17 21:56 Mode of Arrival: Medic Information source: Patient Notes: 62-year-old female chronic alcoholic , copd, walked to the kitchen to get water with her walker turned around with a walker and a dog was in the way causing her to fall onto her left hip. Able to bear some weight but the pain is worse. She had left hip arthroplasty on 10-11-17 (she thought it was 12-5) due to avascular necrosis femoral head. She had recently drank 3 vodka drinks, about 5 shots. TRAVEL OUTSIDE OF THE [place] IN LAST 30 DAYS: No - Related data Allergies/Adverse Reactions: No Known Allergies Allergy (Verified 05/08/14 21:04) Past Medical History - General Information source: Patient - Social History Smoking Status: Current Every Day Smoker Chew tobacco use (# tins/day): No Frequency of alcohol use: Heavy Drug Abuse: None Lives with: Family - brother and room mate Family History: CAD Patient has suicidal ideation: No Patient has homicidal ideation: No - Past Medical History Cardiac Medical History: Reports: Hx DVT - 1995, Hx Hypercholesterolemia, Hx Hypertension Pulmonary Medical History: Reports: Hx Asthma, Hx Bronchitis, Hx COPD Endocrine Medical History: Reports: Hx Diabetes Mellitus Type 2 - Diet controlled, Hx Hypothyroidism Renal/ Medical History: Denies: Hx Peritoneal Dialysis GI Medical History: Reports: Hx Gastroesophageal Reflux Disease Musculoskeltal Medical History: Reports Hx Arthritis Psychiatric Medical History: Reports: Hx Depression Past Surgical History: Reports: Hx Section - x3, Hx Hysterectomy - Partial, Hx Orthopedic Surgery - L Foot, L Leg,, Hx Tonsillectomy - Immunizations Hx Diphtheria, Pertussis, Tetanus Vaccination: No Hx Pneumococcal Vaccination: 12/11/13 Review of Systems - Review of Systems Constitutional: No symptoms reported EENT: No symptoms reported Cardiovascular: No symptoms reported Respiratory: No symptoms reported Gastrointestinal: No symptoms reported Genitourinary: No symptoms reported Female Genitourinary: No symptoms reported Musculoskeletal: See HPI Skin: No symptoms reported Hematologic/Lymphatic: No symptoms reported Neurological/Psychological: No symptoms reported Physical Exam - Vital signs Vitals: Resp Pulse Ox 17 95 11/04/17 21:41 11/04/17 21:41 Interpretation: Tachycardic - pulse 104 - General General appearance: Appears well, Alert Notes: smells of ETOH - HEENT Head: Normocephalic, Atraumatic Eyes: Normal Conjunctiva: Normal Pupils: PERRL Neck: Supple. No: Lymphadenopathy - Respiratory Respiratory status: No respiratory distress Chest status: Nontender Breath sounds: Normal Chest palpation: Normal - Cardiovascular Rhythm: Regular Heart sounds: Normal auscultation Murmur: No - Abdominal Inspection: Normal Distension: No distension Bowel sounds: Normal Tenderness: Nontender. No: Tender Organomegaly: No organomegaly - Back Back: Normal, Nontender - Extremities General upper extremity: Normal inspection, Nontender, Normal color, Normal ROM , Normal temperature General lower extremity: Normal inspection, Nontender, Normal color, Normal ROM , Normal temperature, Normal weight bearing. No: Tamiko's sign Hip: Tender - mild tender over staple line Foot: Other - 2 + DP nicola Notes: able to bear weight and take few steps at the bediside at 0350. - Neurological Neuro grossly intact: Yes Cognition: Normal Orientation: AAOx4 Halie Coma Scale Eye Opening: Spontaneous Merom Coma Scale Verbal: Oriented Halie Coma Scale Motor: Obeys Commands Halie Coma Scale Total: 15 Speech: Normal Motor strength normal: LUE, RUE, LLE, RLE Sensory: Normal - Psychological Associated symptoms: Normal affect, Normal mood - Skin Skin Temperature: Warm Skin Moisture: Dry Skin Color: Normal Notes: inflamed left hip staple line with some old crusting. Course - Re-evaluation Re-evalutation: 11/04/17 23:45 Patient is asleep lab work indicates that she is dehydrated with a CO2 of 16 the alcohol is 298. I will give her 1 L of fluid. Urine culture added to urinalysis that showed 2+ bacteria it was a bedpan urine so it is probably not a clean-catch but I will treat with Keflex pending the urine culture. 11/05/17 00:40 Patient has a friend that can come get her. 11/05/17 03:11 Patient is drinking water we are unable to locate anyone to come pick her up. 11/05/17 03:40 Able to bear wait and take a few steps , got out of bed on her own, OK with dr. Montemayor to send her home via transport via stretcher. Pt is able to get into the house that is unlocked. The police have been to the house and have spoken with the brother who is there but does not have a haul driver's license. 11/05/17 04:20 trasport here to take her home to [facility]. Vitals stable. - Vital Signs Vital signs: Temp Pulse Resp BP Pulse Ox 98.3 F 97 15 154/86 H 99 11/05/17 04:18 11/04/17 22:04 11/05/17 04:12 11/05/17 04:13 11/05/17 04:10 - Laboratory Result Diagrams: 11/04/17 22:15 11/04/17 22:50 Laboratory results interpreted by me: 11/04/17 11/04/17 22:15 22:50 RDW 20.7 H Sodium 147.0 H Chloride 112 H Carbon Dioxide 18 L Glucose 111 H Total Bilirubin 0.1 L Discharge - Discharge Clinical Impression: ASB (asymptomatic bacteriuria), Chronic alcoholism, Dehydration Contusion, hip Qualifiers: Encounter type: initial encounter Laterality: left Qualified Code(s): S70.02XA - Contusion of left hip, initial encounter Condition: Good Disposition: HOME, SELF-CARE Instructions: Cephalexin ([facility]), Chronic Alcoholism ([facility]), Contusion ([facility]), Dehydration ([facility]), Urinary Tract Infection ([facility]) Additional Instructions: please be careful ambulating at home with your walker, use your walker!! see dr. palacios for follow up as planned, call monday morning to have your alison removed. drink more water daily urine culture is pending, take the antibiotic until it is gone Prescriptions: Cephalexin Monohydrate [Keflex 500 mg Capsule] 500 mg PO QID #28 capsule
--- NOTE | 2017-11-04 22:36 | RADIOLOGY REPORT (SQ) ---
EXAM DESCRIPTION: HIP LEFT AP/LATERAL COMPLETED DATE/TIME: 11/04/2017 10:26 pm REASON FOR STUDY: recent thr, fall COMPARISON: 10/10/2017 NUMBER OF VIEWS: Two views. TECHNIQUE: AP pelvis and additional frog-leg view of the left hip. LIMITATIONS: None. FINDINGS: MINERALIZATION: Normal. LEFT HIP: The patient is status post left total hip arthroplasty without evidence of hardware complic ation. RIGHT HIP: No fracture or dislocation. No worrisome bone lesions. PUBIS AND ISCHIUM: No fracture. PELVIS: No fracture. SACRUM: No fracture or dislocation. No worrisome bone lesions. LOWER LUMBAR SPINE: No fracture or dislocation. No worrisome bone lesions. Spondylotic changes are p resent. SOFT TISSUES: Skin alison overlie the left hip OTHER: No other significant finding. IMPRESSION: Status post left total hip arthroplasty without evidence of hardware complication or acu te osseous injury. TECHNICAL DOCUMENTATION: JOB ID: [id number] [employer]- All Rights Reserved
[2017-11-04 22:56] LABS: APPEARANCE,URINE CLEAR; BILIRUBIN,URINE NEGATIVE (NEGATIVE); GLUCOSE, URINE NEGATIVE (NEGATIVE); KETONES,URINE NEGATIVE (NEGATIVE); LEUKOCYTE ESTERASE,URINE NEGATIVE (NEGATIVE); NITRITE,URINE NEGATIVE (NEGATIVE); PROTEIN,URINE NEGATIVE (NEGATIVE); URINE SPECIFIC GRAVITY 1.009; UROBILINOGEN,URINE NEGATIVE mg/dL (<2.0)
[2017-11-04 23:17] LABS: ALANINE AMINOTRANSFERASE 32 U/L (9-52); ALBUMIN 3.7 g/dL (3.5-5.0); ALKALINE PHOSPHATASE 111 U/L (38-126); ANION GAP 17 (5-19); ASPARTATE AMINO TRANSFERASE 19 U/L (14-36); BILIRUBIN,DIRECT 0.1 mg/dL (0.0-0.4); BILIRUBIN,TOTAL 0.1 mg/dL (0.2-1.3); BLOOD UREA NITROGEN 14 mg/dL (7-20); CALCIUM 9.1 mg/dL (8.4-10.2); CARBON DIOXIDE 18 mmol/L (22-30); CHLORIDE 112 mmol/L (98-107); CREATININE RESULT 0.74 mg/dL (0.52-1.25); GLUCOSE 111 mg/dL (75-110); POTASSIUM 4.1 mmol/L (3.6-5.0); TOTAL PROTEIN 6.3 g/dL (6.3-8.2)
[2017-11-04 23:30] LABS: ALCOHOL 298 mg/dL (NONE DETECTED)
[2017-11-04] MEDS ORDERED: NORMAL SALINE 1000 ML 1,000 ML IV ONE (23:40)
[2017-11-04] MEDS ORDERED: CEPHALEXIN 500 MG CAPSULE PO ONE (23:45)
[2017-11-05 04:18] VITALS: BP 154/86
== END 2017-11-05 04:23 | disposition home or self-care (01) ==
LOC: ER 21:32
DX: S70.02XA Contusion of left hip, initial encounter (principal); W01.0XXA Fall on same level from slipping, tripping and stumbling without subsequent striking against object, initial encounter; Y93.89 Activity, other specified; Z96.642 Presence of left artificial hip joint; F10.20 Alcohol dependence, uncomplicated; Y90.8 Blood alcohol level of 240 mg/100 ml or more; E86.0 Dehydration; R82.71 Bacteriuria; R00.0 Tachycardia, unspecified; E11.9 Type 2 diabetes mellitus without complications; I10 Essential (primary) hypertension; J44.9 Chronic obstructive pulmonary disease, unspecified; F17.200 Nicotine dependence, unspecified, uncomplicated; Z86.718 Personal history of other venous thrombosis and embolism
CPT/HCPCS: 99285; 96360; 36415; 87086; 80307; 85025; 80053; 81001; 73502; J7030

== ENCOUNTER 2017-11-24 23:10 | Emergency (ER) | payer MEDICAID ==
--- NOTE | 2017-11-24 23:34 | ER Document Report ---
ED Medical Screen (RME) - General Chief Complaint: Hip Pain Stated Complaint: HIP PAIN Time Seen by Provider: 11/24/17 23:32 Mode of Arrival: Medic Information source: Patient Notes: 62 yo female alcoholic was drinking tonight, got dizzy and fell on the floor injuring her left hip. Her story is vague. Came in by EMS. c/o left hip and right parietal head pain. Denies neck pain. Lives with her brother who doesn't walk. She states she thought she was having another stroke- she laid on the floor for 20 minutes. TRAVEL OUTSIDE OF THE [place] IN LAST 30 DAYS: No - Related Data Allergies/Adverse Reactions: No Known Allergies Allergy (Verified 05/08/14 21:04) Past Medical History - Past Medical History Cardiac Medical History: Reports: Hx DVT - 1995, Hx Hypercholesterolemia, Hx Hypertension Denies: Hx Atrial Fibrillation, Hx Congestive Heart Failure, Hx Coronary Artery Disease, Hx Heart Attack, Hx Pulmonary Embolism Pulmonary Medical History: Reports: Hx Asthma, Hx Bronchitis, Hx COPD Denies: Hx Sleep Apnea Neurological Medical History: Denies: Hx Seizures Endocrine Medical History: Reports: Hx Diabetes Mellitus Type 2 - Diet controlled, Hx Hypothyroidism. Denies: Hx Diabetes Mellitus Type 1, Hx Hyperthyroidism Renal/ Medical History: Denies: Hx Peritoneal Dialysis GI Medical History: Reports: Hx Gastroesophageal Reflux Disease. Denies: Hx Cirrhosis, Hx Hepatitis Musculoskeltal Medical History: Reports Hx Arthritis Psychiatric Medical History: Reports: Hx Depression Infectious Medical History: Denies: Hx Hepatitis Past Surgical History: Reports: Hx Section - x3, Hx Hysterectomy - Partial, Hx Orthopedic Surgery - L Foot, L Leg,, Hx Tonsillectomy - Immunizations Hx Diphtheria, Pertussis, Tetanus Vaccination: No History of Influenza Vaccine for 08/2017 - 01/2018 Season: No
--- NOTE | 2017-11-25 00:37 | RADIOLOGY REPORT (SQ) ---
EXAM DESCRIPTION: CT HEAD WITHOUT CLINICAL HISTORY: 62 years Female, headache COMPARISON: 10.16.17 TECHNIQUE: No contrast. This exam was performed according to our departmental dose-optimization program, which includes automated exposure control, adjustment of the mA and/or kV according to patient size and/or use of iterative reconstruction technique. FINDINGS: Mild cerebral volume loss, and mild white matter microangiopathy. No hemorrhage or infarct. No mass, mass effect, or midline shift. Extra-axial structures appear otherwise grossly intact. IMPRESSION: No acute findings.
--- NOTE | 2017-11-25 00:39 | RADIOLOGY REPORT (SQ) ---
EXAM DESCRIPTION: CT CERVICAL SPINE WITHOUT CLINICAL HISTORY: 62 years Female, fall hit head COMPARISON: 10.10. TECHNIQUE: No contrast. Coronal and sagittal reformat. This exam was performed according to our departmental dose-optimization program, which includes automated exposure control, adjustment of the mA and/or kV according to patient size and/or use of iterative reconstruction technique. FINDINGS: Mild levo convexity. No fracture or subluxation. Minimal disc desiccation between the C2 and C4 levels. Atherosclerosis. Unenhanced nuchal soft tissues, inferior cranium, and upper thorax appear otherwise grossly intact. IMPRESSION: No acute findings.
--- NOTE | 2017-11-25 01:02 | RADIOLOGY REPORT (SQ) ---
EXAM DESCRIPTION: HIP LEFT AP/LATERAL CLINICAL HISTORY: 62 years, Female, left hip pain after fall COMPARISON: 10.16.17 TECHNIQUE: Three views FINDINGS: Left total hip arthroplasty with no evidence of metal fracture or loosening. Atherosclerosis. IMPRESSION: No acute findings. 2011 [facility] [employer]- All Rights Reserved
[2017-11-25] MEDS ORDERED: OXYCODONE-ACETAMINOPHEN 5-325 MG TABLET PO ONE (01:06)
[2017-11-25] MEDS ORDERED: LIDOCAINE 5% (700 MG) TRANSDERMAL ADH..PATCH TP ONE (01:06)
--- NOTE | 2017-11-25 01:13 | ER Document Report ---
ED General - General Chief Complaint: Hip Pain Stated Complaint: HIP PAIN Time Seen by Provider: 11/24/17 23:32 Mode of Arrival: Medic Notes: Patient is a 62-year-old female with a past medical history of alcohol and tobacco dependency, recent left hip arthroplasty who presents after a slip and fall. Patient admits to heavy alcohol use today. She states that she slipped on a pool of her dogs drool landing directly onto her left hip and hitting the back of her head. She states that since that time she has been unable to walk secondary to pain. She describes it as a severe, constant, throbbing pain to her left hip. Movement worsens that pain. Nothing improves the pain. She denies any additional areas of pain other than to the back of her head which she also describes as a dull, aching pain. She does arrive by EMS. She denies any use of anticoagulation. Patient admits to heavy alcohol use tonight. TRAVEL OUTSIDE OF THE [place] IN LAST 30 DAYS: No - Related Data Allergies/Adverse Reactions: No Known Allergies Allergy (Verified 05/08/14 21:04) Past Medical History - General Information source: Patient - Social History Smoking Status: Current Every Day Smoker Chew tobacco use (# tins/day): No Frequency of alcohol use: Heavy Drug Abuse: None Family History: CAD Patient has suicidal ideation: No Patient has homicidal ideation: No - Past Medical History Cardiac Medical History: Reports: Hx DVT - 1995, Hx Hypercholesterolemia, Hx Hypertension Denies: Hx Atrial Fibrillation, Hx Congestive Heart Failure, Hx Coronary Artery Disease, Hx Heart Attack, Hx Pulmonary Embolism Pulmonary Medical History: Reports: Hx Asthma, Hx Bronchitis, Hx COPD Denies: Hx Sleep Apnea Neurological Medical History: Denies: Hx Seizures Endocrine Medical History: Reports: Hx Diabetes Mellitus Type 2 - Diet controlled, Hx Hypothyroidism. Denies: Hx Diabetes Mellitus Type 1, Hx Hyperthyroidism Renal/ Medical History: Denies: Hx Peritoneal Dialysis GI Medical History: Reports: Hx Gastroesophageal Reflux Disease. Denies: Hx Cirrhosis, Hx Hepatitis Musculoskeltal Medical History: Reports Hx Arthritis Psychiatric Medical History: Reports: Hx Depression Infectious Medical History: Denies: Hx Hepatitis Past Surgical History: Reports: Hx Section - x3, Hx Hysterectomy - Partial, Hx Orthopedic Surgery - L Foot, L Leg,, Hx Tonsillectomy - Immunizations Hx Diphtheria, Pertussis, Tetanus Vaccination: No Hx Pneumococcal Vaccination: 12/11/13 Review of Systems - Review of Systems Notes: Constitutional: Negative for fever. Eyes: Negative for visual changes. ENT: Negative for facial injury Cardiovascular: Negative for chest injury. Respiratory: Negative for shortness of breath. Gastrointestinal: Negative for abdominal injury. Genitourinary: Negative for genital injury Musculoskeletal: Positive for left hip injury Skin: Negative for laceration/abrasions. Neurological: Negative for head injury. Physical Exam - Vital signs Vitals: Temp Pulse Resp BP Pulse Ox 98.0 F 115 H 22 H 130/91 H 95 11/24/17 23:22 11/24/17 23:22 11/24/17 23:22 11/24/17 23:22 11/24/17 23:22 Interpretation: Tachycardic Notes: PHYSICAL EXAMINATION: GENERAL: Mildly intoxicated. No acute distress. HEAD: Atraumatic, normocephalic. EYES: Pupils equal round and reactive to light, extraocular movements intact, sclera anicteric, conjunctiva are normal. ENT: nares patent, no oral pharyngeal trauma. No hemotympanum, no Bella's sign , no raccoon eyes. NECK: No midline cervical spine tenderness. Patient able to move their head to 45 bilaterally without any discomfort. LUNGS: Breath sounds clear to auscultation bilaterally and equal. No wheezes rales or rhonchi. HEART: Regular rate and rhythm without murmurs. CHEST WALL: No ecchymosis over the chest wall. ABDOMEN: Soft, nontender, normoactive bowel sounds. No guarding, no rebound. No abdominal bruising EXTREMITIES: Patient is unable to perform range of motion of the left hip. There is an obvious large hematoma to the lateral aspect of the left hip over the surgical incisional site. No leg shortening. No other extremity findings. BACK: No midline spinal tenderness, step-offs, or deformities. NEUROLOGICAL: Moves all extremities spontaneously and on command. PSYCH: Moderately intoxicated SKIN: Warm, Dry, normal turgor, no rashes or lesions noted. Course - Re-evaluation Re-evalutation: 11/25/17 01:13 Patient presents after being intoxicated, slipping and falling onto her left hip hitting her head and neck. CT the head and neck are both unremarkable without any evidence of acute fracture. Left hip x-ray does not show any acute fracture or hardware displacement. However patient does have a large hematoma to the surgical site on the left hip. She is unable to bear weight despite pain control. I have consulted with the orthopedic surgeon on-call, , reguarding management and he has recommended a CT of the hip to further evaluate despite there being a prosthetic device in the location. If patient continues to be unable to ambulate, he has recommended hospitalization for pain control under the hospitalist service 11/25/17 02:54 Patient has been able to bear weight and after discussion with the hospitalist Dr. Davis she has elected to be discharged home rather than be hospitalized. CT does show hematoma without any evidence of acute fracture or hardware injury. At this time will discharge with return precautions and follow-up recommendations. Verbal discharge instructions given a the bedside and opportunity for questions given. Medication warnings reviewed. Patient is in agreement with this plan and has verbalized understanding of return precautions and the need for primary care follow-up in the next 24-72 hours. - Vital Signs Vital signs: Temp Pulse Resp BP Pulse Ox 98.0 F 115 H 22 H 130/91 H 95 11/24/17 23:22 11/24/17 23:22 11/24/17 23:22 11/24/17 23:22 11/24/17 23:22 - Laboratory Result Diagrams: 11/25/17 02:03 11/25/17 02:03 Laboratory results interpreted by me: 11/25/17 02:03 RDW 21.2 H - Diagnostic Test Radiology reviewed: Image reviewed, Reports reviewed Radiology results interpreted by me: 11/25/17 02:55 Left hip x-ray: Hardware is in place. CT head: No acute intercranial bleed - EKG Interpretation by Me Additional EKG results interpreted by me: 11/25/17 02:59 Sinus tachycardia. Rate 100. No ST elevations or depressions. QTC is 491. Discharge - Discharge Clinical Impression: Left hip pain Alcohol intoxication Qualifiers: Complication of substance-induced condition: uncomplicated Qualified Code(s): F10.920 - Alcohol use, unspecified with intoxication, uncomplicated Fall Qualifiers: Encounter type: initial encounter Qualified Code(s): W19.XXXA - Unspecified fall, initial encounter Condition: Fair Disposition: HOME, SELF-CARE Additional Instructions: Your x-rays and CT scans do not show any acute injuries other than a large bruise to her left hip where you fell. Please follow-up very closely with your orthopedic surgeon regarding today's episode. Please also very strongly consider following up for alcohol counseling as you have had multiple visits involving falls related to alcohol use. You could have had much more severe injuries today including injuries that could have resulted in additional surgeries for your hip. For your pain: Take ibuprofen 600 mg and acetaminophen 1000 mg every 6 hours together as needed for pain. If this does not control your pain you may take 15 mg of oral morphine every 4 hours as needed. Please be very careful about using the oral morphine and only use this for severe pain. Prescriptions: RX: Morphine Sulfate [Morphine Ir 15 mg Tablet] 15 mg PO Q4HP PRN #12 tablet PRN Reason: Referrals: BRITTNEY HERBERT PA [Primary Care Provider] - Follow up as needed HEATHER IGLESIAS MD [ACTIVE STAFF] - Follow up as needed
[2017-11-25] MEDS ORDERED: NORMAL SALINE 1000 ML 500 ML IV ONE (01:14)
[2017-11-25 02:09] LABS: ABSOLUTE MONOCYTES (AUTO) 0.7 10^3/uL (0.1-1.4); BASOPHILS % (AUTO) 0.7 % (0-2); EOSINOPHILS % (AUTO) 0.1 % (0-6); HEMATOCRIT 39.3 % (36.0-47.0); HEMOGLOBIN 13.2 g/dL (12.0-15.5); LYMPHOCYTES % (AUTO) 17.4 % (13-45); MEAN CORPUSCULAR HEMOGLOBIN 30.7 pg (27.0-33.4); MEAN CORPUSCULAR HGB CONC 33.5 g/dL (32.0-36.0); MEAN CORPUSCULAR VOLUME 92 fl (80-97); MONOCYTES % (AUTO) 11.9 % (3-13); PLATELET COUNT 166 10^3/uL (150-450); RED BLOOD COUNT 4.28 10^6/uL (3.72-5.28); RED CELL DISTRIBUTION WIDTH 21.2 % (11.5-14.0); SEGMENTED NEUTROPHILS % (AUTO) 69.9 % (42-78); TOTAL CELLS COUNTED % (AUTO) 100 %; WHITE BLOOD COUNT 5.7 10^3/uL (4.0-10.5)
[2017-11-25 02:22] LABS: ALCOHOL 270 mg/dL (NONE DETECTED); BLOOD UREA NITROGEN 11 mg/dL (7-20); CALCIUM 9.2 mg/dL (8.4-10.2); GLUCOSE 101 mg/dL (75-110); POTASSIUM 3.9 mmol/L (3.6-5.0)
[2017-11-25 02:30] LABS: ANION GAP 19 (5-19); CARBON DIOXIDE 22 mmol/L (22-30); CHLORIDE 98 mmol/L (98-107); SODIUM 138.9 mmol/L (137-145)
--- NOTE | 2017-11-25 02:36 | RADIOLOGY REPORT (SQ) ---
EXAM DESCRIPTION: CT LT LOWER EXTREMITY WITHOUT CLINICAL HISTORY: 62 years Female, left hip, eval fx, patient cant ambulate COMPARISON: None. TECHNIQUE: No contrast. Coronal and sagittal reformat. This exam was performed according to our departmental dose-optimization program, which includes automated exposure control, adjustment of the mA and/or kV according to patient size and/or use of iterative reconstruction technique. FINDINGS: 13 x 6 x 9 cm complex low attenuation heterogeneous collection of the lateral left thigh lateral to the left greater trochanter with encapsulation and adjacent fat stranding may indicate an abscess, hematoma, or other neoplasm. The collection may involve the left greater trochanteric bursa. Left total hip arthroplasty, no evidence of bony fracture, no evidence of metal fracture or loosening, and no significant joint fluid. Atherosclerosis. 0.3 cm L5 degenerative retrolisthesis, small L5-S1 vacuum desiccated disc bulge, mild bilateral L5 foraminal stenoses. IMPRESSION: 13 cm low attenuation heterogeneous collection of the lateral left thigh may indicate an abscess, hematoma, or other neoplasm.
[2017-11-25 04:04] VITALS: BP 143/90
--- NOTE | 2017-11-25 11:39 | EKG REPORT ---
SEVERITY:- ABNORMAL ECG - SINUS TACHYCARDIA NONSPECIFIC T ABNORMALITIES, LATERAL LEADS BORDERLINE PROLONGED QT INTERVAL : Confirmed by: Paris Klein 25-Nov-2017 11:38:28
== END 2017-11-25 03:45 | disposition home or self-care (01) ==
LOC: ER 23:10
DX: M25.552 Pain in left hip (principal); F17.200 Nicotine dependence, unspecified, uncomplicated; F10.920 Alcohol use, unspecified with intoxication, uncomplicated; W01.10XA Fall on same level from slipping, tripping and stumbling with subsequent striking against unspecified object, initial encounter; Y92.009 Unspecified place in unspecified non-institutional (private) residence as the place of occurrence of the external cause; Z98.890 Other specified postprocedural states; Z86.718 Personal history of other venous thrombosis and embolism; E78.00 Pure hypercholesterolemia, unspecified; I10 Essential (primary) hypertension; J44.9 Chronic obstructive pulmonary disease, unspecified; E11.9 Type 2 diabetes mellitus without complications; E03.9 Hypothyroidism, unspecified; Z90.710 Acquired absence of both cervix and uterus
CPT/HCPCS: 93005; 99284; 96360; 36415; 80307; 85025; 80048; 73502; 70450; 72125; 73700; 93010; J3490; J7030

== ENCOUNTER 2017-11-25 07:36 | Emergency (ER) | payer MEDICAID ==
[2017-11-25] MEDS ORDERED: IBUPROFEN 800 MG TABLET PO ONE (08:28)
--- NOTE | 2017-11-25 08:29 | ER Document Report ---
ED Hip Pain/Injury - General Chief Complaint: Hip Pain Stated Complaint: HIP PAIN Time Seen by Provider: 11/25/17 08:25 Mode of Arrival: Ambulatory Information source: Patient Notes: Pt is a 62 year old female who presents to the ER today for left hip pain that she was seen for and evaluated here last night. She never went home and checks back in today to "get some motrin or tylenol or something." She's sat in our waiting room all night waiting for her brother to come pick her up. She was diagnosed with a hematoma of the hip last night here but no fracture or acute abnormality otherwise. TRAVEL OUTSIDE OF THE [place] IN LAST 30 DAYS: No - Related Data Allergies/Adverse Reactions: No Known Allergies Allergy (Verified 11/25/17 07:38) Past Medical History - General Information source: Patient - Social History Smoking Status: Unknown if Ever Smoked Family History: CAD - Past Medical History Cardiac Medical History: Reports: Hx DVT - 1995, Hx Hypercholesterolemia, Hx Hypertension Denies: Hx Atrial Fibrillation, Hx Congestive Heart Failure, Hx Coronary Artery Disease, Hx Heart Attack, Hx Pulmonary Embolism Pulmonary Medical History: Reports: Hx Asthma, Hx Bronchitis, Hx COPD Denies: Hx Sleep Apnea Neurological Medical History: Denies: Hx Seizures Endocrine Medical History: Reports: Hx Diabetes Mellitus Type 2 - Diet controlled, Hx Hypothyroidism. Denies: Hx Diabetes Mellitus Type 1, Hx Hyperthyroidism Renal/ Medical History: Denies: Hx Peritoneal Dialysis GI Medical History: Reports: Hx Gastroesophageal Reflux Disease. Denies: Hx Cirrhosis, Hx Hepatitis Musculoskeltal Medical History: Reports Hx Arthritis Psychiatric Medical History: Reports: Hx Depression Infectious Medical History: Denies: Hx Hepatitis Past Surgical History: Reports: Hx Section - x3, Hx Hysterectomy - Partial, Hx Orthopedic Surgery - L Foot, L Leg,, Hx Tonsillectomy - Immunizations Hx Diphtheria, Pertussis, Tetanus Vaccination: No Hx Pneumococcal Vaccination: 12/11/13 Review of Systems - Review of Systems Constitutional: No symptoms reported EENT: No symptoms reported Cardiovascular: No symptoms reported Respiratory: No symptoms reported Gastrointestinal: No symptoms reported Genitourinary: No symptoms reported Female Genitourinary: No symptoms reported Musculoskeletal: See HPI Skin: No symptoms reported Hematologic/Lymphatic: No symptoms reported Neurological/Psychological: No symptoms reported Physical Exam - Vital signs Vitals: Temp Pulse Resp BP Pulse Ox 98.2 F 102 H 16 168/106 H 98 01/06/18 07:45 11/25/17 07:45 11/25/17 07:45 11/25/17 07:45 11/25/17 07:45 - Notes Notes: PHYSICAL EXAMINATION: GENERAL: chronically ill appearing, but in no acute distress. HEAD: Atraumatic, normocephalic. EYES: Pupils equal round and reactive to light, extraocular movements intact, sclera anicteric, conjunctiva are normal. NECK: Normal range of motion, supple without lymphadenopathy LUNGS: CTAB and equal. No wheezes rales or rhonchi. HEART: Regular rate and rhythm without murmurs EXTREMITIES: tender to left lateral hip, large hematoma present limited range of motion at the hip due to pain, good sensation distally, good distal pulses, no pitting edema. No cyanosis. NEUROLOGICAL: Cranial nerves grossly intact. Normal sensory/motor exams. PSYCH: Normal mood, normal affect. SKIN: Warm, Dry, normal turgor,see extremities above Course - Re-evaluation Re-evalutation: 11/25/17 09:10 I will not reimage the hip as it had x ray and CT last night. I did advise patient to stop drinking as her alcohol level last night was 270 and she is a chronic alcoholic. She has been seen here multiple times for alcoholism, acute intoxication and falls. She states that she is still waiting on her brother to come pick her up which should be sometime this morning. At this time she is discharged, I did give her some Motrin. - Vital Signs Vital signs: Temp Pulse Resp BP Pulse Ox 98.2 F 102 H 16 168/106 H 98 11/25/17 07:45 11/25/17 07:45 11/25/17 07:45 11/25/17 07:45 11/25/17 07:45 Discharge - Discharge Clinical Impression: Left hip pain, Chronic alcohol abuse Condition: Stable Disposition: HOME, SELF-CARE Additional Instructions: Return immediately for any new or worsening symptoms. Follow up with primary care provider, call tomorrow to make followup appointment.
[2017-11-25 09:31] VITALS: BP 159/96
== END 2017-11-25 09:05 | disposition home or self-care (01) ==
LOC: ER 07:36
DX: M25.552 Pain in left hip (principal); S70.02XA Contusion of left hip, initial encounter; W19.XXXA Unspecified fall, initial encounter; F10.20 Alcohol dependence, uncomplicated; I10 Essential (primary) hypertension; J44.9 Chronic obstructive pulmonary disease, unspecified; E11.9 Type 2 diabetes mellitus without complications; Z86.718 Personal history of other venous thrombosis and embolism
CPT/HCPCS: 99283; J3490

== ENCOUNTER 2018-02-18 17:57 | Emergency (ER) | payer MEDICAID ==
--- NOTE | 2018-02-18 19:25 | RADIOLOGY REPORT (SQ) ---
EXAM DESCRIPTION: HIP LEFT AP/LATERAL COMPLETED DATE/TIME: 02/18/2018 7:17 pm REASON FOR STUDY: Fall COMPARISON: 11/25/2017. NUMBER OF VIEWS: Two views. TECHNIQUE: AP pelvis and additional frog-leg view of the left hip. LIMITATIONS: None. FINDINGS: MINERALIZATION: Normal. LEFT HIP: Stable prosthesis. RIGHT HIP: No fracture or dislocation. No worrisome bone lesions. PUBIS AND ISCHIUM: No fracture. PELVIS: No fracture. SACRUM: No fracture or dislocation. No worrisome bone lesions. LOWER LUMBAR SPINE: No fracture or dislocation. No worrisome bone lesions. Degenerative disc disease . SOFT TISSUES: No findings. OTHER: No other significant finding. IMPRESSION: Stable left hip prosthesis. No acute findings. TECHNICAL DOCUMENTATION: JOB ID: [id number] All Rights Reserved Reading location - IP/workstation name: [email or web address]
--- NOTE | 2018-02-18 19:33 | RADIOLOGY REPORT (SQ) ---
EXAM DESCRIPTION: CT HEAD WITHOUT COMPLETED DATE/TIME: 02/18/2018 7:22 pm REASON FOR STUDY: Fall COMPARISON: 11/25/2017. TECHNIQUE: Axial images acquired through the brain without intravenous contrast. Images reviewed wi th bone, brain and subdural windows. Additional sagittal and coronal reconstructions were generated. Images stored on PACS. All CT scanners at this facility use dose modulation, iterative reconstruction, and/or weight based d osing when appropriate to reduce radiation dose to as low as reasonably achievable (ALARA). [facility]: Dose Right [facility]: CareDose [facility]: Dose Right [facility]: Teradose 4D [facility]: [employer] RADIATION DOSE: CT Rad equipment meets quality standard of care and radiation dose reduction techniq ues were employed. CTDIvol: 53.2 mGy. DLP: 1044 mGy-cm. mGy. LIMITATIONS: None. FINDINGS: VENTRICLES: Normal size and contour. CEREBRUM: No masses. No hemorrhage. No midline shift. No evidence for acute infarction. Normal gra y/white matter differentiation. No areas of low density in the white matter. CEREBELLUM: No masses. No hemorrhage. No alteration of density. No evidence for acute infarction. EXTRAAXIAL SPACES: No fluid collections. No masses. ORBITS AND GLOBE: No intra- or extraconal masses. Normal contour of globe without masses. CALVARIUM: No fracture. PARANASAL SINUSES: No fluid or mucosal thickening. SOFT TISSUES: No mass or hematoma. OTHER: No other significant finding. IMPRESSION: NORMAL BRAIN CT WITHOUT CONTRAST. EVIDENCE OF ACUTE STROKE: NO. COMMENT: Quality ID # [id number]: Final reports with documentation of one or more dose reduction techniques (e.g., Automated exposure control, adjustment of the mA and/or kV according to patient size, use of iterative reconstruction technique) TECHNICAL DOCUMENTATION: JOB ID: [id number] [employer]- All Rights Reserved Reading location - IP/workstation name: [email or web address]
--- NOTE | 2018-02-18 19:35 | ER Document Report ---
ED General - General Chief Complaint: ETOH Abuse Stated Complaint: FALL LEFT HIP PAIN Time Seen by Provider: 02/18/18 18:16 Mode of Arrival: Medic Information source: Patient, Emergency Med Personnel Notes: This is a 62-year-old female with a history of alcohol abuse and a left hip ORIF who presents to the emergency room with left hip pain after fall at home. Patient states she tripped while walking. She states she did hit her head, she denies loss of consciousness. Patient does have alcohol on her breath. TRAVEL OUTSIDE OF THE [place] IN LAST 30 DAYS: No - HPI Onset: Just prior to arrival Onset/Duration: Sudden Quality of pain: Dull Severity: Moderate Pain Level: 2 Associated symptoms: denies: Chest pain, Fever, Shortness of breath Exacerbated by: Movement Relieved by: Remaining still Similar symptoms previously: Yes Recently seen / treated by doctor: No - Related Data Allergies/Adverse Reactions: No Known Allergies Allergy (Verified 11/25/17 07:38) Past Medical History - General Information source: Patient - Social History Smoking Status: Never Smoker Cigarette use (# per day): No Chew tobacco use (# tins/day): No Frequency of alcohol use: Heavy Drug Abuse: None Lives with: Family Family History: CAD Patient has suicidal ideation: No Patient has homicidal ideation: No - Past Medical History Cardiac Medical History: Reports: Hx DVT - 1995, Hx Hypercholesterolemia, Hx Hypertension Denies: Hx Atrial Fibrillation, Hx Congestive Heart Failure, Hx Coronary Artery Disease, Hx Heart Attack, Hx Pulmonary Embolism Pulmonary Medical History: Reports: Hx Asthma, Hx Bronchitis, Hx COPD Denies: Hx Sleep Apnea Neurological Medical History: Denies: Hx Seizures Endocrine Medical History: Reports: Hx Diabetes Mellitus Type 2 - Diet controlled, Hx Hypothyroidism. Denies: Hx Diabetes Mellitus Type 1, Hx Hyperthyroidism Renal/ Medical History: Denies: Hx Peritoneal Dialysis GI Medical History: Reports: Hx Gastroesophageal Reflux Disease. Denies: Hx Cirrhosis, Hx Hepatitis Musculoskeltal Medical History: Reports Hx Arthritis Psychiatric Medical History: Reports: Hx Depression Infectious Medical History: Denies: Hx Hepatitis Past Surgical History: Reports: Hx Section - x3, Hx Hysterectomy, Hx Orthopedic Surgery - L Foot, L Leg,, Hx Tonsillectomy - Immunizations Hx Diphtheria, Pertussis, Tetanus Vaccination: No Hx Pneumococcal Vaccination: 12/11/13 Review of Systems - Review of Systems Constitutional: denies: Chills, Fever EENT: No symptoms reported Cardiovascular: No symptoms reported Respiratory: No symptoms reported Gastrointestinal: No symptoms reported Genitourinary: No symptoms reported Female Genitourinary: No symptoms reported Musculoskeletal: See HPI Skin: No symptoms reported Hematologic/Lymphatic: No symptoms reported Neurological/Psychological: No symptoms reported Physical Exam - Vital signs Vitals: Temp Pulse Resp BP Pulse Ox 97.9 F 110 H 18 116/71 100 02/18/18 18:14 02/18/18 18:14 02/18/18 18:14 02/18/18 18:14 02/18/18 18:14 Notes: Physical exam: GENERAL: 62-year-old female, she is alert, alcohol on breath HEAD: Atraumatic, normocephalic. EYES: Pupils equal round and reactive to light, extraocular movements intact, sclera anicteric, conjunctiva are normal. ENT: TMs normal, nares patent, oropharynx clear without exudates. Moist mucous membranes. NECK: Normal range of motion, supple without obvious mass or JVD. LUNGS: Breath sounds clear to auscultation bilaterally and equal. No wheezes rales or rhonchi. HEART: Regular rate and rhythm without murmurs, rubs or gallops. ABDOMEN: Soft, normoactive bowel sounds. No tenderness to palpation. No guarding, no rebound. No masses appreciated. EXTREMITIES: Normal range of motion, no pitting or edema. No clubbing or cyanosis. NEUROLOGICAL: Cranial nerves II through XII grossly intact. Normal speech, moving all extremities. PSYCH: Normal mood, normal affect. SKIN: Warm, Dry, normal turgor, no rashes or lesions noted. Course - Re-evaluation Re-evalutation: 02/18/18 23:02 Patient has been ambulating around the ER without difficulty. - Vital Signs Vital signs: Temp Pulse Resp BP Pulse Ox 98.6 F 88 16 136/89 H 97 02/18/18 23:52 02/18/18 23:52 02/18/18 23:52 02/18/18 23:52 02/18/18 23:52 - Diagnostic Test Radiology reviewed: Image reviewed, Reports reviewed - T of the head shows no acute process. X-ray of the hip shows a stable prosthesis. Discharge - Discharge Clinical Impression: Contusion head status post fall, Contusion left hip status post fall Condition: Stable Disposition: HOME, SELF-CARE Additional Instructions: As we discussed, the x-rays of the hip look good: The prosthesis is stable and intact. Recommendations: Continue current medicines. Tylenol for pain Follow-up with your primary care doctor this week. Return to the emergency room for worsening pain or concerns or getting worse.
[2018-02-18 23:53] VITALS: BP 136/89
== END 2018-02-18 23:52 | disposition home or self-care (01) ==
LOC: ER 17:57
DX: S70.02XA Contusion of left hip, initial encounter (principal); S00.93XA Contusion of unspecified part of head, initial encounter; Y92.009 Unspecified place in unspecified non-institutional (private) residence as the place of occurrence of the external cause; W01.0XXA Fall on same level from slipping, tripping and stumbling without subsequent striking against object, initial encounter; E78.00 Pure hypercholesterolemia, unspecified; I10 Essential (primary) hypertension; E11.9 Type 2 diabetes mellitus without complications; Z86.718 Personal history of other venous thrombosis and embolism; Z90.710 Acquired absence of both cervix and uterus
CPT/HCPCS: 70450; 99284

== ENCOUNTER 2018-03-07 12:28 | Emergency (ER) | payer MEDICAID ==
[2018-03-07] MEDS ORDERED: ASPIRIN 81 MG TABLET, CHEWABLE PO ONE (12:31)
[2018-03-07 12:50] LABS: ABSOLUTE LYMPHOCYTES (AUTO) 1.6 10^3/uL (0.5-4.7); ABSOLUTE MONOCYTES (AUTO) 0.3 10^3/uL (0.1-1.4); ABSOLUTE NEUT (AUTO) 2.1 10^3/uL (1.7-8.2); BASOPHILS % (AUTO) 0.6 % (0-2); EOSINOPHILS % (AUTO) 0.6 % (0-6); HEMATOCRIT 37.5 % (36.0-47.0); HEMOGLOBIN 12.1 g/dL (12.0-15.5); LYMPHOCYTES % (AUTO) 40.3 % (13-45); MEAN CORPUSCULAR HEMOGLOBIN 32.7 pg (27.0-33.4); MEAN CORPUSCULAR HGB CONC 32.4 g/dL (32.0-36.0); MEAN CORPUSCULAR VOLUME 101 fl (80-97); MONOCYTES % (AUTO) 8.1 % (3-13); PLATELET COUNT 142 10^3/uL (150-450); RED BLOOD COUNT 3.71 10^6/uL (3.72-5.28); RED CELL DISTRIBUTION WIDTH 17.4 % (11.5-14.0); SEGMENTED NEUTROPHILS % (AUTO) 50.4 % (42-78); TOTAL CELLS COUNTED % (AUTO) 100 %; WHITE BLOOD COUNT 4.1 10^3/uL (4.0-10.5)
--- NOTE | 2018-03-07 13:02 | RADIOLOGY REPORT (SQ) ---
EXAM DESCRIPTION: CHEST SINGLE VIEW COMPLETED DATE/TIME: 03/07/2018 12:49 pm REASON FOR STUDY: cp COMPARISON: September 2017 EXAM PARAMETERS: NUMBER OF VIEWS: One view. TECHNIQUE: Single frontal radiographic view of the chest acquired. RADIATION DOSE: NA LIMITATIONS: None. FINDINGS: LUNGS AND PLEURA: No opacities, masses or pneumothorax. No pleural effusion. MEDIASTINUM AND HILAR STRUCTURES: No masses. Contour normal. HEART AND VASCULAR STRUCTURES: Heart normal in size. Normal vasculature. BONES: No acute findings. HARDWARE: None in the chest. OTHER: No other significant finding. IMPRESSION: NO ACUTE RADIOGRAPHIC FINDING IN THE CHEST. TECHNICAL DOCUMENTATION: JOB ID: [id number] [employer]- All Rights Reserved Reading location - IP/workstation name: [email or web address]
--- NOTE | 2018-03-07 13:04 | ER Document Report ---
ED Fall - General Chief Complaint: Chest Pain Stated Complaint: CHEST PAIN Time Seen by Provider: 03/07/18 12:34 Mode of Arrival: Medic Information source: Patient Notes: Patient presents with EMS after her brother called after she fell from a chair onto her right side. Patient reported left hip pain initially to EMS. On patient's arrival to emergency department patient now is reporting that she is having chest pain with coughing. Patient states she has had nausea and vomiting 10 episodes today. Patient denies any fever or diarrhea. Patient states that at home she was attempted to go to the bathroom and slid out of her chair. Patient denies any head injury or loss of consciousness. Patient does smell of alcohol. TRAVEL OUTSIDE OF THE [place] IN LAST 30 DAYS: No - HPI Occurred: Just prior to arrival Where: Home Context: Fell from sitting Associated symptoms: None Location of injury/pain: Chest, Hip Quality of pain: Achy - Related data Allergies/Adverse Reactions: No Known Allergies Allergy (Verified 03/07/18 12:57) Past Medical History - General Information source: Patient - Social History Smoking Status: Current Every Day Smoker Frequency of alcohol use: Heavy Drug Abuse: None Occupation: None Lives with: Family Family History: CAD Patient has suicidal ideation: No Patient has homicidal ideation: No - Past Medical History Cardiac Medical History: Reports: Hx DVT - 1995, Hx Hypercholesterolemia, Hx Hypertension Denies: Hx Atrial Fibrillation, Hx Congestive Heart Failure, Hx Coronary Artery Disease, Hx Heart Attack, Hx Pulmonary Embolism Pulmonary Medical History: Reports: Hx Asthma, Hx Bronchitis, Hx COPD Denies: Hx Sleep Apnea Neurological Medical History: Denies: Hx Seizures Endocrine Medical History: Reports: Hx Diabetes Mellitus Type 2 - Diet controlled, Hx Hypothyroidism. Denies: Hx Diabetes Mellitus Type 1, Hx Hyperthyroidism Renal/ Medical History: Denies: Hx Peritoneal Dialysis GI Medical History: Reports: Hx Gastroesophageal Reflux Disease. Denies: Hx Cirrhosis, Hx Hepatitis Musculoskeltal Medical History: Reports Hx Arthritis Psychiatric Medical History: Reports: Hx Depression Infectious Medical History: Denies: Hx Hepatitis Past Surgical History: Reports: Hx Section - x3, Hx Hysterectomy, Hx Orthopedic Surgery - L Foot, L Leg,, Hx Tonsillectomy - Immunizations Hx Diphtheria, Pertussis, Tetanus Vaccination: No Hx Pneumococcal Vaccination: 12/11/13 Review of Systems - Review of Systems Constitutional: No symptoms reported EENT: No symptoms reported Cardiovascular: Chest pain. denies: Dyspnea Respiratory: Cough Gastrointestinal: Nausea, Vomiting. denies: Abdominal pain, Diarrhea Genitourinary: No symptoms reported Female Genitourinary: No symptoms reported Musculoskeletal: Joint pain - Left hip. denies: Back pain Skin: No symptoms reported Hematologic/Lymphatic: No symptoms reported Neurological/Psychological: No symptoms reported. denies: Lost consciousness, Headaches Physical Exam - Vital signs Vitals: Resp Pulse Ox 19 97 03/07/18 12:34 03/07/18 12:34 - General General appearance: Appears well, Alert In distress: None Notes: pt smells of ETOH - HEENT Head: Normocephalic, Atraumatic. No: Abrasions, Bella's sign, Ecchymosis, [place]'s eyes, Tenderness Eyes: Normal Conjunctiva: Normal Ears: Normal External canal: Normal Nasal: Normal Mouth/Lips: Normal Pharynx: Normal Neck: Normal, Supple. No: Lymphadenopathy - Respiratory Respiratory status: No respiratory distress Chest status: Pain with cough Breath sounds: Nonproductive cough, Wheezing Chest palpation: Tender - Cardiovascular Rhythm: Regular Heart sounds: S1 appreciated, S2 appreciated Murmur: No - Abdominal Inspection: Obese Distension: No distension Bowel sounds: Normal Tenderness: Nontender - Back Back: Normal, Nontender. No: CVA tenderness, Vertebra tenderness - Extremities General upper extremity: Normal inspection, Normal strength Shoulder: Normal, Nontender Arm: Normal, Nontender Elbow: Normal, Nontender Forearm: Normal, Nontender Wrist: Normal, Nontender Hand: Normal, Nontender Hip: Tender - left hip with overlying scar. No: Deformity, Dislocation Thigh: Normal, Nontender Ankle: Normal, Nontender Foot: Normal, Nontender - Neurological Neuro grossly intact: Yes Orientation: AAOx4 [place] Coma Scale Eye Opening: Spontaneous [place] Coma Scale Verbal: Oriented [place] Coma Scale Motor: Obeys Commands [place] Coma Scale Total: 15 - Psychological Associated symptoms: Normal affect, Normal mood - Skin Skin Temperature: Warm Skin Moisture: Dry Skin Color: Normal Course - Re-evaluation Re-evalutation: 03/07/18 15:17 Patient ambulatory to bathroom unassisted. Patient returned to room. Patient states that she is wanting to go home. Patient does have a responsible friend who is here with her who will be driving her home. Patient is able to ambulate unassisted and is clinically sober at this time. Patient does acknowledge that she drinks heavily each day but that she does not have any additional symptoms that she is worried about having further evaluated at this time. The patient has decided not to proceed with further recommended testing or treatment to determine the cause of her symptoms. The risk and alternatives to the recommendation were discussed the patient voiced understanding. The patient appears clinically to have the capacity to make this decision. The patient was instructed that they could return to the ER at any time to complete the testing or treatment. - Vital Signs Vital signs: Temp Pulse Resp BP Pulse Ox 98.6 F 25 H 119/85 94 03/07/18 12:57 03/07/18 14:08 03/07/18 14:49 03/07/18 14:08 - Laboratory Result Diagrams: 03/07/18 11:30 03/07/18 14:29 Laboratory results interpreted by me: 03/07/18 03/07/18 11:30 14:29 RBC 3.71 L MCV 101 H RDW 17.4 H Plt Count 142 L Sodium 151.1 H Chloride 114 H Total Bilirubin < 0.1 L Total Protein 5.6 L Albumin 3.4 L Serum Alcohol 321 H* Discharge - Discharge Clinical Impression: Left hip pain Fall Qualifiers: Encounter type: initial encounter Qualified Code(s): W19.XXXA - Unspecified fall, initial encounter COPD (chronic obstructive pulmonary disease) Qualifiers: COPD type: unspecified COPD Qualified Code(s): J44.9 - Chronic obstructive pulmonary disease, unspecified Chest pain Qualifiers: Chest pain type: unspecified Qualified Code(s): R07.9 - Chest pain, unspecified Disposition: AGAINST MEDICAL ADVICE Instructions: Chronic Obstructive Lung Disease ([facility]), Chest Pain of Unclear Cause ([facility]), Sprain ([facility]) Additional Instructions: Return immediately for any new or worsening symptoms Followup with your primary care provider, call tomorrow to make a followup appointment Follow-up with a supervisory training specialist for recheck, call tomorrow for an appointment Follow up with your orthopedic surgeon for recheck. Referrals: [facility] [Provider Group] - Follow up as needed FANNY ROMERO MD [ACTIVE STAFF] - Follow up as needed BRITTNEY HERBERT PA [ALLIED HEALTH PROFESSIONAL] - Follow up tomorrow
[2018-03-07] MEDS ORDERED: IPRATROPIUM/ALBUTEROL 0.5-2.5 MG/3 ML AMPUL NEB ONE (13:09)
[2018-03-07 13:18] LABS: CREATINE KINASE MB 0.45 ng/mL (<4.55)
[2018-03-07 13:19] LABS: TROPONIN I < 0.012 ng/mL
--- NOTE | 2018-03-07 13:36 | RADIOLOGY REPORT (SQ) ---
EXAM DESCRIPTION: HIP LEFT AP/LATERAL COMPLETED DATE/TIME: 03/07/2018 1:19 pm REASON FOR STUDY: fall COMPARISON: None. NUMBER OF VIEWS: Two views. TECHNIQUE: AP pelvis and additional frog-leg view of the left hip. LIMITATIONS: None. FINDINGS: MINERALIZATION: Normal. LEFT HIP: Patient is status post left total hip replacement. The prosthesis appears well seated in t he acetabulum and proximal femoral medullary canal in the projections obtained. No acute fracture or dislocation is seen. RIGHT HIP: No fracture or dislocation. No worrisome bone lesions. PUBIS AND ISCHIUM: No fracture. PELVIS: No fracture. SACRUM: No fracture or dislocation. No worrisome bone lesions. LOWER LUMBAR SPINE: No fracture or dislocation. No worrisome bone lesions. No significant disc disea se. SOFT TISSUES: No findings. OTHER: No other significant finding. IMPRESSION: Status post left total hip replacement. No acute fracture or dislocation. Other findin gs as noted above TECHNICAL DOCUMENTATION: JOB ID: [id number] [email or web address]- All Rights Reserved Reading location - IP/workstation name: [email or web address]
[2018-03-07 14:51] VITALS: BP 119/85
[2018-03-07 15:04] LABS: ALANINE AMINOTRANSFERASE 19 U/L (9-52); ALBUMIN 3.4 g/dL (3.5-5.0); ALKALINE PHOSPHATASE 63 U/L (38-126); ANION GAP 12 (5-19); ASPARTATE AMINO TRANSFERASE 17 U/L (14-36); BLOOD UREA NITROGEN 10 mg/dL (7-20); CALCIUM 8.7 mg/dL (8.4-10.2); CARBON DIOXIDE 25 mmol/L (22-30); CHLORIDE 114 mmol/L (98-107); CREATINE KINASE 37 U/L (30-135); GLUCOSE 103 mg/dL (75-110); POTASSIUM 4.2 mmol/L (3.6-5.0); SODIUM 151.1 mmol/L (137-145); TOTAL PROTEIN 5.6 g/dL (6.3-8.2)
[2018-03-07 15:06] LABS: BILIRUBIN,TOTAL < 0.1 mg/dL (0.2-1.3)
[2018-03-07 15:14] LABS: ALCOHOL 321 mg/dL (NONE DETECTED)
--- NOTE | 2018-03-07 22:32 | EKG REPORT ---
SEVERITY:- NORMAL ECG - SINUS RHYTHM : Confirmed by: Paris Klein 07-Mar-2018 22:32:06
== END 2018-03-07 15:16 | disposition left against medical advice (07) ==
LOC: ER 12:28
DX: R07.89 Other chest pain (principal); M25.552 Pain in left hip; W07.XXXA Fall from chair, initial encounter; Y93.89 Activity, other specified; Y92.009 Unspecified place in unspecified non-institutional (private) residence as the place of occurrence of the external cause; J44.9 Chronic obstructive pulmonary disease, unspecified; R11.2 Nausea with vomiting, unspecified; R05 Cough; I10 Essential (primary) hypertension; E11.9 Type 2 diabetes mellitus without complications
CPT/HCPCS: 93005; 94640; 99285; 36415; 82553; 80307; 82550; 85025; 80053; 84484; 71045; 73502; 93010; J7620